=== PATIENT | male | born 1955 | race Caucasian/White ===

== ENCOUNTER 2023-11-12 14:59 | Emergency (ER) | payer MEDICARE, SELFPAY ==
--- NOTE | 2023-11-12 15:03 | ED_ITS ---
HPI - General Adult General Chief complaint: Extremity Injury, Lower Stated complaint: Toe nail removed/diabetic Source: patient Mode of arrival: ambulatory Limitations: no limitations History of Present Illness ED Provider: Cesar STOCK HPI narrative: 68 year old male DM, HLD presenting with concerns of loss of toenail on R. hallux with associated bleeding. Pt woke this morning and his toenail fell off, he denies trauma to the area. No fevers, chills, headache, vision changes, leg pain, nausea, vomiting, abd pain Related Data Previous Rx's ?Medication ?Instructions ?Recorded bacitracin 500 unit/gram topical 1 appl topical Q8H #28 grams 11/12/23 ointment cephalexin 500 mg tablet 500 mg PO Q6H 7 days #28 tabs 11/12/23 Allergies Allergy/AdvReac Type Severity Reaction Status Date / Time No Known Allergies Allergy Verified 11/12/23 15:10 Review of Systems Review of Systems: Yes all other systems are reviewed and are negative PMFSH Past Medical History Attestation statement: The following information was validated with the patient. Source: old records reviewed and nursing notes reviewed Physical Exam ED Vital Signs: vss Appearance: Alert.? Oriented X3.? No acute distress.? Head: Normocephalic, atraumatic, no step-offs or deformities Eyes: Pupils equal, round and reactive to light.? CVS: Normal heart rate and rhythm.? Pulses normal.? Respiratory: No respiratory distress.? Breath sounds normal.? Abdomen: Soft and nontender.? Skin: Skin warm and dry.? Normal skin color.? Normal skin turgor.? Extremities: No lower extremity edema.? No calf ttp. 5/5 strength to bilateral upper and lower extremities. Normal distal sensation to b/l LE. Right great toe w/ nail bed exposed and missing toe nail. Back: No midline tenderness, no C-spine tenderness, full range of motion, no CVA tenderness bilaterally Neuro: Oriented X 3.? No motor deficit.? No sensory deficit. CN 2-12 intact Course Course Course Narrative: This is an RME done by CHLOE Guerrero: Additional HPI, ROS, PE not included below will be deferred to primary provider. 68 year old man presenting with concerns of loss of toenail on R. hallux with associated bleeding. Pt woke this morning and his toenail fell off, he denies trauma to the area. Plan - antibiotics Appearance: Alert.? Oriented X3.? No acute cardiopulmonary distress distress.? Head: Normocephalic, atraumatic, no step-offs or deformities Neck: Normal inspection.? Neck supple.? CVS: Pulses normal.? Respiratory: No respiratory distress.? Abdomen: Soft and nontender.? Skin: ? Normal skin color. Extremities: 5/5 strength to bilateral upper and lower extremities; + missing nail on R hallux Neuro: Oriented X 3.? No motor deficit.? No sensory deficit. Reevaluation(s) Reevaluation #1: Educated patient on diagnosis and treatment plan, answered all question, patient verbalizes understanding. At this time patient will be discharged home, advised to return with new or worsening symptoms. Educated on worrisome signs and symptoms and when to return. At this time I feel comfortable discharge home. Medical Decision Making Medical Decision Making MDM Narrative: 68 year old male presents w/ missing right great toe nail PE - Normal distal sensation to b/l LE. Right great toe w/ nail bed exposed and missing toe nail. Concernes for missing toe nail, nail bed exposure. No signs of infection Plan- Xeroform dressing keep on for 48 hours. follow up with PCP in a week. and PO atbx Differential Diagnosis Differential Diagnoses: The differential diagnosis associated with the presentation includes Concernes for missing toe nail, nail bed exposure. No signs of infection Admission/Observation Consideration of admission/observation: Escalation of care including admission/observation considered unlikely Prescription Management I considered prescription management with: Antibiotic Chronic Conditions Patient?s care impacted by: Diabetes Discharge Plan Discharge Clinical Impression: Avulsion of toenail of right foot Patient Disposition: Home, Self-Care Instructions: Nail Avulsion (ED) Additional Instructions: TAKE YOUR MEDICATIONS PRESCRIBED. IF YOU WERE PRESCRIBED ANTIBIOTICS TODAY, IT IS IMPORTANT THAT YOU TAKE YOUR MEDICATION TO THEIR ENTIRETY, DO NOT SKIP ANY DOSES, DO NOT FINISH THEM EARLY. FOLLOW-UP WITH YOUR PRIMARY CARE PROVIDER THIS WEEK. RETURN TO THE EMERGENCY DEPARTMENT WITH NEW OR WORSENING SYMPTOMS. SUCH FEVE RS, CHILLS, CHEST PAIN, SHORTNESS OF BREATH, NAUSEA, VOMITING, DIZZINESS, HEADACHE, VISION CHANGES, LETHARGY IN CASE OF EMERGENCY CALL 911 Prescriptions: New cephalexin 500 mg tablet 500 mg PO Q6H 7 Days Qty: 28 0RF bacitracin 500 unit/gram ointment 1 appl topical Q8H Qty: 28 0RF Referrals: [facility] [Provider Group] - 1 day ED Physician,Blanca [Emergency Provider] - 2 days Percy Moran MD [Primary Care Provider] -
[2023-11-12 15:04] VITALS: BP 138/56; PULSE 79; RESP 18; TEMP 36.4; O2SAT 94; BMI 48.6
--- OUTSIDE RECORDS SUMMARY | 2023-11-12 15:25 | XMS_ITS | Continuity of Care Document ---
Author Organization [facility] Address [address] [place] [id number]- Care Team Providers Care Speaker Mounter Name Role Phone Brandee-Roseanne ORNELAS, Mojgan Primary Care Physicia n [place] [facility] [place](s): 02/05/20 - 04/23/20 [facility] [address] [place] [address] Attending Physician: Anita BRYANT, Renetta Mckinney Admitting Physician: Anita BRYANT, Renetta Mckinney Referring Physician: Roseanne Savage MD, V Allergies, Adverse Reactions, Alerts Substance Reaction Severity Status NKA Active Medications Aerochamber See Instructions, # 1 each, Maintenance, use with both inhalers., 06/23/18 9:24:00 EDT, Compound Start Date: 06/23/18 Status: Ordered aspirin 81 mg oral delayed release tablet 81 mg, By Mouth, Daily, # 30 tablet, Refills 1, Tot. Refills 1, Maintenance, 11/18/17 15:43:40 EDT,Route to Pharmacy Electronically, [id number], [facility]/pharmacy #[id number] Start Date: 11/18/17 Status: Ordered gabapentin 400 mg oral capsule 300 mg, By Mouth, 3 times a day, Refills 0, Maintenance, 11/18/17 14:24:32 EDT Start Date: 11/18/17 Status: Ordered Insulin LISPRO Inj = 20 units, 3 times a day before meals, 0 Refills, Maintenance, 11/14/17 17:58:12 EDT Start Date: 11/14/17 Status: Ordered Jardiance 10 mg oral tablet 1 tablet = 10 mg, By Mouth, Daily in AM, 0 Refills, Maintenance, 03/31/20 10:42:00 EST, Partial fill upon patient request if the prescription is for a schedule II opioid drug. Start Date: 03/31/20 Status: Ordered lisinopril 10 mg oral tablet 10 mg, 1, tablet, By Mouth, Daily, # 90 tablet, Refills 3, Tot. Refills 3, Maintenance, 03/20/20 22:07:00 EST, Route to Pharmacy Electronically, [facility]/pharmacy #[id number], 182, cm, 01/04/20 14:44:00 EDT, Height Start Date: 03/20/20 Stop Date: 03/15/21 Status: Ordered Metformin = 500 mg, By Mouth, 2 times a day, 0 Refills, Maintenance, 01/04/20 14:47:00 EDT Start Date: 01/04/20 Status: Ordered metoprolol 25 mg oral tablet 25 mg, 1, tablet, By Mouth, 2 times a day, # 180 tablet, Refills 0, Tot. Refills 0, Maintenance, 03/24/20 10:58:00 EST, Route to Pharmacy Electronically, [facility]/pharmacy #[id number], Partial fill upon patientrequest if the prescription is for a schedule II op... Start Date: 03/24/20 Status: Ordered ProAir HFA 90 mcg/inh inhalation aerosol with adapter 2, puffs, Inhalation, Every 4 hours, PRN, # 1 each, Refills 5, Tot. Refills 5, Maintenance, 09/29/18 8:33:00 EDT, Aerosol, Route to Pharmacy Electronically, [id number], [facility]/pharmacy #[id number] Start Date: 09/29/18 Status: Ordered rosuvastatin 10 mg oral tablet 1 tablet = 10 mg, By Mouth, Daily, Maintenance, 02/14/18 15:27:21 EST, Tablet Start Date: 02/14/18 Status: Ordered Symbicort 160mcg/4.5mcg Inhaler 2, puffs, Inhalation, 2 times a day, # 60 puffs, Refills 5, Tot. Refills 5, Maintenance, 12/22/18 11:03:48 EDT, Aerosol, Route to Pharmacy Electronically, [id number], [facility]/pharmacy #2339 Start Date: 12/22/18 Status: Ordered Nikhil HaoStar = 110 units, Subcutaneous Infusion, Daily at bedtime, 0 Refills, Maintenance, 03/31/20 10:41:00 EST, Partial fill upon patient request if the prescription is for a schedule II opioid drug. 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
--- OUTSIDE RECORDS SUMMARY | 2023-11-12 15:25 | XMS_ITS | Continuity of Care Document ---
Author Organization [facility] Address [address] [place] [phone]- Care Team Providers Care Fruit Grader Operator Name Role Phone Brandee-Roseanne ORNELAS, Mojgan Primary Care Physicia n [place] [facility] [place] [facility] [id number] Date(s): 12/25/19 - 01/24/20 [facility] [address] [place] [id number] Attending Physician: AdmTammi malik Admitting Physician: Admtr, Ar8 Referring Physician: Admtr, Ar8 Allergies, Adverse Reactions, Alerts Substance Reaction Severity Status NKA Active Medications Aerochamber See Instructions, # 1 each, Maintenance, use with both inhalers., 06/23/18 9:24:00 EDT, Compound Start Date: 06/23/18 Status: Ordered aspirin 81 mg oral delayed release tablet 81 mg, By Mouth, Daily, # 30 tablet, Refills 1, Tot. Refills 1, Maintenance, 11/18/17 15:43:40 EDT,Route to Pharmacy Electronically, [id number], [facility]/pharmacy #[id number] Start Date: 11/18/17 Status: Ordered fluticasone CFC free 110 mcg/inh inhalation aerosol 2 puffs, Inhalation, 2 times a day, rinse mouth and throat after use, # 1 each, 11 Refills, Maintenance, 12/03/18 15:59:00 EDT, Aerosol, ICD Code J45.30 Start Date: 12/03/18 Status: Ordered gabapentin 400 mg oral capsule 400 mg, By Mouth, 2 times a day, Refills 0, Maintenance, 11/18/17 14:24:32 EDT Start Date: 11/18/17 Status: Ordered insulin glargine 100 u/ml subcutaneous solution = 70 units, Subcutaneous Injection, Daily at bedtime, 0 Refills, Maintenance, 11/18/17 14:24:58 EDT, Injection Start Date: 11/18/17 Status: Ordered Insulin LISPRO Inj See Instructions, Sliding scale with meals, 0 Refills, Maintenance, 11/14/17 17:58:12 EDT Start Date: 11/14/17 Status: Ordered lisinopril 10 mg oral tablet 10 mg, 1, tablet, By Mouth, Daily, # 90 tablet, Refills 0, Tot. Refills 0, Maintenance, 12/25/19 8:16:00 EDT, Route to Pharmacy Electronically, [facility]/pharmacy #[id number], 182, cm, 12/25/19 8:03:00 EDT, Height, 149.5, kg, 02/16/18 10:36:00 EST, Dry Weight Start Date: 12/25/19 Status: Ordered Metformin = 500 mg, By Mouth, 2 times a day, 0 Refills, Maintenance, 01/04/20 14:47:00 EDT Start Date: 01/04/20 Status: Ordered metoprolol 25 mg oral tablet 12.5 mg, By Mouth, 2 times a day, # 60 tablet, Refills 1, Tot. Refills 1, Maintenance, 11/18/17 15:44:15 EDT, Route to Pharmacy Electronically, [id number], [facility]/pharmacy #[id number] Start Date: 11/18/17 Status: Ordered ProAir HFA 90 mcg/inh inhalation aerosol with adapter 2, puffs, Inhalation, Every 4 hours, PRN, # 1 each, Refills 5, Tot. Refills 5, Maintenance, 09/29/18 8:33:00 EDT, Aerosol, Route to Pharmacy Electronically, [id number], [facility]/pharmacy #2339 Start Date: 09/29/18 Status: Ordered rosuvastatin 10 mg oral tablet 1 tablet = 10 mg, By Mouth, Daily, Maintenance, 02/14/18 15:27:21 EST, Tablet Start Date: 02/14/18 Status: Ordered Symbicort 160mcg/4.5mcg Inhaler 2, puffs, Inhalation, 2 times a day, # 60 puffs, Refills 5, Tot. Refills 5, Maintenance, 12/22/18 11:03:48 EDT, Aerosol, Route to Pharmacy Electronically, [id number], [facility]/pharmacy #2339 Start Date: 12/22/18 Status: Ordered Problem List Condition Effective Dates [...]
--- OUTSIDE RECORDS SUMMARY | 2023-11-12 15:25 | XMS_ITS | Continuity of Care Document ---
Author Organization [facility] Address [address] [address]- Care Team Providers Care Child Day Care Teacher Name Role Phone [place]-Roseanne ORNELAS, Mojgan Primary Care Physicia n En[place] [facility] [place] Date(s): 05/19/19 - 05/29/19 [facility] [address] [address]- [facility] Attending Physician: Tammi Padgett Admitting Physician: AdmTammi malik Referring Physician: AdmtrTammi Allergies, Adverse Reactions, Alerts Substance Reaction Severity Status NKA Active Medications Aerochamber See Instructions, # 1 each, Maintenance, use with both inhalers., 06/23/18 9:24:00 EDT, Compound Start Date: 06/23/18 Status: Ordered aspirin 81 mg oral delayed release tablet 81 mg, By Mouth, Daily, # 30 tablet, Refills 1, Tot. Refills 1, Maintenance, 11/18/17 15:43:40 EDT,Route to Pharmacy Electronically, [id number], [facility]/pharmacy #[id number] Start Date: 11/18/17 Status: Ordered fluticasone [...] 17:58:12 EDT Start Date: 11/14/17 Status: Ordered lidocaine 5% topical film 1 patch, Topically, Daily, remove patches after 12 hours, # 14 patch, 0 Refills, Maintenance, 02/06/19 15:05:37 EST Start Date: 02/06/19 Status: Ordered lisinopril 5 mg oral tablet 5 mg, 1, tablet, By Mouth, Daily, # 30 tablet, Refills 0, Maintenance, 12/18/17 14:57:57 EDT Start Date: 12/18/17 Status: Ordered metoprolol 25 mg oral tablet 12.5 mg, By Mouth, 2 times a day, # 60 tablet, Refills 1, Tot. Refills 1, Maintenance, 11/18/17 15:44:15 EDT, Route to Pharmacy Electronically, [id number], [facility]/pharmacy #[id number] Start Date: 11/18/17 Status: Ordered ProAir HFA 90 mcg/inh inhalation aerosol with adapter 2, puffs, Inhalation, Every 4 hours, PRN, # 1 each, Refills 5, Tot. Refills 5, Maintenance, 09/29/18 8:33:00 EDT, Aerosol, Route to Pharmacy Electronically, [id number], [facility]/pharmacy #2339 Start Date: 09/29/18 Status: Ordered rosuvastatin 10 mg oral tablet 1 tablet = 10 mg, By Mouth, Daily, Maintenance, 02/14/18 15:27:21 EST, Tablet Start Date: 02/14/18 Status: Ordered Symbicort 160mcg/4.5mcg Inhaler 2, puffs, Inhalation, 2 times a day, # 60 puffs, Refills 5, Tot. 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
--- OUTSIDE RECORDS SUMMARY | 2023-11-12 15:25 | XMS_ITS | Continuity of Care Document ---
Author Organization [facility] Address [address] [place] [phone]- Care Team Providers Care Service Station Console Operator Name Role Phone Brandee-Roseanne ORNELAS, Mojgan Primary Care Physicia n Encounter [facility] [place] Date(s): 03/29/20 - 04/28/20 [facility] [address] [place] [place] [id number] Allergies, Adverse Reactions, Alerts Substance Reaction Severity Status NKA Active Medications Aerochamber See Instructions, # 1 each, Maintenance, use with both inhalers., 06/23/18 9:24:00 EDT, Compound Start Date: 06/23/18 Status: Ordered aspirin 81 mg oral delayed release tablet 81 mg, By Mouth, Daily, # 30 tablet, Refills 1, Tot. Refills 1, Maintenance, 11/18/17 15:43:40 EDT,Route to Pharmacy Electronically, [id number], [facility]/pharmacy #[id number] Start Date: 11/18/17 Status: Ordered gabapentin 400 [...] 03/20/20 22:07:00 EST, Route to Pharmacy Electronically, [facility]/pharmacy #[id number], 182, cm, 01/04/20 14:44:00 EDT, Height [...] 03/24/20 10:58:00 EST, [id number] fill upon patientrequest if the prescription is for a schedule II op... Start Date: 03/24/20 Status: Ordered ProAir HFA 90 mcg/inh inhalation aerosol with adapter 2, puffs, Inhalation, Every 4 hours, PRN, # 1 each, Refills 5, Tot. Refills 5, Maintenance, 09/29/18 8:33:00 EDT, Aerosol, Route to Pharmacy Electronically, [id number], [facility]/pharmacy #2339 Start Date: 09/29/18 Status: Ordered rosuvastatin 10 mg oral tablet 1 tablet = 10 mg, By Mouth, Daily, Maintenance, 02/14/18 15:27:21 EST, Tablet Start Date: 02/14/18 Status: Ordered Symbicort 160mcg/4.5mcg Inhaler 2, puffs, Inhalation, 2 times a day, # 60 puffs, Refills 5, Tot. Refills 5, Maintenance, 12/22/18 11:03:48 EDT, Aerosol, Route to Pharmacy Electronically, [id number], [facility]/pharmacy #2339 Start Date: 12/22/18 Status: Ordered Toujeo Max SoloStar = 110 units, Subcutaneous Infusion, Daily at [...]
--- OUTSIDE RECORDS SUMMARY | 2023-11-12 15:25 | XMS_ITS | Continuity of Care Document ---
Author Organization [facility] Address [address] [place] [id number]- Care Team Providers Care Proposal Manager Name Role Phone [place]-Roseanne ORNELAS, Mojgan Primary Care Physicia n [place] [facility] [place] [id number] Date(s): 12/23/20 - 01/22/21 [facility] [address] [place] [address]- Attending Physician: Tammi Padgett Admitting Physician: AdmTammi malik Referring Physician: AdmtrTammi Allergies, Adverse Reactions, Alerts Substance Reaction Severity Status NKA Active Immunizations Given and Recorded Vaccine Date Status Refusal Reason SARS-CoV-2 (COVID-19) mRNA-1273 vaccine 01/12/21 R ecorded Zoster Vaccine Live 01/06/21 Recorded influenza virus vaccine, inactivated 12/28/20 David rded Medications Aerochamber See Instructions, # 1 each, Maintenance, use with both inhalers., 06/23/18 9:24:00 EDT, Compound Start Date: 06/23/18 Status: Ordered aspirin 81 mg oral delayed release tablet 81 mg, By Mouth, Daily, # 30 tablet, Refills 1, Tot. Refills 1, Maintenance, 11/18/17 15:43:40 EDT,Route to Pharmacy Electronically, [id number], [facility]/pharmacy #[id number] Start Date: 11/18/17 Status: Ordered Cyclobenzaprine By Mouth, 0 Refills, Maintenance, 12/23/20 8:32:00 EDT, Partial fill upon patient request if the prescription is for a schedule II opioid drug. Start Date: 12/23/20 Status: Ordered gabapentin 100 mg oral capsule 100 mg, 1, capsule, By Mouth, 3 times a day, # 90 capsule, Refills 0, Maintenance, 12/23/20 8:31:00EDT, Partial fill upon patient request if the prescription is for a schedule II opioid drug. Start Date: 12/23/20 Status: Ordered Insulin LISPRO Inj = 20 [...] drug. Start Date: 03/31/20 Status: Ordered lisinopril 20 mg oral tablet 20 mg, 1, tablet, By Mouth, Daily, # 90 tablet, Refills 3, Tot. Refills 3, Maintenance, 12/23/20 8:36:00 EDT, Print Requisition, Partial fill upon patient request if the prescription is for a schedule II opioid drug. Start Date: 12/23/20 Status: Ordered Metformin = 500 mg, By Mouth, 2 times a day, 0 Refills, Maintenance, 01/04/20 14:47:00 EDT Start Date: 01/04/20 Status: Ordered Metoprolol Tartrate 25 mg oral tablet 1 tablet, By Mouth, 2 times a day, # 180 tablet, 0 Refills, Maintenance, 06/29/20 7:50:00 EDT, [id number], 182.88, cm, 04/13/20 6:45:00 EST, Height, 158, kg, 04/13/20 6:45:00 EST, Dry Weight Start Date: 06/29/20 Status: Ordered ProAir HFA 90 mcg/inh inhalation aerosol with adapter 2, puffs, Inhalation, Every 4 hours, PRN, # 1 each, Refills 5, Tot. Refills 5, Maintenance, 09/29/18 8:33:00 EDT, Aerosol, Route to Pharmacy Electronically, [id number], [facility]/pharmacy #[id number] Start Date: 09/29/18 Status: Ordered rosuvastatin 10 mg oral tablet 1 tablet = 10 mg, By Mouth, Daily, Maintenance, 02/14/18 15:27:21 EST, Tablet Start Date: 02/14/18 Status: Ordered Symbicort 160mcg/4.5mcg Inhaler 2, puffs, Inhalation, 2 times a day, # 60 puffs, Refills 5, Tot. Refills 5, Maintenance, 12/22/18 11:03:48 EDT, Aerosol, Route to Pharmacy Electronically, [id number], [facility]/pharmacy #2339 Start Date: 12/22/18 Status: Ordered Nikhil Max SoloStar = 110 units, Subcutaneous Infusion, Daily at bedtime, 0 Refills, Maintenance, 03/31/20 10:41:00 EST, Partial fill upon patient request if the prescription is for a schedule II opioid drug. Start Date: 03/31/20 Status: Ordered Trulicity Pen Subcutaneous Infusion, 0 Refills, Maintenance, 12/23/20 8:31:00 EDT, Partial fill upon patient request if the prescription is for a schedule II opioid drug. 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
--- OUTSIDE RECORDS SUMMARY | 2023-11-12 15:25 | XMS_ITS | Continuity of Care Document ---
Author Organization [facility] Address [address] [place] [address]- Care Team Providers Care Certified Scrub Tech Name Role Phone Tyler ORNELAS, Mojgan Primary Care Physicia n [place] [facility] [place]20 [facility] [address] [address] [place] Allergies, Adverse Reactions, Alerts Substance Reaction Severity Status NKA Active Medications Aerochamber See Instructions, # 1 each, Maintenance, use with both inhalers., 06/23/18 9:24:00 EDT, Compound Start Date: 06/23/18 Status: Ordered aspirin 81 mg oral delayed release tablet 81 mg, By Mouth, Daily, # 30 tablet, Refills 1, Tot. Refills 1, Maintenance, 11/18/17 15:43:40 EDT,Route to Pharmacy Electronically, [id number], [facility]/pharmacy #[id number] Start Date: 11/18/17 Status: Ordered fluticasone CFC [...] 12/25/19 8:16:00 EDT, Route to Pharmacy Electronically, [facility]/pharmacy #[id number], 182, cm, 12/25/19 8:03:00 EDT, Height, [...] 11/18/17 15:44:15 EDT, Route to Pharmacy Electronically, [id number], [facility]/pharmacy #[id number] Start Date: 11/18/17 Status: Ordered ProAir HFA 90 mcg/inh inhalation aerosol with adapter 2, puffs, Inhalation, Every 4 hours, PRN, # 1 each, Refills 5, Tot. Refills 5, Maintenance, 09/29/18 8:33:00 EDT, Aerosol, Route to Pharmacy Electronically, [id number], [facility]/pharmacy #[id number] Start Date: 09/29/18 Status: Ordered rosuvastatin 10 mg oral tablet 1 tablet = 10 mg, By Mouth, Daily, Maintenance, 02/14/18 15:27:21 EST, Tablet Start Date: 02/14/18 Status: Ordered Symbicort 160mcg/4.5mcg Inhaler 2, puffs, Inhalation, 2 times a day, # 60 puffs, Refills 5, Tot. Refills 5, Maintenance, 12/22/18 11:03:48 EDT, Aerosol, Route to Pharmacy Electronically, [id number], [facility]/pharmacy #[id number] Start Date: 12/22/18 Status: Ordered Problem [...]
--- OUTSIDE RECORDS SUMMARY | 2023-11-12 15:25 | XMS_ITS | Continuity of Care Document ---
Author Organization [facility] Address [address] [place] [address]- Care Team Providers Care Quality Assurance Group Leader Name Role Phone Brandee-Roseanne ORNELAS, Mojgan Primary Care Physicia n [place] [facility] [place] 03/21/20 - 04/20/20 [facility] [address] [place] [address] Allergies, Adverse Reactions, Alerts Substance Reaction Severity Status NKA Active Medications Aerochamber See Instructions, # 1 each, Maintenance, use with both inhalers., 06/23/18 9:24:00 EDT, Compound Start Date: 06/23/18 Status: Ordered aspirin 81 mg oral delayed release tablet 81 mg, By Mouth, Daily, # 30 tablet, Refills 1, Tot. Refills 1, Maintenance, 11/18/17 15:43:40 EDT,Route to Pharmacy Electronically, [id number], [facility]/pharmacy #[id number] Start Date: 11/18/17 Status: Ordered gabapentin 400 [...] 03/20/20 22:07:00 EST, Route to Pharmacy Electronically, [facility]/pharmacy #[id number], 182, cm, 01/04/20 14:44:00 EDT, Height [...] 03/24/20 10:58:00 EST, [id number] fill upon patientrequest if the prescription is for a schedule II op... Start Date: 03/24/20 Status: Ordered ProAir HFA 90 mcg/inh inhalation aerosol with adapter 2, puffs, Inhalation, Every 4 hours, PRN, # 1 each, Refills 5, Tot. Refills 5, Maintenance, 09/29/18 8:33:00 EDT, Aerosol, Route to Pharmacy Electronically, [id number], [facility]/pharmacy #[id number] Start Date: 09/29/18 Status: Ordered rosuvastatin 10 mg oral tablet 1 tablet = 10 mg, By Mouth, Daily, Maintenance, 02/14/18 15:27:21 EST, Tablet Start Date: 02/14/18 Status: Ordered Symbicort 160mcg/4.5mcg Inhaler 2, puffs, Inhalation, 2 times a day, # 60 puffs, Refills 5, Tot. Refills 5, Maintenance, 12/22/18 11:03:48 EDT, Aerosol, Route to Pharmacy Electronically, [id number], [facility]/pharmacy #[id number] Start Date: 12/22/18 Status: Ordered Toujeo [...]
--- OUTSIDE RECORDS SUMMARY | 2023-11-12 15:25 | XMS_ITS | Continuity of Care Document ---
Author Organization [facility] Address [address] [place] [address]- Care Team Providers Care Stone Finisher Name Role Phone [place]-Roseanne ORNELAS, Mojgan Primary Care Physicia n [place] [facility] [place] [id number] Date(s): 03/07/22 - 04/06/22 [facility] [address] [place] [address]- Attending Physician: Tammi Padgett Admitting Physician: Tammi Padgett Referring Physician: AdmtrTammi Allergies, Adverse Reactions, Alerts No Known Allergies Immunizations Given and Recorded Vaccine Date Status [...] Maintenance, 11/18/17 15:43:40 EDT,Route to Pharmacy Electronically, [id number], [facility]/pharmacy #[id number] Start Date: 11/18/17 Status: Ordered Cyclobenzaprine By [...] drug. Start Date: 03/31/20 Status: Ordered lisinopril 30 mg oral tablet 1 tablet = 30 mg, By Mouth, Daily, # 90 tablet, 0 Refills, Maintenance, 03/07/22 8:37:00 EST, Tablet, [facility]/pharmacy #[id number], Partial fill upon patient request if the prescription is for a schedule II opioid drug., 182.88, cm, 03/07/22 8:26:00 EST, Height... Start Date: 03/07/22 Status: Ordered Metformin = 500 mg, By Mouth, 2 times a day, 0 Refills, Maintenance, 01/04/20 14:47:00 EDT Start Date: 01/04/20 Status: Ordered Metoprolol Tartrate 25 mg oral tablet 1 tablet, By Mouth, 2 times a day, # 180 tablet, 0 Refills, Maintenance, 06/29/20 7:50:00 EDT, [facility]ORE [id number], 182.88, cm, 04/13/20 6:45:00 EST, Height, 158, kg, 04/13/20 6:45:00 EST, Dry Weight Start Date: 06/29/20 Status: Ordered ProAir HFA 90 mcg/inh inhalation aerosol with adapter 2, puffs, Inhalation, Every 4 hours, PRN, # 1 each, Refills 5, Tot. Refills 5, Maintenance, 09/29/18 8:33:00 EDT, Aerosol, Route to Pharmacy Electronically, [id number], [facility]/pharmacy #2330 Start Date: 09/29/18 Status: Ordered rosuvastatin 10 mg oral tablet 1 tablet = 10 mg, By Mouth, Daily, Maintenance, 02/14/18 15:27:21 EST, Tablet Start Date: 02/14/18 Status: Ordered Symbicort 160mcg/4.5mcg Inhaler 2, puffs, Inhalation, 2 times a day, # 60 puffs, Refills 5, Tot. Refills 5, Maintenance, 12/22/18 11:03:48 EDT, Aerosol, Route to Pharmacy Electronically, [id number], [facility]/pharmacy #[id number] Start Date: 12/22/18 Status: Ordered Tourusselo Max SoloStar = 110 units, Subcutaneous Infusion, [...] Date: 12/23/20 Status: Ordered Problem List Condition Confirmation Course Effective Dates Status Health Status Informant Asthma Confirmed Active CAD in [place] artery Confirmed Active Diabetes Confirmed Active Dyspnea Confirmed Active Personal history of sudden cardiac arrest Confirmed Active Status post myocardial infarction of anterior wall Confirmed Active Hypercholesteremia Confirmed Active Hypertension Confirmed Active LV dysfunction Confirmed Active Obesity Confirmed Active Severe obesity Confirmed Active Sleep apnea syndrome Confirmed Active Social History Social History Type Response Smoking Status Never smoker entered on: 11/27/17 Sex Note * Event Display: EKG Non BH Authored Date: Patient Care team information Care Team Personnel Name: Mojgan Scott MD Position: [facility] Primary Care Physician Member Role: PCP Address: Address: [address] [place] [address] [place] [address]- Name: Mariela Grant Position: [facility] Outreach Member Role: Lifetime Consulting Physician Care Team Related Persons Name: ATIYA DU Address: [address] [place] [address] Name: KAIN DU Address: [address] [place] [address]
--- OUTSIDE RECORDS SUMMARY | 2023-11-12 15:25 | XMS_ITS | Continuity of Care Document ---
Author Organization [facility] Address [address] [place] [address]- Care Team Providers Care Political Geographer Name Role Phone [place]-Roseanne ORNELAS, Mojgan Primary Care Physicia n Encounter [facility] [place] Date(s): 02/22/23 - 03/24/23 [facility] [address] [place] [address]- Attending Physician: Tammi Padgett Admitting Physician: Tammi [...] Maintenance, 11/18/17 15:43:40 EDT,Route to Pharmacy Electronically, [id number], [facility]/pharmacy #[id number] Start Date: 11/18/17 Status: Ordered Cyclobenzaprine By [...] opioid drug. Start Date: 12/23/20 Status: Ordered Humalog Kwik Pen 100 units/mL subcutaneous injection See Instructions, Subcutaneous Infusion, 3 times a day before meal 150 - 199 2 units 200 - 249 4 units, 250 - 299 6 units, 300 - 349 8 units, 350 - 399 10 units, # 3 each, 5 Refills, Maintenance, 12/30/22 9:36:00 EDT, Partial fill upon... Start Date: 12/30/22 Stop Date: 01/29/23 Status: Ordered Jardiance 10 mg oral tablet 1 tablet = 10 mg, By Mouth, Daily in AM, 0 Refills, Maintenance, 03/31/20 10:42:00 EST, Partial fill upon patient request if the prescription is for a schedule II opioid drug. Start Date: 03/31/20 Status: Ordered Lantus Inj 0.8 mL = 80 units, Subcutaneous Injection, Daily at bedtime, 0 Refills, Maintenance, 12/30/22 9:34:00 EDT, Injection, Partial fill upon patient request if the prescription is for a schedule II opioiddrug. Start Date: 12/30/22 Status: Ordered lisinopril 30 mg oral tablet 1 tablet, By Mouth, Daily, # 90 tablet, 0 Refills, Maintenance, 11/23/22 11:13:00 EDT, [id number], 182.88, cm, 03/07/22 8:26:00 EST, Height Start Date: 11/23/22 Status: Ordered lisinopril 30 mg oral tablet 1 tablet, By Mouth, Daily, # 90 tablet, 3 Refills, Maintenance, 02/20/23 7:45:00 EST, [facility] [id number], 183, cm, 12/30/22 7:47:00 EDT, Height, 158, kg, 12/29/22 15:22:00 EDT, Dry Weight Start Date: 02/20/23 Status: Ordered Metformin = 500 mg, By Mouth, 2 times a day, 0 Refills, Maintenance, 01/04/20 14:47:00 EDT Start Date: 01/04/20 Status: Ordered Metoprolol Tartrate 25 mg oral tablet 1 tablet, By Mouth, 2 times a day, # 180 tablet, 0 Refills, Maintenance, 06/29/20 7:50:00 EDT, [facility] ST[facility] [id number], 182.88, cm, 04/13/20 6:45:00 EST, Height, 158, kg, 04/13/20 6:45:00 EST, Dry Weight Start Date: 06/29/20 Status: Ordered ProAir HFA 90 mcg/inh inhalation aerosol with adapter 2, puffs, Inhalation, Every 4 hours, PRN, # 1 each, Refills 5, Tot. Refills 5, Maintenance, 09/29/18 8:33:00 EDT, Aerosol, Route to Pharmacy Electronically, [id number], [facility]/pharmacy #[id number] Start Date: 09/29/18 Status: Ordered rosuvastatin 10 mg oral tablet 1 tablet = 10 mg, By Mouth, Daily, Maintenance, 02/14/18 15:27:21 EST, Tablet Start Date: 02/14/18 Status: Ordered Symbicort 160mcg/4.5mcg Inhaler 2, puffs, Inhalation, 2 times a day, # 60 puffs, Refills 5, Tot. Refills 5, Maintenance, 12/22/18 11:03:48 EDT, Aerosol, Route to Pharmacy Electronically, [id number], [facility]/pharmacy #[id number] Start Date: 12/22/18 Status: Ordered Trulicity Pen Subcutaneous Infusion, 0 Refills, Maintenance, 12/23/20 8:31:00 EDT, Partial fill upon patient request if the prescription is for a schedule II opioid drug. 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 Hypercholesteremia Confirmed Active Hypertension Confirmed Active LV dysfunction Confirmed Active Obesity Confirmed Active Severe obesity Confirmed Active Sleep apnea syndrome Confirmed Active Social History Social History Type Response Smoking Status Never smoker entered on: 11/27/17 Sex Cardiology * Event Display: EKG Non Authored Date: Patient Care team information Care Team Personnel Name: Mojgan Scott MD Position: [facility] Physician - Primary Care Member Role: PCP Address: Address: [address] [place] [address] [place] [address]- Name: Mariela Grant Position: [facility] Outreach Member Role: Lifetime Consulting Physician Name: Parvin Zimmer RN Position: [facility] RN Member Role: Primary Care Nurse Care Team Related Persons Name: ATIYA DU Address: [place] [address] Name: KAIN DU Address: home [address] [place] [address]
--- OUTSIDE RECORDS SUMMARY | 2023-11-12 15:25 | XMS_ITS | Continuity of Care Document ---
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 Name Role Phone Percy Moran MD Primary Care Physician Encounter [facility] Date(s): 12/29/22 - 12/30/[address] [address]- Encounter Diagnosis Hypoglycemia(Final) - 12/29/22 Uncontrolled diabetes mellitus with hypoglycemia(Final) - 12/29/22 Discharge Disposition: A-D/C Home Attending Physician: Adeola Padgett MD Admitting Physician: George Gutierrez MD Referring Physician: Not on Staff, Referring MD Allergies, Adverse Reactions, Alerts No Known Allergies [...] Maintenance, 11/18/17 15:43:40 EDT,Route to Pharmacy Electronically, [id number], [facility]/pharmacy #[id number] Start Date: 11/18/17 Status: Ordered Cyclobenzaprine By [...] drug. Start Date: 12/23/20 Status: Ordered gabapentin 300 mg oral capsule 900 mg, Capsule, By Mouth, 12/30/22 9:00:00 EDT Start Date: 12/30/22 Stop Date: 12/30/22 Status: Completed Humalog Kwik Pen 100 units/mL subcutaneous injection [...] opioiddrug. Start Date: 12/30/22 Status: Ordered lisinopril 10 mg oral tablet 30 mg, Tablet, By Mouth, 12/30/22 9:00:00 EDT Start Date: 12/30/22 Stop Date: 12/30/22 Status: Completed lisinopril 30 mg oral tablet 1 tablet, By Mouth, Daily, # 90 tablet, 0 Refills, Maintenance, 11/23/22 11:13:00 EDT, [facility] STORE [id number], 182.88, cm, 03/07/22 8:26:00 EST, Height Start Date: 11/23/22 Status: Ordered Metformin = 500 mg, By Mouth, 2 times a day, 0 Refills, Maintenance, 01/04/20 14:47:00 EDT Start Date: 01/04/20 Status: Ordered Metoprolol Tartrate 25 mg oral tablet 1 tablet, By Mouth, 2 times a day, # 180 tablet, 0 Refills, Maintenance, 06/29/20 7:50:00 EDT, [facility] STORE [id number], 182.88, cm, 04/13/20 6:45:00 EST, Height, 158, kg, 04/13/20 6:45:00 EST, Dry Weight Start Date: 06/29/20 Status: Ordered ProAir HFA 90 mcg/inh inhalation aerosol with adapter 2, puffs, Inhalation, Every 4 hours, PRN, # 1 each, Refills 5, Tot. Refills 5, Maintenance, 09/29/18 8:33:00 EDT, Aerosol, Route to Pharmacy Electronically, [id number], [facility]/pharmacy #[id number] Start Date: 09/29/18 Status: Ordered rosuvastatin 10 mg oral tablet 1 tablet = 10 mg, By Mouth, Daily, Maintenance, 02/14/18 15:27:21 EST, Tablet Start Date: 02/14/18 Status: Ordered Symbicort 160mcg/4.5mcg Inhaler 2, puffs, Inhalation, 2 times a day, # 60 puffs, Refills 5, Tot. Refills 5, Maintenance, 12/22/18 11:03:48 EDT, Aerosol, Route to Pharmacy Electronically, [id number], [facility]/pharmacy #[id number] Start Date: 12/22/18 Status: Ordered Toprol XL 25 mg oral tablet, extended release 25 mg, XL Tablet, By Mouth, 12/30/22 9:00:00 EDT Start Date: 12/30/22 Stop Date: 12/30/22 Status: Completed Trulicity Pen Subcutaneous Infusion, 0 Refills, Maintenance, 12/23/20 8:31:00 EDT, Partial fill upon patient request if the prescription is for a schedule II opioid drug. 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 Diabetes Confirmed Active Dyspnea Confirmed Active Personal history of sudden cardiac arrest Confirmed Active Status post myocardial infarction of anterior wall Confirmed Active Hypercholesteremia Confirmed Active Hypertension Confirmed Active LV dysfunction Confirmed Active Obesity Confirmed Active Severe obesity Confirmed Active Sleep apnea syndrome Confirmed Active Results Orders for Microbiology Reports Name Date Blood Culture 12/29/22 Blood Culture #2 12/29/22 Microbiology Reports TEST:Blood Culture STATUS:Unauthenticated BODY SITE: SOURCE:Blood COLLECTED DATE/TIME:12/29/22 2:51 AM Blood Culture SPECIMEN DESCRIPTION : BLOOD LA SPECIAL REQUESTS : NONE CULTURE : NO GROWTH AFTER 24 HOURS REPORT STATUS : PRELIMINARY REPORT TEST:Blood Culture, Second Order STATUS:Unauthenticated BODY SITE: SOURCE:Blood COLLECTED DATE/TIME:12/29/22 2:51 AM Blood Culture, Second Order SPECIMEN DESCRIPTION : BLOOD RA SPECIAL REQUESTS : NONE CULTURE : NO GROWTH AFTER 24 HOURS REPORT STATUS : PRELIMINARY REPORT Vital Signs Most recent to oldest [Reference Range]: 1 2 3 Height 183 cm (12/30/22 7:47 AM) 183 cm (12/30/22 4:49 AM) 183 cm (12/29/22 11:34 PM) Weight 158 kg (12/29/22 8:00 AM) Oxygen Saturation [94-100 %] 95 % (12/30/22 7:47 AM) 95 % (12/30/22 4:49 AM) 96 % (12/29/22 11:34 PM) Pulse Rate [55-90 bpm] 79 bpm (12/30/22 8:50 AM) 79 bpm (12/30/22 7:47 AM) 69 bpm (12/30/22 4:49 AM) Body Mass Index [18.5-24.99 kg/m2] 47.18 kg/m2 *>HHI* (12/29/22 8:00 AM) Blood Pressure [90-138/55-84 mm Hg] 132/65mm Hg (12/30/22 8:50 AM) 132/65mm Hg (12/30/22 8:50 AM) 132/65mm Hg (12/30/22 7:47 AM) Respiratory Rate [16-30 br/min] 18 br/min (12/30/22 8:50 AM) 18 br/min (12/30/22 7:47 AM) 18 br/min (12/30/22 4:49 AM) Temperature [96.8-100.4 DegF] 98.0 DegF (12/30/22 7:47 AM) 98.1 DegF (12/30/22 4:49 AM) 98.1 DegF (12/29/22 11:34 PM) Mode of Delivery (Oxygen) Room air (12/30/22 7:47 AM) Room air (12/30/22 4:49 AM) Room air (12/29/22 11:34 PM) Blood pressure sites Arm, right (12/30/22 7:47 AM) Arm, right (12/30/22 4:49 AM) Arm, right (12/29/22 11:34 PM) Temperature Route Oral (12/30/22 7:47 AM) Oral (12/30/22 4:49 AM) Oral (12/29/22 11:34 PM) Dry Weight 158 kg (12/29/22 8:00 AM) Social History Social History Type Response Smoking Status Never smoker entered on: 11/27/17 Sex Admission evaluation note * Kathryn ORNELAS, Arcadio: PERFORM Event Display: Admission Note Authored Date: [id number] Patient: ??YVES DU ? Age:??67 Years?Sex:??Male?:??1955?? Chief Complaint/Reason for Consultation Pt from home, noticed pt to be going in and out of consciousness, POC 24 at home, pt drank jordan fuentes, increased to 60s, and now 97 for EMS on arrival. History of Present Illness 66-year-old male patient with history of type 2 diabetes mellitus???insulin- dependent, CAD, hypertension, hyperlipidemia, morbid obesity, LING who presented to [facility] emergency room with complaints of hypoglycemia.?? Patient says that he is currently on long-acting insulin 130 unitsat night which he received last night.?? He was not feeling well last night and he was dizzy and lightheaded and was going in and out of consciousness and called carrier loader and his sugar was 24.?? After receiving dextrose and 2 sodas his glucose improved to 115 and patient reports that he has had multiple hypoglycemia episodes throughout the day.?? Denies any recent decrease in appetite or weight loss.?? Denies any cardiac, respiratory, abdominal or urinary symptoms.?? Denies any fever.?? Accompaniedby .?? Patient is full code. ?? On review of vitals, normotensive blood pressure, afebrile, saturation 96% on room air, heart rate in 70s and 60s, on review of labs???White count of 13.8, hemoglobin 14.9, platelets 182, sodium 142, potassium 4.4, creatinine 1.0, most recent POC glucose 265, TSH 1.51 Review of Systems Positive for weakness, dizziness,??waxing and waning??consciousness at home.?? Symptoms resolved after resolution of??hypoglycemia.?? Denies any chest pain, URI symptoms,??shortness of breath??or abdominal symptoms. Objective ? Vital Signs?? Temperature: 97.8 DegF (12/29/22:09:) Temperature Route: Oral (12/29/22::) Pulse Rate: 78 bpm (12/29/22::00) Respiratory Rate: 18 br/min (12/29/22::) Systolic Blood Pressure: 136 mm Hg (12/29/22:) Diastolic Blood Pressure: 70 mm Hg (12/29/22::) Blood pressure sites: Arm, right (12/29/22:09:) Mean Arterial Pressure: 92 mm Hg (12/29/22::) Pulse Pressure: 66 mm Hg (12/29/22::) Oxygen Saturation: 96 % (12/29/22::) Mode of Delivery (Oxygen): Room air (12/29/22:09:) Early Warning Score: 2 (12/29/22:09:30) ? Pain Scores?? No qualifying data available. ? Intake/Output? No Data Available ? Physical Exam ?? General appearance- alert, cooperative, no distress, appears stated age, oriented to time, placeand person, Head- Normocephalic, without obvious abnormality, atraumatic Eyes-conjunctivae/corneas clear. PERRL, EOM's intact. Nose- Nares normal. Septum midline. Mucosa normal. No drainage or sinus tenderness. Throat-Lips, mucosa, and tongue normal. Neck- supple, symmetrical, trachea midline, no adenopathy, thyroid: not enlarged, symmetric, no tenderness/mass/nodules, no carotid bruit and no JVD Back- symmetric, no curvature.?? No CVA tenderness Lungs-??clear to auscultation bilaterally Chest wall- no tenderness, no skin rash or lesions or bruising, no crepitance Heart- regular rate and rhythm, S1, S2 normal, no click, rub or gallop Abdomen-??soft, non-tender. Bowel sounds normal. No masses,?? No organomegaly Extremities- extremities normal, atraumatic, no cyanosis or edema, warm and well perfused. Muscle tone is normal and equal bilaterally Pulses- 2+ and symmetric on dorsal pedal pulses, posterior tibial pulses, radial pulses Skin- Skin color, texture, turgor normal. Neurologic- Normal, nonfocal, no focal weakness ?? Assessment/Plan ? Hypoglycemia in a patient with history of type 2 diabetes???insulin-dependent Check POC glucose every 4 hours Low-dose insulin sign scale Hypoglycemia pathway in place Decreasing Lantus to 80 units at night Holding metformin Patient says that he does not take Jardiance or Trulicity. ??Needs further confirmation with pharmacy ?? History of asthma Albuterol as needed Switching Symbicort to Breo ?? Hyperlipidemia Continue statin ?? Hypertension Continue metoprolol and lisinopril Awaiting further confirmation of dose with pharmacy ?? LING NIPPV at night ?? CAD Continue aspirin, beta-franklyn and statin ?? DVT prophylaxis???heparin subcu ?? Diet???cardiac/diabetic ?? CODE STATUS???full code ?? Arcadio Peralta MD [facility] Medicine Date-December 29, 2022.?? Patient??seen??at??9:45 AM ?? IMPORTANT: This document was created by voice recognition software. A conscious effort has been made to improve accuracy of the preschool teacher aide. Any obvious errors or omissions should be clarified with the authorof this document. ? Histories Allergies Allergies ?(Active and Proposed Allergies Only) NKA? (Severity: Unknown severity, Onset: Unknown) ? 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 Past Surgical History No surgery history documented. ? Social History Alcohol Details:??Use: Never. Employment/School Details:??Status: Retired. Exercise Details:??Self assessment: Fair condition. Home/Environment Details:??Living situation: Home/Independent. ??Lives with: Children, Spouse. Nutrition/Health Details:??Diet: Low sodium. ??Other: heart healthy. Substance Abuse Details:??Use: Never. Tobacco Details:??Never smoker ? Psychosocial History ? Family History Sister: Cancer of breast ? Travel History Travel Outside [facility]: No Travel Outside [facility]: No ?? Medications Home Medications Albuterol (ProAir HFA 90 mcg/inh inhalation aerosol with adapter)?2?puff(s)?Inhalation?Every 4 hours?as needed?for wheezing Aspirin (aspirin 81 mg oral delayed release tablet)?81?Milligram?By Mouth?Daily Budesonide-Formoterol (Symbicort 160mcg/4.5mcg Inhaler)?2?puff(s)?Inhalation?2 times a day Cyclobenzaprine?By Mouth dulaglutide (Trulicity Pen)?Subcutaneous Infusion Durable Medical Equipment (Aerochamber)?See Instructions?use with both inhalers. empagliflozin (Jardiance 10 mg oral tablet)?1?tab(s)?10?Milligram?By Mouth?Daily in AM Gabapentin (gabapentin 100 mg oral capsule)?100?Milligram?1?capsule?By Mouth?3 times a day Insulin Glargine (Toujeo Max SoloStar)?110?unit(s)?Subcutaneous Infusion?Daily at bedtime Insulin Lispro (Insulin LISPRO Inj)?20?unit(s)?3 times a day before meals Lisinopril (lisinopril 30 mg oral tablet)?1?tab(s)?By Mouth?Daily Metformin?500?Milligram?By Mouth?2 times a day Metoprolol (Metoprolol Tartrate 25 mg oral tablet)?1?tab(s)?By Mouth?2 times a day Rosuvastatin (rosuvastatin 10 mg oral tablet)?1?tab(s)?10?Milligram?By Mouth?Daily ? Results Recent Labs BLOOD COUNT & DIFF WBC 10.8 k/mm3 ()?? 12/29/2022 02:51 RBC 5.25 m/mm3 ()?? 12/29/2022 02:51 Hgb 14.9 Gm/dL ()?? 12/29/2022 02:51 Hct 46.9 % ()?? 12/29/2022 02:51 MCV 89.3 femtoliters ()?? 12/29/2022 02:51 MCH 28.4 pg ()?? 12/29/2022 02:51 MCHC 31.8 g/dL (Low)?? 12/29/2022 02:51 Platelet Count 182 k/mm3 ()?? 12/29/2022 02:51 RDW-SD 43.1 femtoliters ()?? 12/29/2022 02:51 MPV 11.2 femtoliters ()?? 12/29/2022 02:51 Nucleated RBC (Automated) 0.0 #/100 WBC'S ()?? 12/29/2022 02:51 Abs. NRBC 0.0 k/mm3 ()?? 12/29/2022 02:51 Abs. Neut 8.5 k/mm3 (High)?? 12/29/2022 02:51 Abs. Lymph 1.2 k/mm3 ()?? 12/29/2022 02:51 Abs. Arlington 0.9 k/mm3 ()?? 12/29/2022 02:51 Abs. Eo 0.1 k/mm3 ()?? 12/29/2022 02:51 Abs. Baso 0.1 k/mm3 ()?? 12/29/2022 02:51 Neut % 78.3 % (High)?? 12/29/2022 02:51 Lymph % 10.7 % (Low)?? 12/29/2022 02:51 [place] % 8.2 % ()?? 12/29/2022 02:51 Eos % 1.3 % ()?? 12/29/2022 02:51 Baso % 0.7 % ()?? 12/29/2022 02:51 Imm Gran 0.8 % ()?? 12/29/2022 02:51 Abs. Imm Gran 0.1 k/mm3 ()?? 12/29/2022 02:51 ?? CHEM GENERAL Sodium 142 mmol/L ()?? 12/29/2022 02:51 Potassium 4.4 mmol/L ()?? 12/29/2022 02:51 Chloride 104 mmol/L ()?? 12/29/2022 02:51 Bicarbonate Level 24 mmol/L ()?? 12/29/2022 02:51 Anion Gap 14 ()?? 12/29/2022 02:51 Glucose Level 169 mg/dL (High)?? 12/29/2022 02:51 Glucose, POC 265 mg/dL (High)?? 12/29/2022 10:13 Beta Hydroxybutyrate 0.07 mmol/L ()?? 12/29/2022 02:51 BUN 22 mg/dL ()?? 12/29/2022 02:51 Creatinine-Blood 1.0 mg/dL ()?? 12/29/2022 02:51 Estimated GFR Creatinine 82 ML/MIN/1.73 M2 ()?? 12/29/2022 02:51 Calcium 9.3 mg/dL ()?? 12/29/2022 02:51 ?? ENDOCRINE/TUMOR MARKER TSH 1.51 uIU/mL ()?? 12/29/2022 02:51 ? Abnormal Labs ?? BLOOD COUNT & DIFF ??Abs. Imm Gran ??0.1 k/mm3 () ??12/29/2022 02:51 ??Abs. NRBC ??0.0 k/mm3 () ??12/29/2022 02:51 ??Abs. Neut ??8.5 k/mm3 (High) ??12/29/2022 02:51 ??Imm Gran ??0.8 % () ??12/29/2022 02:51 ??Lymph % ??10.7 % (Low) ??12/29/2022 02:51 ??MCHC ??31.8 g/dL (Low) ??12/29/2022 02:51 ??Neut % ??78.3 % (High) ??12/29/2022 02:51 ??Nucleated RBC (Automated) ??0.0 #/100 WBC'S () ??12/29/2022 02:51 ??RDW-SD ??43.1 femtoliters () ??12/29/2022 02:51 ? CHEM GENERAL ??Estimated GFR Creatinine ??82 ML/MIN/1.73 M2 () ??12/29/2022 02:51 ??Glucose Level ??169 mg/dL (High) ??12/29/2022 02:51 ??Glucose, POC ??265 mg/dL (High) ??12/29/2022 10:13 ? Note: Critical results are displayed in red. ? Blood Glucose Trend Glucose Level:??169 mg/dL??High (12/29/22 02:51:00) Glucose, POC:??265 mg/dL??High (12/29/22 10:13:00) Glucose, POC:??216 mg/dL??High (12/29/22 08:07:00) Glucose, POC:??177 mg/dL??High (12/29/22 05:04:00) Glucose, POC:??109 mg/dL??High (12/29/22 01:37:00) Glucose, POC:??115 mg/dL??High (12/29/22 01:09:00) ? CBC, CBC w/Diff?? CBC?? Differential?? WBC: 10.8 k/mm3 (:51) Abs. Neut:??8.5 k/mm3??High (:) RBC: 5.25 m/mm3 (:) Abs. Lymph: 1.2 k/mm3 (:) Hct: 46.9 % (:) Abs. Arlington: 0.9 k/mm3 (:) RDW-SD: 43.1 femtoliters (:) Abs. Eo: 0.1 k/mm3 (:) Nucleated RBC (Automated): 0 #/100 WBC'S (:) Abs. Baso: 0.1 k/mm3 (:) Abs. NRBC: 0 k/mm3 (:) Neut %:??78.3 %??High (:51) ?? Lymph %:??10.7 %??Low (:) ?? Arlington %: 8.2 % (:) ?? Eos %: 1.3 % (:) ?? Baso %: 0.7 % (:) ?? Imm Gran: 0.8 % (:) ?? Abs. Imm Gran: 0.1 k/mm3 (:51) ? BMP, Mg, and Phos Anion Gap: 14 (:) Bicarbonate Level: 24 mmol/L (:51) BUN: 22 mg/dL (:51) Calcium: 9.3 mg/dL (:) Chloride: 104 mmol/L (:) Creatinine-Blood: 1 mg/dL (:) Estimated GFR Creatinine: 82 ML/MIN/1.73 M2 (:) Glucose Level:??169 mg/dL??High (:51) Potassium: 4.4 mmol/L (:51) Sodium: 142 mmol/L (:51) ?? Coagulation Profile?? No qualifying data available. ?? LFT?? No qualifying data available. ?? Urinalysis?? No qualifying data available. ? Blood Gases?? No qualifying data available. ?? Uric/LDH?? No qualifying data available. ? EKG study * Event Display: ECG 12-Lead Authored Date: Please click on pdf link to open report * Event Display: ECG 12-Lead Authored Date: Ventricular Rate: 62 BPM Atrial Rate: 62 BPM P-R Interval: 194 ms QRS Duration: 146 ms Q-T Interval: 444 ms QTC Calculation(Bazett): 450 ms P Winkelman: 22 degrees R Winkelman: 3 degrees T Winkelman: 32 degrees Normal sinus rhythm with sinus arrhythmia Right bundle branch block Inferior infarct , age undetermined Abnormal ECG When compared with ECG of 24-MAR-2020 10:52, Right bundle branch block is now Present Confirmed by [facility] ([id number] on 12/29/2022 9:40:04 AM [place]: [facility] * Kaela Rodriguez RN: PERFORM, SIGN, VERIFY Event Display: [facility] Authored Date: [id number] Patient: YVES DU Age: 67 years Sex: Male : 1955 Associated Diagnoses: None Author: Kaela Rodriguez RN Pt arrived to unit. Ambulated steadily and independently to bed from stretcher. Pt oriented to unitand call light. Pt denies any pain. Pt educated to report any new symptoms. Pt's unhappy aboutpt being on observation. She expressed her concerns to . MD came back to bedside and discussed with her, explained that observing blood sugars overnight would be beneficial to patient. Pt agreeableand pleasant. Call light and belongings within reach. * Kathryn ORNELAS [facility]: PERFORM Event Display: [facility] Authored Date: [id number] Patient: ??YVES DU ? Age:??67 Years?Sex:??Male?:??1955?? _ Informed by nursing that patient's would like to bring the patient home at 3 PM??and would like to know the test results.?? I subsequently visited the patient at bedside??and informed him about the lab results??done before??and add-ons??that have resulted.?? I have explained the plan??to the patient to observe his sugars??for??24 hours and make sure his??blood glucose does not drop with??Lantus 80 units tonight possible discharge tomorrow.?? This was explained to him admission as well.?? Patient's upset about lack of??privacy??in the observation unit.?? She is calling observation unit a hellhole or 'dungeon and will write??a letter to the board about it.?? She is upset that there is no picture on the wall.?? Patient is agreeable??on staying??overnight.?? Note * Kaela Rodriguez RN: PERFORM Event Display: Discharge/Transfer Note Hospital Authored Date: [id number] Nursing Discharge Note Entered On: 12/30/2022 10:30 EDT Performed On: 12/30/2022 10:30 EDT by Kaela Rodriguez RN Nursing Discharge Note 2 Discharge Time : 12/30/2022 10:15 EDT Discharge Level of Care at Discharge : Home/Nursing Home/Foster Care Patient Left Unit Via : Ambulatory Patient Accompanied Off Unit with : Significant other DC Instructions Provided & Signed by Pt : Yes Patient Understands D/C Instructions : Yes Patient Instructions Discharge Signed : Yes Did Pt have Specialty Bed or Wound Vac : No Kaela Rodriguez RN - 12/30/2022 10:30 EDT * Adeola Padgett MD: PERFORM, MODIFY Event Display: Discharge/Transfer Note Hospital Authored Date: [id number] Patient: ??FLORIAN YVES ? Age:??67 Years?Sex:??Male?:??1955?? Patient Information Discharge Location: [facility] Primary Care Physician: Percy Moran MD Admit Date/Time: 12/29/22 00:58 Discharge Disposition Discharge Disposition: Home: No Services Discharge Diagnosis Hypoglycemia (E16.2) Uncontrolled diabetes mellitus with hypoglycemia (E11.649) Diabetes Hypercholesteremia Hypertension Obesity Status post myocardial infarction of anterior wall ?? _ Discharge Medications Albuterol (ProAir HFA 90 mcg/inh inhalation aerosol with adapter)?2?puff(s)?Inhalation?Every 4 hours?as needed?for wheezing Aspirin (aspirin 81 mg oral delayed release tablet)?81?Milligram?By Mouth?Daily Budesonide-Formoterol (Symbicort 160mcg/4.5mcg Inhaler)?2?puff(s)?Inhalation?2 times a day Cyclobenzaprine?By Mouth dulaglutide (Trulicity Pen)?Subcutaneous Infusion Durable Medical Equipment (Aerochamber)?See Instructions?use with both inhalers. empagliflozin (Jardiance 10 mg oral tablet)?1?tab(s)?10?Milligram?By Mouth?Daily in AM Gabapentin (gabapentin 100 mg oral capsule)?100?Milligram?1?capsule?By Mouth?3 times a day Insulin Glargine (Lantus Inj)?0.8?Milliliter?80?unit(s)?Subcutaneous Injection?Daily at bedtime Insulin Lispro (Humalog Kwik Pen 100 units/mL subcutaneous injection)?See Instructions?Subcutaneous Infusion?for 30?Days?3 times a day before meal 150 - 199 ??2 units ??200 - 249 ??4 units, 250 - 299 ??6 units, 300 - 349 ??8 units, 350 - 399 ??10 units Lisinopril (lisinopril 30 mg oral tablet)?1?tab(s)?By Mouth?Daily Metformin?500?Milligram?By Mouth?2 times a day Metoprolol (Metoprolol Tartrate 25 mg oral tablet)?1?tab(s)?By Mouth?2 times a day Rosuvastatin (rosuvastatin 10 mg oral tablet)?1?tab(s)?10?Milligram?By Mouth?Daily ? Medications Started none Medications Discontinued none Doses Changed Glargine ??humalog Allergies Allergies ?(Active and Proposed Allergies Only) NKA? (Severity: Unknown severity, Onset: Unknown) ? Future Appointments Saturday 8:45 AM EST ?? With: Addie ORNELAS, [facility] Where: [facility] Cardiology [facility] [place] [address]- Status: Pending Objective Assessment and Plan ?66-year-old male patient with history of type 2 diabetes mellitus???insulin- dependent, CAD, hypertension, hyperlipidemia, morbid obesity, LING who presented to [facility] emergency roomwith complaints of hypoglycemia.?? Patient says that he is currently on long-acting insulin 130 units at night which he received last night. His ??checked his sugar and it was 24. She called EMS and EMS gave him 2 sodas, D50 and his blood sugar moises to 115 before making it to the ED. No further episode of hypoglycemia??since he arrived in ED.?? Received lantus 80 unit last night, tolerated well, oral??intake adequate. He will be discharged home today with Lantus 18 unit and modified sliding scale.?? Encourage patient to maintain close follow-up with his licensing representative.?? Discharge plan was discussed at length with patient. ?? Hypoglycemia in a patient with history of type 2 diabetes???insulin-dependent No episode of hypoglycemia since admission ?? Received Lantus??80 ??unit at bedtime yesterday Continue Lantus 80 units at bedtime Lispro sliding scale starting at 150 Resume home oral agents Hemoglobin A1c 11, encourage close outpatient follow-up with endocrinology ?? History of asthma Albuterol as needed Symbicort ?? Hyperlipidemia Continue statin ?? Hypertension Continue metoprolol and lisinopril ? LING NIPPV at night ?? CAD Continue aspirin, beta-franklyn and statin ? . Physical Exam GENERAL: In no apparent distress HEENT: Head normocephalic, PERRL,Moist mucous membrane. Neck supple CARDIOVASCULAR: Normal rate and rhythm, no murmurs, no rubs, no gallops RESPIRATORY: Lungs clear to auscultation, no wheezes , no crackles ABDOMEN/GI: Nondistended, soft, nontender, normal bowel sounds EXTREMITIES: No pitting edema LAPIDARY APPRENTICE: Alert and oriented x 3.Non focal neuro exam. PSYCHIATRIC: Calm and co-operative SKIN: Warm and dry. ? Pending Results Add On Lab Order ordered on 12/29/2022 Blood Culture ordered on 12/29/2022 Blood Culture #2 ordered on 12/29/2022 Urinalysis w/hold for Urine Culture ordered on 12/29/2022 Patient Education Titles Low Blood Sugar (Hypoglycemia)?? Follow-Up Appointments Added Follow Up ?Time Frame ?Comments Endocrinology?Pl follow up with your licensing representative, call to schedule appointment Percy Moran MD?1 to 2 weeks Post Discharge Care Discharge ?12/30/22 9:41:00 EDT Discharge Prescriptions ?None, 12/30/22 9:41:00 EDT Home Health Face to Face ^HomeHealthFTF Results Discharge Labs BLOOD COUNT & DIFF WBC 10.8 k/mm3 ()?? 12/29/2022 02:51 RBC 5.25 m/mm3 ()?? 12/29/2022 02:51 Hgb 14.9 Gm/dL ()?? 12/29/2022 02:51 Hct 46.9 % ()?? 12/29/2022 02:51 MCV 89.3 femtoliters ()?? 12/29/2022 02:51 MCH 28.4 pg ()?? 12/29/2022 02:51 MCHC 31.8 g/dL (Low)?? 12/29/2022 02:51 Platelet Count 182 k/mm3 ()?? 12/29/2022 02:51 RDW-SD 43.1 femtoliters ()?? 12/29/2022 02:51 MPV 11.2 femtoliters ()?? 12/29/2022 02:51 Nucleated RBC (Automated) 0.0 #/100 WBC'S ()?? 12/29/2022 02:51 Abs. NRBC 0.0 k/mm3 ()?? 12/29/2022 02:51 Abs. Neut 8.5 k/mm3 (High)?? 12/29/2022 02:51 Abs. Lymph 1.2 k/mm3 ()?? 12/29/2022 02:51 Abs. [place] 0.9 k/mm3 ()?? 12/29/2022 02:51 Abs. Eo 0.1 k/mm3 ()?? 12/29/2022 02:51 Abs. Baso 0.1 k/mm3 ()?? 12/29/2022 02:51 Neut % 78.3 % (High)?? 12/29/2022 02:51 Lymph % 10.7 % (Low)?? 12/29/2022 02:51 [place] % 8.2 % ()?? 12/29/2022 02:51 Eos % 1.3 % ()?? 12/29/2022 02:51 Baso % 0.7 % ()?? 12/29/2022 02:51 Imm Gran 0.8 % ()?? 12/29/2022 02:51 Abs. Imm Gran 0.1 k/mm3 ()?? 12/29/2022 02:51 ?? CHEM GENERAL Sodium 142 mmol/L ()?? 12/29/2022 02:51 Potassium 4.4 mmol/L ()?? 12/29/2022 02:51 Chloride 104 mmol/L ()?? 12/29/2022 02:51 Bicarbonate Level 24 mmol/L ()?? 12/29/2022 02:51 Anion Gap 14 ()?? 12/29/2022 02:51 Glucose Level 169 mg/dL (High)?? 12/29/2022 02:51 Glucose, POC 197 mg/dL (High)?? 12/30/2022 08:44 Beta Hydroxybutyrate 0.07 mmol/L ()?? 12/29/2022 02:51 BUN 22 mg/dL ()?? 12/29/2022 02:51 Creatinine-Blood 1.0 mg/dL ()?? 12/29/2022 02:51 Estimated GFR Creatinine 82 ML/MIN/1.73 M2 ()?? 12/29/2022 02:51 Calcium 9.3 mg/dL ()?? 12/29/2022 02:51 Phosphorus 4.1 mg/dL ()?? 12/29/2022 02:51 Magnesium 2.1 mg/dL ()?? 12/29/2022 02:51 Protein, Total 6.0 Gm/dL (Low)?? 12/29/2022 02:51 Albumin 4.0 Gm/dL ()?? 12/29/2022 02:51 Alkaline Phosphatase 66 units/L ()?? 12/29/2022 02:51 AST (SGOT) 25 units/L ()?? 12/29/2022 02:51 ALT (SGPT) 24 units/L ()?? 12/29/2022 02:51 Bilirubin, Total <0.2 mg/dL ()?? 12/29/2022 02:51 Bilirubin, Direct <0.2 mg/dL ()?? 12/29/2022 02:51 Bilirubin, Indirect Total bilirubin is less than the measureable limit. Therefore, indirect mg/dL ()?? 12/29/2022 02:51 ?? ENDOCRINE/TUMOR MARKER TSH 1.51 uIU/mL ()?? 12/29/2022 02:51 ? URINE OTHER Est Creatinine Clearance 80.95 mL/min ()?? 12/29/2022 15:25 ? 35_ minutes spent on discharge * Kaela Rodriguez RN: PERFORM Event Display: Patient Education/Instruction Authored Date: [id number] Inpatient Adult Discharge Instructions [address] [address] Name: YVES DU : 1955 Visit: 12/29/2022 00:58:00 Current Date: 12/30/2022 09:57 Account: [id number] Inpatient Adult Discharge Instructions We would like to thank you for allowing us to assist you with your healthcare needs. The following includes patient education materials and information regarding your injury/illness. Our entire staffstrives to provide an excellent experience for our patients and their families. PLEASE ENSURE YOU FOLLOW-UP PER THE INSTRUCTIONS BELOW! ?? YOUR OPINION IS IMPORTANT TO US! Please complete the survey you may receive by mail or email. Your feedback will be used to make improvements to the healthcare experiences of our patients and their families. Surveys are administered by [employer] ?? If further treatment with your primary care physician or another doctor is recommended, it is important for you to keep the appointment. Call your primary care physician or return to the Emergency Department immediately if your condition worsens, fails to improve, or new symptoms develop. If you need to find a doctor, you can call [facility] Link for a referral at [phone] or toll free at [phone] ([phone]) or log in to [email or web address].. ?? [facility], in keeping with [facility] guidance, no longer requires face masks for staff, patientsor visitors in most situations. Similiar to time spent indoors at other locations, there is the chance that you were exposed to repiratory viruses during your time with us (such as flu or COVID-19). If you develop symptoms concerning for a viral respiratory infection, please seek testing (and treatment if indicated) from your medical provider or home test kit. ?? You can view and manage your care through the patient portal or by using a health care shiloh of your choosing. [employer] is a website that allows you to securely view your medical information including your hospital discharge summary, office visit summaries, medications and follow-up visits. You can also request appointments, renew medications, and request access to your medical information using a health care shil[facility] of your choosing, or just ask a question. You can enroll at [email or web address] or register during your next office visit. You have been discharged from [facility], Patient Care Unit: D3B. If you have any questions regarding these instructions after you leave, please call us and we will be happy to assist you. [facility] Your Care Team Attending Physician Adeola Padgett MD Discharging Providers Lorin ORNELAS, Adeola Reason for Admission Pt from home, noticed pt to be going in and out of consciousness, POC 24 at home, pt drank jordan gina, increased to 60s, and now 97 for EMS on arrival. Your Diagnosis Hypoglycemia Uncontrolled diabetes mellitus with hypoglycemia Tests Performed Below is a partial list of the tests performed during your hospitalization. You may have had other tests and procedures not included in this list. Please discuss all test results with your provider. Basic Metabolic Panel Beta Hydroxybutyrate CBC w/ Differential GLUCOSE POC HEPATIC FUNCTION PANEL MAGNESIUM PHOSPHORUS TSH with T4 Reflex (Adults Only) Primary Care Provider Percy Moran MD Advance Directive Health Care Proxy on File Yes - Health Care Proxy Discharge Vitals Temperature: 98 DegF Height: 183 cm Pulse Rate: 79 bpm Weight: 158 kg Respiratory Rate: 18 br/min Body Mass Index:??47.18 kg/m2??Critical Systolic Blood Pressure: 132 mm Hg Body surface area: 2.83 Systolic Blood Pressure: 132 mm Hg ?? Diastolic Blood Pressure: 65 mm Hg ?? Diastolic Blood Pressure: 65 mm Hg ?? Oxygen Saturation: 95 % ?? Studies Pending All tests and labs ordered during this hospital stay have been completed unless listed below. Please discuss all pending results with your provider listed above in these instructions. ?? Add On Lab Order Blood Culture Blood Culture #2 Urinalysis w/hold for Urine Culture What to do next Instructions From Your Doctor Discharge Orders Scheduled Follow-Up Appointments Saturday 8:45 AM EST ?? With: Addie ORNELAS, Ashequl Where: [facility] Cardiology [address] [place] [id number]- Status: Pending You Need to Schedule the Following Appointments Follow Up with??Endocrinology Why: Pl follow up with your licensing representative, call to schedule appointment Follow Up with??Percy Moran MD When:??Within 1 to 2 weeks Where: ?? Discharge Medications YVES DU :1955 Visit Date:12/29/2022 Medications: Please continue your medications until treatment is completed or stopped by your provider. Medications not listed below should be discontinued. Discuss any questions related to medications with your provider. What How Much When Instructions Next Dose Changed Insulin Glargine (Lantus Inj) 80 unit(s) Subcutaneous Injection Daily at Bedtime 12/30 pm Changed Insulin Lispro (Humalog Kwik Pen 100 units/ mL subcutaneous injection) See instructions Duration: 30 Days 3 times a day before meal 150 - 199 ??2 units ?? 200 - 249 ??4 units, 250 - 299 ??6 units, 300 - 349 ??8 units, 350 - 399 ??10 units ?? as directed Unchanged Albuterol (ProAir HFA 90 mcg/ inh inhalation aerosol with adapter) 2 puff(s) Inhalation Every 4 hours as needed for for wheezing as needed Unchanged Aspirin (aspirin 81 mg oral delayed release tablet) 81 Milligram Oral Daily 12/31 Unchanged Budesonide-Formoterol (Symbicort 160mcg/ 4.5mcg Inhaler) 2 puff(s) Inhalation Twice a day 15 pm Unchanged Cyclobenzaprine Oral as directed Unchanged Durable Medical Equipment (Aerochamber) See instructions use with both inhalers. ?? Unchanged Gabapentin (gabapentin 100 mg oral capsule) 1 capsule Oral 3 times a day 12/30 3pm Unchanged Lisinopril (lisinopril 30 mg oral tablet) 1 tab(s) Oral Daily 1016 am Unchanged Metformin 500 Milligram Oral Twice a day Unchanged Metoprolol (Metoprolol Tartrate 25 mg oral tablet) 1 tab(s) Oral Twice a day 12/30 pm Unchanged Rosuvastatin (rosuvastatin 10 mg oral tablet) 1 tab(s) Oral Daily 1016 am Test Results Below is a partial list of the most recent Laboratory test results done prior to this discharge. You may have had other tests and procedures not included in this list. Please discuss all test resultswith your provider. Est Creatinine Clearance - 80.95 mL/min (12/29/2022) Basic Metabolic Panel (12/29/2022) ???Sodium - 142 mmol/L???Potassium - 4.4 mmol/L???Chloride - 104 mmol/L???Bicarbonate Level - 24 mmol/L???Anion Gap - 14???Glucose Level - 169 mg/dL???BUN - 22 mg/dL???Creatinine-Blood - 1.0 mg/dL???Estimated GFR Creatinine - 82 ML/MIN/1.73 M2???Calcium - 9.3 mg/dL Beta Hydroxybutyrate (12/29/2022) ???Beta Hydroxybutyrate - 0.07 mmol/L CBC w/ Differential (12/29/2022) ???WBC - 10.8 k/mm3???RBC - 5.25 m/mm3???Hgb - 14.9 Gm/dL???Hct - 46.9 %???MCV - 89.3 femtoliters???MCH - 28.4 pg???MCHC - 31.8 g/dL???Platelet Count - 182 k/mm3???RDW-SD - 43.1 femtoliters???MPV - 11.2 femtoliters???Nucleated RBC (Automated) - 0.0 #/100 WBC'S???Abs. NRBC - 0.0 k/mm3???Abs. Neut - 8.5 k/mm3???Abs. Lymph - 1.2 k/mm3???Abs. [place] - 0.9 k/mm3???Abs. Eo - 0.1 k/mm3???Abs. Baso - 0.1 k/mm3???Neut % - 78.3 %???Lymph % - 10.7 %???[place] % - 8.2 %???Eos % - 1.3 %???Baso % - 0.7 %???Imm Gran - 0.8 %???Abs. Imm Gran - 0.1 k/mm3 GLUCOSE POC (12/30/2022) ???Glucose, POC - 197 mg/dL HEPATIC FUNCTION PANEL (12/29/2022) ???Protein, Total - 6.0 Gm/dL???Albumin - 4.0 Gm/dL???Alkaline Phosphatase - 66 units/L???AST (SGOT) - 25 units/L? ?ALT (SGPT) - 24 units/L? ?Bilirubin, Total - <0.2 mg/dL? ?Bilirubin, Direct - <0.2 mg/dL???Bilirubin, Indirect - Total bilirubin is less than the measureable limit. Therefore, indirect MAGNESIUM (12/29/2022) ???Magnesium - 2.1 mg/dL PHOSPHORUS (12/29/2022) ???Phosphorus - 4.1 mg/dL TSH with T4 Reflex (Adults Only) (12/29/2022) ???TSH - 1.51 uIU/mL Allergies (NKA means No Known Allergies) NKA Problems Active Problems??(12) Asthma?? CAD in [place] artery?? Diabetes?? Dyspnea?? Hypercholesteremia?? Hypertension?? LV dysfunction?? Obesity?? Personal history of sudden cardiac arrest?? Severe obesity?? Sleep apnea syndrome?? Status post myocardial infarction of anterior wall?? Education Materials Below is the list of Educational Leaflet Providered with your Discharge Instructions. Low Blood Sugar (Hypoglycemia)?? Valuables and Belongings I fully understand and agree that [facility] accepts no responsibility for all my personal property including clothing, toilet articles, radios, jewelry, dentures, hearing aids, rings, money, or any other property that is in my possession or is brought to me after admission. I understand certain valuables may be placed in a hospital safe for a short period of time. I understand that the hospital is not liable for loss or damage due to accident, fire, or other natural occurrence while said property is in the safe. I accept full responsibility for any personal property that I keep with me, and will not hold the hospital responsible in case of loss or disappearance. I acknowledge that i have been encouraged to send valuables and belongings home. ?? Date for Pt to Sign Valuables/Belongings: 12/29/22 05:11:00 ?? Other Discharge Information ? Pulmonary Rehab Status?? Pulmonary Rehab Discharge Status?? Respiratory Rate: 18 br/min ? Common Emergency Awareness Tips IS IT A STROKE? Act FAST and Check for these signs: FACE Does the face look uneven? ARM Does one arm drift down? SPEECH Does their speech sound strange? TIME Call at any sign of stroke ?? Heart Attack Signs Chest discomfort: Most heart attacks involve discomfort in the center of the chest and lasts more than a few minutes, or goes away and comes back. It can feel like uncomfortable pressure, squeezing, fullness or pain. Discomfort in upper body: Symptoms can include pain or discomfort in one or both arms, back, neck, jaw or stomach. Shortness of breath: With or without discomfort. Other signs: Breaking out in a cold sweat, nausea, or lightheaded. Remember, MINUTES DO MATTER. If you experience any of these heart attack warning signs, call to get immediate medical attention! ?? Smoking can increase your chances of developing chronic health problems and can cause harmful effects to other family members in your house. If you smoke, you are strongly encouraged to quit. Please call [facility] Link at [phone] or [phone] ([phone]) or log in to [email or web address] for referrals to smoking cessation programs. ?? 294 Suicide & Crisis Lifeline is available 08/10 if you or someone you know needs to find a reason to keep living. By calling 865 you'll be connected to a skilled, trained counselor at a crisis center in your area. INPATIENT DISCHARGE INSTRUCTIONS SIGNATURE PAGE YVES DU Location:[facility] Registration Date and Time:12/29/2022 00:58 EDT Primary Care Physician: Percy Moran MD, Attending Physician: Adeola Padgett MD, I YVES DU, have received the above patient education materials/instructions and have verbalized understanding. If ambulance or transport services are being used I further acknowledge being given a choice of service. ?? If you need to contact me, please call me at this number: . Patient/Hairpiece Stylist Name: Patient/Hairpiece Stylist Signature: Relationship to Patient: Witness Name/Signature: Date: * Adeola Padgett MD: PERFORM Event Display: Patient Education Leaflets Authored Date: [id number] Low Blood Sugar (Hypoglycemia) ?? [address] Low Blood Sugar (Hypoglycemia) Low blood sugar (hypoglycemia) means you don???t have enough sugar (glucose) in your bloodstream tohelp your body work. This may be a level of sugar lower than 70 mg/dL. But talk with your healthcare provider about your own target range. Ask what level is too low for you. Diabetes doesn???t cause low blood sugar. But some treatments for diabetes may raise the risk for it. These include oral medicines or insulin. In severe cases, low blood sugar may make you pass out or have a seizure. This is a medical emergency. So always treat low blood sugar right away as noted below. This is to prevent more serious problems. Safety note Always carry a source of fast-acting sugar and a snack in case you have low blood sugar. Examples include: ??? 4 glucose tablets ??? 1 tube of glucose gel ??? 1 packet of sugar or honey ??? 2 tablespoons ofraisins ?? Symptoms of low blood sugar If you have low blood sugar, you may have 1 or more of these symptoms: ??? Shakiness ??? Dizziness ??? Cold, clammy skin or sweating ??? Hunger ??? Headache ??? Nervous feeling ??? A hard, fast heartbeat ??? Weakness ??? Confusion or irritability ??? Trouble seeing or talking ??? Having nightmares or waking up confused or sweating ??? Numbness or tingling in the lips or tongue ?? What to do If you think you have low blood sugar:?? 1. Check your sugar. First, check your blood sugar. If it's too low (out of your target range), eator drink 15 to 20 grams of fast-acting sugar. This may be 3 to 4 glucose tablets, or 4 ounces (halfa cup) of fruit juice or regular (not diet) soda, or 1 tablespoon of honey. Don???t take more than this. If you do, your blood sugar may go too high. 2. Don???t have protein. Don't eat or drink things high in protein to treat low blood sugar. This includes milk, nuts, and meat. Protein may increaseyour insulin response. It may lower your blood sugar even more. 3. Check again. Wait 15 minutes. Then recheck your blood sugar if you can. If your blood sugar is still too low, repeat the steps aboveuntil your blood sugar is back to normal. 4. Eat a snack. When your blood sugar is back at target range, eat a snack or meal. 5. Get help if needed. If you still don???t feel well and your blood sugar is still low, have someone drive you to the emergency room. ?? Preventing low blood sugar Things you can do include the below:? If your diabetes needs a strict treatment plan,??eat meals and snacks at the same times each day. Don???t skip meals! ??? If your treatment plan lets you change when and what you eat, learn how to change the time and dose of your rapid-acting insulin to match.? Ask your healthcare providerif it's safe to drink alcohol. But never drink on an empty stomach. Alcohol may keep you from feeling the first symptoms of low blood sugar. ??? Take your medicine at the prescribed times. ??? Alwayscarry a source of fast-acting sugar and a snack when you???re away from home. If you have had repeated low blood sugar episodes: ??? You may not notice the symptoms of low bloodsugar until it gets to a dangerous level. Work with your provider for the best ways to safely manage your blood sugar. ??? Ask your healthcare provider if you can take less or different medicine. Many newer types of diabetes medicines have less risk of low blood sugar. ??? Ask your provider if you should be prescribed a glucagon shot. Glucagon is a hormone that quickly raises blood sugar. It can reverse serious symptoms. ?? Other safety tips Make sure to: ??? Carry a medical ID card or wear a medical alert bracelet or necklace. It should say that you have diabetes. It should say what to do if you pass out or have a seizure. ??? Teach your family, friends, and coworkers the signs of low blood sugar. Tell them what to do if your blood sugar falls very low and you can???t treat yourself. ??? Keep a glucagon emergency kit handy. Show your family, friends, and coworkers how and when to use it. Check it often. Replace the glucagon beforeit expires. ??? Talk with your healthcare team about other things you can do to prevent low blood sugar. These include using new ways of continuous glucose tracking. ?Important If you have??unexplained low blood sugar or have it several times, call your healthcare provider. ?? Last Reviewed Date: 2022 ?? 4931-6414 [employer]. All rights reserved. This information is not intended as a substitute for professional medical care. Always follow your healthcare professional's instructions. ?? Patient Care team information Care Team Personnel Name: Mariela Grant Position: [facility] Outreach Member Role: [employer] Consulting Physician Name: Parvin Zimmer RN Position: [facility] RN Member Role: Primary Care Nurse Name: Percy Moran MD Position: [facility] Physician - Primary Care Member Role: PCP Address: Address: [address] [place] [address] Hospital Nurse Liaison LAUREN Squires [id number]- Name: *Becky STARK Attending Position: [facility] ED Medicine Name: Richie Gresham MA Position: [facility] ED TA [facility] Member Role: Patient Care Provider Name: Venecia Haas DO Position: [facility] Resident Member Role: Resident Address: Address: [address] [place] [phone]- Name: Maxwell Whiteside RN Position: [facility] ED RN W/OE and Tasks Member Role: Patient Care Provider Care Team Related Persons Name: ATIYA DU Address: [place] [address] Name: KAIN DU Address: home [address] [place] [id number]
[2023-11-12 15:43] VITALS: BP 138/56; PULSE 79; RESP 18; TEMP 36.4; O2SAT 94
== END 2023-11-12 15:44 | disposition home or self-care (01) ==
PROVIDERS: Emergency Provider Emergency Medicine; PCP Pediatrics
DX: S91.201A Unspecified open wound of right great toe with damage to nail, initial encounter (principal); M79.671 Pain in right foot; X58.XXXA Exposure to other specified factors, initial encounter; Y93.89 Activity, other specified; Y92.89 Other specified places as the place of occurrence of the external cause; Y99.8 Other external cause status
CPT/HCPCS: 99282; 99283

== ENCOUNTER 2023-11-25 20:10 | Emergency (ER) | payer MEDICARE, SELFPAY ==
--- NOTE | ~2023-11-25 | XR_ITS ---
EXAMINATION: XR TOES, RIGHT CLINICAL INFORMATION: Right great toe pain, infection COMPARISON: None available. TECHNIQUE: 3 views of the right toes were obtained. FINDINGS/ XR/XR toe RT min 2V IMPRESSION: Cortical erosion along the lateral aspect of the distal phalanx at the distal interphalangeal joint concerning for osteomyelitis. Additional differential diagnosis includes early gout given the presence of an overhanging edge. No subcutaneous gas. Soft tissue swelling is present. No radiopaque foreign bodies. Vascular calcifications. No acute fractures or dislocations. Electronically signed by: Prasanth Adler DO 11/25/2023 09:59 PM EDT
[2023-11-25 20:17] VITALS: BP 187/84; PULSE 80; RESP 16; TEMP 35.8; O2SAT 95; BMI 50.0
--- NOTE | 2023-11-25 20:24 | ED.GENADULT ---
HPI - General Adult General Chief complaint: General Medical Stated complaint: left toe bleeding Time Seen by Provider: 11/26/23 00:14 Source: patient Mode of arrival: ambulatory Limitations: no limitations History of Present Illness ED Provider: chris PORRAS narrative: Patient is diabetic apparently his right toenail came off about a week ago today he noticed bleeding from the nailbed with slight surrounding redness no fever blood sugar well controlled Related Data Previous Rx's ?Medication ?Instructions ?Recorded bacitracin 500 unit/gram topical 1 appl topical Q8H #28 grams 11/12/23 ointment cephalexin 500 mg tablet 500 mg PO Q6H 7 days #28 tabs 11/12/23 bacitracin zinc 500 unit/gram 1 appl topical Q8H #14 grams 11/26/23 topical ointment cephalexin 500 mg capsule 500 mg PO QID 10 days #40 caps 11/26/23 doxycycline hyclate 100 mg tablet 100 mg PO BID #20 tabs 11/26/23 Allergies Allergy/AdvReac Type Severity Reaction Status Date / Time No Known Allergies Allergy Verified 11/25/23 20:20 Review of Systems Review of Systems: Yes all other systems are reviewed and are negative [facility] Social History Social History Smoked in Last 30 Days: No Use of substances other than those prescribed or required for medical reasons: No Advance Directives: No Advance Directives Information Provided: Yes Do you have a plan to hurt others: No Plan Physical Exam ED Vital Signs: Vital Signs - 24 hr 11/25/23 20:17 11/25/23 22:59 11/25/23 23:37 Temperature 96.4 F L 97.1 F 98.2 F Pulse Rate 80 85 74 Respiratory Rate 16 14 17 Blood Pressure 187/84 H 141/51 H 179/74 H Pulse Oximetry 95 93 95 Oxygen Delivery Method Room Air Room Air Room Air 11/25/23 23:43 11/26/23 00:49 Temperature 98.2 F 98.0 F Pulse Rate 74 76 Respiratory Rate 17 15 Blood Pressure 179/74 H 175/56 H Pulse Oximetry 95 95 Oxygen Delivery Method Room Air Room Air BMI result Body Mass Index 50.0 Appearance: Alert. Oriented X3. No acute distress. Eyes: PERRLA, No Nystagmus ENT: Pharynx normal. Oral Mucosa moist Neck: Normal inspection. Neck supple. CVS: Normal heart rate and rhythm. Pulses normal. Respiratory: No respiratory distress. Equal air entry bilateral, no wheezing/rales/rhonchi Abdomen: Soft and nontender. Bowel sounds are present, no mass palpable, no CVA tenderness Skin: Skin warm and dry. Normal skin color. Normal skin turgor. Extremities: No lower extremity edema. No calf tenderness right greater toe loss of toenail with granulation tissue of the nail bed without significant purulent discharge slight erythema of the surrounding area neurovascular intact Neuro: Oriented X 3. No motor deficit. Decreased sensation to touch and pinprick lower extremity.No cerebellar signs , cranial nerves II-XII intact Course Course Course Narrative: This is an RME: Additional HPI, ROS, PE not included below will be deferred to primary provider. RME assessment and note performed by: Kaela Rangel PA-C This is a 68-year-old male who presents emergency department with complaints of right great toe pain, bleeding for the last 2 weeks. Patient states that 2 weeks ago the nail came off completely. He has had bleeding in the shoe since. History of diabetes and neuropathy. Right great toe is warm, tender, red. Plan: Labs, x-ray, further ER evaluation needed Medications Administered Discontinued Medications Generic Name Dose Route Start Last Admin Trade Name Freq PRN Reason Stop Dose Admin Cephalexin HCl 500 mg 11/26/23 00:36 11/26/23 00:48 Cephalexin 500 Mg Capsule PO 11/26/23 00:37 500 mg ONCE ONE Administration Doxycycline Monohydrate 100 mg 11/26/23 00:36 11/26/23 00:48 Doxycycline Monohydrate 100 Mg Capsule PO 11/26/23 00:37 100 mg ONCE ONE Administration Medical Decision Making Medical Decision Making [facility] Narrative: Patient with right toenail injury diabetic no signs of deeper infection at this time wound was cleaned iodoform gauze was applied will give p.o. doxycycline cephalexin x-ray showed slight erosion patient does not history of gout clinically does not seems to be deeper injury WBC count normal sed rate only 17. Patient advised to have wound recheck in 2 days and strict follow with PCP Differential Diagnosis Differential Diagnoses: The differential diagnosis associated with the presentation includes Admission/Observation Consideration of admission/observation: Escalation of care including admission/observation considered Lab Data [facility] Lab Attestation statement: I reviewed the patient's lab results. 11/25/23 21:33 11/25/23 21:33 Labs: Lab Results 11/25/23 Range/Units 21:33 WBC 9.0 (4.8-10.8) X10*3/uL RBC 5.26 (4.60-5.80) X10*6/uL Hgb 14.7 (14.0-18.0) g/dl Hct 44.0 (42.0-52.0) % MCV 83.7 (80.0-98.0) fL MCH 27.9 (27.0-33.0) pg MCHC 33.4 (31.0-36.0) g/dl RDW 13.0 (11.0-16.0) % Plt Count 164 (160-400) X10*3/uL MPV 10.9 (9.4-12.4) fL Immature Gran % (Auto) 1.0 H (0.0-0.4) % Neut % (Auto) 64.0 (45-73) % Lymph % (Auto) 21.0 (20-40) % [place] % (Auto) 9.0 (2-11) % Eos % (Auto) 4.0 (0-4) % Baso % (Auto) 1.0 (0-2) % Lymph # (Auto) 1.9 (1.2-4.9) X10*3/uL [place] # (Auto) 0.8 (0.1-1.2) X10*3/uL Eos # (Auto) 0.4 (0.0-0.4) X10*3/uL Baso # (Auto) 0.1 (0.0-0.2) X10*3/uL Abs Immat Gran (auto) 0.09 H (0.00-0.03) X10*3/uL Absolute Neuts (auto) 5.7 (2.0-8.3) x10*3/uL Absolute Nucleated RBC 0.000 (0.0-0.012) X10*3/uL Nucleated RBC % (auto) 0.0 (0.0-0.2) /100WBC ESR 17 H (0-15) MM/HR Sodium 141 (135-145) mmol/L Potassium 4.3 (3.3-5.1) mmol/L Chloride 104 (96-108) mmol/L Carbon Dioxide 27 (22-29) mmol/L Anion Gap 14 (12-20) BUN 19 H (9-16) mg/dL Creatinine 1.00 (0.5-1.4) mg/dL Estim Creat Clear Calc 116.6 Estimated GFR > 60 Random Glucose 241 H (60-115) mg/dL Calcium 9.4 (8.4-10.2) mg/dL Total Bilirubin 0.2 (0.0-1.0) mg/dL Direct Bilirubin < 0.2 (0.0-0.5) mg/dL AST 17 (5-37) U/L ALT 19 (0-40) U/L Alkaline Phosphatase 72 (39-117) U/L C-Reactive Protein 1.05 H (< or = 0.50) mg/dL Total Protein 6.4 L (6.5-8.0) g/dL Albumin 3.7 (3.5-5.0) g/dL Independent Interpretation I performed an independent interpretation of an: Plain X-Ray Radiology Impression Discussion of test interpretation with radiology: I have reviewed the radiologist's reading. Discharge Plan Discharge Clinical Impression: Infected nailbed of toe Patient Disposition: Home, Self-Care Instructions: Cellulitis (ED) Additional Instructions: Care and cautions as advised Keep the right great toe covered wear socks when you wear shoes Take antibiotics as prescribed It is very important to recheck your wound in 48 hours Report to the ED ED/PCP for wound recheck Report to ED if worsening of the redness or pain or fever or discoloration of the toe Prescriptions: New cephalexin 500 mg capsule 500 mg PO QID 10 Days Qty: 40 0RF doxycycline hyclate 100 mg tablet 100 mg PO BID Qty: 20 0RF bacitracin zinc 500 unit/gram ointment 1 appl topical Q8H Qty: 14 0RF No Action cephalexin 500 mg tablet 500 mg PO Q6H 7 Days Qty: 28 0RF bacitracin 500 unit/gram ointment 1 appl topical Q8H Qty: 28 0RF Interventions: ED Discharge Assessment Last Done: 11/26/23 00:49 Discharge Date/Time: 11/26/23 00:56 Print Language: Slovak
[2023-11-25 21:42] LABS: MANUAL DIFF FLAG NO
[2023-11-25 21:44] LABS: Basophils Absolute Auto 0.1 X10*3/uL (0.0-0.2); Eosinophils Absolute Auto 0.4 X10*3/uL (0.0-0.4); Hemoglobin 14.7 g/dl (14.0-18.0); Imm Gran Abs Auto 0.09 X10*3/uL (0.00-0.03); Lymphocytes Absolute Auto 1.9 X10*3/uL (1.2-4.9); Mean Corpuscular HGB Conc 33.4 g/dl (31.0-36.0); Mean Corpuscular Hemoglobin 27.9 pg (27.0-33.0); Mean Corpuscular Volume 83.7 fL (80.0-98.0); Mean Platelet Volume 10.9 fL (9.4-12.4); Monocytes Absolute Auto 0.8 X10*3/uL (0.1-1.2); Neutrophils Absolute Auto 5.7 x10*3/uL (2.0-8.3); Platelet Count 164 X10*3/uL (160-400); Red Blood Count 5.26 X10*6/uL (4.60-5.80)
[2023-11-25 21:59] LABS: Alanine Aminotransferase 19 U/L (0-40); Albumin Level 3.7 g/dL (3.5-5.0); Alkaline Phosphatase 72 U/L (39-117); Anion Gap 14 (12-20); Aspartate Amino Transferase 17 U/L (5-37); Bilirubin Direct < 0.2 mg/dL (0.0-0.5); Bilirubin Total 0.2 mg/dL (0.0-1.0); Blood Urea Nitrogen 19 mg/dL (9-16); C Reactive Protein 1.05 mg/dL (< or = 0.50); Calcium 9.4 mg/dL (8.4-10.2); Carbon Dioxide 27 mmol/L (22-29); Chloride 104 mmol/L (96-108); Creatinine Clr Calc Pharmacy 116.6; Estimated Glomerular Filt Rate > 60; Glucose Random 241 mg/dL (60-115); Potassium 4.3 mmol/L (3.3-5.1); Sodium 141 mmol/L (135-145); Total Protein 6.4 g/dL (6.5-8.0)
[2023-11-25 22:35] LABS: Erythrocyte Sedimentation Rate 17 MM/HR (0-15)
[2023-11-25 22:59] VITALS: BP 141/51; PULSE 85; RESP 14; TEMP 36.2; O2SAT 93
[2023-11-25 23:37] VITALS: BP 179/74; PULSE 74; RESP 17; TEMP 36.8; O2SAT 95
[2023-11-25 23:43] VITALS: BP 179/74; PULSE 74; RESP 17; TEMP 36.8; O2SAT 95
[2023-11-26] MEDS: cephALEXin 500 MG CAPSULE PO (00:48)
[2023-11-26] MEDS: Doxycycline Monohydrate 100 MG CAPSULE PO (00:48)
[2023-11-26 00:49] VITALS: BP 175/56; PULSE 76; RESP 15; TEMP 36.7; O2SAT 95
== END 2023-11-26 00:56 | disposition home or self-care (01) ==
PROVIDERS: Physician Assistant Medical; Emergency Provider Internal Medicine; PCP Pediatrics
DX: L08.89 Other specified local infections of the skin and subcutaneous tissue (principal); M79.675 Pain in left toe(s); Z79.899 Other long term (current) drug therapy
CPT/HCPCS: 36415; 73660; 80048; 80076; 85025; 85652; 86140; 87040; 99283; 99284

== ENCOUNTER 2023-11-28 10:17 | Inpatient (IN) | payer MEDICARE, SELFPAY ==
--- NOTE | ~2023-11-28 | MR_ITS ---
EXAMINATION: MR FOOT WITHOUT AND WITH CONTRAST, RIGHT CLINICAL INFORMATION: First digit wound. Concern for osteomyelitis. COMPARISON: Right foot radiographs dated 11/28/2023. TECHNIQUE: MRI of the right foot was performed before and after the intravenous administration of 10 mL Gadavist on a high-field scanner. FINDINGS: Focal soft tissue ulceration with subcutaneous edema and postcontrast enhancement at the dorsal surface distal aspect of the great toe, consistent with acute cellulitis. No organized fluid collection or abscess formation. Increased T2 and decreased T1 signal within the adjacent first distal phalanx where there is distal postcontrast marrow enhancement, consistent with acute osteomyelitis. No metatarsal stress reaction or fracture. Mild osteoarthritis partially visualized at the tarsometatarsal joints. No concerning lytic or blastic osseous lesion. The visualized flexor and extensor tendons are intact. Edema and atrophy throughout the intrinsic musculature of the foot. Intact Lisfranc ligament. MR/MR foot RT wo/w con IMPRESSION: 1. Soft tissue ulceration and cellulitis at the dorsal surface of the great toe without abscess formation. Acute osteomyelitis within the adjacent first distal phalanx. 2. Mild osteoarthritis partially visualized at the tarsometatarsal joints. 3. Edema and atrophy throughout the intrinsic musculature of the foot. Electronically signed by: Anders Morrison MD 11/29/2023 08:54 AM EDT
--- NOTE | ~2023-11-28 | US_ITS ---
EXAMINATION: US NONINVASIVE ASSESSMENT OF THE bilateral LOWER EXTREMITY WITH ARTERIAL DUPLEX AND ANKLE BRACHIAL INDICES (ABIS) CLINICAL INFORMATION: diabetic ulcer COMPARISON: None available. TECHNIQUE: Duplex Doppler techniques with waveform analysis and measurement of velocities in the common femoral, profunda femoris, superficial femoral, popliteal and tibial arteries were performed. In addition, ankle pulse volume recordings, ankle pressure measurements and ankle brachial indices were obtained of the bilateral lower extremity arterial system. The study was performed only at rest. FINDINGS: NONINVASIVE ASSESSMENT OF THE ARTERIES OF BILATERAL LOWER EXTREMITIES WITH ABIs: RIGHT LEG: Ankle-brachial index: 1.14 Ankle PVR: Normal LEFT LEG: Ankle-brachial index: 1.13 Left ankle PVR: Normal HELDER Reference: 0.9 - 1.4 = normal - no significant arterial disease 0.7 - 0.89 = mild peripheral arterial disease 0.51 - 0.69 = moderate peripheral arterial disease 0.50 = severe peripheral arterial disease RIGHT LOWER EXTREMITY DUPLEX ULTRASOUND: Common femoral artery: 123 cm/s. Diastolic flow reversal: Present Profunda femoris artery: 99.4 cm/s. Diastolic flow reversal: Present Superficial femoral artery (proximal): 160.1 cm/s. Diastolic flow reversal: Present Superficial femoral artery (mid): 105.8 cm/s. Diastolic flow reversal: Present Superficial femoral artery (distal): 133.5 cm/s. Diastolic flow reversal: Present Popliteal artery: 113.6 cm/s Diastolic flow reversal: Present Posterior tibial artery: 146.5 cm/s Diastolic flow reversal: Present LEFT LOWER EXTREMITY DUPLEX ULTRASOUND: Common femoral artery: 164.7 cm/s. Diastolic flow reversal: Present Profunda femoris artery: 53.8 cm/s. Diastolic flow reversal: Present Superficial femoral artery (proximal): 127.1 cm/s. Diastolic flow reversal: Present Superficial femoral artery (mid): 112.2 cm/s. Diastolic flow reversal: Present Superficial femoral artery (distal): 91.1 cm/s. Diastolic flow reversal: Present Popliteal artery: 104.4 cm/s Diastolic flow reversal: Present Posterior tibial artery: 114.2 cm/s Diastolic flow reversal: Present US/US arterial duplex BI w/ HELDER IMPRESSION: Normal ABIs and arterial duplex. Electronically signed by: Speedy Rivera MD 11/30/2023 08:53 AM EDT
--- NOTE | ~2023-11-28 | XR_ITS ---
EXAMINATION: XR FOOT, RIGHT CLINICAL INFORMATION: Right great toe redness COMPARISON: None available. TECHNIQUE: AP, lateral, and oblique views of the right foot. FINDINGS: No acute visible fracture or dislocation. Multi joint arthritic changes. Plantar calcaneal heel spur. Spurring of the dorsal midfoot. Joint spaces and alignment are otherwise maintained. Slight soft tissue prominence along the dorsum and volar aspect of the metatarsal heads which may be accentuated secondary to summation artifact. Atherosclerotic calcifications are noted. XR/XR foot RT 2V IMPRESSION: 1. No acute visible fracture or dislocation. 2. Multi joint arthritic changes. 3. Slight soft tissue prominence along the dorsum and volar aspect of the metatarsal heads which may be accentuated secondary to summation artifact. Electronically signed by: Nick Segura MD 11/28/2023 12:15 PM EDT
[2023-11-28 10:38] VITALS: BP 123/66; PULSE 75; RESP 20; TEMP 36.7; O2SAT 93; BMI 48.3
--- NOTE | 2023-11-28 10:49 | ED_ITS ---
HPI - General Adult General Chief complaint: Wound/Laceration Stated complaint: r toe inj checkup Time Seen by Provider: 11/28/23 12:35 Source: patient and old records reviewed Mode of arrival: ambulatory Limitations: no limitations History of Present Illness ED Provider: freddy [facility] narrative: Patient is a 68-year-old male with history of DM, HLD presenting to the emergency department for re-evaluation of right toe infection. Patient was seen in this emergency department initially on 11/11 after the toenail of his right hallux fell off. He was started on Keflex and bacitracin at that time. Patient returned to the emergency department on 11/24, given additional prescription for keflex and also started on doxycycline at that time. He was instructed to return for wound check in two days. Denies fevers. States that he feels the area appears more red. complaint: toe infection Onset (ago): week(s) Associated symptoms: denies other symptoms Treatments prior to arrival: other Related Data Home Medications ?Medication ?Instructions ?Recorded ?Confirmed aspirin 81 mg tablet,delayed 81 mg PO DAILY 11/28/23 11/28/23 release cyclobenzaprine 10 mg tablet 10 mg PO BEDTIME 11/28/23 11/28/23 gabapentin 300 mg capsule 900 mg PO TID 11/28/23 11/28/23 insulin glargine U-300 conc 300 115 unit subcut BEDTIME 11/28/23 11/28/23 unit/mL (3 mL) subcutaneous pen (Toujeo Max U-300 SoloStar) insulin lispro 100 unit/mL See Protocol subcut TIDAC 11/28/23 11/28/23 subcutaneous pen (Humalog KwikPen (U-100) Insulin) lisinopril 30 mg tablet 10 mg PO DAILY 11/28/23 11/28/23 metformin 500 mg tablet,extended 1,000 mg PO BID 11/28/23 11/28/23 release 24 hr metoprolol tartrate 25 mg tablet 25 mg PO BID 11/28/23 11/28/23 rosuvastatin 10 mg tablet 10 mg PO DAILY 11/28/23 11/28/23 Allergies Allergy/AdvReac Type Severity Reaction Status Date / Time No Known Allergies Allergy Verified 11/28/23 10:43 Review of Systems 2 Review of Systems: As per HPI. Yes all other systems are reviewed and are negative Constitutional: Constitutional: Reports as per [facility] Past Medical History Medical History (Updated 11/28/23 @ 14:52 by CHLOE Evangelista) Peripheral neuropathy HTN (hypertension) CAD (coronary artery disease) Insulin dependent type 2 diabetes mellitus Social History Social History Household Members: Spouse Housing: House Do you presently have visiting nurse or other home services: No Patient Tobacco Use Status: Never used Tobacco Smoked in Last 30 Days: No Use of substances other than those prescribed or required for medical reasons: No Have you been hit, kicked, punched, or otherwise hurt by someone within the past year? If so, by whom?: No Do you feel safe in your current relationship?: Yes Is there a partner from a previous relationship who is making you feel unsafe now?: No Are you made to feel afraid or neglected: No Advance Directives: No Advance Directives Information Provided: Yes Do you have a plan to hurt others: No Plan Recently lost weight without trying: No How much weight loss: Not applicable Eating poorly because of decreased appetite: No Nutrition screen score: 0 Nutrition Risks: No Nutritional Risk Poor oral hygiene: No Physical Exam ED Vital Signs: Vital Signs - 24 hr 11/28/23 10:38 Temperature 98.1 F Pulse Rate 75 Respiratory Rate 20 Blood Pressure 123/66 Pulse Oximetry 93 Oxygen Delivery Method Room Air BMI result Body Mass Index 48.3 Vital signs have been reviewed and appear to be correct. Blood pressure normal. Heart rate normal. Respiratory rate normal. Temperature normal. Oxygen saturation normal. Const General: cooperative, healthy appearing and no acute distress Orientation/consciousness: oriented to person, oriented to place, oriented to time and patient oriented x3 Limitations: no limitations [facility] Head: Yes normocephalic and Yes atraumatic Ears: external ears normal General nose exam: Normal external nose present Face and sinus: Yes face symmetric Mouth: oropharynx normal and moist mucous membranes Throat: Yes uvula midline Eyes Pupils: Equal, round and reactive pupils present Neck Neck: Yes normal visual inspection and Yes supple Resp Effort & Inspection: normal respiratory effort and able to speak in complete sentences Auscultation: clear to auscultation bilaterally Cardio Rate: regular rate Rhythm: regular rhythm Heart sounds: S1 normal heart sound present and S2 normal heart sound present GI Palpation (GI): Soft to palpation and nontender Auscultation: normoactive bowel sounds General: Yes no CVA tenderness Back/Spine/Pelvis Back: no CVA tenderness Skin General skin exam: elasticity normal and turgor normal Neuro General: oriented to person, oriented to place, oriented to time, patient oriented x3, moves all extremities, no focal motor deficits and CN's II-XI intact bilaterally Cranial nerves: Yes Equal, round and reactive pupils present Cognition (Neuro): normal cognition Extrem Other: General: Yes full ROM, Yes no pedal edema and Yes no calf tenderness Right lower extremity: foot (see photo) Psych Mental Status: mental status grossly normal Affect: normal affect Thought process: Normal thought process present Course Course Course Narrative: RME: RME done by CHLOE Goldberg. 68-year-old male history of diabetes presents to the ED for right great toe wound check. Patient was being treated for cellulitis after nail injury. I reviewed patient's x-ray from 3 days ago which showed osteomyelitis patient was discharged with oral antibiotics not admitted. Patient denies any fever or chills. Foot exam shows some erythema. Repeat labs and x-ray ordered. Medications Administered Generic Name Dose Route Start Last Admin Trade Name Freq PRN Reason Stop Dose Admin Cyclobenzaprine HCl 10 mg 11/28/23 21:00 11/28/23 21:12 Cyclobenzaprine Hcl 10 Mg Tablet PO 10 mg BEDTIME CHERY Administration Enoxaparin Sodium 40 mg 11/28/23 14:45 11/28/23 16:03 Enoxaparin Sodium 40 Mg/0.4 Ml Syringe SUBCUT 40 mg Q24H CHERY Administration Gabapentin 900 mg 11/28/23 15:00 11/28/23 21:12 Gabapentin 300 Mg Capsule PO 900 mg TID CHERY Administration Piperacillin Sod/Tazobactam 50 mls @ 100 mls/hr 11/28/23 15:00 11/28/23 21:53 Sod 3.375 gm/ Sodium Chloride IV Infused Q6H CHERY Infusion Insulin Glargine 55 unit 11/28/23 21:00 11/28/23 21:10 Insulin Glargine,Hum.Rec.Anlog 100 Unit/Ml 10 Ml Vial SUBCUT 55 unit BEDTIME CHERY Administration Insulin Human Lispro 0 unit 11/28/23 16:30 11/28/23 21:10 Insulin Lispro 100 Unit/Ml 3 Ml Vial SUBCUT 6 unit QIDACHS [facility] Administration Protocol Metoprolol Tartrate 25 mg 11/28/23 21:00 11/28/23 21:12 Metoprolol Tartrate 25 Mg Tablet PO 25 mg BID [facility] Administration Protocol Sodium Chloride 3 ml 11/28/23 16:00 11/28/23 16:00 0.9 % Sodium Chloride Flush 3 Ml Syringe IVFLUSH Not Given QSHIFT [facility] Discontinued Medications Generic Name Dose Route Start Last Admin Trade Name Reema PRN Reason Stop Dose Admin Gadobutrol 10 ml 11/28/23 19:01 11/28/23 19:01 Gadobutrol 10 Ml Vial IVPUSH 11/28/23 19:02 10 ml ONCE ONE Administration Vancomycin HCl 2,000 mg in 500 mls @ 250 mls/hr 11/28/23 13:58 11/28/23 17:09 Vancomycin/Ns IV 11/28/23 15:57 Infused ONCE ONE Infusion Influenza Virus Vaccine 0.5 ml 11/28/23 20:30 11/28/23 21:10 Flu Vacc [id number](6mos Up)/Pf 0.5 Ml Syringe IM 11/28/23 20:31 0.5 ml .ONCE ONE Administration Medical Decision Making Medical Decision Making [facility] Narrative: Patient is a 68-year-old male with history of DM, HLD presenting to the emergency department for re-evaluation of right toe infection. On exam patient is awake, A+Ox3, VS WNL, afebrile, normal neurological exam without focal deficits, physical exam findings as above. Given reported symptoms and physical exam findings, initial differential includes cellulitis, osteomyelitis. Labs notable for left shift without leukocytosis, increased ESR and CRP as compared to visit on 11/24. X-ray on 11/24 notable for question of osteo. X-ray today notable for soft tissue prominence along metatarsal heads My interpretation is in agreement with the radiologist's interpretation. Case discussed with Dr. Rodriguez who accepts admission to medicine for cellulitis as patient has failed outpatient antibiotics. Differential Diagnosis Differential Diagnoses: The differential diagnosis associated with the presentation includes As per [facility] Admission/Observation Consideration of admission/observation: Escalation of care including admission/observation considered Consult Healthcare Provider Management of the patient was discussed with: Hospitalist (Dr. Rodriguez) Lab Data [facility] Lab Attestation statement: I reviewed the patient's lab results. As per [facility] 11/28/23 11:00 11/28/23 11:00 Labs: Lab Results 11/28/23 Range/Units 11:00 WBC 9.3 (4.8-10.8) X10*3/uL RBC 5.48 (4.60-5.80) X10*6/uL Hgb 15.4 (14.0-18.0) g/dl Hct 46.1 (42.0-52.0) % MCV 84.1 (80.0-98.0) fL MCH 28.1 (27.0-33.0) pg MCHC 33.4 (31.0-36.0) g/dl RDW 13.1 (11.0-16.0) % Plt Count 179 (160-400) X10*3/uL MPV 11.1 (9.4-12.4) fL Immature Gran % (Auto) 1.2 H (0.0-0.4) % Neut % (Auto) 73.1 H (45-73) % Lymph % (Auto) 14.2 L (20-40) % [place] % (Auto) 7.1 (2-11) % Eos % (Auto) 3.4 (0-4) % Baso % (Auto) 1.0 (0-2) % Lymph # (Auto) 1.3 (1.2-4.9) X10*3/uL [place] # (Auto) 0.7 (0.1-1.2) X10*3/uL Eos # (Auto) 0.3 (0.0-0.4) X10*3/uL Baso # (Auto) 0.1 (0.0-0.2) X10*3/uL Abs Immat Gran (auto) 0.11 H (0.00-0.03) X10*3/uL Absolute Neuts (auto) 6.8 (2.0-8.3) x10*3/uL Absolute Nucleated RBC 0.000 (0.0-0.012) X10*3/uL Nucleated RBC % (auto) 0.0 (0.0-0.2) /100WBC ESR 21 H (0-15) MM/HR Sodium 140 (135-145) mmol/L Potassium 4.2 (3.3-5.1) mmol/L Chloride 105 (96-108) mmol/L Carbon Dioxide 27 (22-29) mmol/L Anion Gap 12 (12-20) BUN 21 H (9-16) mg/dL Creatinine 0.97 (0.5-1.4) mg/dL Estim Creat Clear Calc 117.7 Estimated GFR > 60 Random Glucose 175 H (60-115) mg/dL Lactic Acid 1.3 (0.5-2.0) mmol/L Calcium 10.4 H D (8.4-10.2) mg/dL Total Bilirubin 0.6 (0.0-1.0) mg/dL AST 23 (5-37) U/L ALT 20 (0-40) U/L Alkaline Phosphatase 79 (39-117) U/L C-Reactive Protein 2.26 H (< or = 0.50) mg/dL Total Protein 6.9 (6.5-8.0) g/dL Albumin 3.9 (3.5-5.0) g/dL Independent Interpretation I performed an independent interpretation of an: Plain X-Ray Interpretation: Soft tissue swelling to metatarsal heads. Radiology Impression Discussion of test interpretation with radiology: I have reviewed the radiologist's reading. Radiologist Impression: XR/XR foot RT 2V IMPRESSION: 1. No acute visible fracture or dislocation. 2. Multi joint arthritic changes. 3. Slight soft tissue prominence along the dorsum and volar aspect of the metatarsal heads which may be accentuated secondary to summation artifact. External Record Review External record reviewed: Inpatient record, Office record and Outpatient record Discharge Plan Discharge Clinical Impression: Cellulitis of great toe of right foot Patient Disposition: Admitted As Inpatient Interventions: Admission Worksheet (ED) Last Done: 11/28/23 19:48 Discharge Date/Time: 11/28/23 20:30
[2023-11-28 11:14] LABS: MANUAL DIFF FLAG NO
[2023-11-28 11:16] LABS: Basophils Absolute Auto 0.1 X10*3/uL (0.0-0.2); Eosinophils Absolute Auto 0.3 X10*3/uL (0.0-0.4); Eosinophils Percent Auto 3.4 % (0-4); Hematocrit 46.1 % (42.0-52.0); Hemoglobin 15.4 g/dl (14.0-18.0); Imm Gran Abs Auto 0.11 X10*3/uL (0.00-0.03); Imm Gran Pct Auto 1.2 % (0.0-0.4); Lactic Acid 1.3 mmol/L (0.5-2.0); Lymphocytes Absolute Auto 1.3 X10*3/uL (1.2-4.9); Lymphocytes Percent Auto 14.2 % (20-40); Mean Corpuscular HGB Conc 33.4 g/dl (31.0-36.0); Mean Corpuscular Hemoglobin 28.1 pg (27.0-33.0); Mean Corpuscular Volume 84.1 fL (80.0-98.0); Mean Platelet Volume 11.1 fL (9.4-12.4); Monocytes Absolute Auto 0.7 X10*3/uL (0.1-1.2); Monocytes Percent Auto 7.1 % (2-11); Neutrophils Absolute Auto 6.8 x10*3/uL (2.0-8.3); Neutrophils Percent Auto 73.1 % (45-73); Platelet Count 179 X10*3/uL (160-400); Red Blood Count 5.48 X10*6/uL (4.60-5.80); Red Cell Distribution Width 13.1 % (11.0-16.0); White Blood Count 9.3 X10*3/uL (4.8-10.8)
[2023-11-28 11:44] LABS: Alanine Aminotransferase 20 U/L (0-40); Albumin Level 3.9 g/dL (3.5-5.0); Alkaline Phosphatase 79 U/L (39-117); Anion Gap 12 (12-20); Aspartate Amino Transferase 23 U/L (5-37); Bilirubin Total 0.6 mg/dL (0.0-1.0); Blood Urea Nitrogen 21 mg/dL (9-16); C Reactive Protein 2.26 mg/dL (< or = 0.50); Calcium 10.4 mg/dL (8.4-10.2); Carbon Dioxide 27 mmol/L (22-29); Chloride 105 mmol/L (96-108); Creatinine Clr Calc Pharmacy 117.7; Estimated Glomerular Filt Rate > 60; Glucose Random 175 mg/dL (60-115); Potassium 4.2 mmol/L (3.3-5.1); Sodium 140 mmol/L (135-145); Total Protein 6.9 g/dL (6.5-8.0)
[2023-11-28 11:58] LABS: Erythrocyte Sedimentation Rate 21 MM/HR (0-15)
--- NOTE | 2023-11-28 14:04 | PM.IMHP ---
History of Present Illness Date of Service: 11/28/23 Attending physician on admission: Brian Rodriguez Chief Complaint: Worsening toe infection Pt is a 68-year-old male with a PMH significant for HTN, HLD, CAD s/p stenting, and insulin-dependent type 2 diabetes with peripheral neuropathy who presents to the ED with?worsening right great toe infection. Pt initially presented to the ED on 11/11 after having his right great toenail fal0 offl. Patient was discharged on Keflex and bacitracin which he took as prescribed. Re-presented to the ED on 11/24 after toe began to bleed and turn red. Was discharged on doxycycline and additional prescription of Keflex. Patient presents today after taking off his sock today and noting toe was again bleeding and looking more red than prior. Denies fever or chills. No purulent discharge. No foul smell. Patient denies chest pain/pressure, palpitations. No shortness a breath or difficulty breathing. Denies nausea, vomiting, abdominal pain. In the ED pt's vitals WNL. Labs were significant for ESR 21 and CRP 2.26, otherwise grossly unremarkable. No leukocytosis. Stable H&H. No significant electrolyte abnormalities. Renal function baseline. X-ray of right toe on 11/24 showed cortical erosion lung lateral aspect of distal phalanx concerning for possible osteomyelitis. X-ray of right foot today showed no acute visible fracture or dislocation but with slight soft tissue prominence on the dorsum and volar aspect of metatarsal heads, and multi joint arthritic changes. Pt was treated with vancomycin. Pt will be admitted to the hospital for treatment and further evaluation of diabetic right foot infection that failed outpatient therapy. Review of Systems Review of Systems: Worsening right great toe diabetic foot infection with bleeding and increasing erythema Denies foul-smelling or purulent discharge No fever or chills Denies chest pain/pressure, palpitations No nausea, vomiting, abdominal pain Denies SOB or difficulty breathing [facility] Medical History (Updated 11/28/23 @ 14:52 by CHLOE Evangelista) Peripheral neuropathy HTN (hypertension) CAD (coronary artery disease) Insulin dependent type 2 diabetes mellitus Social History Advance Directives: No Advance Directives Information Provided: Yes Do you have a plan to hurt others: No Plan Meds Allergies Allergy/AdvReac Type Severity Reaction Status Date / Time No Known Allergies Allergy Verified 11/28/23 10:43 Active Medications: Current Medications Vancomycin HCl (Vancomycin/Ns) 2,000 mg in 500 mls @ 250 mls/hr IV ONCE ONE Stop: 11/28/23 15:57 Home Medications ?Medication ?Instructions ?Recorded ?Confirmed ?Last Taken ?Type aspirin 81 mg tablet,delayed 81 mg PO DAILY 11/28/23 11/28/23 11/28/23 History release cyclobenzaprine 10 mg tablet 10 mg PO BEDTIME 11/28/23 11/28/23 Unknown History gabapentin 300 mg capsule 900 mg PO TID 11/28/23 11/28/23 11/28/23 History insulin glargine U-300 conc 300 115 unit subcut BEDTIME 11/28/23 11/28/23 Unknown History unit/mL (3 mL) subcutaneous pen (Toujeo Max U-300 SoloStar) insulin lispro 100 unit/mL See Protocol subcut TIDAC 11/28/23 11/28/23 11/28/23 History subcutaneous pen (Humalog KwikPen (U-100) Insulin) lisinopril 30 mg tablet 10 mg PO DAILY 11/28/23 11/28/23 11/28/23 History metformin 500 mg tablet,extended 1,000 mg PO BID 11/28/23 11/28/23 11/28/23 History release 24 hr metoprolol tartrate 25 mg tablet 25 mg PO BID 11/28/23 11/28/23 11/28/23 History rosuvastatin 10 mg tablet 10 mg PO DAILY 11/28/23 11/28/23 11/28/23 History Physical Exam Vital Signs and Narrative: Vital Signs: Last Vital Signs Temp 98.1 F 11/28/23 10:38 Pulse 75 11/28/23 10:38 Resp 20 11/28/23 10:38 BP 123/66 11/28/23 10:38 Pulse Ox 93 11/28/23 10:38 O2 Del Method Room Air 11/28/23 10:38 BMI result Body Mass Index 48.3 General: AOx3, no acute distress Resp: CTA bilaterally CVS: S1, S2, RRR GI: +BS, NT, no distention Skin: Warm, dry Neuro: Cranial nerves II-XII grossly intact bilaterally. Motor grossly intact bilaterally Extremities: No edema. Right foot 1st digit erythema, warmth, and superficial ulceration. No foul-smelling or purulent discharge. As pictured below Psych: Appropriate affect Results Labs 11/28/23 11:00 11/28/23 11:00 Labs: Laboratory Results - last 24 hr 11/28/23 11:00 MCV 84.1 MCH 28.1 MCHC 33.4 RDW 13.1 Plt Count 179 MPV 11.1 Immature Gran % (Auto) 1.2 H Neut % (Auto) 73.1 H Lymph % (Auto) 14.2 L [place] % (Auto) 7.1 Eos % (Auto) 3.4 Baso % (Auto) 1.0 Lymph # (Auto) 1.3 [place] # (Auto) 0.7 Eos # (Auto) 0.3 Baso # (Auto) 0.1 Abs Immat Gran (auto) 0.11 H Absolute Neuts (auto) 6.8 Absolute Nucleated RBC 0.000 Nucleated RBC % (auto) 0.0 ESR 21 H Anion Gap 12 Estim Creat Clear Calc 117.7 Estimated GFR > 60 Random Glucose 175 H Lactic Acid 1.3 Calcium 10.4 H D Total Bilirubin 0.6 AST 23 ALT 20 Alkaline Phosphatase 79 C-Reactive Protein 2.26 H Total Protein 6.9 Albumin 3.9 Imaging Radiologist's Impressions: Impressions Foot X-Ray 11/28/23 11:06 IMPRESSION: 1. No acute visible fracture or dislocation. 2. Multi joint arthritic changes. 3. Slight soft tissue prominence along the dorsum and volar aspect of the metatarsal heads which may be accentuated secondary to summation artifact. Electronically signed by: Nick Segura MD 11/28/2023 12:15 PM EDT RP Assessment and Plan (1) Cellulitis of great toe of right foot: Status: Acute Plan Pt is a 68-year-old male with a PMH significant for HTN, HLD, CAD s/p stenting, and insulin-dependent type 2 diabetes with peripheral neuropathy who presents to the ED with?worsening right great toe infection. Pt will be admitted to the hospital for treatment and further evaluation of diabetic right foot infection that failed outpatient therapy. Cellulitis of 1st digit of right foot Worsening since 11/11 despite being on p.o. Keflex and doxycycline Patient does not meet sepsis criteria: No fever tachycardia, tachypnea, or leukocytosis Will treat with vancomycin and Zosyn, started 11/28/2023 X-ray on 11/24 with ?osteo, has mildly elevated ESR and CRP Will get MRI to evaluate for osteo Follow up blood cultures CAD Continue aspirin, statin HTN Continue lisinopril, metoprolol Insulin-dependent type 2 diabetes with peripheral neuropathy Hold metformin Sliding-scale insulin, Lantus Diabetic diet Continue gabapentin Full Code Attending:?Dr. Lowe DVT Prophylaxis: Lovenox Pt will require a hospitalization of at least two nights for treatment of?cellulitis of right great toe secondary to diabetic foot infection that has failed outpatient therapy and will require administration of IV antibiotics. Quality Stroke Does the patient have a stroke diagnosis?: No VTE Prior VTE?: No VTE Risk Level:: Medical - moderate - high VTE Device Contraindication: Treatment Not Indicated VTE Drug Contraindication: N/A - Med Ordered
--- NOTE | 2023-11-28 14:30 | PHA.MEDREC ---
Pharmacy Consult ? Medication Reconciliation Pharmacy has completed the medication reconciliation. Patient with list on phone, which had 10mg lisinopril daily despite claim history for 30mg. He takes 115 units Toujeo nightly. All AM meds taken this morning
[2023-11-28] MEDS: vancomycin/NS 2,000 MG/500 ML PLAST..BAG 250 MG IV (14:50)
--- NOTE | 2023-11-28 15:15 | PC.NURSE ---
MRI screening form completed and faxed to MRI.
--- NOTE | 2023-11-28 15:48 | PHA.PROG ---
Admission Date/Time: November 28, 2023 14:45 Indication: SKIN Weight in k.5 kg Adjusted body weight in Kg: [place] body weight in Kg: Obesity Dosing Indication % IBW: Serum Creatinine - Last 168 Hours 11/28/23 11:00 Creatinine 0.97 Estimated CrCl and GFR - Last 168 Hours 11/28/23 11:00 Estim Creat Clear Calc 117.7 Estimated GFR > 60 Vancomycin Loading Dose: 2000 MG Current Vancomycin Dosing Regimen: 1250 MG Q12H Vancomycin Monitoring using AUC goal of 400 - 600 range with trough as surrogate marker: CAH=906 TROUGH=15.9 Date and Time for next Vancomycin Level to be drawn: 11/29/23 @2100 Pharmacist Comments on Vancomycin Plan: Vancomycin dosing will take advantage of [employer] as a clinical decision support tool that uses Bayesian modeling to calculate individual patient's pharmacokinetic parameters and forecast the patient's drug concentration time course with the target goal AUC 24 range of 400 - 600 mg/L/hr.
[2023-11-28] MEDS: Gabapentin 300 MG CAPSULE 900 MG PO ×2 (16:02→21:12)
[2023-11-28] MEDS: Enoxaparin Sodium 40 MG/0.4 ML SYRINGE SUBCUT (16:03)
[2023-11-28] MEDS: Piperacillin Sodium/Tazobactam 3.375 GM in 0.9 % Sodium Chloride 50 ML IV ×2 (17:15→21:14)
[2023-11-28 17:27] LABS: Glucose, Whole Blood 156 mg/dL (60-115)
[2023-11-28] MEDS: Insulin Lispro 100 UNIT/ML 3 ML VIAL SUBCUT ×2 (18:32→21:10)
[2023-11-28] MEDS: gadobutroL 10 ML VIAL IVPUSH (19:01)
[2023-11-28 19:47] VITALS: BP 123/57; PULSE 77; RESP 16; TEMP 36.7; O2SAT 99
[2023-11-28 20:24] VITALS: BMI 48.7
[2023-11-28 20:33] VITALS: BP 142/68; PULSE 72; RESP 18; TEMP 36.3; O2SAT 93
[2023-11-28 21:05] LABS: Glucose, Whole Blood 252 mg/dL (60-115)
[2023-11-28] MEDS: Insulin Glargine,Hum.rec.anlog 100 UNIT/ML 10 ML VIAL 55 UNIT SUBCUT (21:10)
[2023-11-28] MEDS: Flu Vacc TS2024-25(6mos up)/PF 0.5 ML SYRINGE IM (21:10)
[2023-11-28] MEDS: Cyclobenzaprine HCl 10 MG TABLET PO (21:12)
[2023-11-28] MEDS: Metoprolol Tartrate 25 MG TABLET PO (21:12)
[2023-11-29] MEDS: 0.9 % Sodium Chloride Flush 3 ML SYRINGE IVFLUSH ×4 (00:45→21:23)
[2023-11-29] MEDS: Piperacillin Sodium/Tazobactam 3.375 GM in 0.9 % Sodium Chloride 50 ML IV ×4 (03:01→21:24)
[2023-11-29] MEDS: vancomycin HCL 1,250 MG in 0.9 % Sodium Chloride 250 ML 166.67 MG IV ×2 (03:45→16:15)
[2023-11-29 04:00] VITALS: BP 151/70; PULSE 72; RESP 18; TEMP 36.4; O2SAT 93
[2023-11-29 06:52] LABS: Creatinine Clr Calc Pharmacy 105.3; Estimated Glomerular Filt Rate > 60
[2023-11-29 08:04] LABS: Glucose, Whole Blood 189 mg/dL (60-115)
[2023-11-29 08:18] VITALS: BP 141/82; PULSE 82; RESP 18; TEMP 37; O2SAT 94
[2023-11-29] MEDS: Insulin Lispro 100 UNIT/ML 3 ML VIAL SUBCUT ×4 (08:18→21:13)
[2023-11-29] MEDS: Gabapentin 300 MG CAPSULE 900 MG PO ×3 (08:18→21:15)
[2023-11-29 08:19] VITALS: BP 141/82; PULSE 81
[2023-11-29] MEDS: Aspirin Enteric Coated 81 MG TABLET.DR PO (08:19)
[2023-11-29] MEDS: Metoprolol Tartrate 25 MG TABLET PO ×2 (08:19→21:15)
[2023-11-29] MEDS: lisinopriL 10 MG TABLET PO (08:23)
[2023-11-29] MEDS: Atorvastatin Calcium 40 MG TABLET PO (08:23)
--- NOTE | 2023-11-29 10:11 | HO.PM.IMPN ---
Subjective Subjective Date of Service: 11/29/23 Interval History: small amount of bleeding from dorsum of R great toe not much pain but has neuropathy no fever/chills MRI shows osteomyelitis Review of Systems Review of Systems: Yes all other systems are reviewed and are negative Physical Exam Vital Signs: Vital Signs: Last Vital Signs Temp 98.6 F 11/29/23 08:18 Pulse 81 11/29/23 08:19 Resp 18 11/29/23 08:18 BP 141/82 H 11/29/23 08:19 Pulse Ox 94 11/29/23 08:18 O2 Del Method Room Air 11/29/23 08:18 BMI result Body Mass Index 48.7 Gen: in no acute distress HEENT: sclera anicteric, moist mucus membranes Neck: supple Lungs: clear to auscultation bilaterally Heart: regular rate and rhythm, no murmurs Abd: soft, non-tender, non-distended, obese Ext: no edema Skin: warm/well-perfused, R great toe with ulcerated nail bed; erythema and induration Neuro: alert and oriented x3, no focal findings Psych: appropriate affect Objective Data Active Medications Acetaminophen (Acetaminophen 325 Mg Tablet) 650 mg PO Q6H PRN PRN Reason: Pain, Mild (Pain Scale 1-3), fever or headache Aspirin (Aspirin Enteric Coated 81 Mg Tablet.) 81 mg PO DAILY [facility] Last Admin: 11/29/23 08:19 Dose: 81 mg Documented By: ALEXEI Atorvastatin Calcium (Atorvastatin Calcium 40 Mg Tablet) 40 mg PO DAILY [facility] Last Admin: 11/29/23 08:23 Dose: 40 mg Documented By: ALEXEI Benzonatate (Benzonatate 100 Mg Capsule) 100 mg PO TID PRN PRN Reason: Cough Calcium Carbonate (Calcium Carbonate 750 Mg Tab.Chew) 750 mg PO Q4H PRN PRN Reason: Heartburn Cyclobenzaprine HCl (Cyclobenzaprine Hcl 10 Mg Tablet) 10 mg PO BEDTIME [facility] Last Admin: 11/28/23 21:12 Dose: 10 mg Documented By: BEA Enoxaparin Sodium (Enoxaparin Sodium 40 Mg/0.4 Ml Syringe) 40 mg SUBCUT Q24H [facility] Last Admin: 11/28/23 16:03 Dose: 40 mg Documented By: MALATHI Gabapentin (Gabapentin 300 Mg Capsule) 900 mg PO TID [facility] Last Admin: 11/29/23 08:18 Dose: 900 mg Documented By: ALEXEI Glucose (Glucose Gel 15 Gm Gel..Gram.) 15 gm PO Q15M PRN; Protocol PRN Reason: per Hypoglycemia Standing Ord. Dextrose (D10) 250 mls @ 750 mls/hr IV Q15M PRN; Protocol PRN Reason: per Hypoglycemia Standing Ord. Piperacillin Sod/Tazobactam (Sod 3.375 gm/ Sodium Chloride) 50 mls @ 100 mls/hr IV Q6H [facility] Last Infusion: 11/29/23 08:55 Dose: Infused Documented By: ALEXEI Vancomycin HCl 1,250 mg/ (Sodium Chloride) 250 mls @ 166.667 mls/hr IV Q12H [facility] Last Infusion: 11/29/23 05:18 Dose: Infused Documented By: VALENTINA Insulin Glargine (Insulin Glargine,Hum.Rec.Anlog 100 Unit/Ml 10 Ml Vial) 65 unit SUBCUT BEDTIME [facility] Insulin Human Lispro (Insulin Lispro 100 Unit/Ml 3 Ml Vial) 0 unit SUBCUT QIDACHS [facility]; Protocol Last Admin: 11/29/23 08:18 Dose: 2 unit Documented By: ALEXEI Lisinopril (Lisinopril 10 Mg Tablet) 10 mg PO DAILY [facility]; Protocol Last Admin: 11/29/23 08:23 Dose: 10 mg Documented By: ALEXEI Magnesium Hydroxide (Milk Of Magnesia 30 Ml Oral.Susp) 30 ml PO DAILY PRN PRN Reason: Constipation Melatonin (Melatonin 3 Mg Tablet) 6 mg PO BEDTIME PRN PRN Reason: Insomnia Metoprolol Tartrate (Metoprolol Tartrate 25 Mg Tablet) 25 mg PO BID [facility]; Protocol Last Admin: 11/29/23 08:19 Dose: 25 mg Documented By: ALEXEI Ondansetron HCl (Ondansetron Hcl 4 Mg/2 Ml Vial) 4 mg IVPUSH Q8H PRN PRN Reason: Nausea and Vomiting Pharmacy Consult (Consult Rx Vancomycin Dosing) 1 each MISCELLANE DAILY PRN PRN Reason: Consult order Sodium Chloride (0.9 % Sodium Chloride Flush 3 Ml Syringe) 3 ml IVFLUSH [facility] Last Admin: 11/29/23 08:25 Dose: 3 ml Documented By: ALEXEI Labs 11/28/23 11:00 11/29/23 05:35 Labs: Laboratory Results - last 24 hr 11/28/23 11/28/23 11/28/23 11:00 17:21 20:31 MCV 84.1 MCH 28.1 MCHC 33.4 RDW 13.1 Plt Count 179 MPV 11.1 Immature Gran % (Auto) 1.2 H Neut % (Auto) 73.1 H Lymph % (Auto) 14.2 L [place] % (Auto) 7.1 Eos % (Auto) 3.4 Baso % (Auto) 1.0 Lymph # (Auto) 1.3 [place] # (Auto) 0.7 Eos # (Auto) 0.3 Baso # (Auto) 0.1 Abs Immat Gran (auto) 0.11 H Absolute Neuts (auto) 6.8 Absolute Nucleated RBC 0.000 Nucleated RBC % (auto) 0.0 ESR 21 H Anion Gap 12 Estim Creat Clear Calc 117.7 Estimated GFR > 60 POC Glucose 156 H 252 H Random Glucose 175 H Lactic Acid 1.3 Calcium 10.4 H D Total Bilirubin 0.6 AST 23 ALT 20 Alkaline Phosphatase 79 C-Reactive Protein 2.26 H Total Protein 6.9 Albumin 3.9 11/29/23 11/29/23 05:35 07:34 MCV MCH MCHC RDW Plt Count MPV Immature Gran % (Auto) Neut % (Auto) Lymph % (Auto) [place] % (Auto) Eos % (Auto) Baso % (Auto) Lymph # (Auto) [place] # (Auto) Eos # (Auto) Baso # (Auto) Abs Immat Gran (auto) Absolute Neuts (auto) Absolute Nucleated RBC Nucleated RBC % (auto) ESR Anion Gap Estim Creat Clear Calc 105.3 Estimated GFR > 60 POC Glucose 189 H Random Glucose Lactic Acid Calcium Total Bilirubin AST ALT Alkaline Phosphatase C-Reactive Protein Total Protein Albumin Impressions Foot X-Ray 11/28/23 11:06 IMPRESSION: 1. No acute visible fracture or dislocation. 2. Multi joint arthritic changes. 3. Slight soft tissue prominence along the dorsum and volar aspect of the metatarsal heads which may be accentuated secondary to summation artifact. Electronically signed by: Nick Segura MD 11/28/2023 12:15 PM EDT RP Foot MRI 11/28/23 17:52 IMPRESSION: 1. Soft tissue ulceration and cellulitis at the dorsal surface of the great toe without abscess formation. Acute osteomyelitis within the adjacent first distal phalanx. 2. Mild osteoarthritis partially visualized at the tarsometatarsal joints. 3. Edema and atrophy throughout the intrinsic musculature of the foot. Electronically signed by: Anders Morrison MD 11/29/2023 08:54 AM EDT RP Assessment and Plan (1) Diabetic osteomyelitis: Status: Acute Assessment and Plan: d2 68yo M with HTN, HLD, CAD s/p PCI, DM2 with neuropathy presenting with worsening R great toe infection after recent toenail loss despite taking doxycycline + cephalexin; found to have osteomyelitis DM ulcer with osteomyelitis + cellulitis - IV vanco + piperacillin-tazobactam 11/27-, follow BCx, will need PICC line and long-term IV ABX; ID consult; arterial doppler to check for vascular disease CAD - ASA, statin, b-franklyn, JEANNIE-I HTN - lisinopril, metoprololtartrate DM2 with neuropathy - basal-bolus insulin, hold MTF - gabapentin morbid obesity - diet/exercise counseling VTE ppx - enoxaparin dispo - home with [facility] eventually In my clinical judgment, the patient requires continued inpatient hospitalization for the following reasons: IV ABX, PICC, specialty consultation Total time managing care of this patient today: 45 minutes. Quality Stroke Does the patient have a stroke diagnosis?: No VTE Prior VTE?: No VTE Risk Level:: Medical - moderate - high VTE Device Contraindication: Treatment Not Indicated VTE Drug Contraindication: N/A - Med Ordered
[2023-11-29 11:38] LABS: Glucose, Whole Blood 211 mg/dL (60-115)
--- NOTE | 2023-11-29 15:32 | MHC.CM.PN ---
PT REPORTS HE LIVES WITH HIS AND IS INDEPENDENT WITH CARE HE HAS NO DME AND NO SERVICES PT DECLINES TO COMPLETE A HCP AT THIS TIME PCP: ATTILA WILLOUGHBY IMM DELIVERED DCP: PT WILL HAVE A PICC LINE PLACED ON SATURDAY FOR IV ABX REFERRALS MADE TO [facility] RN WILL PROVIDE TEACH ON SATURDAY, PT AND ABLE TO LEARN AND AWARE [facility] WILL NOT COME DAILY WILL TRANSPORT
[2023-11-29] MEDS: Enoxaparin Sodium 40 MG/0.4 ML SYRINGE SUBCUT (15:41)
--- NOTE | 2023-11-29 15:43 | HO.WOUND ---
Wound Consult: Initial 68yr old? Male admitted to [facility] on 11/28/23 - See progress notes and H&P for detailed history.? Wound consult placed for Right Great Toe Wound POA.? Patient agreeable to assessment and photo documentation.? Patient reports he attempted to see his provider but was not able to get an appointment - he reports he has visited the [facility] Emergency Department several times in regards to this toe wound prior to this admission. He reports he attempted outpt wound clinic appointment but was unable to get an appointment within a reasonable amount of time per his statement. Patient encouraged to make an appointment with outpt clinic at the time of d/c for follow up care - he reports understanding. Right Great Toe Etiology: ?Diabetic Wound ?Present on Admission Measurements: 4cm x 1.8cm x 0.1cm Wound Bed: dry wound bed - difficult to assess based on dry tissue - appears to be purulent filled are on top of toe with slow oozing creamy drainage Drainage / Odor: No odor noted Edges: ? irregular [place]iza wound: Red erythema - swelling noted, +pp? No Induration, Fluctuance or Warmth noted Pain: denies reports neuropathy Goals of Treatment: ? Continue to follow systemic treatments per providers orders - topical betadine to dry out wound bed - will follow up saturday if patient remains inpatient. Recommendations: 1. Provide adequate and supplemental nutrition.? 2. When applicable maintain blood glucose levels per Providers order. 3. Right Great Toe - [place] with Betadine Daily - cover with dry gauze dressing. Re-consult wound care Nurse for wound deterioration or wound changes.
[2023-11-29 15:48] VITALS: BP 140/64; PULSE 76; RESP 18; TEMP 36.9; O2SAT 95
[2023-11-29 16:37] LABS: Glucose, Whole Blood 169 mg/dL (60-115)
[2023-11-29 19:11] VITALS: BP 148/66; PULSE 80; RESP 18; TEMP 36.7; O2SAT 94
[2023-11-29 20:17] LABS: Glucose, Whole Blood 224 mg/dL (60-115)
[2023-11-29] MEDS: Insulin Glargine,Hum.rec.anlog 100 UNIT/ML 10 ML VIAL 65 UNIT SUBCUT (21:14)
[2023-11-29] MEDS: Cyclobenzaprine HCl 10 MG TABLET PO (21:15)
--- NOTE | 2023-11-29 21:46 | P.CNID_ITS ---
History of Present Illness Data of Consult Service Date: 11/29/23 Requesting physician: Hilario Lowe Primary Care Provider: Percy Moran MD HPI Reason for consult: OM right great toe He presents with worsening right red toe. He says he noticed nail fell off on 11/11 and went to ER. He was given Keflex 500 mg every 6 hours for seven days. He came back for recheck on 11/24 to ER and still had red toe and was given po Keflex 500 mg qid along with Doxycycline 100 mg po bid. He came back to hospital for recheck and worsening so admitted. He has right OM first metatarsal on MRI. Review of Systems 2 Review of Systems: Yes all other systems are reviewed and are negative PMFSH Past Medical History Medical History Peripheral neuropathy HTN (hypertension) CAD (coronary artery disease) Insulin dependent type 2 diabetes mellitus Family History Family history: reviewed and not pertinent Social History Social History Household Members: Spouse Housing: House Do you presently have visiting nurse or other home services: No Patient Tobacco Use Status: Never used Tobacco Smoked in Last 30 Days: No Use of substances other than those prescribed or required for medical reasons: No Currently Displaying Signs/Symptoms of Drug Intoxication Withdrawal: No Have you been hit, kicked, punched, or otherwise hurt by someone within the past year? If so, by whom?: No Do you feel safe in your current relationship?: Yes Is there a partner from a previous relationship who is making you feel unsafe now?: No Are you made to feel afraid or neglected: No Advance Directives: No Advance Directives Information Provided: Yes Do you have a plan to hurt others: No Plan Recently lost weight without trying: No How much weight loss: Not applicable Eating poorly because of decreased appetite: No Nutrition screen score: 0 Nutrition Risks: No Nutritional Risk Poor oral hygiene: No service: No Meds Allergies Allergy/AdvReac Type Severity Reaction Status Date / Time No Known Allergies Allergy Verified 11/28/23 10:43 Active Medications: Current Medications Acetaminophen (Acetaminophen 325 Mg Tablet) 650 mg PO Q6H PRN PRN Reason: Pain, Mild (Pain Scale 1-3), fever or headache Aspirin (Aspirin Enteric Coated 81 Mg Tablet.) 81 mg PO DAILY [facility] Last Admin: 11/29/23 08:19 Dose: 81 mg Atorvastatin Calcium (Atorvastatin Calcium 40 Mg Tablet) 40 mg PO DAILY [facility] Last Admin: 11/29/23 08:23 Dose: 40 mg Benzonatate (Benzonatate 100 Mg Capsule) 100 mg PO TID PRN PRN Reason: Cough Calcium Carbonate (Calcium Carbonate 750 Mg Tab.Chew) 750 mg PO Q4H PRN PRN Reason: Heartburn Cyclobenzaprine HCl (Cyclobenzaprine Hcl 10 Mg Tablet) 10 mg PO BEDTIME [facility] Last Admin: 11/29/23 21:15 Dose: 10 mg Enoxaparin Sodium (Enoxaparin Sodium 40 Mg/0.4 Ml Syringe) 40 mg SUBCUT Q24H [facility] Last Admin: 11/29/23 15:41 Dose: 40 mg Gabapentin (Gabapentin 300 Mg Capsule) 900 mg PO TID [facility] Last Admin: 11/29/23 21:15 Dose: 900 mg Glucose (Glucose Gel 15 Gm Gel..Gram.) 15 gm PO Q15M PRN; Protocol PRN Reason: per Hypoglycemia Standing Ord. Dextrose (D10) 250 mls @ 750 mls/hr IV Q15M PRN; Protocol PRN Reason: per Hypoglycemia Standing Ord. Piperacillin Sod/Tazobactam (Sod 3.375 gm/ Sodium Chloride) 50 mls @ 100 mls/hr IV Q6H [facility] Last Admin: 11/29/23 21:24 Dose: 100 mls/hr Vancomycin HCl 1,250 mg/ (Sodium Chloride) 250 mls @ 166.667 mls/hr IV Q12H [facility] Last Infusion: 11/29/23 17:49 Dose: Infused Insulin Glargine (Insulin Glargine,Hum.Rec.Anlog 100 Unit/Ml 10 Ml Vial) 65 unit SUBCUT BEDTIME [facility] Last Admin: 11/29/23 21:14 Dose: 65 unit Insulin Human Lispro (Insulin Lispro 100 Unit/Ml 3 Ml Vial) 0 unit SUBCUT QIDACHS [facility]; Protocol Last Admin: 11/29/23 21:13 Dose: 7 unit Lisinopril (Lisinopril 10 Mg Tablet) 10 mg PO DAILY [facility]; Protocol Last Admin: 11/29/23 08:23 Dose: 10 mg Magnesium Hydroxide (Milk Of Magnesia 30 Ml Oral.Susp) 30 ml PO DAILY PRN PRN Reason: Constipation Melatonin (Melatonin 3 Mg Tablet) 6 mg PO BEDTIME PRN PRN Reason: Insomnia Metoprolol Tartrate (Metoprolol Tartrate 25 Mg Tablet) 25 mg PO BID [facility]; Protocol Last Admin: 11/29/23 21:15 Dose: 25 mg Ondansetron HCl (Ondansetron Hcl 4 Mg/2 Ml Vial) 4 mg IVPUSH Q8H PRN PRN Reason: Nausea and Vomiting Pharmacy Consult (Consult Rx Vancomycin Dosing) 1 each MISCELLANE DAILY PRN PRN Reason: Consult order Sodium Chloride (0.9 % Sodium Chloride Flush 3 Ml Syringe) 3 ml IVFLUSH [facility]SHICHI [facility] Last Admin: 11/29/23 21:23 Dose: 3 ml Home Medications ?Medication ?Instructions ?Recorded ?Confirmed ?Last Taken ?Type aspirin 81 mg tablet,delayed 81 mg PO DAILY 11/28/23 11/28/23 11/28/23 History release cyclobenzaprine 10 mg tablet 10 mg PO BEDTIME 11/28/23 11/28/23 Unknown History gabapentin 300 mg capsule 900 mg PO TID 11/28/23 11/28/23 11/28/23 History insulin glargine U-300 conc 300 115 unit subcut BEDTIME 11/28/23 11/28/23 Unknown History unit/mL (3 mL) subcutaneous pen (Toujeo Max U-300 SoloStar) insulin lispro 100 unit/mL See Protocol subcut TIDAC 11/28/23 11/28/23 11/28/23 History subcutaneous pen (Humalog KwikPen (U-100) Insulin) lisinopril 30 mg tablet 10 mg PO DAILY 11/28/23 11/28/23 11/28/23 History metformin 500 mg tablet,extended 1,000 mg PO BID 11/28/23 11/28/23 11/28/23 History release 24 hr metoprolol tartrate 25 mg tablet 25 mg PO BID 11/28/23 11/28/23 11/28/23 History rosuvastatin 10 mg tablet 10 mg PO DAILY 11/28/23 11/28/23 11/28/23 History Physical Exam 2 Vital Signs: Vital Signs: Last Vital Signs Temp 98.0 F 11/29/23 19:11 Pulse 80 11/29/23 19:11 Resp 18 11/29/23 19:11 BP 148/66 H 11/29/23 19:11 Pulse Ox 94 11/29/23 19:11 O2 Del Method Room Air 11/29/23 19:11 BMI result Body Mass Index 48.7 Const: General: cooperative HEENT: Head: Yes normal to inspection Face and sinus: Yes normal facial exam Mouth: Normal oral and palatal mucosa present Teeth and gingiva: d entition normal Eyes: General: appearance normal, both eyes and all related structures P upils: Equal, round and reactive pupils present Resp: Effort & Inspection: normal respiratory effort Cardio: Rate: regular rate Rhythm: regular rhythm GI: Palpation (GI): Soft to palpation and nontender : General: Yes no CVA tenderness Back/Spine/Pelvis: Back: no CVA tenderness Skin: General skin exam: no rashes or lesions noted Neuro: General: moves all extremities Cranial nerves: Yes Equal, round and reactive pupils present Extrem: Other: reddened toe with two blisters on toe neuropathy Psych: Appearance: grossly normal Results Labs 11/28/23 11:00 11/29/23 05:35 Labs: BMP 11/29/23 05:35 Creatinine 1.09 Microbiology Microbiology Results: Microbiology 11/28/23 12:42 Blood - Venous Blood Culture - Preliminary No growth after 24 hours. 11/28/23 11:00 Blood - Venous Blood Culture - Preliminary No growth after 24 hours. Assessment and Plan (1) Diabetic osteomyelitis: Status: Acute Plan He has OM right great toe. Organisms are unknown,none on blood or wound samples. His risk is neuropathy. He is on Vancomycin and Zosyn. Would await any cultures if able. Probable Daptomycin for six weeks. Weekly CK,creatinine
[2023-11-30] MEDS: Piperacillin Sodium/Tazobactam 3.375 GM in 0.9 % Sodium Chloride 50 ML IV ×4 (03:01→21:20)
[2023-11-30] MEDS: vancomycin HCL 1,250 MG in 0.9 % Sodium Chloride 250 ML 166.67 MG IV ×2 (03:06→15:42)
[2023-11-30 03:14] VITALS: BP 166/75; PULSE 69; RESP 18; TEMP 36.1; O2SAT 94
[2023-11-30 05:58] LABS: Creatinine Clr Calc Pharmacy 107.2; Estimated Glomerular Filt Rate > 60
[2023-11-30 07:34] LABS: Glucose, Whole Blood 122 mg/dL (60-115)
[2023-11-30] MEDS: Insulin Lispro 100 UNIT/ML 3 ML VIAL SUBCUT ×4 (07:47→21:37)
[2023-11-30 07:51] VITALS: BP 145/65; PULSE 74; RESP 18; TEMP 36.2; O2SAT 93
[2023-11-30] MEDS: Gabapentin 300 MG CAPSULE 900 MG PO ×3 (08:34→21:31)
[2023-11-30] MEDS: Atorvastatin Calcium 40 MG TABLET PO (08:35)
[2023-11-30] MEDS: lisinopriL 10 MG TABLET PO (08:35)
[2023-11-30] MEDS: Metoprolol Tartrate 25 MG TABLET PO ×2 (08:35→21:32)
[2023-11-30] MEDS: 0.9 % Sodium Chloride Flush 3 ML SYRINGE IVFLUSH ×3 (08:35→21:38)
[2023-11-30] MEDS: Aspirin Enteric Coated 81 MG TABLET.DR PO (08:35)
[2023-11-30 11:25] LABS: Glucose, Whole Blood 216 mg/dL (60-115)
[2023-11-30 13:47] LABS: Vancomycin Random 11.2 mcg/mL (15-20)
--- NOTE | 2023-11-30 14:46 | HO.PM.IMPN ---
Subjective Subjective Date of Service: 11/30/23 Interval History: No acute issues overnight. Denies pain Review of Systems Denies chest pain Denies shortness of breath Denies fever chills Denies nausea vomiting diarrhea Physical Exam Vital Signs: Vital Signs: Last Vital Signs Temp 97.1 F 11/30/23 07:51 Pulse 74 11/30/23 07:51 Resp 18 11/30/23 07:51 BP 145/65 H 11/30/23 07:51 Pulse Ox 93 11/30/23 07:51 O2 Del Method Room Air 11/30/23 07:51 BMI result Body Mass Index 48.7 Const: Other: Awake alert no acute distress Resp: Other: Clear to auscultation bilaterally no rales or wheezes Cardio: Other: No S4; positive S1-S2; no S3 murmurs rubs or gallops GI: Other: Soft nontender nondistended normoactive bowel sounds Extrem: Other: Right great toe with distal necrosis (minimal); minimal erythema Objective Data Active Medications Acetaminophen (Acetaminophen 325 Mg Tablet) 650 mg PO Q6H PRN PRN Reason: Pain, Mild (Pain Scale 1-3), fever or headache Aspirin (Aspirin Enteric Coated 81 Mg Tablet.) 81 mg PO DAILY [facility] Last Admin: 11/30/23 08:35 Dose: 81 mg Documented By: SAJI Atorvastatin Calcium (Atorvastatin Calcium 40 Mg Tablet) 40 mg PO DAILY [facility] Last Admin: 11/30/23 08:35 Dose: 40 mg Documented By: SAJI Benzonatate (Benzonatate 100 Mg Capsule) 100 mg PO TID PRN PRN Reason: Cough Calcium Carbonate (Calcium Carbonate 750 Mg Tab.Chew) 750 mg PO Q4H PRN PRN Reason: Heartburn Cyclobenzaprine HCl (Cyclobenzaprine Hcl 10 Mg Tablet) 10 mg PO BEDTIME [facility] Last Admin: 11/29/23 21:15 Dose: 10 mg Documented By: AVINASH Enoxaparin Sodium (Enoxaparin Sodium 40 Mg/0.4 Ml Syringe) 40 mg SUBCUT Q24H [facility] Last Admin: 11/29/23 15:41 Dose: 40 mg Documented By: DARON Gabapentin (Gabapentin 300 Mg Capsule) 900 mg PO TID [facility] Last Admin: 11/30/23 08:34 Dose: 900 mg Documented By: SAJI Glucose (Glucose Gel 15 Gm Gel..Gram.) 15 gm PO Q15M PRN; Protocol PRN Reason: per Hypoglycemia Standing Ord. Dextrose (D10) 250 mls @ 750 mls/hr IV Q15M PRN; Protocol PRN Reason: per Hypoglycemia Standing Ord. Piperacillin Sod/Tazobactam (Sod 3.375 gm/ Sodium Chloride) 50 mls @ 100 mls/hr IV Q6H [facility] Last Infusion: 11/30/23 09:24 Dose: Infused Documented By: SAJI Vancomycin HCl 1,250 mg/ (Sodium Chloride) 250 mls @ 166.667 mls/hr IV Q12H [facility] Last Infusion: 11/30/23 04:42 Dose: Infused Documented By: AVINASH Insulin Glargine (Insulin Glargine,Hum.Rec.Anlog 100 Unit/Ml 10 Ml Vial) 65 unit SUBCUT BEDTIME [facility] Last Admin: 11/29/23 21:14 Dose: 65 unit Documented By: AVINASH Insulin Human Lispro (Insulin Lispro 100 Unit/Ml 3 Ml Vial) 0 unit SUBCUT QIDACHS [facility]; Protocol Last Admin: 11/30/23 11:50 Dose: 7 unit Documented By: ALEJANDRINA Lisinopril (Lisinopril 10 Mg Tablet) 10 mg PO DAILY [facility]; Protocol Last Admin: 11/30/23 08:35 Dose: 10 mg Documented By: SAJI Magnesium Hydroxide (Milk Of Magnesia 30 Ml Oral.Susp) 30 ml PO DAILY PRN PRN Reason: Constipation Melatonin (Melatonin 3 Mg Tablet) 6 mg PO BEDTIME PRN PRN Reason: Insomnia Metoprolol Tartrate (Metoprolol Tartrate 25 Mg Tablet) 25 mg PO BID [facility]; Protocol Last Admin: 11/30/23 08:35 Dose: 25 mg Documented By: SAJI Ondansetron HCl (Ondansetron Hcl 4 Mg/2 Ml Vial) 4 mg IVPUSH Q8H PRN PRN Reason: Nausea and Vomiting Pharmacy Consult (Consult Rx Vancomycin Dosing) 1 each MISCELLANE DAILY PRN PRN Reason: Consult order Sodium Chloride (0.9 % Sodium Chloride Flush 3 Ml Syringe) [facility] Admin: 11/30/23 08:35 Dose: 3 ml Documented By: SAJI Labs 11/28/23 11:00 11/30/23 05:21 Labs: Laboratory Results - last 24 hr 11/29/23 11/29/23 11/30/23 16:25 20:11 05:21 Hold Purple Top SEE NOTE Estim Creat Clear Calc 107.2 Estimated GFR > 60 POC Glucose 169 H 224 H Random Vancomycin 11/30/23 11/30/23 11/30/23 07:28 11:20 13:21 Hold Purple Top Estim Creat Clear Calc Estimated GFR POC Glucose 122 H 216 H Random Vancomycin 11.2 L Microbiology Microbiology Results: Microbiology 11/28/23 12:42 Blood Culture - Preliminary Blood - Venous No growth after 48 hours. 11/28/23 11:00 Blood Culture - Preliminary Blood - Venous No growth after 48 hours. Assessment and Plan (1) Diabetic osteomyelitis: Status: Acute Assessment and Plan: 68yo M with HTN, HLD, CAD s/p PCI, DM2 with neuropathy presenting with worsening R great toe infection after recent toenail loss despite taking doxycycline + cephalexin; found to have osteomyelitis 1.DM ulcer with osteomyelitis/cellulitis -vanco/piperacillin-tazobactam (3) -arterial Doppler within normal limits -PICC line 12/01 pending negative blood cultures 2.CAD -stable and well compensated at this time 3.HTN -acceptable control on current therapies -adjust as indicated 4.DM2 with neuropathy -acceptable control on current regimen -lispro correctional scale -adjust as indicated Full code Lovenox Requires ongoing hospitalization for IV antibiotics to treat osteomyelitis/cellulitis that has failed outpatient therapies. We will also need PICC line when cultures clear (2) Cellulitis of great toe of right foot: Status: Acute Quality Stroke Does the patient have a stroke diagnosis?: No VTE Prior VTE?: No VTE Risk Level:: Medical - moderate - high VTE Device Contraindication: Treatment Not Indicated VTE Drug Contraindication: N/A - Med Ordered
[2023-11-30] MEDS: Enoxaparin Sodium 40 MG/0.4 ML SYRINGE SUBCUT (15:07)
[2023-11-30 16:00] VITALS: BP 166/71; PULSE 69; RESP 20; TEMP 37.1; O2SAT 92
[2023-11-30 17:04] LABS: Glucose, Whole Blood 189 mg/dL (60-115)
[2023-11-30 19:34] LABS: Glucose, Whole Blood 198 mg/dL (60-115)
[2023-11-30 19:51] VITALS: BP 159/70; PULSE 68; RESP 20; TEMP 36.6; O2SAT 93
[2023-11-30] MEDS: Cyclobenzaprine HCl 10 MG TABLET PO (21:31)
[2023-11-30 21:32] VITALS: BP 160/70; PULSE 68
[2023-11-30] MEDS: Insulin Glargine,Hum.rec.anlog 100 UNIT/ML 10 ML VIAL 65 UNIT SUBCUT (21:36)
[2023-12-01] VITALS (7 sets, daily range): BP systolic 140–167; BP diastolic 68–72; PULSE 66–79; RESP 16–20; TEMP 36.2–36.6; O2SAT 93–95
[2023-12-01] MEDS: Piperacillin Sodium/Tazobactam 3.375 GM in 0.9 % Sodium Chloride 50 ML IV ×4 (02:57→21:32)
[2023-12-01] MEDS: vancomycin HCL 1,250 MG in 0.9 % Sodium Chloride 250 ML 166.67 MG IV (03:00)
[2023-12-01 07:39] LABS: Glucose, Whole Blood 121 mg/dL (60-115)
[2023-12-01 08:03] LABS: Creatinine Clr Calc Pharmacy 100.6; Estimated Glomerular Filt Rate > 60
[2023-12-01] MEDS: Metoprolol Tartrate 25 MG TABLET PO ×2 (08:26→21:29)
[2023-12-01] MEDS: Aspirin Enteric Coated 81 MG TABLET.DR PO (08:30)
[2023-12-01] MEDS: lisinopriL 10 MG TABLET PO (08:30)
[2023-12-01] MEDS: Atorvastatin Calcium 40 MG TABLET PO (08:30)
[2023-12-01] MEDS: Gabapentin 300 MG CAPSULE 900 MG PO ×3 (08:30→21:28)
[2023-12-01] MEDS: 0.9 % Sodium Chloride Flush 3 ML SYRINGE IVFLUSH ×3 (08:32→21:37)
[2023-12-01 11:32] LABS: Glucose, Whole Blood 220 mg/dL (60-115)
[2023-12-01] MEDS: Insulin Lispro 100 UNIT/ML 3 ML VIAL SUBCUT ×3 (11:37→21:30)
--- NOTE | 2023-12-01 12:39 | P.PNIM_ITS ---
Subjective Subjective Date of Service: 12/01/23 Interval History: No acute issues overnight. Awaiting PICC line in a.m. Review of Systems Denies chest pain Denies shortness of breath Denies fever chills Denies nausea vomiting diarrhea Physical Exam 2 Vital Signs: Vital Signs: Last Vital Signs Temp 97.6 F 12/01/23 07:21 Pulse 79 12/01/23 08:26 Resp 16 12/01/23 07:21 BP 167/70 H 12/01/23 08:30 Pulse Ox 94 12/01/23 07:21 O2 Del Method Room Air 12/01/23 07:21 BMI result Body Mass Index 48.7 Const: Other: Awake alert no acute distress Resp: Other: Clear to auscultation bilaterally no rales or wheezes Cardio: Other: No S4; positive S1-S2; no S3 murmurs rubs or gallops GI: Other: Soft nontender nondistended normoactive bowel sounds Extrem: Other: Right great toe with distal necrosis (minimal); minimal erythema Objective Data Active Medications Acetaminophen (Acetaminophen 325 Mg Tablet) 650 mg PO Q6H PRN PRN Reason: Pain, Mild (Pain Scale 1-3), fever or headache Aspirin (Aspirin Enteric Coated 81 Mg Tablet.Dr) 81 mg PO DAILY [facility] Last Admin: 12/01/23 08:30 Dose: 81 mg Documented By: ALEXEI Atorvastatin Calcium (Atorvastatin Calcium 40 Mg Tablet) 40 mg PO DAILY [facility] Last Admin: 12/01/23 08:30 Dose: 40 mg Documented By: ALEXEI Benzonatate (Benzonatate 100 Mg Capsule) 100 mg PO TID PRN PRN Reason: Cough Calcium Carbonate (Calcium Carbonate 750 Mg Tab.Chew) 750 mg PO Q4H PRN PRN Reason: Heartburn Cyclobenzaprine HCl (Cyclobenzaprine Hcl 10 Mg Tablet) 10 mg PO BEDTIME [facility] Last Admin: 11/30/23 21:31 Dose: 10 mg Documented By: AVINASH Enoxaparin Sodium (Enoxaparin Sodium 40 Mg/0.4 Ml Syringe) 40 mg SUBCUT Q24H [facility] Last Admin: 11/30/23 15:07 Dose: 40 mg Documented By: ALEJANDRINA Gabapentin (Gabapentin 300 Mg Capsule) 900 mg PO TID [facility] Last Admin: 12/01/23 08:30 Dose: 900 mg Documented By: ALEXEI Glucose (Glucose Gel 15 Gm Gel..Gram.) 15 gm PO Q15M PRN; Protocol PRN Reason: per Hypoglycemia Standing Ord. Dextrose (D10) 250 mls @ 750 mls/hr IV Q15M PRN; Protocol PRN Reason: per Hypoglycemia Standing Ord. Piperacillin Sod/Tazobactam (Sod 3.375 gm/ Sodium Chloride) 50 mls @ 100 mls/hr IV Q6H [facility] Last Infusion: 12/01/23 09:22 Dose: Infused Documented By: ALEXEI Vancomycin HCl 1,250 mg/ (Sodium Chloride) 250 mls @ 166.667 mls/hr IV Q12H [facility] Last Infusion: 12/01/23 05:13 Dose: Infused Documented By: AVINASH Insulin Glargine (Insulin Glargine,Hum.Rec.Anlog 100 Unit/Ml 10 Ml Vial) 65 unit SUBCUT BEDTIME [facility] Last Admin: 11/30/23 21:36 Dose: 65 unit Documented By: AVINASH Insulin Human Lispro (Insulin Lispro 100 Unit/Ml 3 Ml Vial) 0 unit SUBCUT QIDACHS [facility]; Protocol Last Admin: 12/01/23 11:37 Dose: 7 unit Documented By: ALEXEI Lisinopril (Lisinopril 10 Mg Tablet) 10 mg PO DAILY [facility]; Protocol Last Admin: 12/01/23 08:30 Dose: 10 mg Documented By: ALEXEI Magnesium Hydroxide (Milk Of Magnesia 30 Ml Oral.Susp) 30 ml PO DAILY PRN PRN Reason: Constipation Melatonin (Melatonin 3 Mg Tablet) 6 mg PO BEDTIME PRN PRN Reason: Insomnia Metoprolol Tartrate (Metoprolol Tartrate 25 Mg Tablet) 25 mg PO BID [facility]; Protocol Last Admin: 12/01/23 08:26 Dose: 25 mg Documented By: ALEXEI Ondansetron HCl (Ondansetron Hcl 4 Mg/2 Ml Vial) 4 mg IVPUSH Q8H PRN PRN Reason: Nausea and Vomiting Pharmacy Consult (Consult Rx Vancomycin Dosing) 1 each MISCELLANE DAILY PRN PRN Reason: Consult order Sodium Chloride (0.9 % Sodium Chloride Flush 3 Ml Syringe) 3 ml IVFLUSH QSHIFT [facility] Last Admin: 12/01/23 08:32 Dose: 3 ml Documented By: ALEXEI Labs 11/28/23 11:00 12/01/23 07:08 Labs: Laboratory Results - last 24 hr 11/30/23 11/30/23 11/30/23 13:21 16:54 19:26 Hold Purple Top Estim Creat Clear Calc Estimated GFR POC Glucose 189 H 198 H Random Vancomycin 11.2 L 12/01/23 12/01/23 12/01/23 07:08 07:23 11:18 Hold Purple Top SEE NOTE Estim Creat Clear Calc 100.6 Estimated GFR > 60 POC Glucose 121 H 220 H Random Vancomycin Microbiology Microbiology Results: Microbiology 11/28/23 12:42 Blood Culture - Preliminary Blood - Venous No growth after 48 hours. 11/28/23 11:00 Blood Culture - Preliminary Blood - Venous No growth after 48 hours. Assessment and Plan (1) Diabetic osteomyelitis: Status: Acute Assessment and Plan: 68yo M with HTN, HLD, CAD s/p PCI, DM2 with neuropathy presenting with worsening R great toe infection after recent toenail loss despite taking doxycycline + cephalexin; found to have osteomyelitis 1.DM ulcer with osteomyelitis/cellulitis -vanco/piperacillin-tazobactam (4)... Switch to daptomycin after PICC line inserted. -arterial Doppler within normal limits -PICC line 12/01 2.CAD -stable and well compensated at this time 3.HTN -acceptable control on current therapies -adjust as indicated 4.DM2 with neuropathy -acceptable control on current regimen -lispro correctional scale -adjust as indicated Full code Lovenox Requires ongoing hospitalization for IV antibiotics to treat osteomyelitis/cellulitis that has failed outpatient therapies. We will also need PICC line when cultures clear (2) Cellulitis of great toe of right foot: Status: Acute Quality Stroke Does the patient have a stroke diagnosis?: No VTE Prior VTE?: No VTE Risk Level:: Medical - moderate - high VTE Device Contraindication: Treatment Not Indicated VTE Drug Contraindication: N/A - Med Ordered
[2023-12-01 13:45] LABS: Vancomycin Random 12.2 mcg/mL (15-20)
[2023-12-01] MEDS: Enoxaparin Sodium 40 MG/0.4 ML SYRINGE SUBCUT (14:42)
[2023-12-01] MEDS: vancomycin HCL 1,500 MG in 0.9 % Sodium Chloride 500 ML 333.33 MG IV (15:26)
[2023-12-01 16:14] LABS: Glucose, Whole Blood 247 mg/dL (60-115)
[2023-12-01 20:10] LABS: Glucose, Whole Blood 211 mg/dL (60-115)
[2023-12-01] MEDS: Cyclobenzaprine HCl 10 MG TABLET PO (21:29)
[2023-12-01] MEDS: Insulin Glargine,Hum.rec.anlog 100 UNIT/ML 10 ML VIAL 65 UNIT SUBCUT (21:30)
[2023-12-02] MEDS: Piperacillin Sodium/Tazobactam 3.375 GM in 0.9 % Sodium Chloride 50 ML IV ×2 (02:06→08:19)
[2023-12-02] MEDS: vancomycin HCL 1,500 MG in 0.9 % Sodium Chloride 500 ML 333.33 MG IV (02:42)
[2023-12-02 02:45] VITALS: BP 149/68; PULSE 71; RESP 16; TEMP 36.2; O2SAT 94
[2023-12-02 06:38] LABS: Creatinine Clr Calc Pharmacy 102.4; Estimated Glomerular Filt Rate > 60
[2023-12-02 07:10] VITALS: BP 148/67; PULSE 69; RESP 20; TEMP 36.2; O2SAT 93
[2023-12-02 08:03] LABS: Glucose, Whole Blood 127 mg/dL (60-115)
[2023-12-02] MEDS: Insulin Lispro 100 UNIT/ML 3 ML VIAL SUBCUT ×3 (08:14→17:14)
[2023-12-02] MEDS: Atorvastatin Calcium 40 MG TABLET PO (08:15)
[2023-12-02] MEDS: Aspirin Enteric Coated 81 MG TABLET.DR PO (08:15)
[2023-12-02] MEDS: Gabapentin 300 MG CAPSULE 900 MG PO ×2 (08:15→16:24)
[2023-12-02] MEDS: 0.9 % Sodium Chloride Flush 3 ML SYRINGE IVFLUSH ×2 (08:16→16:25)
[2023-12-02 08:20] VITALS: BP 157/69; PULSE 72
[2023-12-02] MEDS: Metoprolol Tartrate 25 MG TABLET PO (08:20)
[2023-12-02] MEDS: lisinopriL 10 MG TABLET PO (08:20)
[2023-12-02 11:07] LABS: Glucose, Whole Blood 222 mg/dL (60-115)
--- NOTE | 2023-12-02 13:30 | MHC.CM.PN ---
EMR REVIEWED AND PER MD ROUNDS, PT IS AWAITING PICC LINE PLACEMENT SO MAY DC HOME WITH NEW [facility] AND [facility]. PER MD, MAY NOT BE ABLE TO GET PICC NOW UNTIL 12/02 BUT NOT DEFINITIVE YET. [facility] UPDATED. LIAISON IN TO DO TEACH AND PT DID WELL. CM WILL AWAIT PICC PLACEMENT, FIRST DOSE OF DAPTO THROUGH PICC AND EVENTUAL DC HOME.
--- NOTE | 2023-12-02 13:33 | P.PNIM_ITS ---
Subjective Subjective Date of Service: 12/02/23 Interval History: No acute issues overnight. Awaiting PICC line Review of Systems Denies chest pain Denies shortness of breath Denies fever chills Denies nausea vomiting diarrhea Physical Exam 2 Vital Signs: Vital Signs: Last Vital Signs Temp 97.1 F 12/02/23 07:10 Pulse 72 12/02/23 08:20 Resp 20 12/02/23 07:10 BP 157/69 H 12/02/23 08:20 Pulse Ox 93 12/02/23 07:10 O2 Del Method Room Air 12/02/23 07:10 BMI result Body Mass Index 48.7 Const: Other: Awake alert no acute distress Resp: Other: Clear to auscultation bilaterally no rales or wheezes Cardio: Other: No S4; positive S1-S2; no S3 murmurs rubs or gallops GI: Other: Soft nontender nondistended normoactive bowel sounds Extrem: Other: Right great toe with distal necrosis (minimal); minimal erythema Objective Data Active Medications Acetaminophen (Acetaminophen 325 Mg Tablet) 650 mg PO Q6H PRN PRN Reason: Pain, Mild (Pain Scale 1-3), fever or headache Aspirin (Aspirin Enteric Coated 81 Mg Tablet.Dr) 81 mg PO DAILY [facility] Last Admin: 12/02/23 08:15 Dose: 81 mg Documented By: BAYLEE Atorvastatin Calcium (Atorvastatin Calcium 40 Mg Tablet) 40 mg PO DAILY [facility] Last Admin: 12/02/23 08:15 Dose: 40 mg Documented By: BAYLEE Benzonatate (Benzonatate 100 Mg Capsule) 100 mg PO TID PRN PRN Reason: Cough Calcium Carbonate (Calcium Carbonate 750 Mg Tab.Chew) 750 mg PO Q4H PRN PRN Reason: Heartburn Cyclobenzaprine HCl (Cyclobenzaprine Hcl 10 Mg Tablet) 10 mg PO BEDTIME [facility] Last Admin: 12/01/23 21:29 Dose: 10 mg Documented By: RUDY Enoxaparin Sodium (Enoxaparin Sodium 40 Mg/0.4 Ml Syringe) 40 mg SUBCUT Q24H [facility] Last Admin: 12/01/23 14:42 Dose: 40 mg Documented By: ALEXEI Gabapentin (Gabapentin 300 Mg Capsule) 900 mg PO TID [facility] Last Admin: 12/02/23 08:15 Dose: 900 mg Documented By: BAYLEE Glucose (Glucose Gel 15 Gm Gel..Gram.) 15 gm PO Q15M PRN; Protocol PRN Reason: per Hypoglycemia Standing Ord. Dextrose (D10) 250 mls @ 750 mls/hr IV Q15M PRN; Protocol PRN Reason: per Hypoglycemia Standing Ord. Piperacillin Sod/Tazobactam (Sod 3.375 gm/ Sodium Chloride) 50 mls @ 100 mls/hr IV Q6H [facility] Last Infusion: 12/02/23 09:06 Dose: Infused Documented By: BAYLEE Vancomycin HCl 1,500 mg/ (Sodium Chloride) 500 mls @ 333.333 mls/hr IV Q12H [facility] Last Infusion: 12/02/23 04:14 Dose: Infused Documented By: RUDY Insulin Glargine (Insulin Glargine,Hum.Rec.Anlog 100 Unit/Ml 10 Ml Vial) 65 unit SUBCUT BEDTIME [facility] Last Admin: 12/01/23 21:30 Dose: 65 unit Documented By: RUDY Insulin Human Lispro (Insulin Lispro 100 Unit/Ml 3 Ml Vial) 0 unit SUBCUT QIDACHS [facility]; Protocol Last Admin: 12/02/23 11:57 Dose: 7 unit Documented By: BAYLEE Lisinopril (Lisinopril 10 Mg Tablet) 10 mg PO DAILY [facility]; Protocol Last Admin: 12/02/23 08:20 Dose: 10 mg Documented By: BAYLEE Magnesium Hydroxide (Milk Of Magnesia 30 Ml Oral.Susp) 30 ml PO DAILY PRN PRN Reason: Constipation Melatonin (Melatonin 3 Mg Tablet) 6 mg PO BEDTIME PRN PRN Reason: Insomnia Metoprolol Tartrate (Metoprolol Tartrate 25 Mg Tablet) 25 mg PO BID [facility]; Protocol Last Admin: 12/02/23 08:20 Dose: 25 mg Documented By: BAYLEE Ondansetron HCl (Ondansetron Hcl 4 Mg/2 Ml Vial) 4 mg IVPUSH Q8H PRN PRN Reason: Nausea and Vomiting Pharmacy Consult (Consult Rx Vancomycin Dosing) 1 each MISCELLANE DAILY PRN PRN Reason: Consult order Sodium Chloride (0.9 % Sodium Chloride Flush 3 Ml Syringe) [facility] Last Admin: 12/02/23 08:16 Dose: 3 ml Documented By: BAYLEE Labs 11/28/23 11:00 12/02/23 05:25 Labs: Laboratory Results - last 24 hr 12/01/23 12/01/23 12/01/23 13:26 16:06 20:03 Estim Creat Clear Calc Estimated GFR POC Glucose 247 H 211 H Random Vancomycin 12.2 L 12/02/23 12/02/23 12/02/23 05:25 07:15 10:58 Estim Creat Clear Calc 102.4 Estimated GFR > 60 POC Glucose 127 H 222 H Random Vancomycin Assessment and Plan (1) Diabetic osteomyelitis: Status: Acute Assessment and Plan: 68yo M with HTN, HLD, CAD s/p PCI, DM2 with neuropathy presenting with worsening R great toe infection after recent toenail loss despite taking doxycycline + cephalexin; found to have osteomyelitis 1.DM ulcer with osteomyelitis/cellulitis -vanco/piperacillin-tazobactam (4)... Switch to daptomycin after PICC line inserted.(8mg/kg/day) -arterial Doppler within normal limits -PICC line 12/02 2.CAD -stable and well compensated at this time 3.HTN -acceptable control on current therapies -adjust as indicated 4.DM2 with neuropathy -acceptable control on current regimen -lispro correctional scale -adjust as indicated Full code Eusebia Requires ongoing hospitalization for IV antibiotics to treat osteomyelitis/cellulitis that has failed outpatient therapies. We will need PICC line in am Quality Stroke Does the patient have a stroke diagnosis?: No VTE Prior VTE?: No VTE Risk Level:: Medical - moderate - high VTE Device Contraindication: Treatment Not Indicated VTE Drug Contraindication: N/A - Med Ordered
[2023-12-02 13:40] LABS: Vancomycin Random 13.8 mcg/mL (15-20)
--- NOTE | 2023-12-02 13:48 | HE.PHANOTE ---
Re Vanc Trough drawn appropriately, resulted at 13.8 mg/L. Within therapeutic range for SSTI, will continue same regimen. Next level ordered 12/02 @1300
--- NOTE | 2023-12-02 15:08 | P.DS_ITS ---
DS: Providers Provider Date of Service: 12/02/23 Date of admission: 11/28/23 14:45 Date of discharge: 12/02/23 Primary care physician: Percy Moran MD Consults: 11/28/23 20:30 Consult to Wound Care Routine Reason for consultation: diabetic ulcer to right great toe. 11/29/23 09:58 Consult to Infectious Diseases Routine Consulting Provider: [facility] Reason for consultation: osteomyelities 12/02/23 15:04 Consult to Infectious Diseases Routine Consulting Provider: SHAINA ROB Reason for consultation: osteo DS: Diagnosis Discharge Diagnosis (1) Diabetic osteomyelitis: Status: Acute DS: Summary Hospital Course Hospital Course: 68-year-old male with a PMH significant for HTN, HLD, CAD s/p stenting, and insulin-dependent type 2 diabetes with peripheral neuropathy who presents to the ED with?worsening right great toe infection. Pt initially presented to the ED on 11/11 after having his right great toenail fal0 offl. Patient was discharged on Keflex and bacitracin which he took as prescribed. Re-presented to the ED on 11/24 after toe began to bleed and turn red. Was discharged on doxycycline and additional prescription of Keflex. Patient presents today after taking off his sock today and noting toe was again bleeding and looking more red than prior. Denies fever or chills. No purulent discharge. No foul smell. Patient denies chest pain/pressure, palpitations. No shortness a breath or difficulty breathing. Denies nausea, vomiting, abdominal pain. In the ED pt's vitals WNL. Labs were significant for ESR 21 and CRP 2.26, otherwise grossly unremarkable. No leukocytosis. Stable H&H. No significant electrolyte abnormalities. Renal function baseline. X-ray of right toe on 11/24 showed cortical erosion lung lateral aspect of distal phalanx concerning for possible osteomyelitis. X-ray of right foot today showed no acute visible fracture or dislocation but with slight soft tissue prominence on the dorsum and volar aspect of metatarsal heads, and multi joint arthritic changes. Pt was treated with vancomycin. Pt will be admitted to the hospital for treatment and further evaluation of diabetic right foot infection that failed outpatient therapy. Hospital Course Patient was admitted to general medical floor and started on vancomycin and Zosyn. MRI confirmed presence of osteomyelitis 1st distal phalanx right great toe. Seen in consultation by Infectious Disease who recommended 6 weeks of daptomycin. Blood cultures were negative times 48 hours the patient underwent a PICC line and will be discharged home to complete 6 weeks of daptomycin 1000 mg IV daily. He will follow up with ID and his PCP next available Time Attestation Discharge Coordination Time (in mins): 35 Quality: Safe Use of Opioids Does Pt have an Active Cancer Diagnosis on the Problem List?: No Quality: Stroke Does the patient have a stroke diagnosis?: No Physical Exam Vital Signs: Vital Signs: Last Vital Signs Temp 97.1 F 12/02/23 07:10 Pulse 72 12/02/23 08:20 Resp 20 12/02/23 07:10 BP 157/69 H 12/02/23 08:20 Pulse Ox 93 12/02/23 07:10 O2 Del Method Room Air 12/02/23 07:10 BMI result Body Mass Index 48.7 Const: Other: Awake alert no acute distress Resp: Other: Clear to auscultation bilaterally no rales or wheezes Cardio: Other: No S4; positive S1-S2; no S3 murmurs rubs or gallops GI: Other: Soft nontender nondistended normoactive bowel sounds Extrem: Other: Right great toe with distal necrosis (minimal); minimal erythema DS: Data Data Completed and Pending Labs on day of discharge: Laboratory Results - last 24 hr 12/01/23 12/01/23 12/02/23 16:06 20:03 05:25 Creatinine 1.12 Estim Creat Clear Calc 102.4 Estimated GFR > 60 POC Glucose 247 H 211 H Random Vancomycin 12/02/23 12/02/23 12/02/23 07:15 10:58 13:10 Creatinine Estim Creat Clear Calc Estimated GFR POC Glucose 127 H 222 H Random Vancomycin 13.8 L Preliminary micro results at discharge 11/28/23 12:42 Blood Culture - Preliminary Blood - Venous No growth after 48 hours. 11/28/23 11:00 Blood Culture - Preliminary Blood - Venous No growth after 48 hours. Discharge Plan Discharge Anticipated Discharge Date/Time: 12/02/23 15:21 Patient Disposition: Home Health Service Discharge Diagnosis: Osteomyelitis right great toe Referrals: Percy Moran MD [Primary Care Provider] - 1 Week Discharge Medications: New daptomycin in 0.9 % sod chlor 1,000 mg/100 mL piggyback 1,000 mg IV Q24H 42 Days Rx Instructions: administer over 30 mins Continued cyclobenzaprine 10 mg tablet 10 mg PO BEDTIME lisinopril 30 mg tablet 10 mg PO DAILY gabapentin 300 mg capsule 900 mg PO TID metformin 500 mg tablet extended release 24 hr 1,000 mg PO BID insulin lispro [Humalog KwikPen Insulin] 100 unit/mL insulin pen See Protocol subcut TIDAC Protocol: Insulin Correction Scale Less than or equal to 110 ---- Give (units): 0 111 to 150 Give (units): 0 151 to 200 Give (units): 2 201 to 250 Give (units): 4 251 to 300 Give (units): 6 301 to 350 Give (units): 8 Greater than 350 Give (units): 10 Call MD if Blood Glucose > : 350 rosuvastatin 10 mg tablet 10 mg PO DAILY metoprolol tartrate 25 mg tablet 25 mg PO BID insulin glargine U-300 conc [Toujeo Max U-300 SoloStar] 300 unit/mL (3 mL) insulin pen 115 unit subcut BEDTIME aspirin 81 mg Tablet,Delayed Release (Dr/Ec) 81 mg PO DAILY Discharge Orders: Discharge Order (Routine); Ordered 12/02/23 Ordered By: Miguel Angel Rodriguez Diet: Advance to usual diet Activity on Discharge: As tolerated Stand Alone Forms: Patient Portal Discharge page Print Language: Frisian Care Plan Goals: Complete course of daptomycin 1 g IV daily. [facility] will follow with you at home Health Concerns: Resume all medications as taken before hospital Plan of Treatment: Follow up with PCP and Infectious Disease next available. Assessment: See discharge summary
--- NOTE | 2023-12-02 15:31 | MHC.CM.PN ---
Addendum entered by Margaret Marquez 12/02/23 15:36: WILL TRANSPORT HOME Original Note: DP: PT HAS BEEN MEDICALLY CLEARED FOR DC HOME WITH NEW [facility] FOR HOME INFUSION. RN AWARE. [facility] AND [facility] NOTIFIED OF TODAY'S DC. IV ORDERS UPLOADED TO [facility]. CM AWAITING PICC LINE REPORT.
--- NOTE | 2023-12-02 16:13 | P.CDIM_ITS ---
PROVIDER RESPONSE TEXT: To clarify, the appropriate diagnosis supported by the clinical indicators: Acute QUERY TEXT: PHYSICIAN'S DOCUMENTATION REQUEST Date of Query: 12/02/2023 09:40 AM EDT Patient Name: Ruel Siu Admit Date: 11/28/2023 Dear Miguel Angel Rodriguez DO, A review of the medical record indicates additional documentation may be needed. Please review below and update the documentation accordingly. Clinical Indicators: Progress Note 12/01/23: DM ulcer with osteomyelitis/cellulitis -vanco/piperacillin-tazobactam Clarify which of the following accurately represents the acuity of the Osteomyelitis. Possible options might include: Acute Acute on chronic Compensated Chronic stable condition Remission Other (explain) Clinically unable to determine (explain) Thank you, Kathleen Donato RN Use of terms such as suspected, likely, concern for, or probable (associated with a specific diagnosi s that is being evaluated, monitored, or treated as if it exists) are acceptable and can be coded in the inpatient se tting, when documented at the time of discharge. Please use your independent medical judgment in providing your response. THIS QUERY IS PART OF THE PERMANENT MEDICAL RECORD
--- NOTE | 2023-12-02 16:16 | P.PICC_ITS ---
PICC Line Insertion NPICC Diagnosis: Osteomyelitis right great toe Indication: [facility] antibiotics needed Pertinent Labs: reviewed Technique: Following informed consent including risks, benefits and alternatives and using sterile technique including cap and mask, sterile gown, glove and drape, the right arm was prepped and draped in the usual sterile fashion of full barrier technique with G. Following completion of [place] Protocol the skin and soft tissues were anesthetized with 1% Lidocaine plain. Using ultrasound guidance, right basilic vein access was obtained non first attempt, but unable to advance guidewire. Right brachial vein was then accessed. Over an 0.018 wire through peel-away sheath, a 4FR single lumen PASV PICC line was positioned. Catheter length is 50 CM internal length, 0 CM external length, for a total trimmed length of 50 CM. The procedure was performed in S272. Tip verification was performed by Romina Severino with Kala 3CG. Tip located in SVC. Ultrasound was used to document vein patency and for needle entry. A formal ultrasound picture and cardiac rhythm strip was recorded. [employer] has released the line for use and it is currently dressed with a StatLock, Tegaderm, and CHG disc. Verification has been performed for blood return and line patency. Arm Circumference: 30.5 CM Equipment: [employer] Catheter Type: 4FR single lumen PASV PICC Lot #: [id number]
[2023-12-02] MEDS: Enoxaparin Sodium 40 MG/0.4 ML SYRINGE SUBCUT (16:23)
--- NOTE | 2023-12-02 16:24 | W.MHC.F2F ---
Service Date Service Date: 12/02/23 Encounter Date of encounter: 12/02/23 Encounter: Acute hospitalization Reasons for Services Signs and symptoms assessed: Osteomyelitis right great toe Reason for senior care: medication management, medication treatment and teach disease management Homebound: Leaving the home is medically contraindicated at this time without the asist of a device and/or another person due th the listed conditions above and below. Reason homebound: unsteady gait / fall risk, leg weakness and pain with ambulation Certification: Based on the above findings, I certify that this patient is confined to the home and needs intermittent senior care care, physical therapy and/or speech therapy, or continues to need occupational therapy. The patient is under my care, and I have initiated the establishment of the plan of care. The patient will be followed by a physician who will periodically review the plan of care. Time Spent With Patient Time: Total time managing care of this patient today ____ minutes.
[2023-12-02] MEDS: DAPTOmycin 1,000 MG in 0.9 % Sodium Chloride 50 ML 100 MG IV (17:07)
[2023-12-02 17:11] LABS: Glucose, Whole Blood 232 mg/dL (60-115)
== END 2023-12-02 17:54 | disposition home health service (06) | DRG 638 ==
LOC: HO.ED 13:55 → HO.EDOVER 14:47 → HO.S3 19:18
PROVIDERS: Family Medicine; Physician Assistant; Admitting Provider Student in an Organized Health Care Education/Training Program; Emergency Provider Emergency Medicine; PCP Pediatrics; Visit Provider Hospitalist
DX: E11.69 Type 2 diabetes mellitus with other specified complication (principal); M86.171 Other acute osteomyelitis, right ankle and foot; Z68.42 Body mass index [BMI] 45.0-49.9, adult; E11.621 Type 2 diabetes mellitus with foot ulcer; E11.628 Type 2 diabetes mellitus with other skin complications; L03.031 Cellulitis of right toe; L97.519 Non-pressure chronic ulcer of other part of right foot with unspecified severity; E66.01 Morbid (severe) obesity due to excess calories; Z95.5 Presence of coronary angioplasty implant and graft; E11.42 Type 2 diabetes mellitus with diabetic polyneuropathy; I25.10 Atherosclerotic heart disease of native coronary artery without angina pectoris; Z23 Encounter for immunization; Z79.4 Long term (current) use of insulin; Z79.82 Long term (current) use of aspirin; Z79.84 Long term (current) use of oral hypoglycemic drugs; Z79.899 Other long term (current) drug therapy
CPT/HCPCS: 36415; 36573; 73620; 73720; 80053; 80202; 82565; 82947; 83605; 85025; 85652; 86140; 87040; 90656; 93922; 93925; 99285; A9585; C1751; J0878; J1650; J2543; J3370; J3371

== ENCOUNTER → 2023-11-28 14:45 | Outpatient (BNV) | payer MEDICARE, SELFPAY | PROVIDERS: Admitting Provider Student in an Organized Health Care Education/Training Program; Emergency Provider Emergency Medicine; PCP Pediatrics; Visit Provider Family Medicine | DX: E11.621 Type 2 diabetes mellitus with foot ulcer (principal); L97.519 Non-pressure chronic ulcer of other part of right foot with unspecified severity; M86.9 Osteomyelitis, unspecified | CPT/HCPCS: 99222; 99232; 99239; G0180 ==

== ENCOUNTER → 2023-11-28 14:45 | Outpatient (BNV) | payer MEDICARE, SELFPAY | PROVIDERS: Admitting Provider Student in an Organized Health Care Education/Training Program; Emergency Provider Emergency Medicine; PCP Pediatrics; Visit Provider Internal Medicine | DX: E11.69 Type 2 diabetes mellitus with other specified complication (principal); M86.9 Osteomyelitis, unspecified | CPT/HCPCS: 99222 ==

== ENCOUNTER 2023-12-05 12:28 | Emergency (ER) | payer MEDICARE, SELFPAY ==
[2023-12-05 12:40] VITALS: BP 169/70; PULSE 74; RESP 18; TEMP 36.9; O2SAT 94; BMI 48.7
--- NOTE | 2023-12-05 12:40 | ED_ITS ---
HPI - General Adult General Chief complaint: Nausea/Vomiting/Diarrhea Stated complaint: Med issues Time Seen by Provider: 12/05/23 19:47 Source: patient, RN notes reviewed and old records reviewed Mode of arrival: ambulatory Limitations: no limitations History of Present Illness ED Provider: Francisco HPI narrative: 68-year-old male past medical history significant for insulin-dependent diabetes, recent admission for osteomyelitis of the right great toe presents for evaluation of a possible medication reaction. Patient was discharged on the 01 of December for osteomyelitis. He was given a PICC line for plans of 6 weeks of daptomycin 1 g IV The patient states that he received medication in the hospital Patient states that 2 days ago when he received his daptomycin at home about 1-2 hours after he had shaking chills. He had some associated lower back pain but did not take his temperature. He states this lasted for with a 2 hours before resolving Yesterday when he gave himself the injection of daptomycin he again had shaking chills 1-2 hours after receiving the IV antibiotic The patient did not have any rash, swelling or shortness of breath during either administration He presents today prior to receiving his dose of daptomycin that he usually gives himself around 4:00 p.m. Patient believes his wound is healing appropriately Related Data Home Medications ?Medication ?Instructions ?Recorded ?Confirmed aspirin 81 mg tablet,delayed 81 mg PO DAILY 11/28/23 11/28/23 release cyclobenzaprine 10 mg tablet 10 mg PO BEDTIME 11/28/23 11/28/23 gabapentin 300 mg capsule 900 mg PO TID 11/28/23 11/28/23 insulin glargine U-300 conc 300 115 unit subcut BEDTIME 11/28/23 11/28/23 unit/mL (3 mL) subcutaneous pen (Toujeo Max U-300 SoloStar) insulin lispro 100 unit/mL See Protocol subcut TIDAC 11/28/23 11/28/23 subcutaneous pen (Humalog KwikPen (U-100) Insulin) lisinopril 30 mg tablet 10 mg PO DAILY 11/28/23 11/28/23 metformin 500 mg tablet,extended 1,000 mg PO BID 11/28/23 11/28/23 release 24 hr metoprolol tartrate 25 mg tablet 25 mg PO BID 11/28/23 11/28/23 rosuvastatin 10 mg tablet 10 mg PO DAILY 11/28/23 11/28/23 Previous Rx's ?Medication ?Instructions ?Recorded daptomycin 1,000 mg/100 mL in 0.9 1,000 mg (100 mL) IV Q24H 6 weeks 12/02/23 % sodium chlor intravenous piggyback Allergies Allergy/AdvReac Type Severity Reaction Status Date / Time No Known Allergies Allergy Verified 12/05/23 12:42 Review of Systems 2 Constitutional: Constitutional: Reports body ache(s), Reports chills, Denies fever(s) and Denies headache(s) Eyes: Eyes: Denies blurry vision ENT: Denies headache(s) and Denies sore throat Cardiovascular: Cardiovascular: Denies chest pain and Denies dyspnea Respiratory: Respiratory: Denies cough and Denies dyspnea Gastrointestinal: Gastrointestinal: Denies abdominal pain, Denies nausea and Denies vomiting Integumentary/Breasts: Skin/Breast: Denies rash Neurologic: Denies headache(s) [facility] Past Medical History Medical History Peripheral neuropathy HTN (hypertension) CAD (coronary artery disease) Insulin dependent type 2 diabetes mellitus Social History Social History Household Members: Spouse Housing: House Do you presently have visiting nurse or other home services: No Patient Tobacco Use Status: Never used Tobacco Smoked in Last 30 Days: No Use of substances other than those prescribed or required for medical reasons: No Advance Directives: No Advance Directives Information Provided: No Do you have a plan to hurt others: No Plan service: No Physical Exam ED Vital Signs: Vital Signs - 24 hr 12/05/23 12:40 12/05/23 18:30 12/05/23 18:30 Temperature 98.5 F 98.0 F 98.1 F Pulse Rate 74 85 84 Respiratory Rate 18 16 16 Blood Pressure 169/70 H 149/69 H 149/69 H Pulse Oximetry 94 95 96 Oxygen Delivery Method Room Air Room Air Room Air 12/05/23 21:23 Temperature 97.8 F Pulse Rate 72 Respiratory Rate 16 Blood Pressure 150/76 H Pulse Oximetry 93 Oxygen Delivery Method Room Air BMI result Body Mass Index 48.7 Const General: healthy appearing, comfortable, no acute distress, alert and awake Nutritional Appearance: well nourished Orientation/consciousness: patient oriented x3 HENMT Head: Yes normocephalic and Yes atraumatic Throat: Yes posterior oropharynx normal Eyes Eyelids: Yes eyelids normal Conjunctivae: conjunctivae normal Sclerae: sclerae normal Corneas: corneas normal Pupils: Equal, round and reactive pupils present EOM: EOMs intact bilaterally Neck Neck: Yes full ROM Resp Effort & Inspection: normal respiratory effort, able to speak in complete sentences, no audible wheezes and not labored Auscultation: clear to auscultation bilaterally Cardio Rate: regular rate Rhythm: regular rhythm Skin General skin exam: no rashes or lesions noted and elasticity normal Neuro General: patient oriented x3 Cranial nerves: Yes Equal, round and reactive pupils present and Yes Bilaterally intact EOM present Cognition (Neuro): normal cognition Extrem Other: Moving all extremities well without any obvious deformities Course Course Course Narrative: This is a Rapid Medical Examination (RME) performed by Kavin Carver PA-C in triage. Full HPI, ROS, assessment and treatment plan per primary provider in the Main ED. 68 yo male with right foot osteomyelitis on IV daptomycin via right PICC line at home who presents to the ER for evaluation of chills, back pain, diarrhea after starting his IV abx at home on saturday. PCP advised him to come in for evaluation. Plan: lab workup, Cdiff, f/u ID for recs Medical Decision Making Medical Decision Making [facility] Narrative: 68-year-old male presents for evaluation of shaking and chills after administration of daptomycin at home. He did not give himself his medication today. He has not had any rash, swelling or shortness of breath associated with this. It does not appear to be consistent with an allergic reaction. We will administer a dose of daptomycin in the ER and observed. His labs have no concerning abnormalities. The patient is a diabetic there was no evidence of DKA. The patient is afebrile, no leukocytosis, this did not appear consistent with rigors Differential Diagnosis Differential Diagnoses: The differential diagnosis associated with the presentation includes Adverse reaction to medication Sepsis Osteomyelitis Cellulitis Lab Data [facility] Lab Attestation statement: I reviewed the patient's lab results. 12/05/23 13:05 12/05/23 13:05 Labs: Lab Results 09/19/24 Range/Units 13:05 WBC 8.5 (4.8-10.8) X10*3/uL RBC 5.02 (4.60-5.80) X10*6/uL Hgb 14.0 (14.0-18.0) g/dl Hct 42.2 (42.0-52.0) % MCV 84.1 (80.0-98.0) fL MCH 27.9 (27.0-33.0) pg MCHC 33.2 (31.0-36.0) g/dl RDW 12.8 (11.0-16.0) % Plt Count 161 (160-400) X10*3/uL MPV 10.4 (9.4-12.4) fL Immature Gran % (Auto) 0.7 H (0.0-0.4) % Neut % (Auto) 74.4 H (45-73) % Lymph % (Auto) 12.6 L (20-40) % [place] % (Auto) 8.0 (2-11) % Eos % (Auto) 3.5 (0-4) % Baso % (Auto) 0.8 (0-2) % Lymph # (Auto) 1.1 L (1.2-4.9) X10*3/uL [place] # (Auto) 0.7 (0.1-1.2) X10*3/uL Eos # (Auto) 0.3 (0.0-0.4) X10*3/uL Baso # (Auto) 0.1 (0.0-0.2) X10*3/uL Abs Immat Gran (auto) 0.06 H (0.00-0.03) X10*3/uL Absolute Neuts (auto) 6.3 (2.0-8.3) x10*3/uL Absolute Nucleated RBC 0.000 (0.0-0.012) X10*3/uL Nucleated RBC % (auto) 0.0 (0.0-0.2) /100WBC Sodium 140 (135-145) mmol/L Potassium 4.3 (3.3-5.1) mmol/L Chloride 106 (96-108) mmol/L Carbon Dioxide 28 (22-29) mmol/L Anion Gap 10 L (12-20) BUN 19 H (9-16) mg/dL Creatinine 1.09 (0.5-1.4) mg/dL Estim Creat Clear Calc 105.3 Estimated GFR > 60 Random Glucose 289 H (60-115) mg/dL Calcium 9.2 D (8.4-10.2) mg/dL Magnesium 1.9 (1.6-2.6) mg/dL Total Bilirubin 0.5 (0.0-1.0) mg/dL Direct Bilirubin 0.2 (0.0-0.5) mg/dL AST 15 (5-37) U/L ALT 16 (0-40) U/L Alkaline Phosphatase 68 (39-117) U/L Total Creatine Kinase 74 (38-174) U/L Total Protein 6.7 (6.5-8.0) g/dL Albumin 3.7 (3.5-5.0) g/dL Discharge Plan Discharge Clinical Impression: Chills Patient Disposition: Home, Self-Care Instructions: Antibiotic Medication Allergy (ED) Additional Instructions: Your symptoms are not consistent with an allergic reaction. You may take Benadryl 50 mg orally prior to administering antibiotic tonight to see if that helps prevent any symptoms I recommend discussing with Infectious Disease, Dr. Torres's office tomorrow for any further recommendations It is safe to continue the antibiotic Prescriptions: No Action cyclobenzaprine 10 mg tablet 10 mg PO BEDTIME lisinopril 30 mg tablet 10 mg PO DAILY gabapentin 300 mg capsule 900 mg PO TID metformin 500 mg tablet extended release 24 hr 1,000 mg PO BID insulin lispro [Humalog KwikPen Insulin] 100 unit/mL insulin pen See Protocol subcut TIDAC Protocol: Insulin Correction Scale Less than or equal to 110 ---- Give (units): 0 111 to 150 Give (units): 0 151 to 200 Give (units): 2 201 to 250 Give (units): 4 251 to 300 Give (units): 6 301 to 350 Give (units): 8 Greater than 350 Give (units): 10 Call MD if Blood Glucose > : 350 rosuvastatin 10 mg tablet 10 mg PO DAILY metoprolol tartrate 25 mg tablet 25 mg PO BID insulin glargine U-300 conc [Toujeo Max U-300 SoloStar] 300 unit/mL (3 mL) insulin pen 115 unit subcut BEDTIME aspirin 81 mg Tablet,Delayed Release (Dr/Ec) 81 mg PO DAILY daptomycin in 0.9 % sod chlor 1,000 mg/100 mL piggyback 1,000 mg IV Q24H 42 Days Rx Instructions: administer over 30 mins Print Language: Luxembourgish
[2023-12-05 13:09] LABS: MANUAL DIFF FLAG NO
[2023-12-05 13:11] LABS: Basophils Absolute Auto 0.1 X10*3/uL (0.0-0.2); Basophils Percent Auto 0.8 % (0-2); Eosinophils Absolute Auto 0.3 X10*3/uL (0.0-0.4); Eosinophils Percent Auto 3.5 % (0-4); Hematocrit 42.2 % (42.0-52.0); Imm Gran Abs Auto 0.06 X10*3/uL (0.00-0.03); Imm Gran Pct Auto 0.7 % (0.0-0.4); Lymphocytes Absolute Auto 1.1 X10*3/uL (1.2-4.9); Lymphocytes Percent Auto 12.6 % (20-40); Mean Corpuscular HGB Conc 33.2 g/dl (31.0-36.0); Mean Corpuscular Hemoglobin 27.9 pg (27.0-33.0); Mean Corpuscular Volume 84.1 fL (80.0-98.0); Mean Platelet Volume 10.4 fL (9.4-12.4); Monocytes Absolute Auto 0.7 X10*3/uL (0.1-1.2); Neutrophils Absolute Auto 6.3 x10*3/uL (2.0-8.3); Neutrophils Percent Auto 74.4 % (45-73); Platelet Count 161 X10*3/uL (160-400); Red Blood Count 5.02 X10*6/uL (4.60-5.80); Red Cell Distribution Width 12.8 % (11.0-16.0); White Blood Count 8.5 X10*3/uL (4.8-10.8)
[2023-12-05 13:26] LABS: Alanine Aminotransferase 16 U/L (0-40); Albumin Level 3.7 g/dL (3.5-5.0); Alkaline Phosphatase 68 U/L (39-117); Anion Gap 10 (12-20); Aspartate Amino Transferase 15 U/L (5-37); Bilirubin Direct 0.2 mg/dL (0.0-0.5); Bilirubin Total 0.5 mg/dL (0.0-1.0); Blood Urea Nitrogen 19 mg/dL (9-16); Calcium 9.2 mg/dL (8.4-10.2); Carbon Dioxide 28 mmol/L (22-29); Chloride 106 mmol/L (96-108); Creatinine Clr Calc Pharmacy 105.3; Estimated Glomerular Filt Rate > 60; Glucose Random 289 mg/dL (60-115); Magnesium 1.9 mg/dL (1.6-2.6); Potassium 4.3 mmol/L (3.3-5.1); Sodium 140 mmol/L (135-145); Total Protein 6.7 g/dL (6.5-8.0)
[2023-12-05 18:30] VITALS: BP 149/69; PULSE 84; PULSE 85; RESP 16; TEMP 36.7; O2SAT 95; O2SAT 96
--- NOTE | 2023-12-05 18:45 | PC.NURSE ---
Pt comes to ED today for c/o nausea, diarrhea, and chills x2-3 days. Pt reports treated inpatient here x4 days for a toe infection. PICC line placed on Saturday and Pt was to self inject abx at home. Following 2 injections, Pt report onset of symptoms with no relief. He also reports his BS have been unregulated d/t his symptoms. VSS, A&Ox3 Awaiting ED provider.
[2023-12-05 21:23] VITALS: BP 150/76; PULSE 72; RESP 16; TEMP 36.6; O2SAT 93
[2023-12-05] MEDS: DAPTOmycin 1,000 MG in 0.9 % Sodium Chloride 50 ML 100 MG IV (21:42)
[2023-12-05 22:25] VITALS: BP 150/69; PULSE 72; RESP 18; TEMP 37.2; O2SAT 94
== END 2023-12-05 22:30 | disposition home or self-care (01) ==
PROVIDERS: Physician Assistant; Emergency Provider Emergency Medicine; PCP Pediatrics
DX: R68.83 Chills (without fever) (principal)
CPT/HCPCS: 36415; 80048; 80076; 82550; 83735; 85025; 96374; 99284; J0878

== ENCOUNTER 2023-12-10 12:02 | Outpatient (REF) | payer MEDICARE, SELFPAY ==
[2023-12-10 12:50] LABS: Estimated Glomerular Filt Rate > 60
== END 2023-12-10 12:03 | disposition home or self-care (01) ==
LOC: HO.HVNA 12:02
PROVIDERS: Visit Provider Internal Medicine
DX: M86.171 Other acute osteomyelitis, right ankle and foot (principal)
CPT/HCPCS: 36415; 82550; 82565

== ENCOUNTER 2023-12-16 13:06 | Outpatient (AMB) | payer MEDICARE, SELFPAY ==
--- NOTE | 2023-12-16 13:06 | A.OFFVIS_ITS ---
Vital Signs 3 12/16/23 13:37 Height 6 ft Weight 358 lb BMI 48.5 Pulse 86 Temp 98.4 F Temp Source Oral Pulse Oximetry (%) 96 Oxygen Delivery Method Room Air Intake Visit Reasons: [facility] foot infection/picc line Allergies No Known Allergies Allergy (Verified 12/16/23 13:38) HPI HPI [facility] foot infection/picc line: Details: He has had no complaints with foot,looks slightly better. He is taking Daptomycin for six weeks. [facility] Medical History Peripheral neuropathy HTN (hypertension) CAD (coronary artery disease) Insulin dependent type 2 diabetes mellitus Social History Household Members: Spouse Housing: House Do you presently have visiting nurse or other home services: No Patient Tobacco Use Status: Never used Tobacco service: No Review of Systems Const All systems reviewed & are unremarkable except as noted in HPI and below Physical Exam Vital Signs: Last Vital Signs Temp 98.4 F 12/16/23 13:37 Pulse 86 12/16/23 13:37 Pulse Ox 96 12/16/23 13:37 Oxygen Delivery Method Room Air 12/16/23 13:37 BMI result Body Mass Index 48.5 Const Other: General: cooperative HEENT Head: Yes normal to inspection Face and sinus: Yes normal facial exam Mouth: Normal oral and palatal mucosa present Teeth and gingiva: dentition normal Eyes General: appearance normal, both eyes and all related structures Pupils: Equal, round and reactive pupils present Resp Effort & Inspection: normal respiratory effort Cardio Rate: regular rate Rhythm: regular rhythm GI Palpation (GI): Soft to palpation and nontender General: Yes no CVA tenderness Back/Spine/Pelvis Back: no CVA tenderness Skin General skin exam: no rashes or lesions noted Neuro General: moves all extremities Cranial nerves: Yes Equal, round and reactive pupils present Extrem Other: right great toe has some erythema,improving and skin peeling Psych Appearance: grossly normal Assessment & Plan Assessment & Plan (1) Diabetic osteomyelitis: Code(s): E11.69 - Type 2 diabetes mellitus with other specified complication; M86.9 - Osteomyelitis, unspecified Category: Medical Plan: He has some improvement Would give six weeks IV antibiotics. See in three weeks Continue Daptomycin. Coding Level of Care Code Est Pt Level 3 (96839) Diagnoses Diabetic osteomyelitis E11.69; M86.9
[2023-12-16 13:37] VITALS: PULSE 86; TEMP 36.9; O2SAT 96; BMI 48.5
== END 2023-12-16 14:24 | disposition home or self-care (01) ==
LOC: HO.HID 13:06
PROVIDERS: PCP Pediatrics; Visit Provider Internal Medicine
DX: E11.69 Type 2 diabetes mellitus with other specified complication (principal); M86.9 Osteomyelitis, unspecified
CPT/HCPCS: 99213

== ENCOUNTER → 2023-12-16 13:06 | Outpatient (BNVA) | payer MEDICARE, SELFPAY | PROVIDERS: PCP Pediatrics; Visit Provider Internal Medicine | DX: E11.69 Type 2 diabetes mellitus with other specified complication (principal); M86.9 Osteomyelitis, unspecified; Z79.2 Long term (current) use of antibiotics; Z95.828 Presence of other vascular implants and grafts | CPT/HCPCS: 99212 ==

== ENCOUNTER 2023-12-19 11:11 | Outpatient (REF) | payer MEDICARE, SELFPAY | END 2023-12-19 11:12 | disposition home or self-care (01) | LOC: HO.HVNA 11:11 | PROVIDERS: Visit Provider Internal Medicine | DX: B99.9 Unspecified infectious disease (principal) | CPT/HCPCS: 36415; 82550 ==

== ENCOUNTER 2023-12-24 10:55 | Outpatient (REF) | payer MEDICARE, SELFPAY ==
[2023-12-24 13:46] LABS: Estimated Glomerular Filt Rate > 60
== END 2023-12-24 10:56 | disposition home or self-care (01) ==
LOC: HO.HMGCLNP 10:55
PROVIDERS: Visit Provider Internal Medicine
DX: M86.171 Other acute osteomyelitis, right ankle and foot (principal)
CPT/HCPCS: 82550; 82565

== ENCOUNTER 2023-12-25 10:31 | Outpatient (RCR) | payer MEDICARE, SELFPAY | END 2024-02-07 14:05 | disposition home or self-care (01) | LOC: HO.WCC 10:31 | PROVIDERS: PCP Pediatrics; Visit Provider Surgery | DX: Z09 Encounter for follow-up examination after completed treatment for conditions other than malignant neoplasm (principal); E11.9 Type 2 diabetes mellitus without complications; I25.2 Old myocardial infarction; Z87.39 Personal history of other diseases of the musculoskeletal system and connective tissue; Z86.718 Personal history of other venous thrombosis and embolism; Z79.84 Long term (current) use of oral hypoglycemic drugs; Z79.4 Long term (current) use of insulin | CPT/HCPCS: 99212 ==

== ENCOUNTER 2023-12-31 10:45 | Outpatient (REF) | payer MEDICARE, SELFPAY ==
[2023-12-31 14:17] LABS: Estimated Glomerular Filt Rate > 60
== END 2023-12-31 10:46 | disposition home or self-care (01) ==
LOC: HO.HMGCLNP 10:45
PROVIDERS: Visit Provider Internal Medicine
DX: L03.031 Cellulitis of right toe (principal); M86.171 Other acute osteomyelitis, right ankle and foot
CPT/HCPCS: 82550; 82565

== ENCOUNTER 2024-01-06 13:14 | Outpatient (AMB) | payer MEDICARE, SELFPAY ==
--- NOTE | 2024-01-06 13:32 | A.OFFVIS_ITS ---
Vital Signs 3 01/06/24 13:39 Height 6 ft Weight 359 lb BMI 48.7 Pulse 89 Pulse Source Pulse Oximeter Temp 98.5 F Temp Source Oral Pulse Oximetry (%) 91 L Oxygen Delivery Method Room Air Intake Visit Reasons: 3 wks.F/U,osteo/dapto picc Allergies No Known Allergies Allergy (Verified 01/06/24 13:32) HPI HPI 3 wks.F/U,osteo/dapto picc: Details: He has right foot OM He is done with Daptomycin on 01/06 He has no organisms seen. [facility] Medical History Peripheral neuropathy HTN (hypertension) CAD (coronary artery disease) Insulin dependent type 2 diabetes mellitus Social History Household Members: Spouse Housing: House Do you presently have visiting nurse or other home services: No Patient Tobacco Use Status: Never used Tobacco service: No Review of Systems Const All systems reviewed & are unremarkable except as noted in HPI and below Physical Exam Vital Signs: Last Vital Signs Temp 98.5 F 01/06/24 13:39 Pulse 89 01/06/24 13:39 Pulse Ox 91 L 01/06/24 13:39 Oxygen Delivery Method Room Air 01/06/24 13:39 BMI result Body Mass Index 48.7 Const Other: General: cooperative Orientation/consciousness: patient oriented x3 HEENT Head: Yes normal to inspection Mouth: Normal oral and palatal mucosa present Eyes General: appearance normal, both eyes and all related structures Pupils: Equal, round and reactive pupils present Resp Effort & Inspection: normal respiratory effort Cardio Rate: regular rate Rhythm: regular rhythm GI Palpation (GI): Soft to palpation and nontender General: Yes no CVA tenderness Back/Spine/Pelvis Back: no CVA tenderness Skin General skin exam: no rashes or lesions noted Neuro General: patient oriented x3 Cranial nerves: Yes CN's II-XII intact bilaterally and Yes Equal, round and reactive pupils present Extrem General: Yes normal to inspection Psych Appearance: grossly normal Assessment & Plan Assessment & Plan (1) Diabetic osteomyelitis: Comment: He has improvement Code(s): E11.69 - Type 2 diabetes mellitus with other specified complication; M86.9 - Osteomyelitis, unspecified Category: Medical Plan: End Daptomycin Doxycycline for a month. See prn need. Orders: Orders 2 IR cvc remove any age 1001/06/24 E11.69 - Type 2 diabetes mellitus with other specified complication, M86.9 - Osteomyelitis, unspecified Medications: New 2 doxycycline hyclate 100 mg PO BID 60 caps 0RF 30 days Coding Level of Care Code Est Pt Level 3 (41367) Diagnoses Diabetic osteomyelitis E11.69; M86.9
[2024-01-06 13:39] VITALS: PULSE 89; TEMP 36.9; O2SAT 91; BMI 48.7
== END 2024-01-06 14:59 | disposition home or self-care (01) ==
LOC: HO.HID 13:14
PROVIDERS: PCP Pediatrics; Visit Provider Internal Medicine
DX: E11.69 Type 2 diabetes mellitus with other specified complication (principal); M86.9 Osteomyelitis, unspecified
CPT/HCPCS: 99213

== ENCOUNTER → 2024-01-06 13:14 | Outpatient (BNVA) | payer MEDICARE, SELFPAY | PROVIDERS: PCP Pediatrics; Visit Provider Internal Medicine | DX: E11.69 Type 2 diabetes mellitus with other specified complication (principal); M86.9 Osteomyelitis, unspecified | CPT/HCPCS: 99212 ==

== ENCOUNTER 2024-02-12 12:55 | Emergency (ER) | payer MEDICARE, SELFPAY ==
--- NOTE | ~2024-02-12 | XR_ITS ---
EXAMINATION: XR KNEE, LEFT CLINICAL INFORMATION: Left knee pain without known injury COMPARISON: None available. TECHNIQUE: Four views of the left knee. FINDINGS: No fracture or joint effusion. Alignment is anatomic. Joint spaces are maintained. No abnormal soft tissue calcification. There is small spur extending from the medial aspect of medial epicondyles seen on single view only, measured approximately 0.7 cm. XR/XR knee LT 3V IMPRESSION: Small exostosis in the medial aspect of left femur and the left epicondyle, correlate clinically Electronically signed by: Ashtyn Pickett MD 02/12/2024 04:01 PM MARISSA MACK
[2024-02-12 13:04] VITALS: BP 170/83; PULSE 70; RESP 14; TEMP 35.9; O2SAT 98; BMI 47.5
--- NOTE | 2024-02-12 13:05 | ED_ITS ---
HPI - Extremity Injury (Lower) General Chief Complaint: Extremity Injury, Lower Stated Complaint: l knee pain Time Seen by Provider: 02/12/24 18:36 Source: patient, RN notes reviewed and old records reviewed Mode of arrival: ambulatory History of Present Illness ED Provider: Rossy Adam PA-C HPI Narrative: 68-year-old male with a past medical history of HTN, CAD, diabetes, peripheral neuropathy, presenting to the ED complaining of atraumatic acute on chronic left knee pain worsening since yesterday. Admits to walking his new puppy 2x daily, however denies known injury/trauma or fall, numbness, tingling, weakness. Admits to getting cortisone shots to knee at [facility], next due 02/25. Denies history of gout, redness Related Data Home Medications ?Medication ?Instructions ?Recorded ?Confirmed aspirin 81 mg tablet,delayed 81 mg PO DAILY 11/28/23 11/28/23 release cyclobenzaprine 10 mg tablet 10 mg PO BEDTIME 11/28/23 11/28/23 gabapentin 300 mg capsule 900 mg PO TID 11/28/23 11/28/23 insulin glargine U-300 conc 300 115 unit subcut BEDTIME 11/28/23 11/28/23 unit/mL (3 mL) subcutaneous pen (Toujeo Max U-300 SoloStar) insulin lispro 100 unit/mL See Protocol subcut TIDAC 11/28/23 11/28/23 subcutaneous pen (Humalog KwikPen (U-100) Insulin) lisinopril 30 mg tablet 10 mg PO DAILY 11/28/23 11/28/23 metformin 500 mg tablet,extended 1,000 mg PO BID 11/28/23 11/28/23 release 24 hr metoprolol tartrate 25 mg tablet 25 mg PO BID 11/28/23 11/28/23 rosuvastatin 10 mg tablet 10 mg PO DAILY 11/28/23 11/28/23 Previous Rx's ?Medication ?Instructions ?Recorded daptomycin 1,000 mg/100 mL in 0.9 1,000 mg (100 mL) IV Q24H 6 weeks 12/02/23 % sodium chlor intravenous piggyback doxycycline hyclate 100 mg capsule 100 mg PO BID 30 days #60 caps 01/06/24 acetaminophen 500 mg tablet 500 mg PO Q6H PRN fever or pain 02/12/24 (Tylenol Extra Strength) #14 tabs diclofenac sodium 1 % topical gel 4 g topical QID #100 grams 02/12/24 (Arthritis Pain (diclofenac)) naproxen 500 mg tablet 500 mg PO BID PRN pain 10 days #20 02/12/24 tabs Allergies Allergy/AdvReac Type Severity Reaction Status Date / Time No Known Allergies Allergy Verified 02/12/24 13:09 Review of Systems Review of Systems: Yes all other systems are reviewed and are negative Constitutional: Constitutional: Reports as per [facility] Past Medical History Attestation statement: The following information was validated with the patient. Source: old records reviewed Medical History Peripheral neuropathy HTN (hypertension) CAD (coronary artery disease) Insulin dependent type 2 diabetes mellitus Social History Social History Household Members: Spouse Housing: House Do you presently have visiting nurse or other home services: No Patient Tobacco Use Status: Never used Tobacco Do you have a plan to hurt others: No Plan service: No Physical Exam Vital Signs: Vital Signs: Last Vital Signs Temp 96.7 F L 02/12/24 13:04 Pulse 70 02/12/24 13:04 Resp 14 02/12/24 13:04 BP 170/83 H 02/12/24 13:04 Pulse Ox 98 02/12/24 13:04 O2 Del Method Room Air 02/12/24 13:04 BMI result Body Mass Index 47.5 Const: General: cooperative, healthy appearing and no acute distress Orientation/consciousness: patient oriented x3 Limitations: no limitations HEENT: Head: Yes normal to inspection and Yes atraumatic Ears: hearing grossly normal bilaterally General nose exam: Normal external nose present Face and sinus: Yes normal facial exam Eyes: General: appearance normal, both eyes and all related structures EOM: EOMs intact bilaterally Neck: Neck: Yes normal visual inspection and Yes no meningeal signs Resp: Effort & Inspection: normal respiratory effort and no respiratory distress Cardio: Rate: regular rate Skin: Rashes: no rashes Wounds: no wounds Neuro: General: patient oriented x3, tone normal and no meningeal signs Cranial nerves: Yes CN's II-XII intact bilaterally Gait exam (Neuro): Normal gait present Extrem: Other: Left knee with mild swelling. No erythema/warmth. Mildly tender to palpation greatest to medial aspect. ROM intact with discomfort. Neurovascularly intact distally. Course Course Course Narrative: This is a Rapid Medical Exam performed in triage by Rossy Adam PA-C. Full HPI, ROS and PE to be performed by primary ED provider. 68yo M w/PMHx HTN, CAD, diabetes, presenting to the ED c/o left knee pain x yesterday. denies fall of injury. Admits to getting cortisone shots regularly to L knee at [facility]. PE: +mild swelling, +ttp, ambulating w/slow gait Plan: XR XR knee LT 3V IMPRESSION: Small exostosis in the medial aspect of left femur and the left epicondyle, correlate clinically Results discussed with patient including worrisome signs and symptoms and strict return precautions, and when to return to the emergency department. They verbalized understanding and feel safe for discharge at this time. Medications Administered Discontinued Medications Generic Name Dose Route Start Last Admin Trade Name Oleksandrq PRN Reason Stop Dose Admin Ketorolac Tromethamine 30 mg 02/12/24 18:37 02/12/24 18:42 Ketorolac Tromethamine 30 Mg/Ml Vial IM 02/12/24 18:38 30 mg ONCE ONE Administration Medical Decision Making Medical Decision Making MDM Narrative: 68-year-old male with a past medical history of HTN, CAD, diabetes, peripheral neuropathy, presenting to the ED complaining of atraumatic acute on chronic left knee pain worsening since yesterday. On exam vital signs stable, NAD, nontoxic appearing, physical exam as noted above. Concern for acute on chronic knee pain/arthralgia/osteoarthritis vs tendonitis or meniscal/ligamental injury. Low suspicion for gout, no evidence of septic joint/arthritis. Plan: X-ray, pain control Please refer to course for remaining clinical decision making, interpretation of labs/imaging results, and discussions with consultants and/or family members. Differential Diagnosis Differential Diagnoses: The differential diagnosis associated with the presentation includes As above Independent Interpretation I performed an independent interpretation of an: Plain X-Ray Radiology Impression Discussion of test interpretation with radiology: I have reviewed the radiologist's reading. External Record Review External record reviewed: Inpatient record, Office record, Outpatient record, Prior outpatient labs, Prior outpatient radiology, Primary care record and Outside ED record Tests considered The following testing was considered but not selected: As above Prescription Management I considered prescription management with: Pain Medication Discharge Plan Discharge Clinical Impression: Knee pain Patient Disposition: Home, Self-Care Instructions: Arthralgia (ED) Additional Instructions: Your x-ray shows a small cartilaginous spur. You were given a Toradol injection today for pain and inflammation Naproxen as an anti-inflammatory / pain medication, take with food Diclofenac as a topical anti-inflammatory/pain medication, apply to painful joint. In addition take Tylenol at home You need to follow-up with your orthopedic doctor as well as PCP If symptoms persist or worsen or area begins to look infected return to the ED Prescriptions: New diclofenac sodium [Arthritis Pain (diclofenac)] 1 % gel 4 g topical QID Qty: 100 0RF Rx Instructions: apply to single knee, ankle, foot; for foot includes sole/toes/top of foot acetaminophen [Tylenol Extra Strength] 500 mg tablet 500 mg PO Q6H PRN (Reason: fever or pain) Qty: 14 0RF naproxen 500 mg tablet 500 mg PO BID PRN (Reason: pain) 10 Days Qty: 20 0RF No Action cyclobenzaprine 10 mg tablet 10 mg PO BEDTIME lisinopril 30 mg tablet 10 mg PO DAILY gabapentin 300 mg capsule 900 mg PO TID metformin 500 mg tablet extended release 24 hr 1,000 mg PO BID insulin lispro [Humalog KwikPen Insulin] 100 unit/mL insulin pen See Protocol subcut TIDAC Protocol: Insulin Correction Scale Less than or equal to 110 ---- Give (units): 0 111 to 150 Give (units): 0 151 to 200 Give (units): 2 201 to 250 Give (units): 4 251 to 300 Give (units): 6 301 to 350 Give (units): 8 Greater than 350 Give (units): 10 Call MD if Blood Glucose > : 350 rosuvastatin 10 mg tablet 10 mg PO DAILY metoprolol tartrate 25 mg tablet 25 mg PO BID insulin glargine U-300 conc [Toujeo Max U-300 SoloStar] 300 unit/mL (3 mL) insulin pen 115 unit subcut BEDTIME aspirin 81 mg Tablet,Delayed Release (Dr/Ec) 81 mg PO DAILY daptomycin in 0.9 % sod chlor 1,000 mg/100 mL piggyback 1,000 mg IV Q24H 42 Days Rx Instructions: administer over 30 mins doxycycline hyclate 100 mg capsule 100 mg PO BID 30 Days Qty: 60 0RF Referrals: [facility] [place] Orthopedic Surgeons [Provider Group] Percy Moran MD [Primary Care Provider] - Print Language: Macedonian
[2024-02-12] MEDS: Ketorolac Tromethamine 30 MG/ML VIAL IM (18:42)
[2024-02-12 18:51] VITALS: BP 170/83; PULSE 70; RESP 14; TEMP 35.9; O2SAT 98
== END 2024-02-12 18:51 | disposition home or self-care (01) ==
LOC: HO.ED 18:47
PROVIDERS: Emergency Provider Emergency Medicine; PCP Pediatrics
DX: M25.562 Pain in left knee (principal); E11.9 Type 2 diabetes mellitus without complications; I10 Essential (primary) hypertension; Z79.4 Long term (current) use of insulin; Z79.84 Long term (current) use of oral hypoglycemic drugs; Z79.82 Long term (current) use of aspirin
CPT/HCPCS: 73562; 96372; 99283; 99284; J1885

== ENCOUNTER 2024-09-02 13:57 | Outpatient (AMB) | payer MEDICARE, SELFPAY ==
--- NOTE | 2024-09-02 14:05 | A.OFFVIS_ITS ---
Vital Signs 09/02/24 14:07 Height 6 ft Weight 359 lb BMI 48.7 BP 183/84 H Blood Pressure Location Lt brachial Position Sitting Respiration 18 Pulse 85 Pulse Source Pulse Oximeter Pulse Oximetry (%) 95 Oxygen Delivery Method Room Air Intake Visit Reasons: Neuropathy on feet Allergies No Known Allergies Allergy (Verified 09/02/24 14:09) HPI Comments Details: Ruel is very pleasant 69 years old gentleman who presents in my office with complains on pain in bilateral feet more on the left and less on the right he believes this pain is related to diabetic polyneuropathy. He has discoloration of bilateral lower extremities. He reports that this pain started 1 year ago. Initially the pain was mild and now it is very severe. He reports pain in bilateral feet while in bed with number of pain 9/10. At this moment in the office his pain is 5 to 6/10 on the left foot and 0/10 on the right foot. Because of his pain he can not sleep normally can not do activities of daily living but he can take care of himself and he can function normally. 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 He reports that he has hemoglobin A1c is 8.7. He also reports edema of bilateral lower extremities more on the left and less on the right. The pain is most severe at 9 in terms of tissue damage it is stabbing, lancinating, sharp, lacerating, pinching, crushing, hot burning, searing, tingling, stinging, dull, hurting, heavy, tiring, exhausting, spreading, piercing, tight, squeezing, tearing. He is on gabapentin 300 mg t.i.d.. He is on insulin for his diabetes. He never had any images. His past medical history significant for diabetes hypertension and arthritis. Surgical history significant for appendectomy back surgery shoulder surgery gallbladder surgery and carpal tunnel surgery. He denies smoking cigarettes denies drinking alcohol drinks 2 regular cup of coffee a day he denies recreational drugs. [facility] Medical History Peripheral neuropathy HTN (hypertension) CAD (coronary artery disease) Insulin dependent type 2 diabetes mellitus Social History Household Members: Spouse Housing: House Do you presently have visiting nurse or other home services: No Patient Tobacco Use Status: Never used Tobacco service: No Review of Systems Const All systems reviewed & are unremarkable except as noted in HPI and below ENT Reports Normal hearing present Neuro Reports Normal hearing present, Denies Abnormal speech present, Denies confusion and Denies Sensory deficit (Neuro) Psych Denies confusion Physical Exam Vital Signs: Last Vital Signs Pulse 85 09/02/24 14:07 Resp 18 09/02/24 14:07 BP 183/84 H 09/02/24 14:07 Pulse Ox 95 09/02/24 14:07 Oxygen Delivery Method Room Air 09/02/24 14:07 BMI result Body Mass Index 48.7 Const General: no acute distress; No confusion Nutritional Appearance: obese (Severe morbid obesity severe truncal obesity) morbidly obese Orientation/consciousness: patient oriented x3 and No confusion Eyes General: appearance normal, both eyes and all related structures Pupils: Equal, round and reactive pupils present EOM: EOMs intact bilaterally Neck Neck: Yes full ROM Chest Chest palpation & inspection: normal inspection of the chest Resp Effort & Inspection: normal respiratory effort, able to speak in complete sentences, normal respiratory pattern, no audible wheezes and no cough Cardio Jugular venous distension: no JVD GI Inspection: Yes normal to inspection Neuro General: patient oriented x3, gait normal and No confusion Cranial nerves: Yes CN's II-XII intact bilaterally, Yes Equal, round and reactive pupils present, Yes Normal hearing present and Yes Ability to bilaterally elevate shoulders present Speech: No Abnormal speech present Gait exam (Neuro): Normal gait present Motor exam (neuro): 5/5 motor strength present throughout Sensory Exam: No Sensory deficit (Neuro) Extrem Other: Bilateral discoloration of the lower extremities on the left below the knee and on the right mid lower leg. Palpation of the bilateral DP and PT pulses did not reveal any apprehensible pulse. However I took the patient to the exam room with ultrasound machine and there are bilateral posterior tibial and bilateral dorsalis pedis pulses demonstrated by Doppler examination. The feet are warm on palpation, and the bilateral capillary refill is 3-4 seconds. There is no edema at this time on bilateral lower extremities General: No pedal edema Psych Speech and movement: Normal speech and movement present Affect: normal affect Attitude: cooperative Thought process: Normal thought process present Thought content: Normal thought content present Insight: Good insight present (Psych) Judgement: Good judgement present (Psych) Assessment & Plan Assessment & Plan (1) Diabetic polyneuropathy: Code(s): E11.42 - Type 2 diabetes mellitus with diabetic polyneuropathy Category: Medical (2) Venous insufficiency of both lower extremities: Code(s): I87.2 - Venous insufficiency (chronic) (peripheral) Category: Medical (3) Chronic pain syndrome: Code(s): G89.4 - Chronic pain syndrome Category: Medical Plan This patient is suffering from diabetic polyneuropathy of bilateral lower extremities. His hemoglobin A1c is grossly elevated and therefore it needs to be treated aggressively to potentially improve the diabetic neuropathy. At this moment I offered the patient to increase the doses of his gabapentin to 600 mg t.i.d.. I can continue to escalate gabapentin provided there will be no side effects. I will schedule appointment with the patient in 1 month. I also suggested that he would work with his primary care physician on insulin pump if current doses of the insulin do not allow him to improve his hemoglobin A1c. As of the edema and discoloration of the bilateral lower extremities most likely it is related to the venous insufficiency. I can refer him to our vascular surgeon for consideration of the procedure on venous insufficiency extremities however with this hemoglobin A1c unlikely any surgery will be offered to the patient. If his condition will get worse I will send him for vascular surgery evaluation. Medications: New gabapentin 600 mg PO TID 90 tabs 8RF 30 days Patient Instructions: I here by testify that I spent 45 minutes in patients conversation as well as evaluating ultrasound images as well as planning his care and organizing this note. Coding Level of Care Code New Pt Level 4 (92857) Diagnoses Diabetic polyneuropathy E11.42 Venous insufficiency of both lower extremities I87.2 Chronic pain syndrome G89.4
[2024-09-02 14:07] VITALS: BP 183/84; PULSE 85; RESP 18; O2SAT 95; BMI 48.7
== END 2024-09-02 14:35 | disposition home or self-care (01) ==
LOC: HO.PMC 13:58
PROVIDERS: PCP Pediatrics; Visit Provider Anesthesiology
DX: E11.42 Type 2 diabetes mellitus with diabetic polyneuropathy (principal); I87.2 Venous insufficiency (chronic) (peripheral); G89.4 Chronic pain syndrome
CPT/HCPCS: 99204

== ENCOUNTER → 2024-09-02 13:57 | Outpatient (BNVA) | payer MEDICARE, SELFPAY | PROVIDERS: PCP Pediatrics; Visit Provider Anesthesiology | DX: E11.42 Type 2 diabetes mellitus with diabetic polyneuropathy (principal); I87.2 Venous insufficiency (chronic) (peripheral); G89.4 Chronic pain syndrome | CPT/HCPCS: 99202 ==

== ENCOUNTER 2024-09-30 09:10 | Outpatient (AMB) | payer MEDICARE, SELFPAY ==
[2024-09-30 09:15] VITALS: BP 168/74; PULSE 75; RESP 20; O2SAT 94; BMI 43.8
--- NOTE | 2024-09-30 09:15 | A.OFFVIS_ITS ---
Vital Signs 09/30/24 09:15 Height 6 ft Weight 323 lb BMI 43.8 BP 168/74 H Blood Pressure Location Rt brachial Position Sitting Respiration 20 Pulse 75 Pulse Source Pulse Oximeter Pulse Oximetry (%) 94 Oxygen Delivery Method Room Air Intake Visit Reasons: 1 Month Follow Up/[facility] Consult [employer] Tender Required: No Allergies No Known Allergies Allergy (Verified 09/30/24 09:15) HPI Comments Details: Ruel is back in my office for the follow-up. He reported gabapentin increase dose 600 mg t.i.d. has no side effects and provides significant improvement for his neuropathic pain. He reports from time to time pain exacerbation however he stated that this morning he woke up without any pain. I told him to continue to watch after his diet, avoid simple carbohydrates and sugars. He needs to work with his primary care physician to improve his hemoglobin A1c. The improvement of hemoglobin A1c may result in neuropathy elimination or drastic improvement. He expressed understanding. He will continue the medication. We did not discuss vascular surgeon referral because discoloration of the bilateral lower extremities is much better. Prior: complains on pain in bilateral feet more on the left and less on the right he believes this pain is related to diabetic polyneuropathy. He has discoloration of bilateral lower extremities. He reports that this pain started 1 year ago. Initially the pain was mild and now it is very severe. He reports pain in bilateral feet while in bed with number of pain 9/10. At this moment in the office his pain is 5 to 6/10 on the left foot and 0/10 on the right foot. [facility] Medical History Peripheral neuropathy HTN (hypertension) CAD (coronary artery disease) Insulin dependent type 2 diabetes mellitus Social History Household Members: Spouse Housing: House Do you presently have visiting nurse or other home services: No Patient Tobacco Use Status: Never used Tobacco service: No Review of Systems Const All systems reviewed & are unremarkable except as noted in HPI and below ENT Reports Normal hearing present Neuro Reports Normal hearing present, Denies Abnormal speech present, Denies confusion and Denies Sensory deficit (Neuro) Psych Denies confusion Physical Exam Vital Signs: Last Vital Signs Pulse 75 09/30/24 09:15 Resp 20 09/30/24 09:15 BP 168/74 H 09/30/24 09:15 Pulse Ox 94 09/30/24 09:15 Oxygen Delivery Method Room Air 09/30/24 09:15 BMI result Body Mass Index 43.8 Const General: no acute distress; No confusion Nutritional Appearance: obese (Severe morbid obesity severe truncal obesity) morbidly obese Orientation/consciousness: patient oriented x3 and No confusion Eyes General: appearance normal, both eyes and all related structures Pupils: Equal, round and reactive pupils present EOM: EOMs intact bilaterally Neck Neck: Yes full ROM Chest Chest palpation & inspection: normal inspection of the chest Resp Effort & Inspection: normal respiratory effort, able to speak in complete se ntences, normal respiratory pattern, no audible wheezes and no cough Cardio Jugular venous distension: no JVD GI Inspection: Yes normal to inspection Neuro General: patient oriented x3, gait normal and No confusion Cranial nerves: Yes CN's II-XII intact bilaterally, Yes Equal, round and reactive pupils present, Yes Normal hearing present and Yes Ability to bilaterally elevate shoulders present Speech: No Abnormal speech present Gait exam (Neuro): Normal gait present Motor exam (neuro): 5/5 motor strength present throughout Sensory Exam: No Sensory deficit (Neuro) Extrem Other: Bilateral discoloration of the lower extremities on the left below the knee and on the right mid lower leg. Palpation of the bilateral DP and PT pulses did not reveal any apprehensible pulse. The feet are warm on palpation, and the bilateral capillary refill is 3-4 seconds. There is no edema at this time on bilateral lower extremities, discoloration is much improved. General: No pedal edema Psych Speech and movement: Normal speech and movement present Affect: normal affect Attitude: cooperative Thought process: Normal thought process present Thought content: Normal thought content present Insight: Good insight present (Psych) Judgement: Good judgement present (Psych) Assessment & Plan Assessment & Plan (1) Diabetic polyneuropathy: Code(s): E11.42 - Type 2 diabetes mellitus with diabetic polyneuropathy Category: Medical (2) Venous insufficiency of both lower extremities: Code(s): I87.2 - Venous insufficiency (chronic) (peripheral) Category: Medical (3) Chronic pain syndrome: Code(s): G89.4 - Chronic pain syndrome Category: Medical Plan This patient is suffering from diabetic polyneuropathy of bilateral lower extremities. His hemoglobin A1c is grossly elevated and therefore it needs to be treated aggressively to potentially improve the diabetic neuropathy. We will continue gabapentin 600 mg t.i.d. he has refills in his pharmacy. I will see him in 2 months and we will discuss continuation of the treatment. With hemoglobin A1c improvement he may experience improvement of his pain. I did not discuss spinal cord stimulator with this patient today because it is not indicated: The symptoms are improving. Medications: Refilled gabapentin 600 mg PO TID 90 tabs 8RF 30 days Coding Level of Care Code Est Pt Level 3 (66617) Diagnoses Diabetic polyneuropathy E11.42 Venous insufficiency of both lower extremities I87.2 Chronic pain syndrome G89.4
--- OUTSIDE RECORDS SUMMARY | 2024-09-30 09:26 | XMS_ITS | Clinical Summary ---
Author Organization [facility] [address] [facility] Address [address] [place] [address] Phone Care Team Providers Care Resident Care Spec Name Role Phone Lalita Moran MD Primary Care Provider [phone] Allergies No known active allergies Medications aspirin 81 mg EC tablet Take 81 mg by mouth daily. Active blood-glucose meter kit Use to check BS daily 08/11/19 23 Active blood-glucose meter,continuou s (Dexcom G6 Quality Compliance Coordinator) misc USE DIRECTED DAILY 07/19/19 24 Active FREESTYLE LANCETS MISC USE 3 TIMES DAILY 11/09/19 21 Active FreeStyle Test test strip USE TO CHECK BLOOD SUGARS UP TO 3 TIMES PER DAY 02/11/20 18 Active glucagon (Gvoke HypoPen 2-Pack) 1 mg/0.2 mL auto-injector Inject 1 Dose into the skin as needed for Other (hypoglycemia) . 01/29/20 23 Active lisinopriL (PRINIVIL,ZESTR IL) 10 mg tablet Take 10 mg by mouth daily. Active insulin glargine U-300 conc (Toujeo Max U-300 SoloStar) 300 unit/mL (3 mL) CONCENTRATED injection pen 120 units SC at bedtime 45 mL 3 01/28/20 24 Active Dexcom G6 Transmitter device CHANGE TRANSMITTER EVERY 3 MONTHS 1 each 3 04/03/19 25 Active metoprolol tartrate (LOPRESSOR) 25 mg tablet TAKE 1 TABLET BY MOUTH TWICE DAILY 200 tablet 2 04/16/19 25 Active Dexcom G6 Sensor deviceIndicatio ns:Type 2 diabetes mellitus with diabetic microalbuminuri a, with long-term current use of insulin ([facility]/HCC V24, CMS/HCC V28) PLACE NEW SENSOR IN THE SKIN EVERY 10 DAYS 12 each 2 05/23/19 25 Active metFORMIN XR (GLUCOPHAGE-XR) 500 mg 24 hr tablet TAKE 2 TABLETS BY MOUTH TWICE DAILY WITH MEALS (DO NOT CRUSH, CHEW, OR SPLIT) 400 tablet 07/16/19 25 Active pen needle, diabetic (BD Ultra-Fine Short Pen Needle) 31 gauge x 5/16 needle Inject 3 each as directed 3 (three) times a day. 300 each 07/16/19 25 Active gabapentin (NEURONTIN) 300 mg capsule TAKE 3 CAPSULES BY MOUTH 3 TIMES DAILY 900 capsule 07/22/19 25 Active insulin lispro (HumaLOG KwikPen Insulin) 100 unit/mL injection penIndications: Type 2 diabetes mellitus with diabetic polyneuropathy, with long-term current use of insulin ([facility] V24, [facility] V28) 12/16/2023: Inject 3 times a day with meals sliding scale 100-149: 10 units; 150-199 12 units, 200-249 14 units, 250-299 16 units, 300-349 18 units, 350-399 20 units Strength: 100 Units/mL 15 mL 2 07/31/19 25 Active cyclobenzaprine (FLEXERIL) 10 mg tablet TAKE 1 TABLET BY MOUTH AT BEDTIME NEEDED FOR MUSCLE SPASM(S) 100 tablet 09/09/19 25 Active rosuvastatin (CRESTOR) 10 mg tablet TAKE 1 TABLET BY MOUTH DAILY 100 tablet 1 10/01/19 25 Active cyclobenzaprine (FLEXERIL) 10 mg tablet Take 1 tablet (10 mg total) by mouth at bedtime as needed for muscle spasms. 100 tablet 02/10/20 24 025 Discontinued rosuvastatin (CRESTOR) 10 mg tablet TAKE 1 TABLET BY MOUTH DAILY 100 tablet 1 04/17/19 25 025 Discontinued Active Problems Problem Noted Date Diagnosed Date Morbid obesity with BMI of 4 5.0-49.9, adult ([facility] V24, [facility] V28) 12/16/2023 Toe ulcer ([facility] V24, [facility] V28) 12/17/2020 Overview (12/16/2023): Left 2nd toe. Hosp 12/06 LING (obstructive sleep apnea) 10/14/2018 H/O non-ST elevation myocardial infarction (NSTE [place]) 11/26/2017 Overview (12/16/2023): [facility] cardiology Type 2 diabetes mellitus wit h diabetic polyneuropathy ([facility] V24, [facility] V28) 10/26/2015 Adjustment disorder with mixed anxiety and depre ssed mood 04/15/2013 Microalbuminuria 05/18/2010 DM (diabetes mellitus), type 2 with renal complications ([facility] V24, [facility] V28) 05/07/2006 Overview (12/16/2023): Last Assessment & Plan: Lantus adjusted per Lantus protocol. Referral to [facility] Diabetic Education and Dr. 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 Essential hypertension, benign 05/07/2006 Pure hypercholesterolemia 05/07/2006 Overview (12/16/2023): Last Assessment & Plan: Educated on low fat diet & exercise. Encouraged simvastatin compliance and repeat LDL. Encounters Date Type Department Care Team Description 08/12/2024 8:15 AM EDT Office Visit Orthopedic Surgery - [address] [phone] Franklin Velasquez DPM Diabetic mononeuropathy simplex ([facility] V24, [facility] V28) (Primary Dx); Dermatophytosis of nail; Pain in toe of right foot; Pain in toe of left foot; Peripheral venous insufficiency 07/30/2024 8:30 AM EDT Office Visit Adult Medicine - [address] [phone] Leola Wells NP Essential hypertension, benign (Primary Dx); Type 2 diabetes mellitus with diabetic polyneuropathy, with long-term current use of insulin ([facility] V24, [facility] V28); Neuropathy; Pure hypercholesterolemia; Morbid obesity with BMI of 45.0-49.9, adult ([facility] V24, [facility] V28); H/O non-ST elevation myocardial infarction (NSTEMI) 07/16/2024 Telephone Adult Medicine [facility] [address] [place] [address] Lalita Moran MD Referral from Last 3 Months Immunizations Name Administration Dates Next Due COVID-19 (Moderna/Spikevax) 12yo and older 01/11/2023 H1N1 Inj Preservative Free 01/28/2009 Influenza Quadravalent, MDCK , 0.5ml, preservative free (Flucelvax) 6mo and older 01/12/2020,12/01/2018,12/31/2017 Influenza Quadravalent, MDCK , 0.5ml, with preservative (Flucelvax) 6mo and older 12/27/2016 Influenza trivalent, with pr eservative (Fluzone; Afluria) 6mo and older 11/23/2022,04/16/2022,12/08/2015,01/03,03/01/2014,04/27/2013,12/20/2011 ,12/19/2010,12/09/2009,01/28/2007 Influenza, Unspecified 12/28/2020 Moderna SARS-CoV-2 COVID-19, mRNA, LNP-S, preservative free 01/12/2021 Pfizer SARS-CoV-2 COVID-19, mRNA, LNP-S, preservative free 06/28/2020,06/07/2020 Pneumococcal conjugate 20 va lent (Prevnar 20, PCV 20) 2mo and older 01/28/2023 Pneumococcal polysaccharide 23 valent (Pneumovax 23) 2yo and older 06/17/2006 Td Tetanus diptheria (Tdvax) 7yo and older 01/28/2023 Tdap Tetanus diptheria acell ular pertussis (Boostrix; Adacel) 7yo and older 11/10/2012 Surgical History Surgery Date Site/Laterality Comments COLONOSCOPY 10/18/08 PROCEDURE: HISTORICAL COLONOSCOPY; COMMENT: diverticulosis; repeat in ten years ESOPHAGOGASTRODUODENOSCOPY 01/30/10 PROCEDURE: DC ESOPHAGOGASTRODUODENOSCOPY TRANSORAL DIAGNOSTIC; COMMENT: normal BACK SURGERY 2009 PROCEDURE: HISTORICAL BACK SURGERY; COMMENT: Dr. Perez Medical History Medical History Date Comments Pure hypercholesterolemia 05/07/2006 DX:Pur e hypercholesterolemia Essential hypertension, benign 05/07/2006 D X:Essential hypertension, benign Carpal tunnel syndrome on both sides 11/01/2013 DX:Carpal tunnel syndrome on both sides LING (obstructive sleep apnea) 10/14/2018 DX :LING (obstructive sleep apnea) Family History Medical History Relation Name Comments Prostate cancer Brother 1 No Known Problems Brother 2 No Known Problems Brother 3 Diabetes Father CABG times 3 Stroke Father Lung cancer Mother Breast cancer Sister 1 Diabetes Sister 2 No Known Problems Son Relation Name Status Comments Brother 1 Alive Brother 2 Alive Brother 3 Alive Father Mother Sister 1 Alive Sister 2 Alive Son Alive Social History Tobacco Use Types Packs/Day Years Used Date Smoking Tobacco: Never Smokeless Tobacco: Never Tobacco Cessation:Counseling Given: Not Answered Alcohol Use Standard Drinks/Week Comments No 0 (1 standard drink = 0.6 oz pur e alcohol) Housing Instability Answer Date Recorde d Are you worried that in the next 2 months you may not have stable housing? No 07/29/2024 Food Access & Nutrition Answer Date Rec orded Do you have access to a vari ety of food including fruits and vegetables? Yes 07/29/2024 Health Literacy Answer Date Recorded How often do you need to hav e someone help you when you read instructions, pamphlets, or other written material from your doctor or pharmacy? Never 07/29/2024 Caregiver: How often do you need to have someone help you when you read instructions, pamphlets, or other written material from your doctor or pharmacy? Not on file 07/29/2024 Financial Risk Answer Date Recorded How hard is it for you to pa y for the very basics like food, housing, medical care, and air conditioning / heating? Not very hard 07/29/2024 Transportation Answer Date Recorded Has the lack of transportati on kept you from meetings, work, or from getting things needed for daily living? No Has the lack of transportati on kept you from medical appointments or from getting medications? No 07/29/2024 Social Isolation Answer Date Recorded How often do you feel lonely or isolated from th ose around you? Never 07/29/2024 Food Risk Answer Date Recorded Within the past 12 months we worried whether our food would run out before we got money to buy more. Never true 07/29/2024 Within the past 12 months th e food we bought just didn't last and we didn't have money to get more. Never true 07/29/2024 Dependent Care Answer Date Recorded Do you need help finding or paying for care for your loved ones. For example, early childhood or elderly care for an older adult? No 07/29/2024 Education Answer Date Recorded Do you think completing more education or training, like finishing a GED, going to college, or learning a trade, would be helpful for you? No 07/29/2024 Employment and Income Answer Date Recor ded During the last four weeks, have you been actively looking for work? No 07/29/2024 Living Situation Answer Date Recorded What is your living situation? 0 07/29/2024 Sex and Gender Information Value Date Recorded Sex Assigned at Not on file Legal Sex Male 10:16 PM EST Gender Identity Not on file Sexual Orientation Not on file Obstetrics History Last Filed Vital Signs Vital Sign Reading Time Taken Comments Blood Pressure 130/80 07/30/2024 9:03 AM EDT Pulse 74 07/30/2024 8:48 AM EDT Temperature 36.9 C (98.5 F) 07/30/2024 8:48 AM EDT Respiratory Rate - - Oxygen Saturation 96% 08/07/2023 1:0 8 PM EDT at rest, room air Inhaled Oxygen Concentration - - Weight 163 kg (360 lb) 08/12/2024 8:18 AM EDT Height 182.9 cm (6' 0.01 ) 08/12/2024 8 :18 AM EDT Body Mass Index 48.81 08/12/2024 8:18 AM EDT Plan of Treatment Upcoming Encounters Date Type Department Care Team (Late st Contact Info) Description 10/13/2024 3:00 PM EDT Office Visit Adult Medicine [facility] [address] [place] [phone] Lalita Moran MD [address] [place] [address] 11/12/2024 8:15 AM EDT Office Visit Orthopedic Surgery - [place] [phone] [phone] Franklin Velasquez DPM [address] [phone] Health Maintenance Due Date Last Done Comments Diabetes: Annual Retina Eye Exam 08/28/1967 RSV Immunization Adult Patients (1 - Risk 60-74 years 1-dose series) 2017 Medicare Annual Wellness Visit 02/22/2022 COVID-19 Vaccine ( season) 2023 01/11/2023, 01/12/2021, 06/28/2020, Additional history exists Influenza Vaccine (#1) 2024 , 11/23/2022, 04/16/2022, Additional history exists Diabetes: Annual Foot Exam 01/20/2025 01/21/2024, Diabetes: Blood Sugar Control Test (HGBA1C) 01/30/2025 07/30/2024, 02/03/2024, 12/18/2023, Additional history exists Depression Screening 07/29/2025 07/29/2024, 01/29/20 23 Social Influencers of Health Screening 07/29/2025 07/29/2024 Diabetes: Annual GFR (Glomerular Filtration Rate) 07/30/2025 07/30/2024, 02/03/2024, 07/29/2023, Additional history exists Falls Risk Assessment 07/30/2025 07/30/2024 Hypertension/CHF/CAD Annual BMP Blood Test 07/30/2025 07/30/2024, 02/03/2024, 07/29/2023, Additional history exists Diabetes: Annual Urine Albumin-Creatinine Ratio (uACR) 08/05/2025 08/05/2024, 08/07/2022 Colorectal Cancer Screening: Colonoscopy 04/27/2029 04/27/2019 Cholesterol Screening (Lipid Panel) 07/30/2029 07/30/2024, 02/03/2024, 07/29/2023, Additional history exists DTaP,Tdap,and Td Vaccines (3 - Td or Tdap) 01/28/2033 01/28/2023, 11/10/2012 Hepatitis C Screening Completed 04/23/2013 Zoster Vaccines Completed 05/15/2021, 01/06/2021 Pneumococcal Vaccine: 50+ Years Completed 01/28/2023, 06/17/2006 HIB Vaccines Aged Out No longer eligi ble based on patient's age to complete this topic HPV Vaccines Aged Out No longer eligi ble based on patient's age to complete this topic Hepatitis A Vaccines Aged Out No long er eligible based on patient's age to complete this topic Hepatitis B Vaccines Aged Out No long er eligible based on patient's age to complete this topic IPV Vaccines Aged Out No longer eligi ble based on patient's age to complete this topic MMR Vaccines Aged Out No longer eligi ble based on patient's age to complete this topic Meningococcal ACWY Vaccine Aged Out N o longer eligible based on patient's age to complete this topic Meningococcal B Vaccine Aged Out No l onger eligible based on patient's age to complete this topic RSV Immunization Patients Under 20 months Aged Out No longer eligible based on patient's age to complete this topic Varicella Vaccines Aged Out No longer eligible based on patient's age to complete this topic Procedures Procedure Name Priority Date/Time Associated Diagnosis Comments MICROALBUMIN CREATININE URINE RATIO Routine 08/05/2024 10:40 AM EDT Type 2 diabetes mellitus with diabetic polyneuropathy, with long-term current use of insulin ([facility] V24, [facility] V28) LIPID PANEL WITH REFLEX TO DIRECT LDL Routine 07/30/2024 9:31 AM EDT Type 2 diabetes mellitus with diabetic polyneuropathy, with long-term current use of insulin ([facility] V24, CMS/[facility] V28) HEMOGLOBIN A1C Routine 07/30/2024 9:31 AM EDT Type 2 diabetes mellitus with diabetic polyneuropathy, with long-term current use of insulin ([facility] V24, [facility] V28) COMPREHENSIVE METABOLIC PANEL Routine 07/30/2024 9:31 AM EDT Type 2 diabetes mellitus with diabetic polyneuropathy, with long-term current use of insulin ([facility]/HCC V24, [facility] V28) DIABETES FOOT EXAM Routine 07/29/2023 DEPRESSION SCREENING Routine 01/28/2023 COLONOSCOPY Routine 04/27/2019 HEPATITIS C SCREENING Routine 04/23/2013 from Last 3 Months or Most Recently Relevant to Health Maintenance Results * (ABNORMAL) Microalbumin creatinine urine ratio (08/05/2024 10:40 AM EDT) Creatinine, Urine 153.0 mg/dL LAB CHEMISTRY METHOD 08/05/2024 1:30 PM EDT [facility] Microalb, Ur 4,610.0(H ) 0.0 - 29.0 mg/L LAB CHEMISTRY METHOD 08/05/2024 1:30 PM EDT [facility] Microalb/Crea t Ratio 3,013(H) <30 mg/g creat LAB CHEMISTRY METHOD 08/05/2024 1:30 PM EDT [facility] Urine Urine specimen obtained by clean catch procedure / Unknown Non-blood Collection / Unknown 08/05/2024 10:40 AM EDT 08/05/2024 10:40 AM EDT C Donnell Moran MD LAB URINE ORDERABLES Final Res ult [facility] [address] [place] [address], * (ABNORMAL) Lipid panel with reflex to direct LDL (07/30/2024 9:31 AM EDT) Cholesterol 194 0 - 200 mg/dL LAB CHEMISTRY METHOD 07/30/2024 1:18 PM EDT [facility] Triglycerides 328(H) 0 - 150 mg/dL LAB CHEMISTRY METHOD 07/30/2024 1:18 PM EDT [facility] HDL 50 >=40 mg/dL LAB CHEMISTRY METHOD 07/30/2024 1:18 PM EDT [facility] LDL Calculated 78 0 - 100 mg/dL LAB CHEMISTRY METHOD 07/30/2024 1:18 PM EDT [facility] VLDL Cholesterol Ferny 65.6 mg/dL LAB CHEMISTRY METHOD 07/30/2024 1:18 PM EDT [facility] Non HDL Chol. (LDL+VLDL) 144 <145 mg/dL LAB CHEMISTRY METHOD 07/30/2024 1:18 PM EDT [facility] Chol/HDL Ratio 3.9 0.0 - 4.4 LAB CHEMISTRY METHOD 07/30/2024 1:18 PM EDT [facility] Blood Venous blood specimen / Unknown Venipuncture / Unknown 07/30/2024 9:31 AM EDT 07/30/2024 9:31 AM EDT us Lalita Moran MD LAB BLOOD ORDERABLES Final Res ult Performing Organization Address [facility]/ZIP Co de Phone Number [facility] [address] [place] [address], [place] [phone] * (ABNORMAL) Hemoglobin A1c (07/30/2024 9:31 AM EDT) Hemoglobin A1C 9.9(H) <6.5 % LAB CHEMISTRY METHOD 07/30/2024 2:19 PM EDT [facility] Mean Bld Glu Estim. 237 mg/dL LAB CHEMISTRY METHOD 07/30/2024 2:19 PM EDT [facility] Blood Venous blood specimen / Unknown Venipuncture / Unknown 07/30/2024 9:31 AM EDT 07/30/2024 9:31 AM EDT us Lalita Moran MD LAB BLOOD ORDERABLES Final Res ult [facility] [address] [place] [address], [place] [phone] * (ABNORMAL) Comprehensive metabolic panel (07/30/2024 9:31 AM EDT) Sodium 137 133 - 145 mmol/L LAB CHEMISTRY METHOD 07/30/2024 1:21 PM [facility] Potassium 4.6 3.5 - 5.5 mmol/L LAB CHEMISTRY METHOD 07/30/2024 1:21 PM [facility] Chloride 103 96 - 110 mmol/L LAB CHEMISTRY METHOD 07/30/2024 1:21 PM [facility] CO2 26 21 - 32 mmol/L LAB CHEMISTRY METHOD 07/30/2024 1:21 PM [facility] Anion Gap 8 3 - 11 LAB CHEMISTRY METHOD 07/30/2024 1:21 PM [facility] Glucose 154(H) 70 - 100 mg/dL LAB CHEMISTRY METHOD 07/30/2024 1:21 PM [facility] BUN 22 5 - 25 mg/dL LAB CHEMISTRY METHOD 07/30/2024 1:21 PM [facility] Creatinine 0.95 0.70 - 1.30 mg/dL LAB CHEMISTRY METHOD 07/30/2024 1:21 PM [facility] eGFR 88 >=60 mL/min/1. 73m2 LAB CHEMISTRY METHOD 07/30/2024 1:21 PM [facility] Comment:Calculation based on the Chronic Kidney Disease Epidemiology Collaboration (CKD-EPI) equation refit without adjustment for race. BUN/Creatinine Ratio 23.2 LAB CHEMISTRY METHOD 07/30/2024 1:21 PM [facility] Calcium 8.9 8.5 - 10.5 mg/dL LAB CHEMISTRY METHOD 07/30/2024 1:21 PM [facility] AST (SGOT) 19 10 - 42 unit/L LAB CHEMISTRY METHOD 07/30/2024 1:21 PM [facility] ALT (SGPT) 26 10 - 60 unit/L LAB CHEMISTRY METHOD 07/30/2024 1:21 PM [facility] Alkaline Phosphatase 76 42 - 121 unit/L LAB CHEMISTRY METHOD 07/30/2024 1:21 PM EDT [facility] Total Protein 6.4 6.0 - 8.0 g/dL LAB CHEMISTRY METHOD 07/30/2024 1:21 PM EDT [facility] Albumin 3.3 3.2 - 5.0 g/dL LAB CHEMISTRY METHOD 07/30/2024 1:21 PM T [facility] Total Bilirubin 0.5 0.0 - 1.4 mg/dL LAB CHEMISTRY METHOD 07/30/2024 1:21 PM EDT [facility] Blood Venous blood specimen / Unknown Venipuncture / Unknown 07/30/2024 9:31 AM EDT 07/30/2024 9:31 AM EDT us C Donnell Moran MD LAB BLOOD ORDERABLES Final Res ult [facility] [address] [place] [address], [place] [phone] * Diabetes Foot Exam (07/29/2023) [facility] Diabetes: Annual Foot Exam abstracted [facility] Provider HEALTH MAINTENANCE Final Result * Depression Screening (01/28/2023) [facility] Depression Screening abstracted [facility] Provider HEALTH MAINTENANCE Final Result * Colonoscopy (04/27/2019) [facility] Colonoscopy no interpreta tion,abstr acted Anatomical Region Laterality Modality Other Historical Provider HEALTH MAINTENANCE Final Result * Hepatitis C Screening (04/23/2013) [facility] Hepatitis C Screening abstracted [facility] Provider HEALTH MAINTENANCE Final Result from Last 3 Months or Most Recently Relevant to Health Maintenance Insurance [employer] MED[employer]ARE Care Teams Resident Care Spec Relationship Specialty Start Date End Date Lalita Moran MD [address] [place] [id number] PCP - General Internal Medicine 07/14/20
--- OUTSIDE RECORDS SUMMARY | 2024-09-30 09:26 | XMS_ITS | Clinical Summary ---
Author Organization [facility] Address [address] [place] [address] Care Team Providers Care Department Head Name Role Phone Brandee-Mojgan Cronin MD Primary Care Provider Allergies No known active allergies Medications Medication Sig Dispensed Refills Start Date End Date Status metoprolol tartrate (LOPRESSOR) 25 MG tablet Take 25 mg by mouth 2 (two) times a day. 1 11/25/2018 Active Albuterol Sulfate 108 (90 Base) MCG/ACT AEPB Inhale into the lungs. 0 Active aspirin EC 81 MG tablet Take 81 mg by mouth daily. 0 Active budesonide-formoter ol (SYMBICORT) 160-4.5 MCG/ACT inhaler Inhale 2 inhalations into the lungs 2 (two) times a day. 0 Active Dulaglutide 0.75 MG/0.5ML SOPN Inject under the skin. 0 Active gabapentin (NEURONTIN) 300 MG capsule Take 300 mg by mouth 3 (three) times a day. 0 Active Insulin Lispro (HUMALOG) 100 UNIT/ML SOCT Inject under the skin. 0 Active insulin glargine (LANTUS SOLOSTAR) injection 100 units/mL Inject under the skin. 0 Active rosuvastatin (CRESTOR) tablet 10 mg Take 10 mg by mouth daily. 0 Active ticagrelor (BRILINTA) 90 MG TABS tablet Take by mouth 2 (two) times a day. 0 Active lisinopril (PRINIVIL,ZESTRIL) tablet 5 mg Take 5 mg by mouth daily. 0 Active ALPRAZolam (XANAX) 0.5 MG tablet Take 1 tablet 1 hour prior to MRI, take a second as needed immediately before the MRI. 2 tablet 0 09/28/2019 Active Active Problems No known active problems Family History Medical History Relation Name Comments Diabetes Father Relation Name Status Comments Father Social History Tobacco Use Types Packs/Day Years Used Date Smoking Tobacco: Never Smokeless Tobacco: Never Alcohol Use Standard Drinks/Week Comments No 0 (1 standard drink = 0.6 oz pur e alcohol) Sex and Gender Information Value Date Recorded Sex Assigned at Not on file Gender Identity Not on file Sexual Orientation Not on file Last Filed Vital Signs Vital Sign Reading Time Taken Comments Blood Pressure - - Pulse - - Temperature - - Respiratory Rate - - Oxygen Saturation - - Inhaled Oxygen Concentration - - Weight 159.2 kg (351 lb) 10/26/2019 2:53 PM EDT Height 180.3 cm (5' 11 ) 10/26/2019 2:53 PM EDT Body Mass Index 48.95 10/26/2019 2:53 PM EDT Plan of Treatment Health Maintenance Due Date Last Done Comments Hepatitis C Screening 1955 COVID-19 Vaccine (#1) 02/26/1958 Pneumococcal Vaccine (1 of 2 - PCV) 08/28/1963 Depression Screening 1969 BMI Counseling 08/28/1975 Preventative Health Evaluation 08/28/1975 DTap / Tdap / Td (1 - Tdap) 1976 Colon Cancer Screening (Colonoscopy) 2002 Shingrix-Zoster Vaccine (1 of 2) 08/28/2007 Fall Risk Assessment 2022 Influenza Vaccine (#1) 2024 RSV Adult > 60+ Yrs or Pregn ant (1 - 1-dose 75+ series) 2032 Hepatitis B Vaccines Aged Out No long er eligible based on patient's age to complete this topic RSV Ped < 20 months Aged Out No longe r eligible based on patient's age to complete this topic Care Teams Department Head Relationship Specialty Start Date End Date Wing-Mojgan Cronin MD PCP - General Internal Medicine 02/11/19
== END 2024-09-30 09:28 | disposition home or self-care (01) ==
LOC: HO.PMC 09:11
PROVIDERS: PCP Pediatrics; Visit Provider Anesthesiology
DX: E11.42 Type 2 diabetes mellitus with diabetic polyneuropathy (principal); I87.2 Venous insufficiency (chronic) (peripheral); G89.4 Chronic pain syndrome
CPT/HCPCS: 99213

== ENCOUNTER → 2024-09-30 09:10 | Outpatient (BNVA) | payer MEDICARE, SELFPAY | PROVIDERS: PCP Pediatrics; Visit Provider Anesthesiology | DX: E11.42 Type 2 diabetes mellitus with diabetic polyneuropathy (principal); I87.2 Venous insufficiency (chronic) (peripheral); G89.4 Chronic pain syndrome; Z79.899 Other long term (current) drug therapy | CPT/HCPCS: 99212 ==

== ENCOUNTER 2024-12-02 08:09 | Outpatient (AMB) | payer MEDICARE, SELFPAY ==
[2024-12-02 08:18] VITALS: BP 169/73; PULSE 80; RESP 18; O2SAT 94; BMI 48.3
--- NOTE | 2024-12-02 08:18 | MHC.OFFVIS ---
Vital Signs 12/02/24 08:18 Height 6 ft Weight 356 lb BMI 48.3 BP 169/73 H Blood Pressure Location Lt brachial Position Sitting Respiration 18 Pulse 80 Pulse Source Pulse Oximeter Pulse Oximetry (%) 94 Oxygen Delivery Method Room Air Intake Visit Reasons: 2 Month Follow Up Global Process Owner Required: No Allergies No Known Allergies Allergy (Verified 12/02/24 08:18) HPI Comments Details: Ruel is back in my office for the follow-up. He reports severe intractable bilateral lower extremity neuropathic pain in the form of pins and needles, tingling, or burning and aching sensation. He is suffering from diabetic polyneuropathy. He reports moderate improvement for the pain during the daytime from gabapentin he is currently taking 2400 mg a day, he reports he is unable to sleep on this dose, he reports even with this elevated dose of gabapentin at the nighttime his pain is severe ranging from 8 to 10/10.. Because of that he feels tired during the daytime he feels foggy, unable to exercise, he gained weight. I offered him Nevro SCS to treat his diabetic polyneuropathy. I explained him a trial of SCS. I gave him brochure of Nevro SCS as well as brochure of [employer] psychological evaluation. He has computer at home, he will start calling [employer] psychology tomorrow. Prior: complains on pain in bilateral feet more on the left and less on the right he believes this pain is related to diabetic polyneuropathy. He has discoloration of bilateral lower extremities. He reports that this pain started 1 year ago. Initially the pain was mild and now it is very severe. He reports pain in bilateral feet while in bed with number of pain 9/10. Especially at night. REPLACED BY [facility] Medical History Peripheral neuropathy HTN (hypertension) CAD (coronary artery disease) Insulin dependent type 2 diabetes mellitus Social History Household Members: Spouse Housing: House Do you presently have visiting nurse or other home services: No Patient Tobacco Use Status: Never used Tobacco service: No Review of Systems Const All systems reviewed & are unremarkable except as noted in HPI and below ENT Reports Normal hearing present Neuro Reports Normal hearing present, Denies Abnormal speech present, Denies confusion and Denies Sensory deficit (Neuro) Psych Denies confusion Physical Exam Vital Signs: Last Vital Signs Pulse 80 12/02/24 08:18 Resp 18 12/02/24 08:18 BP 169/73 H 12/02/24 08:18 Pulse Ox 94 12/02/24 08:18 Oxygen Delivery Method Room Air 12/02/24 08:18 BMI result Body Mass Index 48.3 Const General: no acute distress; No confusion Nutritional Appearance: obese (Severe morbid obesity severe truncal obesity) morbidly obese Orientation/consciousness: patient oriented x3 and No confusion Eyes General: appearance normal, both eyes and all related structures Pupils: Equal, round and reactive pupils present EOM: EOMs intact bilaterally Neck Neck: Yes full ROM Chest Chest palpation & inspection: normal inspection of the chest Resp Effort & Inspection: normal respiratory effort, able to speak in complete sentences, normal respiratory pattern, no audible wheezes and no cough Cardio Jugular venous distension: no JVD GI Inspection: Yes normal to inspection Neuro General: patient oriented x3, gait normal and No confusion Cranial nerves: Yes CN's II-XII intact bilaterally, Yes Equal, round and reactive pupils present, Yes Normal hearing present and Yes Ability to bilaterally elevate shoulders present Speech: No Abnormal speech present Gait exam (Neuro): Normal gait present Motor exam (neuro): 5/5 motor strength present throughout Sensory Exam: No Sensory deficit (Neuro) Extrem Other: Bilateral discoloration of the lower extremities on the left below the knee and on the right mid lower leg. Palpation of the bilateral DP and PT pulses did not reveal any apprehensible pulse. The feet are warm on palpation, and the bilateral capillary refill is 3-4 seconds. There is no edema at this time on bilateral lower extremities, discoloration is much improved. General: No pedal edema Psych Speech and movement: Normal speech and movement present Affect: normal affect Attitude: cooperative Thought process: Normal thought process present Thought content: Normal thought content present Insight: Good insight present (Psych) Judgement: Good judgement present (Psych) Assessment & Plan Assessment & Plan (1) Diabetic polyneuropathy: Code(s): E11.42 - Type 2 diabetes mellitus with diabetic polyneuropathy Category: Medical (2) Venous insufficiency of both lower extremities: Code(s): I87.2 - Venous insufficiency (chronic) (peripheral) Category: Medical (3) Chronic pain syndrome: Code(s): G89.4 - Chronic pain syndrome Category: Medical Plan This patient is suffering from diabetic polyneuropathy of bilateral lower extremities. His hemoglobin A1c is grossly elevated and therefore it needs to be treated aggressively to potentially improve the diabetic neuropathy. He is under care of corporate training manager however he can not lose weight, he is unable to exercise because of the severe neuropathic pain. I offered him today Nevro SCS to treat his pain, with pain improvement he will be able to exercise, he will be able to sleep at night, he will be able to maintain his diet. I gave him brochure of [facility] psychological evaluation. As soon as he will pass psychological evaluation I will schedule him for the Nevro SCS trial. Coding Level of Care Code Est Pt Level 3 (71697) Diagnoses Diabetic polyneuropathy E11.42 Venous insufficiency of both lower extremities I87.2 Chronic pain syndrome G89.4
--- OUTSIDE RECORDS SUMMARY | 2024-12-02 09:03 | XMS_ITS ---
Author Name [facility] Organization Unknown Care Team Organization Name Specialty Phone Email Start Date End Da te [facility] Percy Moran Primary Care 01/23/2022 11/04/2023
--- OUTSIDE RECORDS SUMMARY | 2024-12-02 09:03 | XMS_ITS | Clinical Summary ---
Author Organization [facility] [address] [facility] Address [address] [place] [address] Phone Care Team Providers Care Orthopedic Shoe Fitter Name Role Phone Lalita Moran MD Primary Care Provider [phone] Allergies No known active allergies Medications aspirin 81 mg EC tablet Take 81 mg by mouth daily. Active blood-glucose meter kit Use to check BS daily 023 Active blood-glucose meter,continuou s (Dexcom G6 Pig Farmer) misc USE DIRECTED DAILY 024 Active FREESTYLE LANCETS MISC USE 3 TIMES DAILY 021 Active FreeStyle Test test strip USE TO CHECK BLOOD SUGARS UP TO 3 TIMES PER DAY 018 Active glucagon (Gvoke HypoPen 2-Pack) 1 mg/0.2 mL auto-injector Inject 1 Dose into the skin as needed for Other (hypoglycemia). 023 Active lisinopriL (PRINIVIL,ZESTR IL) 10 mg tablet Take 10 mg by mouth daily. Active insulin glargine U-300 conc (Toujeo Max U-300 SoloStar) 300 unit/mL (3 mL) CONCENTRATED injection pen 120 units SC at bedtime 45 mL 3 024 Active Dexcom G6 Transmitter device CHANGE TRANSMITTER EVERY 3 MONTHS 1 each 3 025 Active metoprolol tartrate (LOPRESSOR) 25 mg tablet TAKE 1 TABLET BY MOUTH TWICE DAILY 200 tablet 2 025 Active Dexcom G6 Sensor deviceIndicatio ns:Type 2 diabetes mellitus with diabetic microalbuminuri a, with long-term current use of insulin ([facility]/HCC V24, [facility]/HCC V28) PLACE NEW SENSOR IN THE SKIN EVERY 10 DAYS 12 each 2 03/07/2 025 Active pen needle, diabetic (BD Ultra-Fine Short Pen Needle) 31 gauge x 5/16 needle Inject 3 each as directed 3 (three) times a day. 300 each 025 Active cyclobenzaprine (FLEXERIL) 10 mg tablet TAKE 1 TABLET BY MOUTH AT BEDTIME NEEDED FOR MUSCLE SPASM(S) 100 tablet 025 Active rosuvastatin (CRESTOR) 10 mg tablet TAKE 1 TABLET BY MOUTH DAILY 100 tablet 1 025 Active gabapentin (NEURONTIN) 600 mg tablet Take 1 tablet (600 mg total) by mouth 3 (three) times a day. Active tirzepatide (Mounjaro) 2.5 mg/0.5 mL injectionIndica tions:Type 2 diabetes mellitus with diabetic polyneuropathy, with long-term current use of insulin ([facility], [facility] V[facility]) Inject 0.5 mL (2.5 mg total) under the skin every 7 (seven) days. 6 mL 1 025 Active insulin lispro (HumaLOG KwikPen Insulin) 100 unit/mL injection penIndications: Type 2 diabetes mellitus with diabetic polyneuropathy, with long-term current use of insulin ([facility], [facility] V[facility]) INJECT SUBCUTANEOUSLY 3 TIMES DAILY WITH MEALS PER SLIDING SCALE 100-149 =10U, 150-199= 12U, 200-249= 14U, 250-299= 16U, 300-349=18U, 350-399= 20U 45 mL 025 Active metFORMIN XR (GLUCOPHAGE-XR) 500 mg 24 hr tablet TAKE 2 TABLETS BY MOUTH TWICE DAILY WITH MEALS (DO NOT CRUSH, CHEW, OR SPLIT) 400 tablet 025 Active metFORMIN XR (GLUCOPHAGE-XR) 500 mg 24 hr tablet TAKE 2 TABLETS BY MOUTH TWICE DAILY WITH MEALS (DO NOT CRUSH, CHEW, OR SPLIT) 400 tablet 025 2024 Discontinued Active Problems Problem Noted Date Diagnosed Date Morbid obesity with BMI of 4 5.0-49.9, adult ([facility], [facility] V[facility]) 12/16/2023 Toe ulcer ([facility], [facility] V[facility]) 12/17/2020 Overview (12/16/2023): Left 2nd toe. Hosp 12/06 LING (obstructive sleep apnea) 10/14/2018 H/O non-ST elevation myocardial infarction (NSTE MT) 11/26/2017 Overview (12/16/2023): [facility] cardiology Type 2 diabetes mellitus wit h diabetic polyneuropathy ([facility] V24, [facility] V28) 10/26/2015 Assessment & Plan (10/13/2024 4:07 PM EDT): Adjustment disorder with mixed anxiety and depre ssed mood 04/15/2013 Microalbuminuria 05/18/2010 DM (diabetes mellitus), type 2 with renal complications ([facility] V24, [facility] V28) 05/07/2006 Overview (12/16/2023): Last Assessment & Plan: Lantus adjusted per Lantus protocol[facility] 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 Essential hypertension, benign 05/07/2006 Pure hypercholesterolemia 05/07/2006 Overview (12/16/2023): Last Assessment & Plan: Educated on low fat diet & exercise. Encouraged simvastatin compliance and repeat LDL. Encounters Date Type Department Care Team Description 11/12/2024 8:15 AM EDT Office Visit Orthopedic Surgery - [address] [phone] Franklin Velasquez, DPM Peripheral venous insufficiency (Primary Dx); Dermatophytosis of nail; Pain in toe of right foot; Diabetic mononeuropathy simplex ([facility] V24, [facility] V28); Pain in toe of left foot; Type II diabetes mellitus with peripheral circulatory disorder ([facility] V24, [facility] V28); Type 2 diabetes mellitus with diabetic polyneuropathy, with long-term current use of insulin ([facility] V24, [facility] V28) 10/13/2024 3:00 PM EDT Office Visit Adult Medicine [address] [phone] Lalita Moran MD Routine general medical examination at a health care facility (Primary Dx); Type 2 diabetes mellitus with diabetic polyneuropathy, with long-term current use of insulin ([facility], [facility] V[facility]); Morbid obesity with BMI of 45.0-49.9, adult ([facility] V24, [facility] V[facility]) from Last 3 Months Immunizations Name Administration [...] repeat in ten years ESOPHAGOGASTRODUODENOSCOPY 01/30/10 PROCEDURE: SC ESOPHAGOGASTRODUODENOSCOPY TRANSORAL DIAGNOSTIC; COMMENT: normal BACK SURGERY [...] you may not have stable housing? No 10/06/2024 Food Access & Nutrition Answer Date Rec orded Do you have access to a vari ety of food including fruits and vegetables? Yes 10/06/2024 Access to Healthcare Answer Date Record ed Within the last 3 months, ho w many times did you visit the emergency department for your medical care? 0 10/06/2024 Health Literacy Answer Date Recorded How often do you need to hav e someone help you when you read instructions, pamphlets, or other written material from your doctor or pharmacy? Never 10/06/2024 Caregiver: How often do you need to have someone help you when you read instructions, pamphlets, or other written material from your doctor or pharmacy? Not on file 10/06/2024 Financial Risk Answer Date Recorded How hard is it for you to pa y for the very basics like food, housing, medical care, and air conditioning / heating? Not very hard 10/06/2024 Transportation Answer Date Recorded Has the lack of transportati on kept you from meetings, work, or from getting things needed for daily living? No Has the lack of transportati on kept you from medical appointments or from getting medications? No 10/06/2024 Social Isolation Answer Date Recorded How often do you feel lonely or isolated from th ose around you? Never 10/06/2024 Food Risk Answer Date Recorded Within the past 12 months we worried whether our food would run out before we got money to buy more. Never true 10/06/2024 Within the past 12 months th e food we bought just didn't last and we didn't have money to get more. Never true 10/06/2024 Dependent Care Answer Date Recorded Do you need help finding or paying for care for your loved ones. For example, child protective investigator or elderly care for an older adult? No 10/06/2024 Education Answer Date Recorded Do you think completing more education or training, like finishing a GED, going to college, or learning a trade, would be helpful for you? No 10/06/2024 Employment and Income Answer Date Recor ded During the last four weeks, have you been actively looking for work? No 10/06/2024 Living Situation Answer Date Recorded What is your living situation? 0 10/06/2024 Sex and Gender Information Value Date Recorded Sex Assigned at Not on file Legal Sex Male 10:16 PM EST Gender Identity Not on file Sexual Orientation Not on file Obstetrics History Last Filed Vital Signs Vital Sign Reading Time Taken Comments Blood Pressure 159/75 10/13/2024 2:54 PM EDT Pulse 69 10/13/2024 2:54 PM EDT Temperature 36.7 C (98 F) 10/13/2024 2:54 PM EDT Respiratory Rate - - Oxygen Saturation 96% 08/07/2023 1:0 8 PM EDT at rest, room air Inhaled Oxygen Concentration - - Weight 166 kg (366 lb 3.2 oz) 10/13/2024 2:54 PM EDT Height 182.9 cm (6') 10/13/2024 2:54 PM EDT Body Mass Index 49.67 10/13/2024 2:54 PM EDT Plan of Treatment Upcoming Encounters Date Type Department Care Team (Late st Contact Info) Description 01/13/2025 9:00 AM EDT Office Visit Adult Medicine - [address] [phone] Leola Wells NP [address] [place] [address] 02/15/2025 8:15 AM EST Office Visit Orthopedic Surgery - [place] [address] [phone] Franklin Velasquez DPM [address] [phone] Health Maintenance Due Date Last Done Comments Diabetes: Annual Retina Eye Exam 08/28/1965 RSV Immunization Adult Patients (1 - Risk 60-74 years 1-dose series) 2017 COVID-19 Vaccine ( season) 2024 01/11/2023, 01/12/2021, 06/28/2020, Additional history exists Influenza Vaccine (#1) 2024 , 11/23/2022, 04/16/2022, Additional history exists Diabetes: Annual Foot Exam 01/20/2025 01/21/2024, Diabetes: Blood Sugar Control Test (HGBA1C) 01/30/2025 07/30/2024, 02/03/2024, 12/18/2023, Additional history exists Diabetes: Annual GFR (Glomerular Filtration Rate) 07/30/2025 07/30/2024, 02/03/2024, 07/29/2023, Additional history exists Hypertension/CHF/CAD Annual BMP Blood Test 07/30/2025 07/30/2024, 02/03/2024, 07/29/2023, Additional history exists Diabetes: Annual Urine Albumin-Creatinine Ratio (uACR) 08/05/2025 08/05/2024, 08/07/2022 Social Influencers of Health Screening 10/06/2025 10/06/2024 Falls Risk Assessment 10/13/2025 10/13/2024 Medicare Annual Wellness Visit 10/13/2025 10/13/2024 Colorectal Cancer Screening: Colonoscopy 04/27/2029 04/27/2019 Cholesterol Screening (Lipid Panel) 07/30/2029 07/30/2024, 02/03/2024, 07/29/2023, Additional history exists DTaP,Tdap,and Td Vaccines (3 - Td or Tdap) 01/28/2033 01/28/2023, 11/10/2012 Hepatitis C Screening Completed 04/23/2013 Zoster Vaccines Completed 05/15/2021, 01/06/2021 Pneumococcal Vaccine: 50+ Years Completed 01/28/2023, 06/17/2006 Depression Screening Completed 10/06/2024, 01/29/20 HIB Vaccines Aged Out No longer eligi [...] polyneuropathy, with long-term current use of insulin ([facility] V24, [facility] V28) COMPREHENSIVE METABOLIC PANEL Routine 07/30/2024 9:31 AM EDT Type 2 diabetes mellitus with diabetic polyneuropathy, with long-term current use of insulin ([facility] V24, [facility] V28) HEMOGLOBIN A1C Routine 07/30/2024 9:31 AM EDT Type 2 diabetes mellitus with diabetic polyneuropathy, with long-term current use of insulin ([facility] V24, [facility] V28) LIPID PANEL WITH REFLEX TO DIRECT LDL Routine 07/30/2024 9:31 AM EDT Type 2 diabetes mellitus with diabetic polyneuropathy, with long-term current use of insulin ([facility] V24, [facility] V28) DIABETES FOOT EXAM Routine 07/29/2023 DEPRESSION SCREENING Routine 01/28/2023 COLONOSCOPY Routine 04/27/2019 HEPATITIS C SCREENING Routine 04/23/2013 from Last 3 Months or Most Recently Relevant to Health Maintenance Results * (ABNORMAL) Microalbumin creatinine urine ratio (08/05/2024 10:40 AM EDT) Creatinine, Urine 153.0 mg/dL LAB CHEMISTRY METHOD 08/05/2024 1:30 PM EDT [facility] Microalb, Ur 4,610.0(H ) 0.0 - 29.0 mg/L LAB CHEMISTRY METHOD 08/05/2024 1:30 PM EDT [facility] Microalb/Crea t Ratio 3,013(H) <30 mg/g creat LAB CHEMISTRY METHOD 08/05/2024 1:30 PM EDT [facility] Urine Urine specimen obtained by clean catch procedure / Unknown Non-blood Collection / Unknown 08/05/2024 10:40 AM EDT 08/05/2024 10:40 AM EDT us C Donnell Moran MD LAB URINE ORDERABLES Final Res ult [facility] [address] [place] [address], * (ABNORMAL) Lipid panel with reflex to direct LDL (07/30/2024 9:31 AM EDT) Cholesterol 194 0 - 200 mg/dL LAB CHEMISTRY METHOD 07/30/2024 1:18 PM EDT [facility] Triglycerides 328(H) 0 - 150 mg/dL LAB CHEMISTRY METHOD 07/30/2024 1:18 PM EDT [facility] HDL 50 >=40 mg/dL LAB CHEMISTRY METHOD 07/30/2024 1:18 PM EDT [facility] LDL Calculated 78 0 - 100 mg/dL LAB CHEMISTRY METHOD 07/30/2024 1:18 PM EDT [facility] VLDL Cholesterol Ferny 65.6 mg/dL LAB CHEMISTRY METHOD 07/30/2024 1:18 PM EDT [facility] Non HDL Chol. (LDL+VLDL) 144 <145 mg/dL LAB CHEMISTRY METHOD 07/30/2024 1:18 PM EDT [facility] Chol/HDL Ratio 3.9 0.0 - 4.4 LAB CHEMISTRY METHOD 07/30/2024 1:18 PM EDT [facility] Blood Venous blood specimen / Unknown Venipuncture / Unknown 07/30/2024 9:31 AM EDT 07/30/2024 9:31 AM EDT us Lalita Moran MD LAB BLOOD ORDERABLES Final Res ult [facility] [address] [place] [address], * (ABNORMAL) Hemoglobin A1c (07/30/2024 9:31 AM EDT) Hemoglobin A1C 9.9(H) <6.5 % LAB CHEMISTRY METHOD 07/30/2024 2:19 PM EDT [facility] Mean Bld Glu Estim. 237 mg/dL LAB CHEMISTRY METHOD 07/30/2024 2:19 PM EDT [facility] Blood Venous blood specimen / Unknown Venipuncture / Unknown 07/30/2024 9:31 AM EDT 07/30/2024 9:31 AM EDT us C Donnell Moran MD LAB BLOOD ORDERABLES Final Res ult [facility] [address] [place] [address], [place] [phone] * (ABNORMAL) Comprehensive metabolic panel (07/30/2024 9:31 AM EDT) Sodium 137 133 - 145 mmol/L LAB CHEMISTRY METHOD 07/30/2024 1:21 PM [facility] Potassium 4.6 3.5 - 5.5 mmol/L LAB CHEMISTRY METHOD 07/30/2024 1:21 PM [facility] Chloride 103 96 - 110 mmol/L LAB CHEMISTRY METHOD 07/30/2024 1:21 PM [facility] CO2 26 21 - 32 mmol/L LAB CHEMISTRY METHOD 07/30/2024 1:21 PM [facility] Anion Gap 8 3 - 11 LAB CHEMISTRY METHOD 07/30/2024 1:21 PM [facility] Glucose 154(H) 70 - 100 mg/dL LAB CHEMISTRY METHOD 07/30/2024 1:21 PM [facility] BUN 22 5 - 25 mg/dL LAB CHEMISTRY METHOD 07/30/2024 1:21 PM [facility] Creatinine 0.95 0.70 - 1.30 mg/dL LAB CHEMISTRY METHOD 07/30/2024 1:21 PM [facility] eGFR 88 >=60 mL/min/1. 73m2 LAB CHEMISTRY METHOD 07/30/2024 1:21 PM [facility] Comment:Calculation based on the Chronic Kidney Disease Epidemiology Collaboration (CKD-EPI) equation refit without adjustment for race. BUN/Creatinine Ratio 23.2 LAB CHEMISTRY METHOD 07/30/2024 1:21 PM [facility] Calcium 8.9 8.5 - 10.5 mg/dL LAB CHEMISTRY METHOD 07/30/2024 1:21 PM EDT [facility] AST (SGOT) 19 10 - 42 unit/L LAB CHEMISTRY METHOD 07/30/2024 1:21 PM T [facility] ALT (SGPT) 26 10 - 60 unit/L LAB CHEMISTRY METHOD 07/30/2024 1:21 PM T [facility] Alkaline Phosphatase 76 42 - 121 unit/L LAB CHEMISTRY METHOD 07/30/2024 1:21 PM EDT [facility] Total Protein 6.4 6.0 - 8.0 g/dL LAB CHEMISTRY METHOD 07/30/2024 1:21 PM [facility] Albumin 3.3 3.2 - 5.0 g/dL LAB CHEMISTRY METHOD 07/30/2024 1:21 PM [facility] Total Bilirubin 0.5 0.0 - 1.4 mg/dL LAB CHEMISTRY METHOD 07/30/2024 1:21 PM T [facility] Blood Venous blood specimen / Unknown Venipuncture / Unknown 07/30/2024 9:31 AM EDT 07/30/2024 9:31 AM EDT us Lalita Moran MD LAB BLOOD ORDERABLES Final Res ult [facility] [address] [place] [address], * Diabetes Foot Exam (07/29/2023) Pathologist [facility] Diabetes: Annual Foot Exam abstracted Historical Provider HEALTH MAINTENANCE Final Result * Depression Screening (01/28/2023) [facility] Depression Screening abstracted Historical Provider HEALTH MAINTENANCE Final Result * Colonoscopy (04/27/2019) Pathologist [facility] Colonoscopy no interpreta tion,abstr acted Anatomical Region Laterality Modality Other Historical Provider HEALTH MAINTENANCE Final Result * Hepatitis C Screening (04/23/2013) Hepatitis C Screening abstracted Historical Provider HEALTH MAINTENANCE Final Result from Last 3 Months or Most Recently Relevant to Health Maintenance Insurance [employer] Care Teams Orthopedic Shoe Fitter Relationship Specialty Start Date End Date Lalita Moran MD [address] [place] [id number] PCP - General Internal Medicine 07/14/20
--- OUTSIDE RECORDS SUMMARY | 2024-12-02 09:03 | XMS_ITS | Clinical Summary ---
Author Organization [facility] Address [address] [place] [address] Care Team Providers Care Automatic Pattern Edger Name Role Phone Brandee-Mojgan Cronin MD Primary [...] age to complete this topic Care Teams Automatic Pattern Edger Relationship Specialty Start Date End Date [place]-Mojgan Cronin MD PCP - General Internal Medicine 02/11/19
== END 2024-12-02 08:56 | disposition home or self-care (01) ==
LOC: HO.PMC 08:09
PROVIDERS: PCP Pediatrics; Visit Provider Anesthesiology
DX: E11.42 Type 2 diabetes mellitus with diabetic polyneuropathy (principal); I87.2 Venous insufficiency (chronic) (peripheral); G89.4 Chronic pain syndrome
CPT/HCPCS: 99213

== ENCOUNTER → 2024-12-02 08:09 | Outpatient (BNVA) | payer MEDICARE, SELFPAY | PROVIDERS: PCP Pediatrics; Visit Provider Anesthesiology | DX: E11.42 Type 2 diabetes mellitus with diabetic polyneuropathy (principal); I87.2 Venous insufficiency (chronic) (peripheral); G89.4 Chronic pain syndrome | CPT/HCPCS: 99212 ==

== ENCOUNTER 2025-01-29 11:32 | Day surgery (SDC) | payer MEDICARE, SELFPAY ==
--- OUTSIDE RECORDS SUMMARY | 2025-01-13 09:00 | XMS_ITS | Encounter Summary ---
Author Organization [facility] Address [address] [place] [address] Care Team Providers Care Terminal System Operator Name Role Phone Lalita Moran MD Primary Care Provider [phone] Reason for Visit * Reason Comments Chronic Care Visit (CCV) Diabetes Follow-up Encounter Details Date Type Department Care Team ([facility] st Contact Info) Description 01/13/2025 9:00 AM EDT Office Visit Adult Medicine - [address] [phone] Leola Wells NP [address] [place] [address] Essential hypertension, benign (Primary Dx); Type 2 diabetes mellitus with diabetic polyneuropathy, with long-term current use of insulin ([facility] V24, [facility] V28); Neuropathy; Pure hypercholesterolemia; Morbid obesity with BMI of 45.0-49.9, adult ([facility] V24, [facility] V28); Vertigo; Ulcer of toe of right foot, unspecified ulcer stage ([facility] V24, [facility] V28) Social History Tobacco Use Types Packs/Day Years [...] Record ed Within the last 3 months, kalyan long many times did you visit the emergency [...] for your loved ones. For example, child welfare caseworker or elderly care for an older adult? [...] Date Recorded What is your living situation? Unrecognized valu e 10/06/2024 Sex and Gender Information Value Date Recorded Sex Assigned at Not on file Legal Sex Male 10:16 PM EST Gender Identity Not on file Sexual Orientation Not on file documented as of this encounter Last Filed Vital Signs Vital Sign Reading Time Taken Comments Blood Pressure 135/72 01/13/2025 8:46 AM EDT Pulse 78 01/13/2025 8:46 AM EDT Temperature 36.1 C (97 F) 01/13/2025 8:46 AM EDT Respiratory Rate 16 01/13/2025 8:46 AM EDT Oxygen Saturation - - Inhaled Oxygen Concentration - - Weight 157 kg (346 lb) 01/13/2025 8:46 AM EDT Height 180 cm (5' 10.87 ) 01/13/2025 8:46 AM EDT Body Mass Index 48.44 01/13/2025 8:46 AM EDT documented in this encounter Progress Notes * Leola Wells NP - 01/13/2025 9:00 AM EDT Meclizine Over the counter * Leola Wells NP - 01/13/2025 9:00 AM EDT CHIEF COMPLAINT: Chronic Care Visit (CCV), Diabetes, and Follow-up IDENTIFIER: Ruel Siu is a 69 y.o. old male. HPI: History of Present Illness The patient presents for a 6-month follow-up. Hypertension - He does not monitor his blood pressure at home. - Reports no vision change, chest pain, dizziness, headaches, blood in urine. - He is on lisinopril 10 mg daily. Diabetes II - He has persistent nausea since starting Mounjaro, which he attributes to the medication. - His appetite has significantly decreased, often skipping meals. - He reports no constipation or diarrhea. - He monitors his blood glucose levels and eats only when they are low. - He has lost 20 pounds and believes his A1c levels have improved. - He continues insulin 120 units daily and Humalog on a sliding scale. - He started with a dose of 2.5 mg, increased to 5 mg, and is currently on 5 mg with 2 boxes remaining. - He has a prescription for 7.5 mg stored in his refrigerator. Podiatry Care - He is under the care of a press officer for a resolved bone infection in his great toe. - He visits the press officer for toenail trimming. Peripheral Neuropathy - He experiences sudden onset of pain from his knee to his ankle at night, managed with Gabapentin 300 mg TID - He is awaiting an appointment for a nerve block or stimulator implant. Vertigo - He reports nausea and dizziness when lying on the ground to look under his car or a cabinet. - He does not experience nausea and dizziness when lying flat in bed. PAST SURGICAL HISTORY: Back surgery ROS: GENERAL: Negative for malaise, significant weight loss and fever HEENT: No changes in hearing or vision. No nosebleeds or other nasal problems NECK: Negative for lumps, goiter, pain, and significant neck swelling RESPIRATORY: No cough, wheezing or shortness of breath CARDIOVASCULAR: Negative for chest pain, leg swelling and palpitations GI: Negative for abdominal discomfort, changes in bowel habits, blood in stool or black stools : Negative for dysuria, frequency, and incontinence MUSCULOSKELETAL: Negative for joint pain or swelling, back pain and muscle pain. SKIN: No lesions, rash, or itching PSYCH: No sleep disturbances, depression or major stressors HEMATOLOGY/LYMPHOLOGY: No prolonged bleeding, easy bruising, or swollen lymph nodes ENDOCRINE: Negative for cold or heat intolerance, polyuria, polydipsia and goiter NEURO: No persistent headache, fainting, seizures, strokes, TIAs, weakness, numbness or tingling PAST MEDICAL HISTORY: Patient Active Problem List Diagnosis Date Noted Morbid obesity with BMI of 45.0-49.9, adult ([facility] V24, [facility] V28) 12/16/2023 Toe ulcer ([facility] V24, [facility] V28) 12/17/2020 LING (obstructive sleep apnea) 10/14/2018 H/O non-ST elevation myocardial infarction (NSTEMI) 11/26/2017 Type 2 diabetes mellitus with diabetic polyneuropathy ([facility] V24, [facility] V28) 10/26/2015 Adjustment disorder with mixed anxiety and depressed mood 04/15/2013 Microalbuminuria 05/18/2010 DM (diabetes mellitus), type 2 with renal complications ([facility] V24, [facility] V28) 05/07/2006 Essential hypertension, benign 05/07/2006 Pure hypercholesterolemia 05/07/2006 SOCIAL HISTORY: Social History Tobacco Use Smoking status: Never Smokeless tobacco: Never Substance Use Topics Alcohol use: No FAMILY HISTORY: Family Status Relation Name Status Father Mother Son Alive Brother Alive Brother Alive Brother Alive Sister Alive Sister Alive No partnership data on file Family History[1] ACTIVE MEDICATIONS: Medications Taking[2] ALLERGIES: Patient has no known allergies. PHYSICAL EXAM: Blood pressure 135/72, pulse 78, temperature 36.1 ??C (97 ??F), temperature source Temporal, resp. rate 16, height 1.8 m (70.87 ), weight 157 kg (346 lb). Body mass index is 48.44 kg/m??. Physical Exam General Appearance: Normal. HEENT: Within normal limits. Respiratory: Clear to auscultation, no wheezing, rales, or rhonchi. Cardiovascular: Regular rate and rhythm, no murmurs, rubs, or gallops. Extremities: Extremities warm and well perfused without clubbing, cyanosis, or edema Skin: Warm and dry, no rash. Neurological: Normal. LABS/IMAGING: Lab Results Component Value Date WBC 8.4 02/03/2024 HGB 13.2 (L) 02/03/2024 HCT 42.2 02/03/2024 MCV 86.5 02/03/2024 Lab Results Component Value Date NA 137 07/30/2024 K 4.6 07/30/2024 CO2 26 07/30/2024 CL 103 07/30/2024 BUN 22 07/30/2024 ALKPHOS 76 07/30/2024 Lab Results Component Value Date CHOL 194 07/30/2024 LDL 49 07/29/2023 HDL 50 07/30/2024 TRIG 328 (H) 07/30/2024 ORDERS: Orders Placed This Encounter Procedures Influenza trivalent, 0.5mL (Fluzone High-dose) 65yo and older IMPRESSION: 1. Essential hypertension, benign 2. Type 2 diabetes mellitus with diabetic polyneuropathy, with long-term current use of insulin ([facility] V24, [facility] V28) 3. Neuropathy 4. Pure hypercholesterolemia 5. Morbid obesity with BMI of 45.0-49.9, adult ([facility] V24, [facility] V28) PLAN: Assessment & Plan 1. Hypertension: - BP well-regulated at 135/72 - Weight loss will help. - Continue lisinopril 10 mg daily. 2. Diabetes Mellitus: - A1c improved from 9.9 to 8.9. - Experiencing nausea and loss of appetite from Mounjaro. - Continue Mounjaro 5 mg until side effects subside. Discuss with utility worker production in 01/2025. - On insulin 120 units daily and Humalog sliding scale. 3. Peripheral Neuropathy: - Taking gabapentin 3 times a day. - Awaiting nerve block or stimulator implant. 4. Vertigo: - Experiences dizziness and nausea when changing positions. - Meclizine recommended 30 minutes prior to activities that may induce vertigo. - Physical therapy exercises suggested. 5. Osteomyelitis: - Previous toe bone infection resolved. - No longer on antibiotics, follows up with press officer for toenail care. 6. Hyperlipidemia: - Weight loss will help. - On Crestor 10 mg. Follow-up: In 6 months labs are pending Results Labs - A1c: Improved from 9.9 to 8.9 Orders Placed This Encounter Procedures Influenza trivalent, 0.5mL (Fluzone High-dose) 65yo and older For this encounter, I personally performed, face to face and ybh-ouih-ly-face services that include: -Review and update of allergies, PMH, problem list and medications.changes was reconciled with the patient/family/parent/guardian. - Medical appropriate examination - Care planning through shared decision making with counseling for plan of care, risk/benefit of care plan and follow-up recommendations I have obtained verbal consent from Ruel Siu prior to the recording. I have advised Ruel Siu that he may refuse the recording and require the recording to be turned off at any time during this encounter. Leola Wells NP on 01/13/2025 at 9:13 AM EDT [1] Family History Problem Relation Name Age of Onset Diabetes Father CABG times 3 Stroke Father Lung cancer Mother No Known Problems Son Prostate cancer Brother No Known Problems Brother No Known Problems Brother Breast cancer Sister Diabetes Sister [2] Outpatient Medications Marked as Taking for the 01/13/25 encounter (Office Visit) with Leola Wells NP Medication Sig Dispense Refill aspirin 81 mg EC tablet Take 81 mg by mouth daily. blood-glucose meter kit Use to check BS daily blood-glucose meter,continuous (Dexcom G6 Epilepsy Physician) misc USE DIRECTED DAILY cyclobenzaprine (FLEXERIL) 10 mg tablet TAKE 1 TABLET BY MOUTH AT BEDTIME NEEDED FOR MUSCLE SPASM(S) 100 tablet [address] NEW SENSOR IN THE SKIN EVERY 10 DAYS 12 each 2 Dexcom G6 Transmitter device CHANGE TRANSMITTER EVERY 3 MONTHS 1 each 3 freestyle (FreeStyle Lancets) 28 gauge lancets USE 3 TIMES DAILY 300 each 3 FreeStyle Test test strip Use as instructedUSE TO CHECK BLOOD SUGARS UP TO 3 TIMES PER DAY 300 each3 gabapentin (NEURONTIN) 600 mg tablet Take 1 tablet (600 mg total) by mouth 3 (three) times a day. insulin glargine U-300 conc (Toujeo Max U-300 SoloStar) 300 unit/mL (3 mL) CONCENTRATED injection pen 120 units SC at bedtime 45 mL 3 insulin lispro (HumaLOG KwikPen Insulin) 100 unit/mL injection pen INJECT SUBCUTANEOUSLY 3 TIMES DAILY WITH MEALS PER SLIDING SCALE 100-149 =10U, 150-199= 12U, 200-249= 14U, 250-299= 16U, 300-349=18U, 350-399= 20U, plus 2 units at dinner 45 mL 3 lisinopriL (PRINIVIL,ZESTRIL) 10 mg tablet Take 1 tablet (10 mg total) by mouth 1 (one) time each day. 30 each 11 metFORMIN XR (GLUCOPHAGE-XR) 500 mg 24 hr tablet Do not crush, chew, or split.TAKE 2 TABLETS BY MOUTH TWICE DAILY WITH MEALS (DO NOT CRUSH, CHEW, OR SPLIT) 400 tablet 3 metoprolol tartrate (LOPRESSOR) 25 mg tablet TAKE 1 TABLET BY MOUTH TWICE DAILY 200 tablet 2 pen needle, diabetic (BD Ultra-Fine Short Pen Needle) 31 gauge x 5/16 needle Inject 3 each as directed 3 (three) times a day. 300 each 3 rosuvastatin (CRESTOR) 10 mg tablet TAKE 1 TABLET BY MOUTH DAILY 100 tablet 1 tirzepatide (Mounjaro) 7.5 mg/0.5 mL injection Inject 0.5 mL (7.5 mg total) under the skin every 7 (seven) days. 2 mL 5 documented in this encounter Plan of Treatment Upcoming Encounters Date Type Department Care Team (Late st Contact Info) Description 02/04/2025 9:30 AM EST Office Visit Endocrinology [address] [phone] Earline Rushing PA [address] [place] [address] 02/15/2025 8:15 AM EST Office Visit Orthopedic Surgery - [place] [address] [place] [address] [place] [phone] Franklin Velasquez, DPM [address] [place] [phone] documented as of this encounter Visit Diagnoses Diagnosis Essential hypertension, benign- Primary Type 2 diabetes mellitus with diabetic polyneuropathy, with long-term current use of insulin ([facility] V24, [facility] V28) Neuropathy Mononeuritis of unspecified site Pure hypercholesterolemia Morbid obesity with BMI of 45.0-49.9, adult ([facility] V24, [facility] V28) Vertigo Dizziness and giddiness Ulcer of toe of right foot, unspecified ulcer stage ([facility] V24, [facility] V28) documented in this encounter Orders Immunization/Injection Count Last Ordered Date First Ordered Date INFLUENZA TRIVALENT, 0.5ML ( FLUZONE HIGH-DOSE) 65YO AND OLDER 1 01/13/2025 documented in this encounter Additional Health Concerns Assessment Noted Time PHQ-9 Depression Total Score: 0 07/30/19 25 1:01 PM EDT documented as of this encounter Care Teams Terminal System Operator Relationship Specialty Start Date End Date Lalita Moran MD [address] [place] [id number] PCP - General Internal Medicine 07/14/20 documented as of this encounter
--- OUTSIDE RECORDS SUMMARY | 2025-01-15 14:25 | XMS_ITS | Clinical Summary ---
Author Organization [facility] Address [address] [place] [address] Care Team Providers Care Clay Miner Name Role Phone Brandee-Mojgan Cronin MD Primary [...] age to complete this topic Care Teams Clay Miner Relationship Specialty Start Date End Date [place]-Mojgan Cronin MD PCP - General Internal Medicine 02/11/19
--- OUTSIDE RECORDS SUMMARY | 2025-01-15 14:25 | XMS_ITS | Clinical Summary ---
Author Organization [facility] [address] [facility] lding Address [address] [place] [address] Phone Care Team Providers Care Teaching Aide Name Role Phone Lalita Moran MD Primary Care Provider [phone] Allergies No known active allergies Medications aspirin 81 mg EC tablet Take 81 mg by mouth daily. Active blood-glucose meter kit Use to check BS daily 08/11/19 23 Active blood-glucose meter,continuous (Dexcom G6 Digital Proofing And Platemaker) misc USE DIRECTED DAILY 07/19/19 24 Active Dexcom G6 Transmitter device CHANGE TRANSMITTER EVERY 3 MONTHS 1 each 3 04/03/19 25 Active metoprolol tartrate (LOPRESSOR) 25 mg tablet TAKE 1 TABLET BY MOUTH TWICE DAILY 200 tablet 2 04/16/19 25 Active Dexcom G6 Sensor deviceIndication s:Type 2 diabetes mellitus with diabetic microalbuminuria , with long-term current use of insulin ([facility] V24, [facility] V28) PLACE NEW SENSOR IN THE SKIN EVERY 10 DAYS 12 each 2 05/23/19 25 Active cyclobenzaprine (FLEXERIL) 10 mg tablet TAKE 1 TABLET BY MOUTH AT BEDTIME NEEDED FOR MUSCLE SPASM(S) 100 tablet 09/09/19 25 Active rosuvastatin (CRESTOR) 10 mg tablet TAKE 1 TABLET BY MOUTH DAILY 100 tablet 1 10/01/19 25 Active gabapentin (NEURONTIN) 600 mg tablet Take 1 tablet (600 mg total) by mouth 3 (three) times a day. Active freestyle (FreeStyle Lancets) 28 gauge lancets USE 3 TIMES DAILY 300 each 3 12/04/19 25 Active FreeStyle Test test strip Use as instructedUSE TO CHECK BLOOD SUGARS UP TO 3 TIMES PER DAY 300 each 3 12/04/19 25 Active glucagon (Gvoke HypoPen 2-Pack) 1 mg/0.2 mL auto-injector Inject 1 mg under the skin as directed. Inject 1 Dose into the skin as needed for Other (hypoglycemia). 1 each 12/04/19 25 Active insulin lispro (HumaLOG KwikPen Insulin) 100 unit/mL injection penIndications:T ype 2 diabetes mellitus with diabetic polyneuropathy, with long-term current use of insulin ([facility] V24, [facility] V28) INJECT SUBCUTANEOUSLY 3 TIMES DAILY WITH MEALS PER SLIDING SCALE 100-149 =10U, 150-199= 12U, 200-249= 14U, 250-299= 16U, 300-349=18U, 350-399= 20U, plus 2 units at dinner 45 mL 12/04/19 25 Active metFORMIN XR (GLUCOPHAGE-XR) 500 mg 24 hr tablet Do not crush, chew, or split.TAKE 2 TABLETS BY MOUTH TWICE DAILY WITH MEALS (DO NOT CRUSH, CHEW, OR SPLIT) 400 tablet 12/04/19 Active pen needle, diabetic (BD Ultra-Fine Short Pen Needle) 31 gauge x 5/16 needle Inject 3 each as directed 3 (three) times a day. 300 each 12/04/19 25 Active insulin glargine U-300 conc (Toujeo Max U-300 SoloStar) 300 unit/mL (3 mL) CONCENTRATED injection pen 120 units SC at bedtime 45 mL 12/04/19 25 Active lisinopriL (PRINIVIL,ZESTRI L) 10 mg tablet Take 1 tablet (10 mg total) by mouth 1 (one) time each day. 30 each 12/08/19 026 Active tirzepatide (Mounjaro) 7.5 mg/0.5 mL injectionIndicat ions:Type 2 diabetes mellitus with diabetic polyneuropathy, with long-term current use of insulin ([facility] V24, [facility] V28) Inject 0.5 mL (7.5 mg total) under the skin every 7 (seven) days. 2 mL 12/16/19 25 Active Active Problems Problem Noted Date Diagnosed Date Morbid obesity with BMI of 4 5.0-49.9, adult ([facility] V24, [facility] V28) 12/16/2023 Toe ulcer ([facility] V24, [facility] V28) 12/17/2020 Overview (12/16/2023): Left 2nd toe. Hosp 12/06 LNIG (obstructive sleep apnea) 10/14/2018 H/O non-ST elevation myocardial infarction (NSTE [place]) 11/26/2017 Overview (12/16/2023): [facility] cardiology Type 2 diabetes mellitus wit h diabetic polyneuropathy ([facility] V24, [facility] V28) 10/26/2015 Assessment & Plan (10/13/2024 4:07 PM EDT): Adjustment disorder with mixed anxiety and depre ssed mood 04/15/2013 Microalbuminuria 05/18/2010 DM (diabetes mellitus), type 2 with renal complications ([facility] V24, [facility] V28) 05/07/2006 Overview (12/16/2023): Last Assessment & Plan: Lantus adjusted per Lantus protocol. Referral to [facility] Diabetic Education and Dr. Magallanes, front line supervisor. Essential hypertension, benign 05/07/2006 Pure hypercholesterolemia 05/07/2006 Overview (12/16/2023): Last Assessment & Plan: Educated on low fat diet & exercise. Encouraged simvastatin compliance and repeat LDL. Encounters Date Type Department Care Team Description 01/14/2025 Telephone Adult Medicine - [place] [address] [place] [address] Lalita Moran MD 01/13/2025 9:00 AM EDT Office Visit Adult Medicine [facility] [address] [place] [phone] Leola Welsl NP Essential hypertension, benign (Primary Dx); Type 2 diabetes mellitus with diabetic polyneuropathy, with long-term current use of insulin ([facility] V24, [facility] V28); Neuropathy; Pure hypercholesterolemia; Morbid obesity with BMI of 45.0-49.9, adult ([facility] V24, [facility] V28); Vertigo; Ulcer of toe of right foot, unspecified ulcer stage ([facility] V24, [facility] V28) 12/15/2024 Results Follow-Up Endocrinology - [address] [phone] Earline Rushing PA 12/03/2024 2:00 PM EDT Office Visit [address] [phone] Earline Rushing PA Type 2 diabetes mellitus with diabetic polyneuropathy, with long-term current use of insulin ([facility] V24, [facility] V28) (Primary Dx); Essential hypertension, benign; Morbid obesity with BMI of 45.0-49.9, adult ([facility] V24, [facility] V28); Pure hypercholesterolemia 11/12/2024 8:15 AM EDT Office Visit Orthopedic Surgery - [address] [phone] Franklin Velasquez, DPM Peripheral venous insufficiency (Primary Dx); Dermatophytosis of nail; Pain in toe of right foot; Diabetic mononeuropathy simplex ([facility] V24, [facility] V28); Pain in toe of left foot; Type II diabetes mellitus with peripheral circulatory disorder ([facility] V24, [facility] V28); Type 2 diabetes mellitus with diabetic polyneuropathy, with long-term current use of insulin ([facility] V24, [facility] V28) from Last 3 Months Immunizations Immunization Administration Dates Next Due COVID-19 (Moderna/Spikevax) 12yo and older 01/11/2023 H1N1 Inj Preservative Free 01/28/2009 Influenza Quadravalent, 0.5m l (Fluad) 65yo and older 11/23/2022 Influenza Quadravalent, MDCK , 0.5ml, preservative free (Flucelvax) 6mo and older 04/16/2022,01/12/2020,12/01/2018,12/31 Influenza Quadravalent, MDCK , 0.5ml, with preservative (Flucelvax) 6mo and older 12/27/2016 Influenza Quadrivalent, 0.5m l, preservative free (Fluarix; FluLaval; Fluzone) ages 6mo and older (Afluria) 3yo and older 12/28/2020 Influenza trivalent, 0.5mL ( Fluzone High-dose) 65yo and older 01/13/2025 Influenza trivalent, 0.5mL, preservative free (Fluarix; FluLaval; Fluzone) ages 6mo and older (Afluria) 3 years and older 11/28/2023 Influenza trivalent, with pr eservative (Fluzone; Afluria) [...] pertussis (Boostrix; Adacel) 7yo and older 11/10/2012 Zoster recombinant (Shingrix ) 19yo and older 05/15/2021,01/06/2021 Surgical History Surgery Date Site/Laterality Comments COLONOSCOPY 10/18/08 PROCEDURE: HISTORICAL COLONOSCOPY; COMMENT: diverticulosis; repeat in ten years ESOPHAGOGASTRODUODENOSCOPY 01/30/10 PROCEDURE: ID ESOPHAGOGASTRODUODENOSCOPY TRANSORAL DIAGNOSTIC; COMMENT: normal BACK SURGERY [...] care for your loved ones. For example, children's ministries director or elderly care for an older adult? [...] 16 01/13/2025 8:46 AM EDT Oxygen Saturation 96% 08/07/2023 1:0 8 PM EDT at rest, room air Inhaled Oxygen Concentration - - Weight 157 kg (346 lb) 01/13/2025 8:46 AM EDT Height 180 cm (5' 10.87 ) 01/13/2025 8: 46 AM EDT Body Mass Index 48.44 01/13/2025 8:46 AM EDT Plan of Treatment Upcoming Encounters Date Type Department Care Team (Late st Contact Info) Description 02/04/2025 9:30 AM EST Office Visit Endocrinology - [place] [phone] [place] [phone] Earline Rushing PA [address] [place] [address] 02/15/2025 8:15 AM EST Office Visit Orthopedic Surgery - [place] [address] [facility] [address] [place] [address] Franklin Velasquez, NICOLÁS [address] [place] [phone] Health Maintenance Due Date Last Done Comments RSV Immunization Adult Patients (1 - Risk 50-74 years 1-dose series) 08/28/2007 COVID-19 Vaccine ( season) 2024 01/11/2023, 01/12/2021, 06/28/2020, Additional history exists Diabetes: Annual Foot Exam 01/20/2025 01/21/2024, Diabetes: Blood Sugar Control Test (HGBA1C) 06/10/2025 12/11/2024, 07/30/2024, 02/03/2024, Additional history exists Diabetes: Annual GFR (Glomerular Filtration Rate) 07/30/2025 07/30/2024, 02/03/2024, 07/29/2023, Additional history exists Hypertension/CHF/CAD Annual BMP Blood Test 07/30/2025 07/30/2024, 02/03/2024, 07/29/2023, Additional history exists Diabetes: Annual Urine Albumin-Creatinine Ratio (uACR) 08/05/2025 08/05/2024, 08/07/2022 Diabetes: Annual Retina Eye Exam 09/28/2025 09/28/2024 Social Influencers of Health Screening 10/06/2025 10/06/2024 Medicare Annual Wellness Visit 10/13/2025 10/13/2024 Falls Risk Assessment 01/13/2026 01/13/2025 Colorectal Cancer Screening: Colonoscopy 04/27/2029 04/27/2019 Cholesterol Screening (Lipid Panel) 07/30/2029 07/30/2024, 02/03/2024, 07/29/2023, Additional history exists DTaP,Tdap,and Td Vaccines (3 - Td or Tdap) 01/28/2033 01/28/2023, 11/10/2012 Hepatitis C Screening Completed 04/23/2013 Zoster Vaccines Completed 05/15/2021, 01/06/2021 Pneumococcal Vaccine: 50+ Years Completed 01/28/2023, 06/17/2006 Depression Screening Completed 01/06/2025, 01/29/20 23 Influenza Vaccine Completed 01/13/2025, , 11/23/2022, Additional history exists HIB Vaccines Aged Out No longer eligi [...] Procedure Name Priority Date/Time Associated Diagnosis Comments HEMOGLOBIN A1C Routine 12/11/2024 2:39 PM EDT Type 2 diabetes mellitus with diabetic polyneuropathy, with long-term current use of insulin ([facility] V24, [facility] V28) MICROALBUMIN CREATININE URINE RATIO Routine 08/05/2024 10:40 AM EDT Type 2 diabetes mellitus with diabetic polyneuropathy, with long-term current use of insulin (CMS/HCC V24, CMS/HCC V28) COMPREHENSIVE METABOLIC PANEL Routine 07/30/2024 9:31 AM EDT Type 2 diabetes mellitus with diabetic polyneuropathy, with long-term current use of insulin (CMS/HCC V24, CMS/HCC V28) LIPID PANEL WITH REFLEX TO DIRECT LDL Routine 07/30/2024 9:31 AM EDT Type 2 diabetes mellitus with diabetic polyneuropathy, with long-term current use of insulin (CMS/HCC V24, CMS/HCC V28) DIABETES FOOT EXAM Routine 07/29/2023 DEPRESSION SCREENING Routine 01/28/2023 COLONOSCOPY Routine 04/27/2019 HEPATITIS C SCREENING Routine 04/23/2013 from Last 3 Months or Most Recently Relevant to Health Maintenance Results * (ABNORMAL) Hemoglobin A1c (12/11/2024 2:39 PM EDT) Hemoglobin A1C 8.9(H) <6.5 % LAB CHEMISTRY METHOD 12/11/2024 9:22 PM EDT [facility] Mean Bld Glu Estim. 209 mg/dL LAB CHEMISTRY METHOD 12/11/2024 9:22 PM EDT [facility] Blood Venous blood specimen / Unknown Venipuncture / Unknown 12/11/2024 2:39 PM EDT 12/11/2024 2:39 PM EDT Earline [place] LAB BLOOD ORDERABLES Final Result [facility] [address] [place] [address], * (ABNORMAL) Microalbumin creatinine urine ratio (08/05/2024 10:40 AM EDT) Creatinine, Urine 153.0 mg/dL LAB CHEMISTRY METHOD 08/05/2024 1:30 PM EDT [facility] Microalb, Ur 4,610.0(H ) 0.0 - 29.0 mg/L LAB CHEMISTRY METHOD 08/05/2024 1:30 PM EDT [facility] Microalb/Crea t Ratio 3,013(H) <30 mg/g creat LAB CHEMISTRY METHOD 08/05/2024 1:30 PM EDT [facility] Urine Urine specimen obtained by clean catch procedure / Unknown Non-blood Collection / Unknown 08/05/2024 10:40 AM EDT 08/05/2024 10:40 AM EDT us Lalita Moran MD LAB URINE ORDERABLES Final Res ult [facility] [address] [place] [address], [place] [phone] * (ABNORMAL) Lipid panel with reflex to direct LDL (07/30/2024 9:31 AM EDT) Cholesterol 194 0 - 200 mg/dL LAB CHEMISTRY METHOD 07/30/2024 1:18 PM EDT [facility] Triglycerides 328(H) 0 - 150 mg/dL LAB CHEMISTRY METHOD 07/30/2024 1:18 PM EDT [facility] HDL 50 >=40 mg/dL LAB CHEMISTRY METHOD 07/30/2024 1:18 PM EDT [facility] LDL Calculated 78 0 - 100 mg/dL LAB CHEMISTRY METHOD 07/30/2024 1:18 PM EDT [facility] VLDL Cholesterol Ferny 65.6 mg/dL LAB CHEMISTRY METHOD 07/30/2024 1:18 PM EDT [facility] Non HDL Chol. (LDL+VLDL) 144 <145 mg/dL LAB CHEMISTRY METHOD 07/30/2024 1:18 PM EDT [facility] Chol/HDL Ratio 3.9 0.0 - 4.4 LAB CHEMISTRY METHOD 07/30/2024 1:18 PM T [facility] Blood Venous blood specimen / Unknown Venipuncture / Unknown 07/30/2024 9:31 AM EDT 07/30/2024 9:31 AM EDT us Lalita Moran MD LAB BLOOD ORDERABLES Final Res ult Performing Organization Address City/[facility]/ZIP Co de Phone Number [facility] [address] [place] [address], [place] [phone] * (ABNORMAL) Comprehensive metabolic panel (07/30/2024 9:31 AM EDT) [facility] Signature Sodium 137 133 - 145 mmol/L LAB CHEMISTRY METHOD 07/30/2024 1:[address] [facility] Potassium 4.6 3.5 - 5.5 mmol/L LAB CHEMISTRY METHOD 07/30/2024 1:[address] [facility] Chloride 103 96 - 110 mmol/L LAB CHEMISTRY METHOD 07/30/2024 1:[address] [facility] CO2 26 21 - 32 mmol/L LAB CHEMISTRY METHOD 07/30/2024 1:[address] [facility] Anion Gap 8 3 - 11 LAB CHEMISTRY METHOD 07/30/2024 1:[address] [facility] Glucose 154(H) 70 - 100 mg/dL LAB CHEMISTRY METHOD 07/30/2024 1:[address] [facility] BUN 22 5 - 25 mg/dL LAB CHEMISTRY METHOD 07/30/2024 1:[address] [facility] Creatinine 0.95 0.70 - 1.30 mg/dL LAB CHEMISTRY METHOD 07/30/2024 1:[address] [facility] eGFR 88 >=60 mL/min/1. 73m2 LAB CHEMISTRY METHOD 07/30/2024 1:[address] [facility] Comment:Calculation based on the Chronic Kidney Disease Epidemiology Collaboration (CKD-EPI) equation refit without adjustment for race. BUN/Creatinine Ratio 23.2 LAB CHEMISTRY METHOD 07/30/2024 1:[address] [facility] Calcium 8.9 8.5 - 10.5 mg/dL LAB CHEMISTRY METHOD 07/30/2024 1:[address] [facility] AST (SGOT) 19 10 - 42 unit/L LAB CHEMISTRY METHOD 07/30/2024 1:[address] [facility] ALT (SGPT) 26 10 - 60 unit/L LAB CHEMISTRY METHOD 07/30/2024 1:21 PM EDT [facility] Alkaline Phosphatase 76 42 - 121 unit/L LAB CHEMISTRY METHOD 07/30/2024 1:21 PM EDT [facility] Total Protein 6.4 6.0 - 8.0 g/dL LAB CHEMISTRY METHOD 07/30/2024 1:21 PM EDT [facility] Albumin 3.3 3.2 - 5.0 g/dL LAB CHEMISTRY METHOD 07/30/2024 1:21 PM EDT [facility] Total Bilirubin 0.5 0.0 - 1.4 mg/dL LAB CHEMISTRY METHOD 07/30/2024 1:21 PM EDT [facility] Blood Venous blood specimen / Unknown Venipuncture / Unknown 07/30/2024 9:31 AM EDT 07/30/2024 9:31 AM EDT Lalita Moran MD LAB BLOOD ORDERABLES Final Res ult [facility] [address] [place] [address], [place] [phone] * Diabetes Foot Exam (07/29/2023) [facility] Diabetes: Annual Foot Exam abstracted Historical [facility] [employer] Final Result * Depression Screening (01/28/2023) [facility] Depression Screening abstracted [facility] [employer] Final Result * Colonoscopy (04/27/2019) [facility] Colonoscopy no interpreta tion,abstr acted Anatomical Region Laterality Modality Other Historical [facility] [employer] Final Result * Hepatitis C Screening (04/23/2013) [facility] Hepatitis C Screening abstracted [facility] [employer] Final Result from Last 3 Months or Most Recently Relevant to Health Maintenance Insurance [employer] MEDICARE Care Teams Teaching Aide Relationship Specialty Start Date End Date Lalita Moran MD [address] [place] [id number] PCP - General Internal Medicine 07/14/20
--- OUTSIDE RECORDS SUMMARY | 2025-01-15 14:25 | XMS_ITS | Encounter Summary ---
Author Organization [facility] Address [address] [place] [address] Care Team Providers Care Provider Engagement Executive Name Role Phone Lalita Moran MD Primary Care Provider [phone] Reason for Referral * Medications - Closed Specialty Diagnoses / Procedures Referred By Lissy ortiz Referred To Contact Diagnoses Type 2 diabetes mellitus with diabetic polyneuropathy, with long-term current use of insulin (CMS/HCC V24, CMS/HCC V28) Earline Rushing PA [address] [place] [address] Phone: tel: fax: Referral ID Status Reason Start Date Expiration Date Visits Re quested Visits Authorized [id number] Closed 1 1 Encounter Details Date Type Department Care Team (Late st Contact Info) Description 12/15/2024 Results Follow-Up Endocrinology - [address] [phone] Earline Rushing PA [address] [place] [address] Social History Tobacco Use Types Packs/Day Years [...] for your loved ones. For example, child advocate or elderly care for an older adult? [...] on file documented as of this encounter Ordered Prescriptions Prescription Sig Dispense Quantity Refills Last Filled Start Date End Date bertozeitzel Gibsonro) 7.5 mg/0.5 mL injectionIndication s:Type 2 diabetes mellitus with diabetic polyneuropathy, with long-term current use of insulin ([facility] V24, [facility] V28) Inject 0.5 mL (7.5 mg total) under the skin every 7 (seven) days. 2 mL 5 12/15/2024 documented in this encounter Plan of Treatment Upcoming Encounters Date Type Department Care Team (Late st Contact Info) Description 02/04/2025 9:30 AM EST Office Visit Endocrinology [facility] [address] [place] [address] Earline Rushing PA [address] [place] [address] 02/15/2025 8:15 AM EST Office Visit Orthopedic Surgery - [place] [address] [place] [phone] Franklin Velasquez DPM [address] [place] [phone] documented as of this encounter Visit Diagnoses Diagnosis Type 2 diabetes mellitus with diabetic polyneuropathy, with long-term current use of insulin ([facility] V24, [facility] V28)- Primary documented in this encounter Discontinued Medications Medication Sig Discontinue Reason Start Date End Da te tirzepatide (Mounjaro) 5 mg/0.5 mL injectionIndications:Typ e 2 diabetes mellitus with diabetic polyneuropathy, with long-term current use of insulin ([facility] V24, [facility] V28) Inject 0.5 mL (5 mg total) under the skin every 7 (seven) days. Side effects 12/03/2024 12/15/2024 documented as of this encounter Additional Health Concerns Assessment Noted Time PHQ-9 Depression Total Score: 0 07/30/19 25 1:01 PM EDT documented as of this encounter Care Teams Provider Engagement Executive Relationship Specialty Start Date End Date Lalita Moran MD [address] [place] [address] PCP - General Internal Medicine 07/14/20 documented as of this encounter
--- OUTSIDE RECORDS SUMMARY | 2025-01-15 14:25 | XMS_ITS | Encounter Summary ---
Author Organization [facility] Address [address] [place] [address] Care Team Providers Care Promotions Specialist Name Role Phone Lalita Moran MD Primary Care Provider [phone] Reason for Visit * Reason Onset Date Comments Medication clearance 01/14/2025 Encounter Details Date Type Department Care Team ([facility] Contact Info) Description 01/14/2025 Telephone Adult Medicine [facility] [address] [place] [phone] Lalita Moran MD [address] [place] [address] Social History Tobacco Use Types Packs/Day Years [...] for your loved ones. For example, child care aide or elderly care for an older adult? [...] on file documented as of this encounter Progress Notes * Celina Hart LPN - 01/14/2025 3:05 PM EDT Message left for naomie, patient can discontinue aspirin 7 days prior to procedure * Celina Hart LPN - 01/14/2025 11:46 AM EDT Please review message regarding discontinuing aspirin X 7 days prior to surgical procedure Lab Results Component Value Date WBC 8.4 02/03/2024 HGB 13.2 (L) 02/03/2024 HCT 42.2 02/03/2024 MCV 86.5 02/03/2024 PLT 162 02/03/2024 * Diana Noblesll - 01/14/2025 10:56 AM EDT Naomie calling from [facility]. Pt having spinal cord stimulation procedure on 01/29/25, they are asking if he can stop aspirin for 7 days before the procedure. Please call back. documented in this encounter Plan of Treatment Upcoming Encounters Date Type Department Care Team (Late st Contact Info) Description 02/04/2025 9:30 AM EST Office Visit Endocrinology [address] [phone] Earline Rushing PA [address] [place] [address] 02/15/2025 8:15 AM EST Office Visit Orthopedic Surgery - [place] [address] [place] [phone] Franklin Velasquez DPM [address] [place] [address] documented as of this encounter Visit Diagnoses Not on filedocumented in this encounter Additional Health Concerns Assessment Noted Time PHQ-9 Depression Total Score: 0 07/30/19 1:01 PM EDT documented as of this encounter Care Teams Promotions Specialist Relationship Specialty Start Date End Date Lalita Moran MD [address] [place] [address] PCP - General Internal Medicine 07/14/20 documented as of this encounter
--- NOTE | 2025-01-26 10:09 | HO.ANESPROP2 ---
HPI - Anesthesia Eval Consult details Narrative: 69 yr old male for Spinal cord Stimulation Trial Morbid obesity: BMI 48 PAT nurse confirmed pt has no CP or SOB at present time 01/26/25 CAD: H/O cardiac arrest during exercise stress test in 2019; angio showed critical LAD lesions, treated with 2 drug eluting stents, had 40% stenosis circumflex. Last echo was in 2020, see below. Follows [facility] cardiology, last visit was routine f/u 02/2024, reported mild SOB only with stairs, walking 3-4 times per week, mild COMBS at baseline. Uncontrolled Type 2 DM: A1C 8.9% Triglycerides: >300 LING Anesthesia Pre-Procedure Meds Is the patient on any of the following meds?: GLP1/DPP4 PMFSH Active Problems Active Problems: All Active Problems (Updated 09/02/24 @ 14:46 by Ezra Richards MD) Chronic pain syndrome (Acute) Venous insufficiency of both lower extremities (Acute) Diabetic polyneuropathy (Acute) Diabetic osteomyelitis (Acute) Past Medical History Medical History (Updated 01/27/25 @ 08:38 by Lara Cardona RN) Myocardial infarction Morbid obesity Pure hypercholesterolemia Anxiety Depression Vertigo Sleep apnea Peripheral neuropathy HTN (hypertension) CAD (coronary artery disease) Insulin dependent type 2 diabetes mellitus Surgical History Surgical History (Updated 01/27/25 @ 08:30 by Lara Cardona RN) History of heart artery stent (~2018) History of back surgery Social History Social History Household Members: Spouse Housing: House Do you presently have visiting nurse or other home services: No Patient Tobacco Use Status: Never used Tobacco service: No Meds Allergies Allergy/AdvReac Type Severity Reaction Status Date / Time No Known Allergies Allergy Verified 12/02/24 08:18 Home Medications ?Medication ?Instructions ?Recorded ?Confirmed ?Last Taken ?Type aspirin 81 mg tablet,delayed 81 mg PO DAILY 11/28/23 01/27/25 11/28/23 History release insulin glargine U-300 conc 300 120 unit subcut BEDTIME 11/28/23 01/27/25 Unknown History unit/mL (3 mL) subcutaneous pen (Toujeo Max U-300 SoloStar) insulin lispro 100 unit/mL See Protocol subcut TIDAC 11/28/23 01/27/2511/27/24 History subcutaneous pen (Humalog KwikPen (U-100) Insulin) lisinopril 30 mg tablet 30 mg PO DAILY 11/28/23 01/27/25 11/28/23 History metformin 500 mg tablet,extended 1,000 mg PO BID 11/28/23 01/27/25 11/28/23 History release 24 hr metoprolol tartrate 25 mg tablet 25 mg PO BID 11/28/23 01/27/25 11/28/23 History rosuvastatin 10 mg tablet 10 mg PO DAILY 11/28/23 01/27/25 11/28/23 History tirzepatide 2.5 mg/0.5 mL 2.5 mg subcut QWEEK 12/02/24 01/27/25 Unknown History subcutaneous pen injector (Mounjaro) lisinopril 10 mg tablet 10 mg PO DAILY 01/27/25 01/27/25 Unknown History Exam Narrative Narrative: EKG 03/22/23 NSR, rate 80 RBBB T wave abnormality, consider inferior ischemia ECHO 09/2020 Left ventricle is poorly visualized. The left ventricular sizse is normal. The left ventricular wall thickness is increased. The LV systolic function appears preserved on limited views. Cannot assess regional wall motion abnormalities. The right ventricle is poorly visualized. The right ventricle is dilated.
[2025-01-27 08:57] VITALS: BMI 48.3
--- NOTE | ~2025-01-29 | FL_ITS ---
EXAMINATION: FL GUIDANCE ONLY HISTORY: spinal cord stim trial COMPARISON: None available. TECHNIQUE: Fluoroscopy time: 8 minutes, 2.8 seconds. Cumulative Dose: 415.67 mGy. DAP: 0.8, 0.81 Gycm2 Images: 6. FINDINGS: Fluoroscopic spot films of the thoracic spine demonstrate placement of a stimulator. FL/FL guidance in OR IMPRESSION: Fluoroscopy during procedure. Please see procedure report for additional information. Electronically signed by: Car Chaves MD 02/03/2025 07:37 AM EST
--- NOTE | 2025-01-29 11:55 | PC.NURSE ---
Dr. Richards spoke with patient, and patient agreed to come in for today's procedure under local anesthesia only today.
[2025-01-29] MEDS: Lactated Ringers 1,000 ML 100 ML IVCONT (12:01)
[2025-01-29 12:05] LABS: Glucose, Whole Blood 143 mg/dL (60-115)
--- NOTE | 2025-01-29 12:08 | MHC.SHP ---
Pre-Procedural Eval Section A - 24 Hr Update-Section A only Date of Service: 01/29/25 The patient is an INPATIENT: No Changes since office visit: Yes Patient answered all questions The patient has been examined within 24 hours of the surgical procedure. 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 Details of Present Illness: as above Relevant Family History (Specify if Yes): No Relevant Social History: None Present Medications: see Short Stay Collaborative assessment Medical History: Significant History (diabetes mellitus) History of Previous Operations: Relevant previous surgery/procedure and date(s) Allergies: Allergies Allergy/AdvReac Type Severity Reaction Status Date / Time No Known Allergies Allergy Verified 01/29/25 11:50 Review of Systems Sugical H&P ROS: Negative: Cardiovascular, Respiratory, Neurological, Psychiatric, Hem-Onc, Allergic/Immunologic, Gastrointestinal, Genitourinary, Musculoskeletal, Integumentary and Eyes/Ears/Nose/Throat and Yes, Specify: Constitution (morbid obesity) and Endocrine (DM type 2) Exam Surgical H&P Exam: Normal: HEENT, Normal: Heart, Normal: Lungs, Normal: Abdomen, Normal: Skin and Normal: Neurological and Significant Findings: Extremities (greatly enlarged due to fat) Plan Diagnosis/Plan: Unchanged I have reviewed the history and physical and performed a pertinent physical examination on my patient. No changes have occurred unless specified.I am going to perform a trial of spinal cord stimulator Crissro under local anesthesia. Time Spent With Patient Time: Total time managing care of this patient today ____ minutes.
--- NOTE | 2025-01-29 12:10 | P.OP_ITS ---
Operative Note Operative Note Date of Service: 01/29/25 Narrative: Trial of spinal cord stimulator old gentleman who came today into the operating room for the trial of spinal cord stimulator for the treatment of chronic pain syndrome, spondylosis of lumbar spine, disc degeneration lumbar.. Preoperatively patient received ?cefazolin 2. g approximately 30 minutes before the procedure. After obtaining informed consent the patient was brought to the operating room, he was positioned prone on the table ?Time-out was performed delineating correct site, side, the nature of the procedure, patient's allergy, preoperative antibiotic if needed.? All operating room staff was participating in OR time-out procedure Patient's entire back was prepped with ChloraPrep twice and draped with full body fenestrated drape .? Sterilely draped C-arm was brought over operating field and square picture of? T12-L1 and [id number] as were demonstrated on the screen.? The skin was? infiltrated with the mixture of lidocaine 2% and ropivacaine 0.5% in the projection of the right pedicle of L2 to vertebra. After that? number 11 Blade scalpel was used to perform small mookie in the skin. t the attention? was concentrated on the T12-L1 epidural interspace.? The location of the projection of the right pedicle center of the? L2 vertebra was found on the skin using C-arm.? This location was injected with mixture of lidocaine 2% and Marcaine 0.5% 5 cc.? ? 10 cm 14 gauge? introducer epidural needle was inserted through the skin and advanced to? T12-L1 epidural interspace.? The advancement of the needle was performed on anterior posterior and lateral views.? Guitar wire and loss of resistance technique were used to locate epidural space.? When guitar wire was spread in the epidural fashion, epidural lead was inserted through the needle and it was advanced to the posterior epidural space. We were able to advance the tip of the electrode to the level of T7 vertebra in the posterior epidural space. Lateral view verify position of the electrode in posterior epidural space. After that location of the projection of the LEFT pedicle center of the L2 vertebra was found using C-arm.? This location was injected with mixture of lidocaine 2% and Marcaine 0.5% 5 cc.?10 cm 14 gauge? introducer epidural needle was inserted through the skin and advanced to T12-L1 epidural interspace.? The advancement of the needle was performed on anterior posterior and lateral views.? Guitar wire and loss of resistance technique were used to locate epidural space.? ? Loss of resistance to air technique and guitar wire were used to locate epidural space. After that the? epidural lead was advanced? slightly left to the midline? to the top of the?T7 vertebra in the posterior epidural space slightly left to the existing electrode.? ?Lateral view demonstrated appro priate position of the electrodes in the posterior epidural space. At this moment patient was awakened and the epidural leads were connected to testing device. Patient reported stimulation roughly corresponding to his pain distribution. After satisfactory position of the leads were established the needles were withdrawn, the stylette wires were removed from the epidural leads.? The anchoring devices were dislodged on the leads and advanced to the level of the skin. ?After that the anchoring devices were sutured to the skin using Tycron 1-0 sutures - 2 sutures per each anchoroing device?. The fixation scews were locked until 3 clicks heard. Position of the electrodes was verified again. After that bacitracin ointment was applied to the tips of the anchoring devices at the places where electrodes were entering through the skin sterile dressing was applied with Tegaderm. The stimulating device was connected to epidural leads and it was taped to the skin as well. At this moment the patient was fully awake he was transferred on the stretcher and brought to PACU for recovery.
--- NOTE | 2025-01-29 12:10 | PM.OP ---
Brief Operative Note Date of Service: 01/29/25 Pre-op diagnosis: Diabetic polyneuropathy, postlaminectomy syndrome, chronic pain syndrome. Post-op diagnosis: same Procedure: Trial of Nevro spinal cord stimulator. Surgeon: Ezra Richards MD Anesthesia: local Was an Meter Record Clerk used for this Procedure?: No Estimated blood loss (mL): 0 Condition: stable Disposition: PACU
[2025-01-29 12:18] VITALS: BP 152/86; PULSE 76; RESP 18; TEMP 36.7; O2SAT 96
[2025-01-29 14:25] VITALS: BP 147/52; PULSE 67; RESP 16; TEMP 36.6; O2SAT 93
== END 2025-01-29 14:50 | disposition home or self-care (01) ==
PROVIDERS: PCP Pediatrics; Visit Provider Anesthesiology
PROC: (CPT 63650; principal; 2025-01-29 12:00)
DX: E11.42 Type 2 diabetes mellitus with diabetic polyneuropathy (principal); M96.1 Postlaminectomy syndrome, not elsewhere classified; I87.2 Venous insufficiency (chronic) (peripheral); G89.4 Chronic pain syndrome; G57.93 Unspecified mononeuropathy of bilateral lower limbs; I10 Essential (primary) hypertension; I25.10 Atherosclerotic heart disease of native coronary artery without angina pectoris; Z79.82 Long term (current) use of aspirin; Z79.4 Long term (current) use of insulin; Z79.85 Long-term (current) use of injectable non-insulin antidiabetic drugs; Z79.899 Other long term (current) drug therapy
CPT/HCPCS: 63650 ×2; 82947; C1889; C1897; J0690; J2003; J2795

== ENCOUNTER → 2025-01-29 11:32 | Outpatient (BNV) | payer MEDICARE, SELFPAY | PROVIDERS: PCP Pediatrics; Visit Provider Anesthesiology | DX: M96.1 Postlaminectomy syndrome, not elsewhere classified (principal); G89.4 Chronic pain syndrome; E11.42 Type 2 diabetes mellitus with diabetic polyneuropathy | CPT/HCPCS: 63650 ==

== ENCOUNTER 2025-02-04 14:05 | Outpatient (AMB) | payer MEDICARE, SELFPAY ==
--- NOTE | 2025-02-04 14:07 | A.OFFVIS_ITS ---
Vital Signs 02/04/25 14:09 Height 6 ft Weight 347 lb BMI 47.1 BP 186/83 H Blood Pressure Location Rt brachial Position Sitting Respiration 16 Pulse 72 Pulse Source Pulse Oximeter Pulse Oximetry (%) 94 Oxygen Delivery Method Room Air Intake Visit Reasons: S/p Nevro SCS Trial 01/29/25 Reducing Machine Operator Required: No Allergies No Known Allergies Allergy (Verified 02/04/25 14:09) HPI Comments Details: Ruel is back in my office after the spinal cord stimulator Nevro trial. He reported excellent pain relief after the trial. He reports very good neuropathic pain relief after the trial. More than 75% of pain improvement patient enjoyed for the 1st 4 days after the trial. Unfortunately on the 5th day he dislodged 1 of his electrodes. His body mass index is 47.1 kg per sq meter. He has epidural pressure probably is very elevated. I explained to the patient that for successful and prolonged SCS stimulation he needs a procedure to be performed by neurosurgeon inserting a paddle stimulation into his thoracic epidural space. Patient expressed understanding. I will refer this patient to Neurosurgery for the laminotomy and insertion of the paddle Nevro SCS. The dressing was removed and the epidural leads were exposed. They were examined. No redness, no swelling, no pathological discharge no tenderness on palpation. No local temperature. The area was washed with ChloraPrep and the scalpel was used to sever the sutures. Sterile dressing was applied. Hygiene limitations were explained to the patient. Prior: He reports severe intractable bilateral lower extremity neuropathic pain in the form of pins and needles, tingling, or burning and aching sensation. He is suffering from diabetic polyneuropathy. He reports moderate improvement for the pain during the daytime from gabapentin he is currently taking 2400 mg a day, he reports he is unable to sleep on this dose, he reports even with this elevated dose of gabapentin at the nighttime his pain is severe ranging from 8 to 10/10.. Because of that he feels tired during the daytime he feels foggy, unable to exercise, he gained weight. I offered him Nevro SCS to treat his diabetic polyneuropathy. I explained him a trial of SCS. I gave him brochure of Nevro SCS as well as brochure of [facility] psychological evaluation. He has computer at home, he will start calling [facility] psychology tomorrow. Prior: complains on pain in bilateral feet more on the left and less on the right he believes this pain is related to diabetic polyneuropathy. He has discoloration of bilateral lower extremities. He reports that this pain started 1 year ago. Initially the pain was mild and now it is very severe. He reports pain in bilateral feet while in bed with number of pain 9/10. Especially at night. COUNTS INCLUDE 234 BEDS AT THE [facility] Medical History Myocardial infarction Morbid obesity Pure hypercholesterolemia Anxiety Depression Vertigo Sleep apnea Peripheral neuropathy HTN (hypertension) CAD (coronary artery disease) Insulin dependent type 2 diabetes mellitus Surgical History History of heart artery stent (~2019) History of back surgery Social History Household Members: Spouse Housing: House Are you a primary health care manager to a significant other at home: No Do you presently have visiting nurse or other home services: No Patient Tobacco Use Status: Never used Tobacco service: No Review of Systems Const All systems reviewed & are unremarkable except as noted in HPI and below ENT Reports Normal hearing present Neuro Reports Normal hearing present, Denies Abnormal speech present, Denies confusion and Denies Sensory deficit (Neuro) Psych Denies confusion Physical Exam Vital Signs: Last Vital Signs Pulse 72 02/04/25 14:09 Resp 16 02/04/25 14:09 BP 186/83 H 02/04/25 14:09 Pulse Ox 94 02/04/25 14:09 Oxygen Delivery Method Room Air 02/04/25 14:09 BMI result Body Mass Index 47.1 Const General: no acute distress; No confusion Nutritional Appearance: obese (Severe morbid obesity severe truncal obesity) morbidly obese Orientation/consciousness: patient oriented x3 and No confusion Eyes General: appearance normal, both eyes and all related structures Pupils: Equal, round and reactive pupils present EOM: EOMs intact bilaterally Neck Neck: Yes full ROM Chest Chest palpation & inspection: normal inspection of the chest Resp Effort & Inspection: normal respiratory effort, able to speak in complete sentences, normal respiratory pattern, no audible wheezes and no cough Cardio Jugular venous distension: no JVD GI Inspection: Yes normal to inspection Neuro General: patient oriented x3, gait normal and No confusion Cranial nerves: Yes CN's II-XII intact bilaterally, Yes Equal, round and reac tive pupils present, Yes Normal hearing present and Yes Ability to bilaterally elevate shoulders present Speech: No Abnormal speech present Gait exam (Neuro): Normal gait present Motor exam (neuro): 5/5 motor strength present throughout Sensory Exam: No Sensory deficit (Neuro) Extrem Other: Bilateral discoloration of the lower extremities on the left below the knee and on the right mid lower leg. Palpation of the bilateral DP and PT pulses did not reveal any apprehensible pulse. The feet are warm on palpation, and the bilateral capillary refill is 3-4 seconds. There is no edema at this time on bilateral lower extremities, discoloration is much improved. General: No pedal edema Psych Speech and movement: Normal speech and movement present Affect: normal affect Attitude: cooperative Thought process: Normal thought process present Thought content: Normal thought content present Insight: Good insight present (Psych) Judgement: Good judgement present (Psych) Assessment & Plan Assessment & Plan (1) Diabetic polyneuropathy: Code(s): E11.42 - Type 2 diabetes mellitus with diabetic polyneuropathy Category: Medical (2) Venous insufficiency of both lower extremities: Code(s): I87.2 - Venous insufficiency (chronic) (peripheral) Category: Medical (3) Chronic pain syndrome: Code(s): G89.4 - Chronic pain syndrome Category: Medical Plan Status post trial of Nevro SCS. Results of the trial see as above. The patient will be referred to neurosurgeon because during the trial he dislodged 1 of the leads. The leads implantation could be difficult to maintain in proper positioned because of his body mass index and high epidural pressure. I will schedule this patient for appointment with Dr. Porter office. After his surgery with Dr. Tenorio I will see him as needed. Orders: Referrals Neurosurgery Referral E11.42 - Type 2 diabetes mellitus with diabetic polyneuropathy, G89.4 - Chronic pain syndrome Coding Level of Care Code Est Pt Level 3 (03049) Diagnoses Diabetic polyneuropathy E11.42 Venous insufficiency of both lower extremities I87.2 Chronic pain syndrome G89.4
[2025-02-04 14:09] VITALS: BP 186/83; PULSE 72; RESP 16; O2SAT 94; BMI 47.1
--- OUTSIDE RECORDS SUMMARY | 2025-02-04 19:30 | XMS_ITS | Clinical Summary ---
Author Organization [facility] Address [address] [place] [address] Care Team Providers Care Epidemiologist Name Role Phone Brandee-Mojgan Cronin MD Primary [...] age to complete this topic Care Teams Epidemiologist Relationship Specialty Start Date End Date [place]-Mojgan Cronin MD PCP - General Internal Medicine 02/11/19
== END 2025-02-04 14:30 | disposition home or self-care (01) ==
LOC: HO.PMC 14:06
PROVIDERS: PCP Pediatrics; Visit Provider Anesthesiology
DX: E11.42 Type 2 diabetes mellitus with diabetic polyneuropathy (principal); I87.2 Venous insufficiency (chronic) (peripheral); G89.4 Chronic pain syndrome
CPT/HCPCS: 99024

== ENCOUNTER → 2025-02-04 14:05 | Outpatient (BNVA) | payer MEDICARE, SELFPAY | PROVIDERS: PCP Pediatrics; Visit Provider Anesthesiology | DX: E11.42 Type 2 diabetes mellitus with diabetic polyneuropathy (principal); I87.2 Venous insufficiency (chronic) (peripheral); G89.4 Chronic pain syndrome | CPT/HCPCS: 99212 ==

== ENCOUNTER 2025-02-19 13:01 | Outpatient (AMB) | payer MEDICARE, SELFPAY ==
--- OUTSIDE RECORDS SUMMARY | 2025-02-15 08:15 | XMS_ITS | Encounter Summary ---
Author Organization [facility] [address] Address [address] [place] [address] Care Team Providers Care Mannequin Maker Name Role Phone Lalita Moran MD Primary Care Provider [phone] Reason for Visit * Reason Comments Follow-up Diabetic foot Encounter Details Date Type Department Care Team ([facility] Contact Info) Description 02/15/2025 8:15 AM EST Office Visit Orthopedic Surgery - [place] [address] [phone] Franklin Velasquez, DPM [address] [phone] Primary osteoarthritis of both feet (Primary Dx); Dermatophytosis of nail; Pain in toe of right foot; Diabetic mononeuropathy simplex ([facility] V24, [facility] V28); Pain in toe of left foot; Type 2 diabetes mellitus with diabetic polyneuropathy, with long-term current use of insulin ([facility] V24, [facility] V28); Type II diabetes mellitus with peripheral circulatory disorder ([facility] V24, [facility] V28) Social History Tobacco Use Types [...] for your loved ones. For example, children's literature professor or elderly care for an older adult? [...] as of this encounter Progress Notes * Franklin Velasquez DPM - 02/15/2025 8:15 AM EST Last PCP visit:Referring MD: Lalita Moran MD 10/13/24 S Patient presents today for evaluation of his feet is a type II diabetic states he has numbness burning tingling to his feet and has a history of bone infection to his right great toe states he was treated with IV antibiotics does note that he has not had any new wound formations in the last 6 months reports nails elongated painful thickened also reports that he is having worsening numbness burning tingling to his feet he states he was referred for nerve spine stimulator states he has had some improvement after those appointments they have been doing some treatments to help with his chronic nerve pain and discomfort does report chronic pain discomfort across both feet ROS: GENERAL: Pt denies nausea, fever, vomiting, chills, or shortness of breath. Pt in NAD. CARDIOLOGY: pt denies chest pain, palpitations LUNGS: pt denies shortness of breath MUSCULOSKELETAL: See HPI, otherwise no joint pain or swelling, back pain, or muscle pain. SKIN: see HPI, otherwise no lesions, rash or itching NEURO: No persistent headache, weakness or numbness The remainder of the review of systems is noncontributory PAST MEDICAL HISTORY: Patient Active Problem List Diagnosis Adjustment disorder with mixed anxiety and depressed mood DM (diabetes mellitus), type 2 with renal complications ([facility], [facility]) Essential hypertension, benign Microalbuminuria H/O non-ST elevation myocardial infarction (NSTEMI) LING (obstructive sleep apnea) Pure hypercholesterolemia Toe ulcer ([facility], [facility] V[facility]) Type 2 diabetes mellitus with diabetic polyneuropathy ([facility], [facility] V[facility]) Morbid obesity with BMI of 45.0-49.9, adult ([facility], [facility] V[facility]) SOCIAL HISTORY: Social History Tobacco Use Smoking status: Never Smokeless tobacco: Never Substance Use Topics Alcohol use: No ACTIVE MEDICATIONS: No outpatient medications have been marked as taking for the 02/15/25 encounter (Office Visit) with Franklin Velasquez DPM. ALLERGIES: No Known Allergies PHYSICAL EXAM: Visit Vitals Smoking Status Never PODIATRIC EXAMINATION: GENERAL: Patient appears well nourished, with NAD. VASCULAR: Dorsalis pedis pulses are 0/4 bilaterally and Posterior tibial pulses are 0/4 bilaterally. Capillary filling time within normal limits the digits. No pallor on elevation or rubor on dependency. Extensive +4 pitting edema varicosities. Denies rest pain or claudication pain. NEUROLOGICAL: Sharp/dull sensation intact, protective sensation intact 10/10 with 5.07 semmes joaquin bilaterally, vibratory sensation with tuning fork intact to the tibial tuberosity. ORTHOPEDIC: Good muscle strength 5/5 of all flexors and extensors. Dorsi flexion of ankle ,10 degrees, plantar flexion WNL. No muscle atrophy. DERMATOLOGICAL:. Toenails: Left Toenail(s) 1-5: Crumbling upon debridement, subungual debris, discoloration, dystrophy, elongation, mycotic appearance, onychomycosis, pain and thickening. Right Toenail(s) 1-5: Crumbling upon debridement, subungual debris, discoloration, dystrophy, elongation, mycotic appearance, onychomycosis, pain and thickening. Annular scaling bilateral feet moccasin distribution Skin thinning texture shiny appearance diffuse hyperpigmentation bilaterally pedal hair decreased BIOMECHANICS: Ankle ROM WNL, STJ ROM wnl, MTJ ROM diffuse crepitation bilateral, 1st MPJ ROM wnl. Hammertoes 2-5 bilateral rigid IMAGING: IMPRESSION: 1. Primary osteoarthritis of both feet 2. Dermatophytosis of nail 3. Pain in toe of right foot 4. Diabetic mononeuropathy simplex ([facility] V24, [facility] V28) 5. Pain in toe of left foot 6. Type 2 diabetes mellitus with diabetic polyneuropathy, with long-term current use of insulin ([facility] V24, [facility] V28) 7. Type II diabetes mellitus with peripheral circulatory disorder ([facility] V24, [facility] V28) PLAN: Pt was seen and examined, history reviewed. Antifungal medications were discussed and reviewed patient states he is not interested in at this time as he has difficulty touching his feet Compression therapy for venous congestive disease recommended Chronic venous congestive disease discussed and reviewed Referral discussed for vascular surgery patient declined Patient does also suffer from morbid obesity does contribute to vascular congestive diseases Discussed considering vascular surgery evaluation Discussed with patient regarding proper glucose control, exercise, and diet. Explained to patient proper shoe gear, and importance of daily foot checks. Chronic arthritis both feet discussed and reviewed Poss benefits of topical medications Voltaren gel orthotics and insole support as well as steroid injections were reviewed as well as plain radiographs patient like to hold off at this time has previous radiographs taken from external report I reviewed neuropathy and why it occurs in diabetics. I educated the patient on proper blood sugar control and the importance of an HgBA1c of less than 7.0%. I reviewed the signs and symptoms of neuropathy with the patient Worsening neuropathy neuritis were discussed and reviewed Agree with Nerve spine stimulator Pt to return for another evaluation in 3 months. Debridement of mycotic toenails 6-10: Verbal informed consent was obtained from the patient. Greater than 6 nails were aseptically debrided in thickness and length with nail nippers Franklin Velasquez DPM documented in this encounter Plan of Treatment Upcoming Encounters Date Type Department Care Team (Late st Contact Info) Description 03/10/2025 10:00 AM EST Office Visit Adult Medicine - [address] [phone] Leola Wells NP [address] [place] [phone] 05/17/2025 9:15 AM EST Office Visit Orthopedic Surgery - [place] [address] [phone] Franklin Velasquez DPM [address] [phone] documented as of this encounter Visit Diagnoses Diagnosis Primary osteoarthritis of both feet- Primary Dermatophytosis of nail Pain in toe of right foot Pain in soft tissues of limb Diabetic mononeuropathy simplex ([facility] V24, [facility] V28) Type II or unspecified type diabetes mellitus with neurological manifestations, not stated as uncontrolled Pain in toe of left foot Pain in soft tissues of limb Type 2 diabetes mellitus with diabetic polyneuropathy, with long-term current use of insulin ([facility] V24, [facility] V28) Type II diabetes mellitus with peripheral circulatory disorder ([facility] V24, [facility] V28) Type II or unspecified type diabetes mellitus with peripheral circulatory disorders, not stated as uncontrolled documented in this encounter Additional Health Concerns Assessment Noted Time PHQ-9 Depression Total Score: 0 07/30/19 25 1:01 PM EDT documented as of this encounter Care Teams Mannequin Maker Relationship Specialty Start Date End Date Lalita Moran MD [address] [place] [id number] PCP - General Internal Medicine 07/14/20 documented as of this encounter
--- NOTE | 2025-02-19 13:11 | A.SPINEOV_ITS ---
Intake Visit Reasons: placement of SCS Intake Note: Mr. Siu is here today to discuss placement of Spinal Cord Stimulator. Telephone Advice Nurse Required: No Allergies No Known Allergies Allergy (Verified 02/19/25 13:14) Assessment & Plan Assessment & Plan (1) Lumbar degenerative disc disease: Code(s): M51.369 - Other intervertebral disc degeneration, lumbar region without mention of lumbar back pain or lower extremity pain Category: Medical Plan Dear Dr Villasenor , Thank you for referring Mr Dorado to our office today. he is a 69-year-old gentleman, diabetic, poorly controlled, history of hypertension also poorly controlled, history of CAD with stent, morbid obesity sleep apnea, history of previous lumbar fusion done with Dr. Castillo at [facility] about 15 years ago, presents with 1 year progressive pain and burning in his feet bilaterally at nighttime, as well as pain with standing and walking with cramping sensation that goes down his legs. there was also a component of back pain, however it is not a main feature of his story. He was diagnosed at some point with peripheral neuropathy and/or polyneuropathy, both are listed in his chart. It is not clear if this diagnosis was made on EMG or not, I was unable to find any neurology records in the [employer] system or are [employer] system here. the patient takes gabapentin to help with the discomfort. He ultimately underwent a trial of aNevro spinal cord stimulator and did have decent success, but 1 of the leads popped out and according to the note, it was concerning that he may have had increased epidural pressure and you would like the device placed through an open exposure laminotomy. Patient was referred to Dr. Portre for this. PMH: He is a complicated medical history, he has a history of CAD with 2 stents placed about 8 years ago at [facility]. He is followed by Dr. Real and has been stable. He has a history of diabetes, insulin dependent, more recently his A1c has been improving, with the last number at 7.9 but had been significantly elevated above that. Some of the new medications he has been trying seem to be helping. History of hypertension, has been well controlled until recently where it has been up into the 180s. They are adjusting his lisinopril and other medications to try to make this more normal. History of sleep apnea. He does not use his CPAP because it makes his jaw or teeth have issues. History of microalbuminuria. History of appendectomy, cholecystectomy, carpal tunnel release, back surgery, shoulder surgery. Denies any history of MRSA but he did have an infection in his right great toe that resolved with antibiotics, that was last year. He is followed by distribution field technician regularly to have his toenails cut. Social hx: He does not smoke, drink use any recreational drugs Medications: please see the [employer] list which is updated Allergies: none Physical exam: patient is morbidly obese, BMI of 47, able to stand up ambulate independently around the examining room, he has a large well-healed incision in his lower lumbar region. He has abdominal incisions around his umbilicus and on the right lower quadrant. Appears to have some kind of hernia on the left side of his abdomen. It is not painful. Does not seem to worsen with the cough. Lower extremity strength is full, reflexes are absent. Imaging review: No imaging to review Impression: 69-year-old gentleman with complicated medical history including poorly-controlled diabetes, poorly controlled hypertension, CAD with history of 2 stents, obstructive sleep apnea, morbid obesity, history of previous lumbar fusion diagnosed with peripheral neuropathy or polyneuropathy, was referred for spinal cord stimulator. a trial was performed and the patient had a good response, but during the process of the trial 1 of the leads spontaneously pulled out. Your note suggests this was due to possible increased epidural pressure So as recommended he consider having it done under an open laminotomy in the thoracic spine. I reviewed the case with Dr. Porter. The patient's symptoms are not necessarily classic of polyneuropathy or peripheral neuropathy. He does have a component of burning in his feet, however he does also have pain going down his legs with standing and walking and reduced endurance with mobilizing. This can be due to lumbar stenosis. Because of his history of lumbar fusion, adjacent segment disease has to be considered as a 1st possible diagnosis in the setting of previous lumbar fusion, so the 1st thing we will need as a lumbar MRI with and without gadolinium to rule this out. Secondly, we need a set of x-rays to evaluate if there is any segmental instability. If these things were excluded, we can see him back and discuss the possibility of the laminotomy, however he does post some medical risk given his metabolic history and cardiovascular history. Also his weight is an issue and that Dr. Porter is concerned that if the lead popped out during the trial, it might also pop out even while placed under the laminotomy. We will see him back once the imaging is completed and we can reassess. Thank you for allowing us to care for your patient. The total time spent with this visit with this patient was 45 minutes reviewing history, physical exam, Ordering imagingand implementation of treatment plan or further diagnostic testing Dalton Porter MD,PhD [facility] Orders: Orders XR lumbar spine 4V min Today M51.369 - Other intervertebral disc degeneration, lumbar region without mention of lumbar back pain or lower extremity pain MR lumbar spine wo/w con Today M51.369 - Other intervertebral disc degeneration, lumbar region without mention of lumbar back pain or lower extremity pain Coding Level of Care Code New Pt Level 4 (21545) Diagnoses Lumbar degenerative disc disease M51.369
--- OUTSIDE RECORDS SUMMARY | 2025-02-19 16:59 | XMS_ITS | Clinical Summary ---
Author Organization [facility] [address] [facility] Address [address] [place] [address] Phone Care Team Providers Care Dry Kiln Operator Helper Name Role Phone Lalita Moran MD Primary Care Provider [phone] Allergies No known active allergies Medications aspirin 81 mg EC tablet Take 81 mg by mouth daily. Active blood-glucose meter kit Use to check BS daily 023 Active blood-glucose meter,continuou s (Dexcom G6 Training And Development Director) misc USE DIRECTED DAILY 024 Active Dexcom G6 Transmitter device CHANGE TRANSMITTER EVERY 3 MONTHS 1 each 3 025 Active cyclobenzaprine (FLEXERIL) 10 mg tablet [...] USE 3 TIMES DAILY 300 each 3 025 Active FreeStyle Test test strip Use as instructedUSE TO CHECK BLOOD SUGARS UP TO 3 TIMES PER DAY 300 each 3 025 Active glucagon (Gvoke HypoPen 2-Pack) 1 mg/0.2 mL auto-injector Inject 1 mg under the skin as directed. Inject 1 Dose into the skin as needed for Other (hypoglycemia). 1 each 3 025 Active insulin lispro (HumaLOG KwikPen Insulin) 100 unit/mL injection penIndications: Type 2 diabetes mellitus with diabetic polyneuropathy, with long-term current use of insulin ([facility] V24, [facility] V28) INJECT SUBCUTANEOUSLY 3 TIMES DAILY WITH MEALS PER SLIDING SCALE 100-149 =10U, 150-199= 12U, 200-249= 14U, 250-299= 16U, 300-349=18U, 350-399= 20U, plus 2 units at dinner 45 mL 3 Active metFORMIN XR (GLUCOPHAGE-XR) 500 mg 24 hr tablet Do not crush, chew, or split.TAKE 2 TABLETS BY MOUTH TWICE DAILY WITH MEALS (DO NOT CRUSH, CHEW, OR SPLIT) 400 tablet 3 Active pen needle, diabetic (BD Ultra-Fine Short Pen Needle) 31 gauge x 5/16 needle Inject 3 each as directed 3 (three) times a day. 300 each 3 Active tirzepatide (Mounjaro) 7.5 mg/0.5 mL injectionIndica tions:Type 2 diabetes mellitus with diabetic polyneuropathy, with long-term current use of insulin ([facility] V24, [facility] V28) Inject 0.5 mL (7.5 mg total) under the skin every 7 (seven) days. 2 mL 5 Active blood-glucose sensor (Dexcom G6 Sensor)Indicati ons:Type 2 diabetes mellitus with diabetic microalbuminuri a, with long-term current use of insulin ([facility] V24, [facility] V28) PLACE NEW SENSOR IN THE SKIN EVERY 10 DAYS 12 each 2 Active metoprolol tartrate (LOPRESSOR) 25 mg tablet TAKE 1 TABLET BY MOUTH TWICE DAILY 200 tablet Active insulin glargine U-300 conc (Toujeo Max U-300 SoloStar) 300 unit/mL (3 mL) CONCENTRATED injection pen 110 units SC at bedtime 45 mL 3 Active enalapril (Vasotec) 20 mg tabletIndicatio ns:Essential hypertension, benign Take 1 tablet (20 mg total) by mouth 1 (one) time each day. 30 each 025 Active metoprolol tartrate (LOPRESSOR) 25 mg tablet TAKE 1 TABLET BY MOUTH TWICE DAILY 200 tablet 2 2024 Discontinued Dexcom G6 Sensor deviceIndicatio ns:Type 2 diabetes mellitus with diabetic microalbuminuri a, with long-term current use of insulin ([facility] V24, [facility] V28) PLACE NEW SENSOR IN THE SKIN EVERY 10 DAYS 12 each 2 025 2024 Discontinued insulin glargine U-300 conc (Toujeo Max U-300 SoloStar) 300 unit/mL (3 mL) CONCENTRATED injection pen 120 units SC at bedtime 45 mL 3 025 2024 Discontinued(R eorder) lisinopriL (PRINIVIL,ZESTR IL) 10 mg tablet Take 1 tablet (10 mg total) by mouth 1 (one) time each day. 30 each 11 025 2024 Discontinued(F ormulary change) lisinopriL (PRINIVIL,ZESTR IL) 30 mg tablet Take 1 tablet (30 mg total) by mouth 1 (one) time each day. 30 each 11 025 2024 Discontinued lisinopriL (PRINIVIL,ZESTR IL) 30 mg tablet Take 1 tablet (30 mg total) by mouth 1 (one) time each day. 2024 Discontinued lisinopriL (PRINIVIL,ZESTR IL) 10 mg tablet Take 1 tablet (10 mg total) by mouth 1 (one) time each day. 30 each 2024 Discontinued Active Problems Problem Noted Date Diagnosed Date Morbid obesity with BMI of 4 5.0-49.9, adult ([facility] V24, [facility] V28) 12/16/2023 Toe ulcer ([facility] V24, [facility] V28) 12/17/2020 Overview (12/16/2023): Left 2nd toe. Hosp 12/06 LING (obstructive sleep apnea) 10/14/2018 H/O non-ST elevation myocardial infarction (NSTE LA) 11/26/2017 Overview (12/16/2023): [facility] cardiology Type 2 diabetes mellitus wit h diabetic polyneuropathy ([facility] V24, [facility] V28) 10/26/2015 Assessment & Plan (10/13/2024 4:07 PM EDT): Adjustment disorder with mixed anxiety and depre ssed mood 04/15/2013 Microalbuminuria 05/18/2010 DM (diabetes mellitus), type 2 with renal complications ([facility] V24, [facility] V28) 05/07/2006 Overview (12/16/2023): Last Assessment & Plan: Lantus adjusted per Lantus protocol. Referral to [facility] and Dr. Magallanes, assistant kitchen manager. Essential hypertension, benign 05/07/2006 Pure hypercholesterolemia 05/07/2006 Overview (12/16/2023): Last Assessment & Plan: Educated on low fat diet & exercise. Encouraged simvastatin compliance and repeat LDL. Encounters Date Type Department Care Team Description 02/15/2025 8:15 AM EST Office Visit Orthopedic Surgery - [address] [phone] Franklin Velasquez DPM Primary osteoarthritis of both feet (Primary Dx); Dermatophytosis of nail; Pain in toe of right foot; Diabetic mononeuropathy simplex ([facility] V24, [facility] V28); Pain in toe of left foot; Type 2 diabetes mellitus with diabetic polyneuropathy, with long-term current use of insulin ([facility] V24, [facility] V28); Type II diabetes mellitus with peripheral circulatory disorder ([facility] V24, [facility] V28) 02/10/2025 9:00 AM EST Office Visit Adult Medicine - [address] [phone] Roberto Yoon PA Essential hypertension, benign (Primary Dx) 02/09/2025 Telephone Adult Medicine - [address] [phone] Lalita Moran MD 02/08/2025 Telephone Endocrinology [address] [phone] Earline Rushing PA 02/04/2025 9:30 AM EST Office Visit Endocrinology - [address] [phone] Earline Rushing PA Type 2 diabetes mellitus with diabetic polyneuropathy, with long-term current use of insulin (CMS/HCC V24, CMS/HCC V28) (Primary Dx); Essential hypertension, benign; Morbid obesity with BMI of 45.0-49.9, adult (CMS/HCC V24, CMS/HCC V28); Pure hypercholesterolemia 01/28/2025 11:25 AM EST Lab Draw Station - [address] Type 2 diabetes mellitus with diabetic polyneuropathy, with long-term current use of insulin (CMS/HCC V24, CMS/HCC V28) 01/27/2025 7:55 AM EST Lab Draw Station - [address] Type 2 diabetes mellitus with diabetic polyneuropathy, with long-term current use of insulin (CMS/HCC V24, CMS/HCC V28) 01/27/2025 Results Follow-Up Adult Medicine [address] [phone] Lalita Moran MD 01/14/2025 Telephone Adult Medicine [address] [phone] Lalita Moran MD 01/13/2025 9:00 AM EDT Office Visit Adult [address] [phone] Leola Wells NP Essential hypertension, benign (Primary Dx); Type 2 diabetes mellitus with diabetic polyneuropathy, with long-term current use of insulin (CMS/HCC V24, CMS/HCC V28); Neuropathy; Pure hypercholesterolemia; Morbid obesity with BMI of 45.0-49.9, adult (CMS/HCC V24, CMS/HCC V28); Vertigo; Ulcer of toe of right foot, unspecified ulcer stage (CMS/HCC V24, CMS/HCC V28) 12/15/2024 Results Follow-Up Endocrinology - [address] [phone] Earline Rushing PA 12/03/2024 2:00 PM EDT Office Visit Endocrinology - [place] [address] [place] [address] Earline Rushing PA Type 2 diabetes mellitus with diabetic polyneuropathy, with long-term current use of insulin ([facility] V24, [facility] V28) (Primary Dx); Essential hypertension, benign; Morbid obesity with BMI of 45.0-49.9, adult ([facility] V24, [facility] V28); Pure hypercholesterolemia from Last 3 Months Immunizations Immunization Administration [...] repeat in ten years ESOPHAGOGASTRODUODENOSCOPY 01/30/10 PROCEDURE: ND ESOPHAGOGASTRODUODENOSCOPY TRANSORAL DIAGNOSTIC; COMMENT: normal BACK SURGERY [...] for your loved ones. For example, child psychometrist or elderly care for an older adult? [...] Sign Reading Time Taken Comments Blood Pressure 179/81 02/10/2025 9:04 AM EST Pulse 66 02/10/2025 9:04 AM EST Temperature 36.1 C (97 F) 02/10/2025 9:04 AM EST Respiratory Rate 16 01/13/2025 8:46 AM EDT Oxygen Saturation 96% 08/07/2023 1:0 8 PM EDT at rest, room air Inhaled Oxygen Concentration - - Weight 159 kg (350 lb) 02/10/2025 9:04 AM EST Height 182.9 cm (6') 02/10/2025 9:04 AM EST Body Mass Index 47.47 02/10/2025 9:04 AM EST Plan of Treatment Upcoming Encounters Date Type Department Care Team (Late st Contact Info) Description 03/10/2025 10:00 AM EST Office Visit Adult Medicine - [address] [phone] Leola Wells NP [address] [place] [address] 05/17/2025 9:15 AM EST Office Visit Orthopedic Surgery - [place] [address] [phone] Franklin Velasquez, DPM [address] [phone] Health Maintenance Due Date Last Done Comments RSV Immunization Adult Patients (1 - Risk 50-74 years 1-dose series) 08/28/2007 COVID-19 Vaccine ( season) 2024 01/11/2023, 01/12/2021, 06/28/2020, Additional history exists Diabetes: Annual Foot Exam 01/20/2025 01/21/2024, Diabetes: Blood Sugar Control Test (HGBA1C) 07/27/2025 01/27/2025, 12/11/2024, 07/30/2024, Additional history exists Diabetes: Annual Retina Eye Exam 09/28/2025 09/28/2024 Social Influencers of Health Screening 10/06/2025 10/06/2024 Medicare Annual Wellness Visit 10/13/2025 10/13/2024 Diabetes: Annual GFR (Glomerular Filtration Rate) 01/27/2026 01/27/2025, 07/30/2024, 02/03/2024, Additional history exists Hypertension/CHF/CAD Annual BMP Blood Test 01/27/2026 01/27/2025, 07/30/2024, 02/03/2024, Additional history exists Diabetes: Annual Urine Albumin-Creatinine Ratio (uACR) 01/28/2026 01/28/2025, 08/05/2024, 08/07/2022 Falls Risk Assessment 02/10/2026 02/10/2025 Colorectal Cancer Screening: Colonoscopy 04/27/2029 04/27/2019 Cholesterol Screening (Lipid Panel) 01/27/2030 01/27/2025, 07/30/2024, 02/03/2024, Additional history exists DTaP,Tdap,and Td Vaccines (3 - Td or Tdap) 01/28/2033 01/28/2023, 11/10/2012 Hepatitis C Screening Completed 04/23/2013 Zoster Vaccines Completed 05/15/2021, 01/06/2021 Pneumococcal Vaccine: 50+ Years Completed 01/28/2023, 06/17/2006 Influenza Vaccine Completed 01/13/2025, , 11/23/2022, Additional history exists Depression Screening Completed 02/09/2025, 01/29/20 HIB Vaccines Aged Out No longer [...] Procedure Name Priority Date/Time Associated Diagnosis Comments EXTERNAL XRAY REPORT 01/29/2025 EXTERNAL XRAY REPORT 01/29/2025 MICROALBUMIN CREATININE URINE RATIO Routine 01/28/2025 11:24 AM EST Type 2 diabetes mellitus with diabetic polyneuropathy, with long-term current use of insulin ([facility] V24, [facility] V28) COMPREHENSIVE METABOLIC PANEL Routine 01/27/2025 8:01 AM EST Type 2 diabetes mellitus with diabetic polyneuropathy, with long-term current use of insulin (CMS/HCC V24, CMS/HCC V28) HEMOGLOBIN A1C Routine 01/27/2025 8:01 AM EST Type 2 diabetes mellitus with diabetic polyneuropathy, with long-term current use of insulin ([facility] V24, [facility] V28) LIPID PANEL WITH REFLEX TO DIRECT LDL Routine 01/27/2025 8:01 AM EST Type 2 diabetes mellitus with diabetic polyneuropathy, with long-term current use of insulin (CMS/HCC V24, CMS/HCC V28) HEMOGLOBIN A1C Routine 12/11/2024 2:39 PM EDT Type 2 diabetes mellitus with diabetic polyneuropathy, with long-term current use of insulin ([facility] V24, [facility] V28) DIABETES FOOT EXAM Routine 07/29/2023 DEPRESSION SCREENING Routine 01/28/2023 COLONOSCOPY Routine 04/27/2019 HEPATITIS C SCREENING Routine 04/23/2013 from Last 3 Months or Most Recently Relevant to Health Maintenance Results * External Xray Report (01/29/2025) Only the most recent of2 resultswithin the time period is included. Anatomical Region Laterality Modality Radiographic Stella ging us Provider [facility] XR PROCEDURES Final Result * (ABNORMAL) Microalbumin creatinine urine ratio (01/28/2025 11:24 AM EST) Creatinine, Urine 58.0 mg/dL LAB CHEMISTRY METHOD 01/28/2025 6:10 PM EST [facility] Microalb, Ur 2,490.0(H ) 0.0 - 29.0 mg/L LAB CHEMISTRY METHOD 01/28/2025 6:10 PM EST [facility] Microalb/Crea t Ratio 4,293(H) <30 mg/g creat LAB CHEMISTRY METHOD 01/28/2025 6:10 PM [facility] Urine Urine specimen obtained by clean catch procedure / Unknown Non-blood Collection / Unknown 01/28/2025 11:24 AM EST 01/28/2025 11:24 AM EST [facility] LAB URINE ORDERABLES Final Res ult [facility] [address] [place] [address], [place] [phone] * (ABNORMAL) Lipid panel with reflex to direct LDL (01/27/2025 8:01 AM EST) Cholesterol 154 0 - 200 mg/dL LAB CHEMISTRY METHOD 01/27/2025 10:50 AM EST [facility] Triglycerides 167(H) 0 - 150 mg/dL LAB CHEMISTRY METHOD 01/27/2025 10:50 AM EST [facility] HDL 52 >=40 mg/dL LAB CHEMISTRY METHOD 01/27/2025 10:50 AM EST [facility] LDL Calculated 69 0 - 100 mg/dL LAB CHEMISTRY METHOD 01/27/2025 10:50 AM EST [facility] Comment:Estimated LDL Calcul ated using equation: Total cholesterol - HDL cholesterol - (Triglycerides/5) VLDL Cholesterol Ferny 33.4 mg/dL LAB CHEMISTRY METHOD 01/27/2025 10:50 AM EST [facility] Non HDL Chol. (LDL+VLDL) 102 <145 mg/dL LAB CHEMISTRY METHOD 01/27/2025 10:50 AM [facility] Chol/HDL Ratio 3.0 0.0 - 4.4 LAB CHEMISTRY METHOD 01/27/2025 10:50 AM [facility] Blood Venous blood specimen / Unknown Venipuncture / Unknown 01/27/2025 8:01 AM EST 01/27/2025 8:01 AM EST us Lalita Moran MD LAB BLOOD ORDERABLES Final Res ult Performing Organization Address [facility]/ZIP Co de Phone Number [facility] [address] [place] [address], [place] [phone] * (ABNORMAL) Hemoglobin A1c (01/27/2025 8:01 AM EST) Only the most recent of2 resultswithin the time period is included. Hemoglobin A1C 7.5(H) <6.5 % LAB CHEMISTRY METHOD 01/27/2025 1:34 PM [facility] Mean Bld Glu Estim. 169 mg/dL LAB CHEMISTRY METHOD 01/27/2025 1:34 PM [facility] Blood Venous blood specimen / Unknown Venipuncture / Unknown 01/27/2025 8:01 AM EST 01/27/2025 8:01 AM EST us Lalita Moran MD LAB BLOOD ORDERABLES Final Res ult [facility] [address] [place] [address], [place] [phone] * (ABNORMAL) Comprehensive metabolic panel (01/27/2025 8:01 AM EST) Sodium 139 133 - 145 mmol/L LAB CHEMISTRY METHOD 01/27/2025 10:50 AM [facility] Potassium 4.1 3.5 - 5.5 mmol/L LAB CHEMISTRY METHOD 01/27/2025 10:50 AM [facility] Chloride 105 96 - 110 mmol/L LAB CHEMISTRY METHOD 01/27/2025 10:50 AM [facility] CO2 28 21 - 32 mmol/L LAB CHEMISTRY METHOD 01/27/2025 10:50 AM [facility] Anion Gap 6 3 - 11 LAB CHEMISTRY METHOD 01/27/2025 10:50 AM [facility] Glucose 60(L) 70 - 100 mg/dL LAB CHEMISTRY METHOD 01/27/2025 10:50 AM [facility] BUN 18 5 - 25 mg/dL LAB CHEMISTRY METHOD 01/27/2025 10:50 AM [facility] Creatinine 0.89 0.70 - 1.30 mg/dL LAB CHEMISTRY METHOD 01/27/2025 10:50 AM [facility] eGFR 94 >=60 mL/min/1. 73m2 LAB CHEMISTRY METHOD 01/27/2025 10:50 AM [facility] Comment:Calculation based on the Chronic Kidney Disease Epidemiology Collaboration (CKD-EPI) equation refit without adjustment for race. BUN/Creatinine Ratio 20.2 LAB CHEMISTRY METHOD 01/27/2025 10:50 AM [facility] Calcium 9.2 8.5 - 10.5 mg/dL LAB CHEMISTRY METHOD 01/27/2025 10:50 AM [facility] AST (SGOT) 19 10 - 42 unit/L LAB CHEMISTRY METHOD 01/27/2025 10:50 AM [facility] ALT (SGPT) 29 10 - 60 unit/L LAB CHEMISTRY METHOD 01/27/2025 10:50 AM [facility] Alkaline Phosphatase 63 42 - 121 unit/L LAB CHEMISTRY METHOD 01/27/2025 10:50 AM [facility] Total Protein 6.5 6.0 - 8.0 g/dL LAB CHEMISTRY METHOD 01/27/2025 10:50 AM EST [facility] Albumin 3.4 3.2 - 5.0 g/dL LAB CHEMISTRY METHOD 01/27/2025 10:50 AM EST [facility] Total Bilirubin 0.6 0.0 - 1.4 mg/dL LAB CHEMISTRY METHOD 01/27/2025 10:50 AM EST [facility] Blood Venous blood specimen / Unknown Venipuncture / Unknown 01/27/2025 8:01 AM EST 01/27/2025 8:01 AM EST Lalita Moran MD LAB BLOOD ORDERABLES Final Res ult [facility] [address] [place] [address], [place] [phone] * Diabetes Foot Exam (07/29/2023) Pathologist [facility] Diabetes: Annual Foot Exam abstracted Historical Sara ORNELAS HE[facility] MAINTENANCE Final Result * Depression Screening (01/28/2023) [facility] Depression Screening abstracted [facility] Provider HEALTH MAINTENANCE Final Result * Colonoscopy (04/27/2019) [facility] Colonoscopy no interpreta tion,abstr acted Anatomical Region Laterality Modality Other Historical Provider HEALTH MAINTENANCE Final Result * Hepatitis C Screening (04/23/2013) [facility] Hepatitis C Screening abstracted Historical aSra RONELAS [facility] MAINTENANCE Final Result from Last 3 Months or Most Recently Relevant to Health Maintenance Insurance [employer] MEDICARE Care Teams Dry Kiln Operator Helper Relationship Specialty Start Date End Date Lalita Moran MD [address] [place] [id number] PCP - General Internal Medicine 07/14/20
--- OUTSIDE RECORDS SUMMARY | 2025-02-19 16:59 | XMS_ITS | Clinical Summary ---
Author Organization [facility] [employer] Prior to 08/15/24 Address [address] [place] [address] Care Team Providers Care Big Data Engineer Name Role Phone Brandee-Mojgan Cronin MD Primary [...] age to complete this topic Care Teams Big Data Engineer Relationship Specialty Start Date End Date [place]-Mojgan Cronin MD PCP - General Internal Medicine 02/11/19
--- OUTSIDE RECORDS SUMMARY | 2025-02-19 16:59 | XMS_ITS | Encounter Summary ---
Author Organization [facility] Address [address] [place] [address] Care Team Providers Care Rehab Department Manager Name Role Phone Lalita Moran MD Primary Care Provider [phone] Encounter Details Date Type Department Care Team (Late st Contact Info) Description 01/27/2025 Results Follow-Up Adult Medicine [facility] [address] [place] [phone] Lalita Moran MD [address] [place], [place] Social History Tobacco Use Types Packs/Day Years [...] your loved ones. For example, early childhood associate or elderly care for an older adult? [...] on file documented as of this encounter Plan of Treatment Upcoming Encounters Date Type Department Care Team (Late st Contact Info) Description 03/10/2025 10:00 AM EST Office Visit Adult Medicine - [place] [address] [place] [address] Leola Wells NP [address] [place] [address] 05/17/2025 9:15 AM EST Office Visit Orthopedic Surgery - [place] [address] [phone] Franklin Velasquez, DPM [address] [phone] documented as of this encounter Visit Diagnoses Not on filedocumented in this encounter Additional Health Concerns Assessment Noted Time PHQ-9 Depression Total Score: 0 07/30/19 25 1:01 PM EDT documented as of this encounter Care Teams Rehab Department Manager Relationship Specialty Start Date End Date Lalita Moran MD [address] [place] [phone] PCP - General Internal Medicine 07/14/20 documented as of this encounter
--- OUTSIDE RECORDS SUMMARY | 2025-02-19 16:59 | XMS_ITS | Encounter Summary ---
Author Organization [facility] Address [address] [place] [address] Care Team Providers Care Client Success Specialist Name Role Phone Lalita Moran MD Primary Care Provider [phone] Reason for Referral * Medications - Closed Specialty Diagnoses / Procedures Referred By Lissy ortiz Referred To Contact Diagnoses Type 2 diabetes mellitus with diabetic polyneuropathy, with long-term current use of insulin (CMS/HCC V24, CMS/HCC V28) Earline Rushing PA [address] [place] [address] Phone: tel: fax: Referral ID Status Reason Start Date Expiration Date Visits Re quested Visits Authorized [id number] Closed 1 1 Encounter Details Date Type Department Care Team (Late st Contact Info) Description 12/15/2024 Results Follow-Up Endocrinology - [address] [phone] Earline Rushing PA [address] [place] [address] Social History Tobacco Use Types Packs/Day Years [...] your loved ones. For example, child care center assistant director or elderly care for an older [...] polyneuropathy, with long-term current use of insulin ([facility] V24, [facility] V28) Inject 0.5 mL (7.5 mg total) under the skin every 7 (seven) days. 2 mL 5 12/15/2024 documented in this encounter Plan of Treatment Upcoming Encounters Date Type Department Care Team (Late st Contact Info) Description 03/10/2025 10:00 AM EST Office Visit Adult Medicine - [place] [address] [place] [address] Leola Wells NP [address] [place] [address] 05/17/2025 9:15 AM EST Office Visit Orthopedic Surgery - [place] [address] [phone] Franklin Velasquez DPM [address] [phone] documented as of this encounter Visit Diagnoses Diagnosis Type 2 diabetes mellitus with diabetic polyneuropathy, with long-term current use of insulin ([facility] V24, [facility] V28)- Primary documented in this encounter Discontinued Medications Medication Sig Discontinue Reason Start Date End Da te tirzepatide (Mounjaro) 5 mg/0.5 mL injectionIndications:Typ e 2 diabetes mellitus with diabetic polyneuropathy, with long-term current use of insulin ([facility] V24, CMS/[facility] V28) Inject 0.5 mL (5 mg total) under the skin every 7 (seven) days. Side effects 12/03/2024 12/15/2024 documented as of this encounter Additional Health Concerns Assessment Noted Time PHQ-9 Depression Total Score: 0 07/30/19 25 1:01 PM EDT documented as of this encounter Care Teams Client Success Specialist Relationship Specialty Start Date End Date Lalita Moran MD [address] [place] [address] PCP - General Internal Medicine 07/14/20 documented as of this encounter
== END 2025-02-19 13:42 | disposition home or self-care (01) ==
LOC: HO.HNS 13:02
PROVIDERS: PCP Pediatrics; Referring Provider Anesthesiology; Visit Provider Physician Assistant
DX: M51.369 Other intervertebral disc degeneration, lumbar region without mention of lumbar back pain or lower extremity pain (principal)
CPT/HCPCS: 99204

== ENCOUNTER 2025-02-19 13:01 | Outpatient (REF) | payer MEDICARE, SELFPAY ==
--- NOTE | ~2025-02-19 | XR_ITS ---
Examination: CR Xr Lumbar Spine 4v Min Indication: M51.369 - Other intervertebral disc degeneration, lumbar region Prior: None TECHNIQUE: AP, and lateral: Flexion, neutral, and extension view x-rays of the lumbar spine. Findings: There are clips in right upper quadrant related to cholecystectomy. There are 5 nonrib-bearing lumbar segments. There are posterior pedicle screws and rods at L5-S1 and interbody cage. There is no sign of instability during flexion and extension. T12-L1: There is mild disc space narrowing with anterior endplate osteophytes. L1-L2: There is mild disc space narrowing, mild endplate sclerosis, and ossification of the anterior disc annulus. L2-L3: There is mild disc space narrowing and subtle retrolisthesis without instability. L3-L4: There is subtle disc space narrowing. L4-L5: There is mild to moderate disc space narrowing. L5-S1: There is grade 2 anterolisthesis. XR/XR lumbar spine 4V min IMPRESSION: No evidence of instability during flexion and extension. PLIF L5-S1 with interbody cage and grade 2 anterolisthesis. Mild degenerative disc disease is present throughout the lumbar spine. Electronically signed by: Toño Gallegos MD 02/19/2025 01:57 PM EST
== END 2025-02-19 13:02 | disposition home or self-care (01) ==
LOC: HO.HOSX 13:01
PROVIDERS: PCP Pediatrics; Referring Provider Anesthesiology; Visit Provider Physician Assistant
DX: M51.369 Other intervertebral disc degeneration, lumbar region without mention of lumbar back pain or lower extremity pain (principal)
CPT/HCPCS: 72110; 99202

== ENCOUNTER → 2025-02-19 13:38 | Outpatient (BNV) | payer MEDICARE, SELFPAY | PROVIDERS: PCP Pediatrics; Referring Provider Anesthesiology; Visit Provider Radiology Diagnostic Radiology | DX: M51.369 Other intervertebral disc degeneration, lumbar region without mention of lumbar back pain or lower extremity pain (principal); M47.816 Spondylosis without myelopathy or radiculopathy, lumbar region | CPT/HCPCS: 72110 ==

== ENCOUNTER 2025-03-06 10:51 | Emergency (ER) | payer MEDICARE, SELFPAY ==
--- NOTE | ~2025-03-06 | XR_ITS ---
CLINICAL HISTORY: lt great toe ? injury Three views of the left first toe. COMPARISON: None provided. FINDINGS: Soft tissue edema overlying the left forefoot. Bones of the first toe appear intact. Visualized adjacent bones appear intact. Small osteophytes overlying the midfoot. Old healed fracture of the 5th metatarsal. IMPRESSION: 1. Soft tissue edema overlying the left forefoot. Underlying bones appear intact. No radiopaque foreign body. This document has been electronically signed by: Demond Ballard MD on 03/06/2025 12:51:13
[2025-03-06 10:57] VITALS: BP 188/82; PULSE 67; RESP 18; TEMP 36.3; O2SAT 94; BMI 47.0
--- NOTE | 2025-03-06 12:18 | ED.GENADULT ---
HPI - General Adult General Chief complaint: General Medical Stated complaint: left big toe pain Time Seen by Provider: 03/06/25 12:18 Source: patient Mode of arrival: ambulatory Limitations: no limitations History of Present Illness ED Provider: Shannon Pitts PA-C HPI narrative: Patient is a 69 year old male with a history of restless leg syndrome, chronic pain syndrome, HTN, CAD, vertigo, depression, RI, and diabetes presenting to the emergency department today with left great toe injury. Patient states that he woke up this morning with a left great toe dark area and redness. Patient states that he does not remember doing anything to it but he does have restless leg and moves a lot when attempting to sleep. Patient states it is somewhat sore. 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 Patient denies any other complaints at this time. Related Data Home Medications ?Medication ?Instructions ?Recorded ?Confirmed aspirin 81 mg tablet,delayed 81 mg PO DAILY 11/28/23 01/27/25 release insulin glargine U-300 conc 300 120 unit subcut BEDTIME 11/28/23 01/27/25 unit/mL (3 mL) subcutaneous pen (Toujeo Max U-300 SoloStar) insulin lispro 100 unit/mL See Protocol subcut TIDAC 11/28/23 01/27/25 subcutaneous pen (Humalog KwikPen (U-100) Insulin) lisinopril 30 mg tablet 30 mg PO DAILY 11/28/23 01/27/25 metformin 500 mg tablet,extended 1,000 mg PO BID 11/28/23 01/27/25 release 24 hr metoprolol tartrate 25 mg tablet 25 mg PO BID 11/28/23 01/27/25 rosuvastatin 10 mg tablet 10 mg PO DAILY 11/28/23 01/27/25 tirzepatide 2.5 mg/0.5 mL 2.5 mg subcut QWEEK 12/02/24 01/27/25 subcutaneous pen injector (Pedro) lisinopril 10 mg tablet 10 mg PO DAILY 01/27/25 01/27/25 Previous Rx's ?Medication ?Instructions ?Recorded gabapentin 600 mg tablet 600 mg PO TID 30 days #90 tabs 09/30/24 cephalexin 500 mg capsule 1,000 mg (2 x 500 mg) PO Q8H 10 11/17/25 days #60 caps cephalexin 500 mg capsule 500 mg PO Q6H 7 days #28 caps 03/06/25 doxycycline hyclate 100 mg tablet 100 mg PO BID 7 days #14 tabs 03/06/25 Allergies Allergy/AdvReac Type Severity Reaction Status Date / Time No Known Allergies Allergy Verified 03/06/25 11:00 Review of Systems Constitutional: Constitutional: Reports as per HPI Eyes: Eyes: Reports as per HPI ENT: Reports as per HPI Cardiovascular: Cardiovascular: Reports as per HPI Respiratory: Respiratory: Reports as per HPI Gastrointestinal: Gastrointestinal: Reports as per HPI Genitourinary: Genitourinary: Reports as per HPI Musculoskeletal: Musculoskeletal: Reports as per HPI Integumentary/Breasts: Skin/Breast: Reports as per HPI Neurologic: Reports as per HPI Psychiatric: Psychiatric: Reports as per HPI Endocrine: Endocrine: Reports as per HPI Hematologic/Lymphatic: Hematologic/Lymphatic: Reports as per HPI Allergic/Immunologic: Allergic/Immunologic: Reports as per HPI [facility] Past Medical History Attestation statement: The following information was validated with the patient. Source: old records reviewed and nursing notes reviewed Medical History Myocardial infarction Morbid obesity Pure hypercholesterolemia Anxiety Depression Vertigo Sleep apnea Peripheral neuropathy HTN (hypertension) CAD (coronary artery disease) Insulin dependent type 2 diabetes mellitus Surgical History History of heart artery stent (~2019) History of back surgery Social History Social History Household Members: Spouse Housing: House Are you a primary managed care manager to a significant other at home: No Do you presently have visiting nurse or other home services: No Patient Tobacco Use Status: Never used Tobacco Advance Directives: No Advance Directives Information Provided: Yes Do you have a plan to hurt others: No Plan service: No Physical Exam ED Vital Signs: Vital Signs - 24 hr 03/06/25 10:57 03/06/25 13:25 Temperature 97.3 F 97.3 F Pulse Rate 67 67 Respiratory Rate 18 18 Blood Pressure 188/82 H 188/82 H Pulse Oximetry 94 94 Oxygen Delivery Method Room Air Room Air BMI result Body Mass Index 47.0 Const General: cooperative, no acute distress, alert and awake Nutritional Appearance: well nourished Orientation/consciousness: patient oriented x3 HENMT Head: Yes normal to inspection and Yes atraumatic Ears: hearing grossly normal bilaterally and external ears normal General nose exam: Normal external nose present, no nasal discharge noted and no epistaxis Face and sinus: Yes normal facial exam, No abrasion and No laceration Mouth: Normal oral and palatal mucosa present, no drooling and no muffled voice Eyes General: appearance normal, both eyes and all related structures Periorbital: periorbital findings normal Eyelids: Yes eyelids normal Conjunctivae: conjunctivae normal Pupils: Equal, round and reactive pupils present EOM: EOMs intact bilaterally Neck Neck: Yes normal visual inspection and Yes full ROM Resp Effort & Inspection: normal respiratory effort and able to speak in complete sentences Neuro General: patient oriented x3, moves all extremities and CN's II-XI intact bilaterally Cranial nerves: Yes Equal, round and reactive pupils present Cognition (Neuro): normal cognition Extrem Other: General: Yes full ROM and Yes capillary refill normal Psych Appearance: grossly normal Mental Status: mental status grossly normal Affect: normal affect Attitude: cooperative Thought process: Normal thought process present Thought content: Normal thought content present Insight: Good insight present (Psych) Medical Decision Making Medical Decision Making MDM Narrative: Patient is a 69 year old male with a history of restless leg syndrome, chronic pain syndrome, HTN, CAD, vertigo, depression, RI, and diabetes presenting to the emergency department today with left great toe injury. Patient's physical exam was as noted in the physical exam portion of this note. Patient appeared to have a blood blister to the tip of the left great toe. I suspect this is from bumping it against something secondary to his restless leg syndrome. Patient does have erythema + warmth below the blood blister area. Patient's left foot x-ray showed no acute catherine process. Patient's clinical presentation is most consistent with a blood blister and possible cellulitis. I explained my physical exam findings as well as all test results to the patient. I answered all questions asked by the patient. I stressed the importance of the patient taking his medication as directed (either prescribed or as the over the counter packaging recommends). I stressed the importance of the patient following up with his primary care provider and the continuous process coffee roaster he follows with on an outpatient basis. I stressed the importance of the patient returning to the emergency department immediately if his symptoms were to worsen or if he were to develop any dizziness, shortness of breath, difficulty breathing, chest pain, blurry vision, loss of vision, nausea, vomiting, abdominal pain, fever, chills, back pain, or any other complaints. Patient verbalized agreement and understanding with this treatment plan and discharge. Differential Diagnosis Differential Diagnoses: The differential diagnosis associated with the presentation includes Cellulitis Blood blister Toe injury Fracture Sprain Strain Admission/Observation Consideration of admission/observation: Escalation of care including admission/observation considered Patient would have been admitted to the hospital had his work up had any findings where hospital admission was appropriate and his clinical presentation warranted hospital admission. Independent Interpretation I performed an independent interpretation of an: Plain X-Ray Interpretation: My interpretation is in agreement with the radiologist's impression of this imaging study as written below. CLINICAL HISTORY: lt great toe ? injury Three views of the left first toe. COMPARISON: None provided. FINDINGS: Soft tissue edema overlying the left forefoot. Bones of the first toe appear intact. Visualized adjacent bones appear intact. Small osteophytes overlying the midfoot. Old healed fracture of the 5th metatarsal. IMPRESSION: 1. Soft tissue edema overlying the left forefoot. Underlying bones appear intact. No radiopaque foreign body. This document has been electronically signed by: Demond Ballard MD on 03/06/2025 12:51:13 Dictated By: Demond Ballard MD Signed By: Electronically signed by Demond Ballard MD 03/06/25 0427 Radiology Impression Discussion of test interpretation with radiology: I have reviewed the radiologist's reading. Prescription Management I considered prescription management with: Antibiotic (patient prescribed antibiotics for possible left great toe cellulitis) Chronic Conditions Patient?s care impacted by: Diabetes Discharge Plan Discharge Clinical Impression: Cellulitis, Blood blister Patient Disposition: Home, Self-Care Instructions: Cellulitis (ED) Additional Instructions: Your left great toe appears to have a blood blister as well as a possible cellulitis / infection. Take your antibiotic as prescribed. Follow up with your continuous process coffee roaster. IF you are prescribed home medications and/or you are taking over the counter medications at home - it is very important you continue to do so as prescribed / directed unless told otherwise by a healthcare provider. Follow up with your primary care provider. Do your best to stay well hydrated and rest. Return to the emergency department immediately if your symptoms worsen or if you develop any numbness, tingling, dizziness, shortness of breath, difficulty breathing, chest pain, blurry vision, loss of vision, nausea, vomiting, abdominal pain, fever, chills, back pain, or any other complaints. Please see the information below about our Patient Portal. If you are not yet enrolled in the [facility] Patient Portal, you will receive an enrollment email invitation following your visit to any [facility] care setting. You may also self-enroll in the Patient Portal by visiting our website: [email or web address] The following information is required to access the Patient Portal: - Your [facility] Medical Record Number - Your personal home email address (must match what is in your electronic medical record, Registration staff can assist with this) - Name - Date of Capabilities of the Patient Portal: - Message some providers - View upcoming appointments - Access your health summary, medical history, and visit history - View current conditions and allergies - View procedure and lab results - View your medications, including guidelines, side effects, and precautions - Complete pre-appointment questionnaires requested by your provider - Ready summary reports of your office visits and procedures To access the Patient Portal Mobile [employer], follow these directions: - Search [employer] in the [employer] Store or [employer] Store - Download the [employer] - Search for [facility] - Enter your login/password Prescriptions: New cephalexin 500 mg capsule 500 mg PO Q6H 7 Days Qty: 28 0RF doxycycline hyclate 100 mg tablet 100 mg PO BID 7 Days Qty: 14 0RF No Action cephalexin 500 mg capsule 1,000 mg PO Q8H 10 Days Qty: 60 1RF Rx Instructions: take OTC probiotics 25 billion cultures or more in between the doses of antibiotics with food. lisinopril 30 mg tablet 30 mg PO DAILY metformin 500 mg tablet extended release 24 hr 1,000 mg PO BID insulin lispro [Humalog KwikPen Insulin] 100 unit/mL insulin pen See Protocol subcut TIDAC Protocol: Insulin Correction Scale Less than or equal to 110 ---- Give (units): 0 111 to 150 Give (units): 0 151 to 200 Give (units): 2 201 to 250 Give (units): 4 251 to 300 Give (units): 6 301 to 350 Give (units): 8 Greater than 350 Give (units): 10 Call MD if Blood Glucose > : 350 rosuvastatin 10 mg tablet 10 mg PO DAILY metoprolol tartrate 25 mg tablet 25 mg PO BID insulin glargine U-300 conc [Toujeo Max U-300 SoloStar] 300 unit/mL (3 mL) insulin pen 120 unit subcut BEDTIME aspirin 81 mg Tablet,Delayed Release (Dr/Ec) 81 mg PO DAILY lisinopril 10 mg tablet 10 mg PO DAILY Patient Comments: patient takes a total of 40 mg daily gabapentin 600 mg tablet 600 mg PO TID 30 Days Qty: 90 8RF Mounjaro 2.5 mg/0.5 mL pen injector 2.5 mg subcut QWEEK Patient Comments: pt takes every Saturday Rx Instructions: for 4 weeks Referrals: Percy Moran MD [Primary Care Provider, Medical] Interventions: ED Discharge Assessment Last Done: 03/06/25 13:25 Discharge Date/Time: 03/06/25 13:26 Print Language: Kinyarwanda
--- OUTSIDE RECORDS SUMMARY | 2025-03-06 12:32 | XMS_ITS | Encounter Summary ---
Author Organization [facility] Address [address] [place] [address] Care Team Providers Care Animal Husbandry Professor Name Role Phone Lalita Moran MD Primary Care Provider [phone] Encounter Details Date Type Department Care Team (Late st Contact Info) Description 01/27/2025 Results Follow-Up Adult Medicine [facility] [address] [place] [phone] Lalita Moran MD [address] [place], [place] Social History Tobacco Use Types Packs/Day [...] care for your loved ones. For example, childhood teacher or elderly care for an older adult? [...] AM EST Office Visit Adult Medicine - [place] [address] [place] [address] Leola Wells NP [address] [place] [address] 05/17/2025 9:15 AM EST Office Visit Orthopedic Surgery - [place] [id number] [phone] Franklin Velasquez, DPM [address] [phone] 05/17/2025 1:40 PM EST Office Visit Endocrinology - [place] [address] [place] [phone] Prabhu Rodriguez MD [address] [place] [address] documented as of this encounter Visit Diagnoses Not on filedocumented in this encounter Additional Health Concerns Assessment Noted Time PHQ-9 Depression Total Score: 0 07/30/19 25 1:01 PM EDT documented as of this encounter Care Teams Animal Husbandry Professor Relationship Specialty Start Date End Date Lalita Moran MD [address] [place] [phone] PCP - General Internal Medicine 07/14/20 documented as of this encounter
--- OUTSIDE RECORDS SUMMARY | 2025-03-06 12:32 | XMS_ITS | Clinical Summary ---
Author Organization [employer] [facility] Prior to 08/15/24 Address [address] [place] [address] Care Team Providers Care Cancer Program Coordinator Name Role Phone Brandee-Mojgan Cronin MD Primary [...] age to complete this topic Care Teams Cancer Program Coordinator Relationship Specialty Start Date End Date Negley-Mojgan Cronin MD PCP - General Internal Medicine 02/11/19
--- OUTSIDE RECORDS SUMMARY | 2025-03-06 12:32 | XMS_ITS | Clinical Summary ---
Author Organization [facility] [address] 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 Active blood-glucose meter kit Use to check BS daily 023 Active blood-glucose meter,continuou s (Dexcom G6 Call Center Team Leader) misc USE DIRECTED DAILY 024 Active cyclobenzaprine (FLEXERIL) 10 mg tablet TAKE [...] as needed for Other (hypoglycemia). 1 each 025 Active insulin lispro (HumaLOG KwikPen Insulin) 100 unit/mL injection penIndications: Type 2 diabetes mellitus with diabetic polyneuropathy, with long-term current use of insulin ([facility] V24, CMS/[facility] V28) INJECT SUBCUTANEOUSLY 3 TIMES DAILY WITH MEALS PER SLIDING SCALE 100-149 =10U, 150-199= 12U, 200-249= 14U, 250-299= 16U, 300-349=18U, 350-399= 20U, plus 2 units at dinner 45 mL 3 025 Active metFORMIN XR (GLUCOPHAGE-XR) 500 mg 24 hr tablet Do not crush, chew, or split.TAKE 2 TABLETS BY MOUTH TWICE DAILY WITH MEALS (DO NOT CRUSH, CHEW, OR SPLIT) 400 tablet 3 Active pen needle, diabetic (BD Ultra-Fine Short Pen Needle) 31 gauge x 5/16 needle Inject 3 each as directed 3 (three) times a day. 300 each 3 025 Active tirzepatide (Mounjaro) 7.5 mg/0.5 mL injectionIndica tions:Type 2 diabetes mellitus with diabetic polyneuropathy, with long-term current use of insulin (CMS/[facility] V24, CMS/[facility] V28) Inject 0.5 mL (7.5 mg total) under the skin every 7 (seven) days. 2 mL 5 Active blood-glucose sensor (Dexcom G6 Sensor)Indicati ons:Type 2 diabetes mellitus with diabetic microalbuminuri a, with long-term current use of insulin (CMS/[facility] V24, CMS/HCC V28) PLACE NEW SENSOR IN THE SKIN EVERY 10 DAYS 12 each 2 025 Active metoprolol tartrate (LOPRESSOR) 25 mg tablet TAKE 1 TABLET BY MOUTH TWICE DAILY 200 tablet Active insulin glargine U-300 conc (Toujeo Max U-300 SoloStar) 300 unit/mL (3 mL) CONCENTRATED injection pen 110 units SC at bedtime 45 mL 3 025 Active enalapril (Vasotec) 20 mg tabletIndicatio ns:Essential hypertension, benign Take 1 tablet (20 mg total) by mouth 2 (two) times a day. 60 each 025 Active Dexcom G6 Transmitter device CHANGE TRANSMITTER EVERY 3 MONTHS 1 each 3 025 Active Dexcom G6 Transmitter device CHANGE TRANSMITTER EVERY 3 MONTHS 1 each 3 025 2024 Discontinued lisinopriL (PRINIVIL,ZESTR IL) 30 mg tablet Take 1 tablet (30 mg total) by mouth 1 (one) time each day. 30 each 11 2024 Discontinued lisinopriL (PRINIVIL,ZESTR IL) 30 mg tablet Take 1 tablet (30 mg total) by mouth 1 (one) time each day. 2024 Discontinued lisinopriL (PRINIVIL,ZESTR IL) 10 mg tablet Take 1 tablet (10 mg total) by mouth 1 (one) time each day. 30 each 2024 Discontinued enalapril (Vasotec) 20 mg tabletIndicatio ns:Essential hypertension, benign Take 1 tablet (20 mg total) by mouth 1 (one) time each day. 30 each 025 2024 Discontinued(R eorder) Active Problems Problem Noted Date Diagnosed Date Morbid obesity with BMI of 45.0-49.9, adult 11/18 Toe ulcer 12/17/2020 Overview (12/16/2023): Left 2nd toe. Hosp 12/06 LING (obstructive sleep apnea) 10/14/2018 H/O non-ST elevation myocardial infarction (NSTE PR) 11/26/2017 Overview (12/16/2023): [facility] cardiology Type 2 diabetes mellitus with diabetic polyneuro adela 10/26/2015 Assessment & Plan (10/13/2024 4:07 PM EDT): Adjustment disorder with mixed anxiety and depre ssed mood 04/15/2013 Microalbuminuria 05/18/2010 DM (diabetes mellitus), type 2 with renal compli cations 05/07/2006 Overview (12/16/2023): Last Assessment & Plan: Lantus adjusted per Lantus protocol. Referral to [facility] Diabetic Education and Dr. Magallanes, assistant front desk manager. Essential hypertension, benign 05/07/2006 Pure hypercholesterolemia 05/07/2006 Overview (12/16/2023): Last Assessment & Plan: Educated on low fat diet & exercise. Encouraged simvastatin compliance and repeat LDL. Encounters Date Type Department Care Team Description 02/15/2025 8:15 AM EST Office Visit Orthopedic Surgery - [address] [phone] Franklin Velasquez DPM Primary osteoarthritis of both feet (Primary Dx); Dermatophytosis of nail; Pain in toe of right foot; Diabetic mononeuropathy simplex ([facility] V24, [facility] V28); Pain in toe of left foot; Type 2 diabetes mellitus with diabetic polyneuropathy, with long-term current use of insulin ([facility] V24, [facility] V28); Type II diabetes mellitus with peripheral circulatory disorder ([facility] V24, [facility] V28) 02/10/2025 9:00 AM EST Office Visit Adult Medicine - [address] [phone] Roberto Yoon PA Essential hypertension, benign (Primary Dx) 02/09/2025 Telephone Adult Medicine - [address] [phone] Lalita Moran MD 02/08/2025 Telephone Endocrinology - [address] [phone] Earline Rushing PA 02/04/2025 9:30 AM EST Office Visit Endocrinology - [address] [phone] Earline Rushing PA Type 2 diabetes mellitus with diabetic polyneuropathy, with long-term current use of insulin ([facility] V24, [facility] V28) (Primary Dx); Essential hypertension, benign; Morbid obesity with BMI of 45.0-49.9, adult ([facility] V24, [facility] V28); Pure hypercholesterolemia 01/28/2025 11:25 AM EST Lab Draw Station - [address] Type 2 diabetes mellitus with diabetic polyneuropathy, with long-term current use of insulin ([facility] V24, [facility] V28) 01/27/2025 7:55 AM EST Lab Draw Station - [address] Type 2 diabetes mellitus with diabetic polyneuropathy, with long-term current use of insulin ([facility] V24, [facility] V28) 01/27/2025 Results Follow-Up Adult Medicine - [address] [phone] Lalita Moran MD 01/14/2025 Telephone Adult Medicine - [address] [phone] Lalita Moran MD 01/13/2025 9:00 AM EDT Office Visit Adult [address] [phone] Leola Wells NP Essential hypertension, benign (Primary Dx); Type 2 diabetes mellitus with diabetic polyneuropathy, with long-term current use of insulin ([facility] V24, [facility] V28); Neuropathy; Pure hypercholesterolemia; Morbid obesity with BMI of 45.0-49.9, adult ([facility] V24, [facility] V28); Vertigo; Ulcer of toe of right foot, unspecified ulcer stage ([facility] V24, [facility] V28) 12/15/2024 Results Follow-Up Endocrinology - [address] [phone] Earline Rushing PA from Last 3 Months Immunizations Immunization Administration [...] repeat in ten years ESOPHAGOGASTRODUODENOSCOPY 01/30/10 PROCEDURE: UT ESOPHAGOGASTRODUODENOSCOPY TRANSORAL DIAGNOSTIC; COMMENT: normal BACK SURGERY [...] AM EST Office Visit Adult Medicine - [place] [address] [place] [phone] Leola Wells NP [address] [place] [address] 05/17/2025 9:15 AM EST Office Visit Orthopedic Surgery - [place] [address] [phone] Franklin Velasquez, DPM [address] [phone] 05/17/2025 1:40 PM EST Office Visit Endocrinology - [place] [address] [place] [phone] Prabhu Rodriguez MD [address] [place] [address] Health Maintenance Due Date Last Done Comments [...] history exists Depression Screening Completed 02/09/2025, 01/29/20 23 HIB Vaccines Aged Out No longer eligi [...] Date/Time Associated Diagnosis Comments EXTERNAL XRAY REPORT 02/19/2025 EXTERNAL XRAY REPORT 01/29/2025 EXTERNAL XRAY REPORT 01/29/2025 MICROALBUMIN CREATININE URINE RATIO Routine 01/28/2025 11:24 AM EST Type 2 diabetes mellitus with diabetic polyneuropathy, with long-term current use of insulin ([facility] V24, [facility] V28) COMPREHENSIVE METABOLIC PANEL Routine 01/27/2025 8:01 AM EST Type 2 diabetes mellitus with diabetic polyneuropathy, with long-term current use of insulin ([facility] V24, CMS/[facility] V28) HEMOGLOBIN A1C Routine 01/27/2025 8:01 AM EST Type 2 diabetes mellitus with diabetic polyneuropathy, with long-term current use of insulin ([facility] V24, [facility] V28) LIPID PANEL WITH REFLEX TO DIRECT LDL Routine 01/27/2025 8:01 AM EST Type 2 diabetes mellitus with diabetic polyneuropathy, with long-term current use of insulin ([facility] V24, [facility] V28) HEMOGLOBIN A1C Routine 12/11/2024 2:39 PM EDT Type 2 diabetes mellitus with diabetic polyneuropathy, with long-term current use of insulin ([facility] V24, [facility] V28) DIABETES FOOT EXAM Routine 07/29/2023 DEPRESSION SCREENING Routine 01/28/2023 COLONOSCOPY Routine 04/27/2019 HEPATITIS C SCREENING Routine 04/23/2013 from Last 3 Months or Most Recently Relevant to Health Maintenance Results * External Xray Report (02/19/2025) Only the most recent of3 resultswithin the time period is included. Anatomical Region Laterality Modality Radiographic Stella ging us Provider [facility] XR PROCEDURES Final Result * (ABNORMAL) Microalbumin creatinine urine ratio (01/28/2025 11:24 AM EST) Creatinine, Urine 58.0 mg/dL LAB CHEMISTRY METHOD 01/28/2025 6:10 PM [facility] Microalb, Ur 2,490.0(H ) 0.0 - 29.0 mg/L LAB CHEMISTRY METHOD 01/28/2025 6:10 PM [facility] Microalb/Crea t Ratio 4,293(H) <30 mg/g creat LAB CHEMISTRY METHOD 01/28/2025 6:10 PM [facility] Urine Urine specimen obtained by clean catch procedure / Unknown Non-blood Collection / Unknown 01/28/2025 11:24 AM EST 01/28/2025 11:24 AM EST us C Donnell Moran MD LAB URINE ORDERABLES Final Res ult [facility] [address] [place] [address], [place] [phone] * (ABNORMAL) Lipid panel with reflex to direct LDL (01/27/2025 8:01 AM EST) Cholesterol 154 0 - 200 mg/dL LAB CHEMISTRY METHOD 01/27/2025 10:50 AM EST [facility] Triglycerides 167(H) 0 - 150 mg/dL LAB CHEMISTRY METHOD 01/27/2025 10:50 AM [facility] HDL 52 >=40 mg/dL LAB CHEMISTRY METHOD 01/27/2025 10:50 AM [facility] LDL Calculated 69 0 - 100 mg/dL LAB CHEMISTRY METHOD 01/27/2025 10:50 AM [facility] Comment:Estimated LDL Calcul ated using equation: Total cholesterol - HDL cholesterol - (Triglycerides/5) VLDL Cholesterol Ferny 33.4 mg/dL LAB CHEMISTRY METHOD 01/27/2025 10:50 AM EST [facility] Non HDL Chol. (LDL+VLDL) 102 <145 mg/dL LAB CHEMISTRY METHOD 01/27/2025 10:50 AM EST [facility] Chol/HDL Ratio 3.0 0.0 - 4.4 LAB CHEMISTRY METHOD 01/27/2025 10:50 AM [facility] Blood Venous blood specimen / Unknown Venipuncture / Unknown 01/27/2025 8:01 AM EST 01/27/2025 8:01 AM EST us Lalita Moran MD LAB BLOOD ORDERABLES Final Res ult [facility] [address] [place] [address], [place] [phone] * (ABNORMAL) Hemoglobin A1c (01/27/2025 8:01 AM EST) Only the most recent of2 resultswithin the time period is included. Pathologist [facility] [place] Hemoglobin A1C 7.5(H) <6.5 % LAB CHEMISTRY METHOD 01/27/2025 1:34 PM EST [facility] Mean Bld Glu Estim. 169 mg/dL LAB CHEMISTRY METHOD 01/27/2025 1:34 PM [facility] Blood Venous blood specimen / Unknown Venipuncture / Unknown 01/27/2025 8:01 AM EST 01/27/2025 8:01 AM EST [facility] Donnell Moran MD LAB BLOOD ORDERABLES Final Res ult [facility] [address] [place] [address], * (ABNORMAL) Comprehensive metabolic panel (01/27/2025 8:01 AM EST) [facility] Sodium 139 133 - 145 mmol/L LAB CHEMISTRY METHOD 01/27/2025 10:50 AM [facility] Potassium 4.1 3.5 - 5.5 mmol/L LAB CHEMISTRY METHOD 01/27/2025 10:50 AM [facility] Chloride 105 96 - 110 mmol/L LAB CHEMISTRY METHOD 01/27/2025 10:50 AM [facility] CO2 28 21 - 32 mmol/L LAB CHEMISTRY METHOD 01/27/2025 10:50 AM [facility] Anion Gap 6 3 - 11 LAB CHEMISTRY METHOD 01/27/2025 10:50 AM [facility] Glucose 60(L) 70 - 100 mg/dL LAB CHEMISTRY METHOD 01/27/2025 10:50 AM [facility] BUN 18 5 - 25 mg/dL LAB CHEMISTRY METHOD 01/27/2025 10:50 AM [facility] Creatinine 0.89 0.70 - 1.30 mg/dL LAB CHEMISTRY METHOD 01/27/2025 10:50 AM [facility] eGFR 94 >=60 mL/min/1. 73m2 LAB CHEMISTRY METHOD 01/27/2025 10:50 AM [facility] Comment:Calculation based on the Chronic Kidney Disease Epidemiology Collaboration (CKD-EPI) equation refit without adjustment for race. BUN/Creatinine Ratio 20.2 LAB CHEMISTRY METHOD 01/27/2025 10:50 AM [facility] Calcium 9.2 8.5 - 10.5 mg/dL LAB CHEMISTRY METHOD 01/27/2025 10:50 AM [facility] AST (SGOT) 19 10 - 42 unit/L LAB CHEMISTRY METHOD 01/27/2025 10:50 AM [facility] ALT (SGPT) 29 10 - 60 unit/L LAB CHEMISTRY METHOD 01/27/2025 10:50 AM [facility] Alkaline Phosphatase 63 42 - 121 unit/L LAB CHEMISTRY METHOD 01/27/2025 10:50 AM [facility] Total Protein 6.5 6.0 - 8.0 g/dL LAB CHEMISTRY METHOD 01/27/2025 10:50 AM [facility] Albumin 3.4 3.2 - 5.0 g/dL LAB CHEMISTRY METHOD 01/27/2025 10:50 AM [facility] Total Bilirubin 0.6 0.0 - 1.4 mg/dL LAB CHEMISTRY METHOD 01/27/2025 10:50 AM [facility] Blood Venous blood specimen / Unknown Venipuncture / Unknown 01/27/2025 8:01 AM EST 01/27/2025 8:01 AM EST us C Donnell Moran MD LAB BLOOD ORDERABLES Final Res ult [facility] [address] [place] [address], [place] [phone] * Diabetes Foot Exam (07/29/2023) Pathologist [facility] Diabetes: Annual Foot Exam abstracted Historical Provider HEALTH MAINTENANCE Final Result * Depression Screening (01/28/2023) Pathologist [facility] Depression Screening abstracted Historical Provider HEALTH MAINTENANCE Final Result * Colonoscopy (04/27/2019) Pathologist [facility] Colonoscopy no interpreta tion,abstr acted Anatomical Region Laterality Modality Other Historical Provider HEALTH MAINTENANCE Final Result * Hepatitis C Screening (04/23/2013) Pathologist [facility] Hepatitis C Screening abstracted Historical Provider HEALTH MAINTENANCE Final Result from Last 3 Months or Most Recently Relevant to Health Maintenance Insurance [employer] Care Teams Armoring Machine Operator Relationship Specialty Start Date End Date Lalita Moran MD [address] [place] [id number] PCP - General Internal Medicine 07/14/20
--- NOTE | 2025-03-06 12:36 | PC.NURSE ---
left great toe is red on plantar aspect with dark black blister. no interruption in skin. NKI. pt is diabetic. palpable pedal pulses
[2025-03-06 13:25] VITALS: BP 188/82; PULSE 67; RESP 18; TEMP 36.3; O2SAT 94
== END 2025-03-06 13:26 | disposition home or self-care (01) ==
PROVIDERS: Emergency Provider Emergency Medicine; PCP Pediatrics
DX: L03.032 Cellulitis of left toe (principal); R23.8 Other skin changes; M79.675 Pain in left toe(s); I10 Essential (primary) hypertension; I25.10 Atherosclerotic heart disease of native coronary artery without angina pectoris; E11.9 Type 2 diabetes mellitus without complications; Z79.899 Other long term (current) drug therapy; Z79.4 Long term (current) use of insulin
CPT/HCPCS: 73660; 99282; 99283

== ENCOUNTER → 2025-03-06 11:18 | Outpatient (BNV) | payer MEDICARE, SELFPAY | PROVIDERS: PCP Pediatrics; Visit Provider Radiology Diagnostic Radiology | DX: R60.0 Localized edema (principal) | CPT/HCPCS: 73660 ==